=== PATIENT | female | born 1975 | race Caucasian/White ===

== ENCOUNTER 2016-11-20 08:00 | Inpatient (IN) | payer OTHER ==
[~2016-11-20] VITALS: Ht 172.7 cm; Wt 59.9 kg
[~2016-11-20 08:00] MED LIST: ONDA4TAB8 SL; PROM12.59 PO
--- OUTSIDE RECORDS SUMMARY | 2016-11-20 08:06 | XMS REPORT | Continuity of Care Document ---
Author Author [facility] Organization [facility] Address Unknown Phone Unavailable Care Team Providers Care Teacher Drama Name Role Phone NO, LOCAL PHYSICIAN PCP Unavailable Insurance Providers Payer Name Policy Number Subscriber Name Relationship Unknown Advance Directives Directive Response Recorded Date/Time Advance Directives No 11/18/16 8:55am Resuscitation Status Full Code 11/18/16 8:55am Chief Complaint and Reason for Visit Chief Complaint Abdominal/GI Problems Reason for Visit Central abdominal pain Nausea and vomiting Dehydration Hypokalemia Problems Active Problems Medical Problem Onset Date Status Central abdominal pain Unknown Acute Dehydration Unknown Acute Hypokalemia Unknown Acute Nausea and vomiting Unknown Acute Medications Current Home Medications Medication Dose Units Route Directions Days/Qty Instructions Start Date Ondansetron 4 Mg 4 Mg Sublingual Every 4HRS as needed for Nausea/Vomiting 10 11/18/16 Promethazine Hcl 12.5 Mg 12.5 Mg Oral Every 6 Hours as needed for Nausea/ Vomiting 10 11/18/16 Social History Social History Problem Response Recorded Date/Time Alcohol Use Denies Use 11/18/2016 8:55am Recreational Drug Use No 11/18/2016 8:55am Recent Foreign Travel No 11/18/2016 8:52am Recent Infectious Disease Exposure No 11/18/2016 8:52am Smoking Status Never a Smoker 11/18/2016 8:55am Recent Hopitalizations No 11/18/2016 8:55am Query Response Start Date Stop Date Smoking Status Never a Smoker Hospital Discharge Instructions No hospital discharge instructions. Plan of Care Discharge Date 11/18/16 12:50pm Disposition 01 HOME, SELF-CARE Condition at Discharge Improved Instructions/Education Provided Acute Abdomen (Belly Pain), Adult (DC) Prescriptions See Medication Section Referrals NO,LOCAL PHYSICIAN - Primary Care Physician Additional Instructions/Education Drink plenty of clear liquids. You may use Zofran dissolved under the tongue every 4 hours as needed for nausea. Add promethazine for nausea not controlled by Zofran. Turn to the emergency room if symptoms worsen. All up with your primary care provider as soon as possible. Start with a clear liquid diet and gradually advance your diet with small quantities of bland food as tolerated. All discharge instructions reviewed with patient and/or family. Voiced understanding. Functional Status No functional status results. Allergies, Adverse Reactions, Alerts No known allergies. Immunizations No immunization records. Vital Signs Acute Vital Signs Vital Response Date/Time Temperature (Fahrenheit) 97.2 degrees F (97.6 - 99.5) 11/18/2016 8:52am Temperature (Calculated Celsius) 36.53820 degrees C (36.4 - 37.5) 11/18/2016 8:52am Temperature Source Temporal 11/18/2016 8:52am Pulse Rate (adult) 102 bpm (60 - 90) 11/18/2016 8:52am Respiratory Rate 16 bpm (12 - 24) 11/18/2016 8:52am O2 Sat by Pulse Oximetry 98 % (88 - 100) 11/18/2016 8:52am Blood Pressure 107/62 mm Hg 11/18/2016 8:52am Blood Pressure Mean 77 mm Hg 11/18/2016 8:52am Pain Numeric Pain Scale 0-No Pain 11/18/2016 8:52am Height (Feet) 5 feet 11/18/2016 8:52am Height (Inches) 8 inches 11/18/2016 8:52am Height (Calculated Centimeters) 172.789648 cm 11/18/2016 8:52am Weight (Pounds) 132 pounds 11/18/2016 8:52am Weight (Calculated Kilograms) 59.822230 kilograms 11/18/2016 8:52am Capillary Refill Capillary Refill Less Than 3 Seconds 11/18/2016 8:52am Height 5 ft 8 in Weight 132 lb Body Mass Index 20.1 kg/m^2 Results Laboratory Results Test Name Result Units Flags Reference Collection Date/Time Result Date/ Time Comments White Blood Count 8.9 10^3/uL 4.3-11.0 11/18/2016 9:11/18/2016 9: 21am Red Blood Count 5.11 10^6/uL 4.35-5.85 11/18/2016 9:11/18/2016 9: 21am Hemoglobin 13.5 G/DL 11.5-16.0 11/18/2016 9:10a11/18/2016 9:21am Hematocrit 40 % 35-52 11/18/2016 9:10a11/18/2016 9:21am Mean Corpuscular Volume 78 FL L 80-99 11/18/2016 9:10a11/18/2016 9: 21am Mean Corpuscular Hemoglobin 26 PG 25-34 11/18/2016 9:10a11/18/2016 9: 21am Mean Corpuscular Hemoglobin Concent 34 G/DL 32-36 11/18/2016 9:10a 9:21am Red Cell Distribution Width 13.3 % 10.0-14.5 11/18/2016 9:10a2015 9:21am Platelet Count 330 10^3/uL 130-400 11/18/2016 9:11/18/2016 9:21am Mean Platelet Volume 11.9 FL H 7.4-10.4 11/18/2016 9:11/18/2016 9: 21am Neutrophils (%) (Auto) 81 % H 42-75 11/18/2016 9:11/18/2016 9:21am Lymphocytes (%) (Auto) 10 % L 12-44 11/18/2016 9:10a11/18/2016 9:21am Monocytes (%) (Auto) 8 % 0-12 11/18/2016 9:11/18/2016 9:21am Eosinophils (%) (Auto) 2 % 0-10 11/18/2016 9:10a11/18/2016 9:21am Basophils (%) (Auto) 0 % 0-10 11/18/2016 9:10a11/18/2016 9:21am Neutrophils # (Auto) 7.2 X 10^3 1.8-7.8 11/18/2016 9:10a11/18/2016 9: 21am Lymphocytes # (Auto) 0.9 X 10^3 L 1.0-4.0 11/18/2016 9:10am 11/18/2016 9: 21am Monocytes # (Auto) 0.7 X 10^3 0.0-1.0 11/18/2016 9:10am 11/18/2016 9: 21am Eosinophils # (Auto) 0.2 10^3/uL 0.0-0.3 11/18/2016 9:10am 11/18/2016 9 :21am Basophils # (Auto) 0.0 10^3/uL 0.0-0.1 11/18/2016 9:10am 11/18/2016 9: 21am Urine Color YELLOW 11/18/2016 11:56am 11/18/2016 12:11pm Urine Clarity CLEAR 11/18/2016 11:56am 11/18/2016 12:11pm Urine pH 6 5-9 11/18/2016 11:56am 11/18/2016 12:11pm Urine Specific [place] 1.025 * 1.016-1.022 11/18/2016 11:56am 2015 12:11pm Urine Protein 2+ * NEGATIVE 11/18/2016 11:56am 11/18/2016 12:11pm Urine Glucose (UA) NEGATIVE NEGATIVE 11/18/2016 11:56am 11/18/2016 12 :11pm Urine RBC (Auto) 1+ * NEGATIVE 11/18/2016 11:56am 11/18/2016 12:11pm Urine Ketones 4+ * NEGATIVE 11/18/2016 11:56am 11/18/2016 12:11pm Urine Nitrite NEGATIVE NEGATIVE 11/18/2016 11:56am 11/18/2016 12: 11pm Urine Bilirubin NEGATIVE NEGATIVE 11/18/2016 11:56am 11/18/2016 12: 11pm Urine Urobilinogen NORMAL MG/DL NORMAL 11/18/2016 11:56am 11/18/2016 12 :11pm Urine Leukocyte Esterase 1+ * NEGATIVE 11/18/2016 11:56am 11/18/2016 12 :11pm Urine RBC RARE /HPF 11/18/2016 11:56am 11/18/2016 12:11pm Urine WBC RARE /HPF 11/18/2016 11:56am 11/18/2016 12:11pm Urine Bacteria NEGATIVE /HPF 11/18/2016 11:56am 11/18/2016 12:11pm Urine Squamous Epithelial Cells 2-5 /HPF 11/18/2016 11:56am 2015 12:11pm Urine Crystals NONE /LPF 11/18/2016 11:56am 11/18/2016 12:11pm Urine Casts NONE /LPF 11/18/2016 11:56am 11/18/2016 12:11pm Urine Mucus NEGATIVE /LPF 11/18/2016 11:56am 11/18/2016 12:11pm Urine Culture Indicated NO 11/18/2016 11:56am 11/18/2016 12:11pm Sodium Level 140 MMOL/L 135-145 11/18/2016 9:10am 11/18/2016 9:34am Potassium Level 3.3 MMOL/L L 3.6-5.0 11/18/2016 9:10am 11/18/2016 9:34am Chloride Level 100 MMOL/L 98-107 11/18/2016 9:10am 11/18/2016 9:34am Carbon Dioxide Level 23 MMOL/L 21-32 11/18/2016 9:10am 11/18/2016 9: 48am Anion Gap 17 MMOL/L H 5-14 11/18/2016 9:10am 11/18/2016 9:48am Blood Urea Nitrogen 10 MG/DL 7-18 11/18/2016 9:10am 11/18/2016 9:48am Creatinine 1.22 MG/DL 0.60-1.30 11/18/2016 9:10am 11/18/2016 9:48am BUN/Creatinine Ratio 8 11/18/2016 9:10am 11/18/2016 9:48am Estimat Glomerular Filtration Rate 49 11/18/2016 9:10am 11/18/2016 9:48am GFR INTERPRETIVE DATA UNITS FOR ESTIMATED GFR (eGFR): mL/min/1.73 M2 REFERENCE RANGE FOR ESTIMATED GFR (eGFR) eGFR NORMAL eGFR >60 MODERATELY DECREASED eGFR 30-59 SEVERLY DECREASED eGFR 15-29 KIDNEY FAILURE <15 (OR DIALYSIS) Glucose Level 110 MG/DL H 70-105 11/18/2016 9:10am 11/18/2016 9:48am Calcium Level 10.4 MG/DL H 8.5-10.1 11/18/2016 9:10am 11/18/2016 9:34am Magnesium Level 2.1 MG/DL 1.8-2.4 11/18/2016 9:10am 11/18/2016 9:34am Total Bilirubin 0.5 MG/DL 0.1-1.0 11/18/2016 9:10am 11/18/2016 9:34am Alkaline Phosphatase 65 U/L 40-136 11/18/2016 9:10am 11/18/2016 9:48am Aspartate Amino Transf (AST/SGOT) 21 U/L 5-34 11/18/2016 9:10am 2015 9:48am Alanine Aminotransferase (ALT/SGPT) 24 U/L 0-55 11/18/2016 9:10am 11/18 9:48am Total Protein 7.2 G/DL 6.4-8.2 11/18/2016 9:10am 11/18/2016 9:48am Albumin 4.6 G/DL H 3.2-4.5 11/18/2016 9:10am 11/18/2016 9:48am Lipase 44 U/L 8-78 11/18/2016 9:10am 11/18/2016 9:48am Procedures No known history of procedures. Encounters Encounter Location Arrival/Admit Date Discharge/Depart Date Attending Provider Departed Emergency Room [facility] 11/18/16 8:38am 11/18 12:50pm EDVIN HERNADEZ MD Recent Diagnosis
[2016-11-20] MEDS ORDERED: FAMOTIDINE 20MG/2ML IV (PEPCID) IV STA (08:48)
[2016-11-20] MEDS ORDERED: NS IV 1000 ML 1,000 ML IV STA (08:48)
[2016-11-20] MEDS ORDERED: ONDANSETRON 4 MG/2 ML (SDV) Z0FRAN IVP ONE (09:00)
--- NOTE | 2016-11-20 09:10 | ED GI ---
General Chief Complaint: Abdominal/GI Problems Stated Complaint: VOMITING Nursing Triage Note: PT STATES VOMITING OFF AND ON FOR ABOUT 3 1/2 WEEKS, DAILY FOR THE LAST WEEK, WAS SEEN HERE ON FRIDAY OF THIS WEEK FOR THE SAME. RX ZOFRAN DID NOT WORK LAST NIGHT. ALSO HEADACHE. Sepsis Screen: No Definite Risk Source of Information: Patient Exam Limitations: No Limitations History of Present Illness Time Seen By Provider: 08:55 Initial Comments Here with report of vomiting over the last week. Seen a few days ago for the same and had prescriptions and fluids and was better. Last night and vomited again. She tried Zofran and was trying to get sips of fluids today but was unable to keep anything down so presented to the ER again. Mild intermittent abdominal cramping noted. No blood in her vomit or stool. Denies dysuria. Denies fever or chills but does feel weak. She did take Phenergan about 7 a.m. this morning and that is not helping. Timing/Duration: 1 Week, Intermittent Severity/Quality: Moderate, Cramping Location: Generalized Abdomen Radiation: No Radiation Activities at Onset: None Modifying Factors: Worsens With Eating, Improves With Vomiting Associated Symptoms: No Back Pain, No Chest Pain, No Fever/Chills, Fatigue Nausea/VomitingNo Shortness of Air, Weakness Allergies and Home Medications Allergies Coded Allergies: No Known Drug Allergies (Unverified , 11/18/16) Home Medications Ondansetron 4 Mg Tab.rapdis #10 4 MG SL Q4H PRN PRN NAUSEA/VOMITING Prescribed by: EDVIN RECIO on 11/18/16 1234 Promethazine HCl 12.5 Mg Tablet #10 12.5 MG PO Q6H PRN PRN NAUSEA/VOMITING Prescribed by: EDVIN RECIO on 11/18/16 1234 Review of Systems Constitutional: see HPINo chills, No fever EENTM: No Symptoms Reported Respiratory: No Symptoms Reported Cardiovascular: No Symptoms Reported Gastrointestinal: See HPI Abdominal PainDenies Diarrhea, Nausea Vomiting Genitourinary: No Symptoms Reported Musculoskeletal: no symptoms reported All Other Systems Reviewed Negative Unless Noted: Yes Past Jrlstpf-Eialed-Gnuwiu Hx Patient Social History Alcohol Use: Rarely Uses Recreational Drug Use: No Smoking Status: Never a Smoker Recent Foreign Travel: No Contact w/Someone Who Travel: No Recent Infectious Disease Expo: No Recent Hopitalizations: No Physical Abuse Screen: No Sexual Abuse: No Seasonal Allergies Seasonal Allergies: No Surgeries HX Surgeries: No Respiratory Hx Respiratory Disorders: No Cardiovascular Hx Cardiac Disorders: No Neurological Hx Neurological Disorders: No Reproductive System : No Hx Reproductive Disorders: No Genitourinary Hx Genitourinary Disorders: No Gastrointestinal Hx Gastrointestinal Disorders: No Musculoskeletal Hx Musculoskeletal Disorders: No Endocrine Hx Endocrine Disorders: No HEENT HX ENT Disorders: No Cancer Hx Cancer: No Psychosocial Hx Psychiatric Problems: No Integumentary HX Skin/Integumentary Disorder: No Blood Transfusions Hx Blood Disorders: No Reviewed Nursing Assessment Reviewed/Agree w Nursing PMH: Yes Family Medical History Significant Family History: No Pertinent Family Hx Physical Exam Vital Signs VS - Last 72 Hours, by Label 11/20/16 08:37 Temp 98.5 Pulse 99 Resp 22 B/P 107/89 Pulse Ox 99 O2 Delivery Room Air Capillary Refill : Less Than 3 Seconds General Appearance: WD/WN no apparent distress HEENT: PERRL/EOMI pharynx normal Neck: full range of motion supple Respiratory: lungs clear normal breath sounds Cardiovascular: no murmur tachycardia Peripheral Pulses: 2+ Dorsalis Pedis (R), 2+ Left Dors-Pedis (L), 2+ Radial Pulses (R), 2+ Radial Pulses (L) Gastrointestinal: non tender soft Extremities: non-tender normal inspection Back: normal inspection no CVA tenderness no vertebral tenderness Neurologic/Psychiatric: alert Skin: warm/dry pallor Progress/Results/Core Measures Results/Orders Lab Results Laboratory Tests Test 11/20/16 09:05 11/20/16 09:55 Range/Units Alanine Aminotransferase (ALT/SGPT) 20 0-55 U/L Albumin 4.7 H 3.2-4.5 G/DL Alkaline Phosphatase 69 40-136 U/L Anion Gap 17 H 5-14 MMOL/L Anisocytosis SLIGHT Aspartate Amino Transf (AST/SGOT) 20 5-34 U/L BUN/Creatinine Ratio 7 Band Neutrophils 0 % Basophils # (Auto) 0.0 0.0-0.1 10^3/uL Basophils % (Manual) 0 % Basophils (%) (Auto) 0 0-10 % Blood Urea Nitrogen 8 7-18 MG/DL C-Reactive Protein High Sensitivity 0.16 0.00-0.50 MG/DL Calcium Level 9.5 8.5-10.1 MG/DL Carbon Dioxide Level 22 21-32 MMOL/L Chloride Level 99 98-107 MMOL/L Creatinine 1.16 0.60-1.30 MG/DL Eosinophils # (Auto) 0.1 0.0-0.3 10^3/uL Eosinophils % (Manual) 1 % Eosinophils (%) (Auto) 1 0-10 % Estimat Glomerular Filtration Rate 51 Glucose Level 82 70-105 MG/DL Hematocrit 40 35-52 % Hemoglobin 13.4 11.5-16.0 G/DL Human Chorionic Gonadotropin, Quant < 5 <5 MIU/ML Lymphocytes # (Auto) 0.8 L 1.0-4.0 X 10^3 Lymphocytes % (Manual) 10 % Lymphocytes (%) (Auto) 7 L 12-44 % Magnesium Level 2.3 1.8-2.4 MG/DL Mean Corpuscular Hemoglobin 26 25-34 PG Mean Corpuscular Hemoglobin Concent 34 32-36 G/DL Mean Corpuscular Volume 78 L 80-99 FL Mean Platelet Volume 11.9 H 7.4-10.4 FL Metamyelocytes % 0 % Microcytosis SLIGHT Monocytes # (Auto) 0.8 0.0-1.0 X 10^3 Monocytes % (Manual) 3 % Monocytes (%) (Auto) 7 0-12 % Neutrophils # (Auto) 9.1 H 1.8-7.8 X 10^3 Neutrophils % (Manual) 86 % Neutrophils (%) (Auto) 84 H 42-75 % Platelet Count 306 130-400 10^3/uL Poikilocytosis SLIGHT Potassium Level 3.5 L 3.6-5.0 MMOL/L Red Blood Count 5.10 4.35-5.85 10^6/uL Red Cell Distribution Width 13.3 10.0-14.5 % Sodium Level 138 135-145 MMOL/L Total Bilirubin 0.5 0.1-1.0 MG/DL Total Protein 7.3 6.4-8.2 G/DL White Blood Count 10.8 4.3-11.0 10^3/uL Urine Bacteria FEW H /HPF Urine Bilirubin 2+ H NEGATIVE Urine Casts NONE /LPF Urine Clarity CLEAR Urine Color YELLOW Urine Crystals NONE /LPF Urine Culture Indicated NO Urine Glucose (UA) NEGATIVE NEGATIVE Urine Ketones 4+ H NEGATIVE Urine Leukocyte Esterase 1+ H NEGATIVE Urine Mucus SMALL H /LPF Urine Nitrite NEGATIVE NEGATIVE Urine Protein 1+ H NEGATIVE Urine RBC 0-2 /HPF Urine RBC (Auto) 1+ H NEGATIVE Urine Specific [place] 1.025 H 1.016-1.022 Urine Squamous Epithelial Cells >50 H /HPF Urine Urobilinogen 1 NORMAL MG/DL Urine WBC 0-2 /HPF Urine pH 5 5-9 My Orders Orders-RAJESH OLIVEIRA MD Cbc With Automated Diff (11/20/16 08:48) Comprehensive Metabolic Panel (11/20/16 08:48) Hs C Reactive Protein (11/20/16 08:48) Magnesium (11/20/16 08:48) Ua Culture If Indicated (11/20/16 08:48) Ondansetron Injection (Zofran Injectio (11/20/16 09:00) Ns Iv 1000 Ml (Sodium Chloride 0.9%) (11/20/16 08:48) Famotidine Injection (Pepcid Injection) (11/20/16 08:48) Saline Lock/Iv-Start (11/20/16 08:48) Manual Differential (11/20/16 09:05) D5 Ns 1000 Ml Iv Solution (Dextrose 5%/0 (11/20/16 09:53) Hcg,Quantitative (11/20/16 10:16) Medications Given in ED Current Medications Medications Dose Ordered Sig/Cabrera Route Start Time Stop Time Status Last Admin Dose Admin Ondansetron HCl 4 mg ONCE ONCE IVP 11/20/16 09:00 11/20/16 09:01 DC 11/20/16 09:13 4 MG Vital Signs/I&O Vital Sign - Last 12Hours 11/20/16 08:37 Temp 98.5 Pulse 99 Resp 22 B/P 107/89 Pulse Ox 99 O2 Delivery Room Air Blood Pressure Mean: 95 Progress Note : Progress Note Seen and evaluated. IV, labs and UA ordered. Normal saline 1 L bolus. Zofran 4 mg IV and Pepcid 20 mg IV ordered. Monitor patient. I did review previous visit and labs. Repeat fluids bolus with D5NS. Patient remains nauseated. Phenergan 25 mg IV. Patient is still nauseated. I did discuss the case with Dr. MEYERS at 1200. He accepts patient for admission, observation status. Patient and family agree with plan. Departure Communication Time/Spoke to Admitting Phy: 12:00 Impression Impression: Primary Impression: Intractable nausea and vomiting Qualified Code: R11.2 - Nausea with vomiting, unspecified Additional Impression: Dehydration Disposition: ADMITTED INPATIENT Condition: Stable Decision to Admit Reason: Admit from ER (General) Decision to Admit/Date: Nov 20, 2016 Time/Decision to Admit Time: 12:00 Departure-Patient Inst. Referrals: NO,LOCAL PHYSICIAN (PCP/Family) Primary Care Physician RAJESH OLIVEIRA MD Nov 20, 2016 09:10
[2016-11-20 09:17] LABS: BASOPHILS % (AUTO) 0 % (0-10); EOSINOPHILS # (AUTO) 0.1 10^3/uL (0.0-0.3); EOSINOPHILS % (AUTO) 1 % (0-10); LYMPHOCYTES # (AUTO) 0.8 X 10^3 (1.0-4.0); LYMPHOCYTES % (AUTO) 7 % (12-44); MEAN CORPUSCULAR HEMOGLOBIN 26 PG (25-34); MEAN CORPUSCULAR HGB CONC 34 G/DL (32-36); MEAN CORPUSCULAR VOLUME 78 FL (80-99); MEAN PLATELET VOLUME 11.9 FL (7.4-10.4); MONOCYTES # (AUTO) 0.8 X 10^3 (0.0-1.0); MONOCYTES % (AUTO) 7 % (0-12); NEUTROPHILS # (AUTO) 9.1 X 10^3 (1.8-7.8); NEUTROPHILS % (AUTO) 84 % (42-75); PLATELET COUNT 306 10^3/uL (130-400); RED CELL DISTRIBUTION WIDTH 13.3 % (10.0-14.5); WHITE BLOOD COUNT 10.8 10^3/uL (4.3-11.0)
[2016-11-20 09:34] LABS: ALBUMIN 4.7 G/DL (3.2-4.5); BILIRUBIN,TOTAL 0.5 MG/DL (0.1-1.0); CALCIUM 9.5 MG/DL (8.5-10.1); CREATININE SERUM 1.16 MG/DL (0.60-1.30); MAGNESIUM 2.3 MG/DL (1.8-2.4); POTASSIUM 3.5 MMOL/L (3.6-5.0); TOTAL PROTEIN 7.3 G/DL (6.4-8.2); hs C REACTIVE PROTEIN 0.16 MG/DL (0.00-0.50)
[2016-11-20 09:39] LABS: ANISOCYTOSIS SLIGHT; BAND NEUTROPHILS 0 %; BASOPHILS % (MANUAL) 0 %; EOSINOPHILS % (MANUAL) 1 %; LYMPHOCYTES % (MANUAL) 10 %; METAMYELOCYTES % 0 %; MICROCYTOSIS SLIGHT; NEUTROPHILS % (MANUAL) 86 %; POIKILOCYTOSIS SLIGHT
[2016-11-20] MEDS ORDERED: D5 NS 1000 ML IV SOLUTION 1,000 ML IV STA (09:53)
[2016-11-20 10:06] LABS: KETONES,URINE 4+ (NEGATIVE); LEUKOCYTE ESTERASE ,URINE 1+ (NEGATIVE); NITRITE,URINE NEGATIVE (NEGATIVE); PH,URINE 5 (5-9); PROTEIN,URINE 1+ (NEGATIVE); UROBILINOGEN,URINE 1 MG/DL (NORMAL)
[2016-11-20 10:23] LABS: BILIRUBIN,URINE 2+ (NEGATIVE); SQUAMOUS EPITHELIAL CELL,UR >50 /HPF; WBC,URINE 0-2 /HPF
[2016-11-20] MEDS ORDERED: PROMETHAZINE INJ 25 MG/ML (PHENERGAN) AMP IVP STA (12:06)
[2016-11-20] MEDS ORDERED: PROMETHAZINE INJ 25 MG/ML (PHENERGAN) AMP IV PRN (13:15)
[2016-11-20] MEDS ORDERED: CATHETER FLUSH 10 ML SYR IV PRN (13:15)
[2016-11-20] MEDS: NS IV 1000 ML 1,000 ML IV SCH ×3 (13:22→21:00)
[2016-11-20] MEDS ORDERED: ONDA4TAB8 PO (13:48)
[2016-11-20] MEDS ORDERED: PROM12.59 PO (13:48)
[2016-11-20 16:00] VITALS: BP 94/58
[2016-11-20] MEDS ORDERED: FLU TRIvalent (5 YOA+) 2016-17 (AFLURIA) 0.5 ML IM ONE (16:30)
[2016-11-20] MEDS: ONDANSETRON 4 MG/2 ML (SDV) Z0FRAN IV PRN (17:38)
[2016-11-20 20:00] VITALS: BP 85/51
[2016-11-21 00:15] VITALS: BP 89/54
[2016-11-21] MEDS: NS IV 1000 ML 1,000 ML IV SCH ×3 (01:38→18:33)
[2016-11-21 04:00] VITALS: BP 96/50
[2016-11-21 06:55] LABS: BASOPHILS % (AUTO) 0 % (0-10); EOSINOPHILS # (AUTO) 0.2 10^3/uL (0.0-0.3); EOSINOPHILS % (AUTO) 2 % (0-10); LYMPHOCYTES % (AUTO) 14 % (12-44); MEAN CORPUSCULAR HEMOGLOBIN 26 PG (25-34); MEAN CORPUSCULAR HGB CONC 32 G/DL (32-36); MEAN CORPUSCULAR VOLUME 81 FL (80-99); MONOCYTES # (AUTO) 0.5 X 10^3 (0.0-1.0); MONOCYTES % (AUTO) 7 % (0-12); NEUTROPHILS # (AUTO) 5.5 X 10^3 (1.8-7.8); NEUTROPHILS % (AUTO) 76 % (42-75); PLATELET COUNT 222 10^3/uL (130-400); RED BLOOD COUNT 4.12 10^6/uL (4.35-5.85); RED CELL DISTRIBUTION WIDTH 13.3 % (10.0-14.5); WHITE BLOOD COUNT 7.2 10^3/uL (4.3-11.0)
[2016-11-21 07:29] LABS: ALANINE AMINOTRANSFERASE 13 U/L (0-55); ALBUMIN 3.2 G/DL (3.2-4.5); ANION GAP 9 MMOL/L (5-14); ASPARTATE AMINO TRANSFERASE 14 U/L (5-34); BILIRUBIN,TOTAL 0.3 MG/DL (0.1-1.0); BLOOD UREA NITROGEN 8 MG/DL (7-18); BUN/CREATININE RATIO 10; CALCIUM 7.5 MG/DL (8.5-10.1); CARBON DIOXIDE 20 MMOL/L (21-32); CHLORIDE 111 MMOL/L (98-107); CREATININE SERUM 0.81 MG/DL (0.60-1.30); GFR ESTIMATED > 60; GLUCOSE 64 MG/DL (70-105); SODIUM 140 MMOL/L (135-145); TOTAL PROTEIN 5.1 G/DL (6.4-8.2)
[2016-11-21 08:00] VITALS: BP 92/51
[2016-11-21] MEDS ORDERED: MAGNESIUM 1 GM/100 ML IVPB 100 ML IV NR (09:15)
[2016-11-21] MEDS: SCOPOLAMINE 1.5 MG (TRANSDERM-SCOP) PATCH TOP SCH (10:09)
--- NOTE | 2016-11-21 10:46 | History & Physical-Hospitalist ---
HPI History of Present Illness: HPI/Chief Complaint CC: Abdominal pain with recurrent N/V with 8# wt loss in past 1 month Chart Review: Hgb: 10.8 WBC: 7.2 Dr. Marti Consult: Dr. Durbin requests that Dr. Marti assist with pt care. Dr. Marti will come on board. Patient Interview: Pt states that she woke up thirsty, and after drinking water her nausea returned. Pt denies having PCP. Pt denies having any previous operations. Pt denies having fever prior to admission. 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 Pt's in April of lung cancer. was 50yo. Pt denies smoking or drinking excessive ETOH. Pt states that she had abdominal pain in the middle of her abdomen this morning. Pain lasted a few minutes. Physical exam was stable. Pt states that she had a small BM yesterday. Pt states that she had an x-ray at [facility] in [place] two weeks ago. Pt states that she has had persistent nausea and stomach pain for the past month , and symptoms have become severe this past week. Pt has lost around 5lbs. Pt states that she has not eaten much this week. Pt had some water within the past hour. Pt denies having CT scan or ultrasound. Pt still has gallbladder. Scribed by Oliver Noguera under the direct supervision of Dr. Durbin. 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 ) Alcohol Use: Rarely Uses Recreational Drug Use: No Smoking Status: Never a Smoker Physical Abuse Screen: No Sexual Abuse: No Recent Foreign Travel: No Contact w/other who traveled: No Recent Hopitalizations: No Recent Infectious Disease Expo: No Seasonal Allergies Seasonal Allergies: No Surgeries HX Surgeries: No Respiratory Hx Respiratory Disorders: No Cardiovascular Hx Cardiovascular Disorders: No Neurological Hx Neurological Disorders: No Reproductive System : No Hx Reproductive Disorders: No Genitourinary Hx Genitourinary Disorders: No Gastrointestinal Hx Gastrointestinal Disorders: No Musculoskeletal Hx Musculoskeletal Disorders: No Endocrine Hx Endocrine Disorders: No HEENT HX ENT Disorders: No Cancer Hx Cancer: No (leep procedure 8-9yrs ago- normal) Psychosocial Hx Psychiatric Problems: No Integumentary HX Skin/Integumentary Disorder: No Blood Transfusions Hx Blood Disorders: No Reviewed Nursing Assessment Reviewed/Agree w Nursing PMH: Yes Family Medical History Significant Family History: No Pertinent Family Hx Family Hx: Anxiety disorder G8 SISTER Asthma G8 BROTHER Review of Systems Constitutional: see HPI dizziness weakness EENTM: no symptoms reported Respiratory: no symptoms reported Cardiovascular: no symptoms reported Gastrointestinal: abdominal pain (LUQ) loss of appetite nausea vomiting Genitourinary: decreased output Musculoskeletal: no symptoms reported Skin: no symptoms reported Psychiatric/Neurological: No Symptoms Reported All Other Systems Reviewed Negative Unless Noted: Yes Physical Exam Physical Exam Vital Signs Vital Sign - Last 12Hours 11/20/16 08:37 Temp 98.5 Pulse 99 Resp 22 B/P 107/89 Pulse Ox 99 O2 Delivery Room Air Capillary Refill : Less Than 3 Seconds General Appearance: No Apparent Distress WD/WN Chronically ill Thin Eyes: Bilateral Eye Normal Inspection, Bilateral Eye PERRL HEENT: PERRL/EOMI Normal ENT Inspection Pharynx Normal Neck: Full Range of Motion Normal Inspection Non Tender Supple Carotid Bruit Respiratory: Chest Non Tender Lungs Clear Normal Breath Sounds No Accessory Muscle Use No Respiratory Distress Cardiovascular: Regular Rate, Rhythm No Edema No Gallop No JVD No Murmur Normal Peripheral Pulses Gastrointestinal: Normal Bowel Sounds No Organomegaly No Pulsatile Mass Soft Tenderness (mild generalized) Back: Normal Inspection No CVA Tenderness No Vertebral Tenderness Extremity: Normal Capillary Refill Normal Inspection Normal Range of Motion Non Tender No Calf Tenderness No Pedal Edema Neurologic/Psychiatric: Alert Oriented x3 No Motor/Sensory Deficits Normal Mood/Affect Skin: Normal Color Warm/Dry Lymphatic: No Adenopathy Results Results/Procedures Lab Laboratory Tests 11/20/16 09:05 11/21/16 06:13 Assessment/Plan Admission Diagnosis Abdominal pain with recurrent N/V w/nl labs and 8# wt loss in past 1 month Assessment and Plan Plan: Nausea meds Scope patch Zofran Phenergan IVF Replace K+ and Mg+ IV Check CT and ultrasound Consult Dr. Marti Clinical Quality Measures DVT/VTE Risk/Contraindication: Risk Factor Score Per Nursin RFS Level Per Nursing on Admit: 1=Low/No VTE PPX CHANEL DURBIN DO Nov 21, 2016 10:46
[2016-11-21] MEDS: POTASSIUM CL 10MEQ/50ML IVPB 50 ML IV SCH ×4 (11:13→18:32)
--- NOTE | 2016-11-21 11:14 | Consultation ---
History of Present Illness History of Present Illness Patient Consulted On(viviana/time) 11/21/16 11:08 Date of Admission History of Present Illness This is a 41-year-old female patient who reports that she has had nausea and vomiting 1 month. Patient reports that doesn't matter what she eats, she ends up throwing up. Patient states that the last 1 week it has gotten worse. She states that she was in the emergency room twice to chair and intractable nausea and vomiting. She reports she's been trying to keep herself hydrated with no success She complains of sharp pain to her epigastric area with palpation. Patient is alert and oriented 3. No signs of distress or respiratory dysfunction is noted. Abdomen is soft to palpation. Patient complaining of pain to palpation over the epigastric area. Allergies and Home Medications Allergies Coded Allergies: No Known Drug Allergies (Unverified , 11/18/16) Home Medications Ondansetron 4 Mg Tab.rapdis 4 MG PO Q4H PRN PRN NAUSEA/VOMITING (Reported) Promethazine HCl 12.5 Mg Tablet 12.5 MG PO Q6H PRN PRN NAUSEA/VOMITING (Reported ) Past Mykkwvj-Hjnqog-Hsptra Hx Patient Social History Alcohol Use: Rarely Uses Recreational Drug Use: No Smoking Status: Never a Smoker Recent Foreign Travel: No Contact w/Someone Who Travel: No Recent Infectious Disease Expo: No Recent Hopitalizations: No Physical Abuse Screen: No Sexual Abuse: No Seasonal Allergies Seasonal Allergies: No Surgeries HX Surgeries: No Respiratory Hx Respiratory Disorders: No Cardiovascular Hx Cardiac Disorders: No Reproductive System : No Hx Reproductive Disorders: No Genitourinary Hx Genitourinary Disorders: No Gastrointestinal Hx Gastrointestinal Disorders: No Musculoskeletal Hx Musculoskeletal Disorders: No Endocrine Hx Endocrine Disorders: No HEENT HX ENT Disorders: No Cancer Hx Cancer: No (leep procedure 8-9yrs ago- normal) Psychosocial Hx Psychiatric Problems: No Integumentary HX Skin/Integumentary Disorder: No Blood Transfusions Hx Blood Disorders: No Reviewed Nursing Assessment Reviewed/Agree w Nursing PMH: Yes Family Medical History Significant Family History: No Pertinent Family Hx Family Medial History: Anxiety disorder G8 SISTER Asthma G8 BROTHER Review of Systems-General Constitutional: see HPI weight loss (5 lbs) EENTM: no symptoms reported Respiratory: no symptoms reported Cardiovascular: no symptoms reported Gastrointestinal: abdominal pain nausea vomiting Genitourinary: no symptoms reported Musculoskeletal: no symptoms reported Skin: no symptoms reported Psychiatric/Neurological: No Symptoms Reported Physical Exam-General Problems Physical Exam Vital Signs Vital Sign - Last 12Hours 11/20/16 08:37 Temp 98.5 Pulse 99 Resp 22 B/P 107/89 Pulse Ox 99 O2 Delivery Room Air Capillary Refill : Less Than 3 Seconds General Appearance: no apparent distress Neck: supple normal inspection Respiratory: normal breath sounds no respiratory distress no accessory muscle use Cardiovascular: regular rate, rhythm Gastrointestinal: normal bowel sounds soft no organomegaly tenderness ( epigastric area) Extremities: no pedal edema Neurologic/Psychiatric: alert normal mood/affect oriented x 3 Skin: normal color warm/dry Data Review Labs Laboratory Tests Test 11/20/16 09:05 11/20/16 09:55 11/21/16 06:13 Range/Units Alanine Aminotransferase (ALT/SGPT) 20 13 0-55 U/L Albumin 4.7 H 3.2 3.2-4.5 G/DL Alkaline Phosphatase 69 47 40-136 U/L Anion Gap 17 H 9 5-14 MMOL/L Anisocytosis SLIGHT Aspartate Amino Transf (AST/SGOT) 20 14 5-34 U/L BUN/Creatinine Ratio 7 10 Band Neutrophils 0 % Basophils # (Auto) 0.0 0.0 0.0-0.1 10^3/uL Basophils % (Manual) 0 % Basophils (%) (Auto) 0 0 0-10 % Blood Urea Nitrogen 8 8 7-18 MG/DL C-Reactive Protein High Sensitivity 0.16 0.00-0.50 MG/DL Calcium Level 9.5 7.5 L 8.5-10.1 MG/DL Carbon Dioxide Level 22 20 L 21-32 MMOL/L Chloride Level 99 111 H 98-107 MMOL/L Creatinine 1.16 0.81 0.60-1.30 MG/DL Eosinophils # (Auto) 0.1 0.2 0.0-0.3 10^3/uL Eosinophils % (Manual) 1 % Eosinophils (%) (Auto) 1 2 0-10 % Estimat Glomerular Filtration Rate 51 > 60 Glucose Level 82 64 L 70-105 MG/DL Hematocrit 40 33 L 35-52 % Hemoglobin 13.4 10.8 L 11.5-16.0 G/DL Human Chorionic Gonadotropin, Quant < 5 <5 MIU/ML Lymphocytes # (Auto) 0.8 L 1.0 1.0-4.0 X 10^3 Lymphocytes % (Manual) 10 % Lymphocytes (%) (Auto) 7 L 14 12-44 % Magnesium Level 2.3 1.8-2.4 MG/DL Mean Corpuscular Hemoglobin 26 26 25-34 PG Mean Corpuscular Hemoglobin Concent 34 32 32-36 G/DL Mean Corpuscular Volume 78 L 81 80-99 FL Mean Platelet Volume 11.9 H 12.0 H 7.4-10.4 FL Metamyelocytes % 0 % Microcytosis SLIGHT Monocytes # (Auto) 0.8 0.5 0.0-1.0 X 10^3 Monocytes % (Manual) 3 % Monocytes (%) (Auto) 7 7 0-12 % Neutrophils # (Auto) 9.1 H 5.5 1.8-7.8 X 10^3 Neutrophils % (Manual) 86 % Neutrophils (%) (Auto) 84 H 76 H 42-75 % Platelet Count 306 222 130-400 10^3/uL Poikilocytosis SLIGHT Potassium Level 3.5 L 3.0 L 3.6-5.0 MMOL/L Red Blood Count 5.10 4.12 L 4.35-5.85 10^6/uL Red Cell Distribution Width 13.3 13.3 10.0-14.5 % Sodium Level 138 140 135-145 MMOL/L Total Bilirubin 0.5 0.3 0.1-1.0 MG/DL Total Protein 7.3 5.1 L 6.4-8.2 G/DL White Blood Count 10.8 7.2 4.3-11.0 10^3/uL Urine Bacteria FEW H /HPF Urine Bilirubin 2+ H NEGATIVE Urine Casts NONE /LPF Urine Clarity CLEAR Urine Color YELLOW Urine Crystals NONE /LPF Urine Culture Indicated NO Urine Glucose (UA) NEGATIVE NEGATIVE Urine Ketones 4+ H NEGATIVE Urine Leukocyte Esterase 1+ H NEGATIVE Urine Mucus SMALL H /LPF Urine Nitrite NEGATIVE NEGATIVE Urine Protein 1+ H NEGATIVE Urine RBC 0-2 /HPF Urine RBC (Auto) 1+ H NEGATIVE Urine Specific [place] 1.025 H 1.016-1.022 Urine Squamous Epithelial Cells >50 H /HPF Urine Urobilinogen 1 NORMAL MG/DL Urine WBC 0-2 /HPF Urine pH 5 5-9 Laboratory Tests 11/21/16 06:13: Alanine Aminotransferase (ALT/SGPT) 13, Albumin 3.2, Alkaline Phosphatase 47, Anion Gap 9, Aspartate Amino Transf (AST/SGOT) 14, BUN/Creatinine Ratio 10, Basophils # (Auto) 0.0, Basophils (%) (Auto) 0, Blood Urea Nitrogen 8, Calcium Level 7.5L, Carbon Dioxide Level 20L, Chloride Level 111H, Creatinine 0.81, Eosinophils # (Auto) 0.2, Eosinophils (%) (Auto) 2, Estimat Glomerular Filtration Rate > 60, Glucose Level 64L, Hematocrit 33L, Hemoglobin 10.8L, Lymphocytes # (Auto) 1.0, Lymphocytes (%) (Auto) 14, Mean Corpuscular Hemoglobin 26, Mean Corpuscular Hemoglobin Concent 32, Mean Corpuscular Volume 81, Mean Platelet Volume 12.0H, Monocytes # (Auto) 0.5, Monocytes (%) (Auto) 7, Neutrophils # (Auto) 5.5, Neutrophils (%) (Auto) 76H, Platelet Count 222, Potassium Level 3.0L, Red Blood Count 4.12L, Red Cell Distribution Width 13.3, Sodium Level 140, Total Bilirubin 0.3, Total Protein 5.1L, White Blood Count 7.2 Assessment/Plan Assessment/Plan Assessment/Plan Intractable nausea and vomiting-Being addressed by hospitalist Epigastric pain CT of the abdomen and pelvis has been ordered. Patient is currently undergoing testing of the gallbladder via ultrasound. Awaiting results. We will continue to monitor patient. Kaia- Patient is a 41 year old female that has had 1 month of nausea and vomiting. She states she was initially vomiting 1-2 times per day and now more frequently. Patient has some pain in the epigastric region and sometimes in the middle of abdomen, no radiation. Nothing makes worse, nothing makes better. Pain is cramping in nature. Denies any blood in emesis. She is having some flatus and bowel movements not noticed any blood in stools. She had a ct scan which i reviewed that shows an obstruction of proximal jejunum appears to be secondary to mass. I discussed with Dr. Corado and to further evaluated we fill would benefit from ct scan with oral contrast. general no acute distress laying in bed heart regular lungs nonlabored. abdomen soft has some minimal tenderness in middle of abomen/epigastric region ext nontender normal mood affect alert and oriented. proximal jejunal small bowel obstruction nausea and vomiting electrolyte abnormalities discussed with patient ct scan findings. dr corado and I feel ct scan with oral contrast to better evaluate this area feel this is likely small bowel mass. patient will have ng tube placed to decompress and have ct scan with Gastrografin in am. I discussed possibility of needing exploratory laparotomy depending upon ct results. patient understand plan type and screen added to am labs Clinical Quality Measures DVT/VTE Risk/Contraindication: Risk Factor Score Per Nursin RFS Level Per Nursing on Admit: 1=Low/No VTE PPX DOM BEYER APRN Nov 21, 2016 11:14 KUSHAL BOWMAN DO Nov 21, 2016 15:09
[2016-11-21] MEDS ORDERED: NS 100 ML (IVPB) BAG IV ONE (11:30)
[2016-11-21] MEDS ORDERED: IOHEXOL 350 MG/ML 100 ML (OMNIPAQUE 350) VIAL IV ONE (11:30)
[2016-11-21 12:00] VITALS: BP 98/52
--- NOTE | 2016-11-21 12:41 | Diagnostic Imaging Report ---
PROCEDURE: CT abdomen and pelvis with contrast. TECHNIQUE: Multiple contiguous axial images were obtained through the abdomen and pelvis after administration of intravenous contrast. INDICATION: Abdominal pain and vomiting. 100 mL of Omnipaque 350 is administered intravenously. FINDINGS: The lung bases appear clear. The liver, the gallbladder, the spleen, the adrenals, and the pancreas appear unremarkable. The kidneys have symmetric enhancement and excretion. There is no hydronephrosis. There is moderate dilatation of the stomach and proximal small bowel. In the lower left abdomen, there is a transition point to nonobstructed small bowel loops with a hypodense lesion seen at the site of stricture measuring 2.5 x 1.1 x 1.9 cm in dimension concerning for an underlying soft tissue mass which may relate to an underlying neoplasm. There are multiple mildly enlarged mesenteric lymph nodes seen. The appendix and the TI appear unremarkable. Some distal ileal loops demonstrate nonspecific prominent mucosal enhancement and fluid distention. The uterus appears lobulated, likely secondary to a fundal fibroid, about 3.7 cm in size, and there is a right ovarian cyst measuring 3.3 cm. The abdominal aorta is normal in caliber. The there are from mildly enlarged the para-aortic and retrocaval lymph nodes up to 1.2 CM in short axis. The osseous structures appear grossly unremarkable. IMPRESSION: 1. There is a high-grade proximal partial jejunal obstruction with a focal hypodense lesion seen at the transition point concerning for an underlying mass. Underlying small bowel neoplasm is suspected, or less likely, inflammatory focal stricture such as atypical presentation of Crohn's disease. 2. Multiple mildly enlarged mesenteric and retroperitoneal lymph nodes are seen. The findings were discussed with Dr. Marti by Dr. Corado at time of dictation. Dictated by: Dictated on workstation # [id number]
--- NOTE | 2016-11-21 15:48 | Diagnostic Imaging Report ---
PROCEDURE: US abdomen complete. TECHNIQUE: Multiple real-time grayscale images were obtained over the abdomen in various projections. INDICATION: Abdominal pain. FINDINGS: The pancreas is unremarkable. The liver demonstrates no focal mass. There is hepatopetal flow in the portal vein. The CBD is 3 mm in caliber. The gallbladder is slightly contracted with no stones or wall thickening seen. No pericholecystic fluid. Sonographic Prasad's sign is reportedly negative. The visualized portions of the aorta are normal in caliber. The IVC is largely obscured by bowel gas. The spleen is 11.5 cm in length with no hydronephrosis or focal lesion. The right kidney is 10.2 and the left kidney is 10 cm. No hydronephrosis. IMPRESSION: The gallbladder is contracted with no evidence of stones or cholecystitis otherwise. Dictated by: Dictated on workstation # [id number]
[2016-11-21 16:00] VITALS: BP 90/55
[2016-11-21 20:00] VITALS: BP 86/47
[2016-11-22] VITALS (7 sets, daily range): BP systolic 90–106; BP diastolic 53–72
[2016-11-22] MEDS: NS IV 1000 ML 1,000 ML IV SCH (00:52)
[2016-11-22 05:20] LABS: BASOPHILS % (AUTO) 0 % (0-10); EOSINOPHILS # (AUTO) 0.1 10^3/uL (0.0-0.3); EOSINOPHILS % (AUTO) 2 % (0-10); LYMPHOCYTES # (AUTO) 0.9 X 10^3 (1.0-4.0); LYMPHOCYTES % (AUTO) 10 % (12-44); MEAN CORPUSCULAR HEMOGLOBIN 26 PG (25-34); MEAN CORPUSCULAR HGB CONC 32 G/DL (32-36); MEAN CORPUSCULAR VOLUME 81 FL (80-99); MEAN PLATELET VOLUME 12.4 FL (7.4-10.4); MONOCYTES # (AUTO) 0.6 X 10^3 (0.0-1.0); MONOCYTES % (AUTO) 7 % (0-12); NEUTROPHILS # (AUTO) 7.1 X 10^3 (1.8-7.8); NEUTROPHILS % (AUTO) 82 % (42-75); PLATELET COUNT 235 10^3/uL (130-400); RED BLOOD COUNT 4.12 10^6/uL (4.35-5.85); RED CELL DISTRIBUTION WIDTH 13.4 % (10.0-14.5); WHITE BLOOD COUNT 8.7 10^3/uL (4.3-11.0)
[2016-11-22 05:42] LABS: ALANINE AMINOTRANSFERASE 14 U/L (0-55); ALBUMIN 3.6 G/DL (3.2-4.5); ANION GAP 13 MMOL/L (5-14); ASPARTATE AMINO TRANSFERASE 15 U/L (5-34); BILIRUBIN,TOTAL 0.4 MG/DL (0.1-1.0); BLOOD UREA NITROGEN 4 MG/DL (7-18); BUN/CREATININE RATIO 5; CALCIUM 7.7 MG/DL (8.5-10.1); CARBON DIOXIDE 12 MMOL/L (21-32); CHLORIDE 112 MMOL/L (98-107); CREATININE SERUM 0.75 MG/DL (0.60-1.30); GFR ESTIMATED > 60; SODIUM 137 MMOL/L (135-145); TOTAL PROTEIN 5.4 G/DL (6.4-8.2)
[2016-11-22] MEDS ORDERED: DEXTROSE 50% 50 ML (IMS) SYR ONE (05:44)
[2016-11-22 05:49] LABS: GLUCOSE 42 MG/DL (70-105)
[2016-11-22] MEDS ORDERED: DEXTROSE 10% IV SOLUTION 1,000 ML IV PRN (06:15)
[2016-11-22] MEDS ORDERED: GLUCAGON EMERGENCY 1 MG/KIT IM PRN (06:15)
[2016-11-22] MEDS ORDERED: DEXTROSE 50% 50 ML (IMS) SYR IV PRN (06:15)
[2016-11-22] MEDS ORDERED: D5 NS 1000 ML IV SOLUTION 1,000 ML IV ONE (06:23)
[2016-11-22] MEDS: D5 NS 1000 ML IV SOLUTION 1,000 ML IV SCH ×4 (06:32→22:15)
--- NOTE | 2016-11-22 08:28 | Diagnostic Imaging Report ---
PROCEDURE: CT abdomen and pelvis without contrast. TECHNIQUE: Multiple contiguous axial images were obtained through the abdomen and pelvis without the use of intravenous contrast. INDICATION: Abdominal pain, nausea, and vomiting. The study is performed with oral contrast to delineate suspected lesion in the proximal small bowel. FINDINGS: There is an NG tube placed with the tip near the pyloric channel. There is moderate distention of the stomach and proximal small bowel loops with diluted oral contrast. There is a soft tissue density lesion measuring 2.8 x 2.2 x 2.4 cm in the proximal jejunum and transition point between dilated small bowel loops and distal jejunal nondilated loops. No other points of obstruction seen. The appendix is normal. There is mesenteric mild lymphadenopathy. The liver demonstrates diffuse fatty infiltration. The gallbladder appears normal with contrast from study performed one day prior to this exam seen. The spleen, the pancreas, and the adrenal glands appear unremarkable. The kidneys demonstrate no hydronephrosis. No urinary tract stones seen. Calcifications in the pelvis are favored to be related to phleboliths. The uterus and adnexa appear grossly unremarkable with dominant follicle in the right ovary suggested. The abdominal aorta is normal in caliber. Mildly prominent aortocaval lymph node is seen. The osseous structures appear grossly unremarkable. IMPRESSION: There is high-grade partial small bowel obstruction in the proximal jejunum that appears to be secondary to an underlying small bowel mass. There is mild mesenteric and retroperitoneal lymphadenopathy noted. Neoplastic etiology is suspected. An inflammatory stricture is less likely based on the focal and prominent degree of soft tissue thickening at the transition point. Dictated by: Dictated on workstation # [id number]
--- NOTE | 2016-11-22 11:14 | Progress Note ---
Subjective Subjective/Events-last exam Patient with no new complaints. She had a CT scan with oral contrast performed demonstrating proximal high-grade small bowel instructions like secondary to small bowel mass. She has an NG tube placed. She is nothing by mouth at this time. She denies any nausea vomiting fever sweats chills shortness of breath or chest pain. Objective Exam Vital Signs Date Time Temp Pulse Resp B/P Pulse Ox O2 Delivery O2 Flow Rate FiO2 11/22/16 08:00 97.7 84 19 91/56 94 Room Air 11/22/16 04:00 97.8 101 18 91/53 98 Room Air 11/22/16 00:00 98.2 104 18 90/55 97 Room Air 11/21/16 20:00 98.0 99 18 86/47 98 Room Air 11/21/16 16:00 98.1 103 18 90/55 99 Room Air 11/21/16 12:00 98.1 101 18 98/52 97 Room Air I & O 11/22/16 07:00 Intake Total 3850 ml Output Total 4700 ml Balance -850 ml Capillary Refill : Less Than 3 Seconds General Appearance: No Apparent Distress Chronically ill Thin HEENT: PERRL/EOMI Normal ENT Inspection Pharynx Normal Neck: Supple Respiratory: Chest Non Tender No Accessory Muscle Use No Respiratory Distress Cardiovascular: Regular Rate, Rhythm Peripheral Pulses: 2+ Dorsalis Pedis (R), 2+ Left Dors-Pedis (L), 2+ Radial Pulses (R), 2+ Radial Pulses (L) Gastrointestinal: soft no organomegaly tenderness (slightly in the epigastric area) Extremity: Normal Capillary Refill Normal Inspection Normal Range of Motion Non Tender No Calf Tenderness No Pedal Edema Neurologic/Psychiatric: Alert Oriented x3 No Motor/Sensory Deficits Normal Mood/Affect Skin: Normal Color Warm/Dry Lymphatic: No Adenopathy Results Lab Laboratory Tests 11/22/16 04:32: Alanine Aminotransferase (ALT/SGPT) 14, Albumin 3.6, Alkaline Phosphatase 55, Anion Gap 13, Aspartate Amino Transf (AST/SGOT) 15, BUN/Creatinine Ratio 5, Basophils # (Auto) 0.0, Basophils (%) (Auto) 0, Blood Urea Nitrogen 4L, Calcium Level 7.7L, Carbon Dioxide Level 12L, Chloride Level 112H, Creatinine 0.75, Eosinophils # (Auto) 0.1, Eosinophils (%) (Auto) 2, Estimat Glomerular Filtration Rate > 60, Glucose Level 42*L, Hematocrit 33L, Hemoglobin 10.8L, Lymphocytes # (Auto) 0.9L, Lymphocytes (%) (Auto) 10L, Mean Corpuscular Hemoglobin 26, Mean Corpuscular Hemoglobin Concent 32, Mean Corpuscular Volume 81, Mean Platelet Volume 12.4H, Monocytes # (Auto) 0.6, Monocytes (%) (Auto) 7, Neutrophils # (Auto) 7.1, Neutrophils (%) (Auto) 82H, Platelet Count 235, Potassium Level 4.0, Red Blood Count 4.12L, Red Cell Distribution Width 13.4, Sodium Level 137, Total Bilirubin 0.4, Total Protein 5.4L, White Blood Count 8.7 11/22/16 06:08: Glucometer 146H 11/22/16 10:55: Urine Test NEGATIVE Assessment/Plan Assessment/Plan Assessment/Plan proximal jejunal small bowel obstruction likely secondary to small bowel mass nausea and vomiting electrolyte abnormalities Patient was discuss risk and benefits of a exploratory laparotomy all other indicated procedures possible small bowel resection. Patient understands risk and benefits and wishes to proceed. Will plan on going to surgery today. All questions were answered. Clinical Quality Measures DVT/VTE Risk/Contraindication: Risk Factor Score Per Nursin RFS Level Per Nursing on Admit: 1=Low/No VTE PPX KUSHAL BOWMAN DO Nov 22, 2016 11:14 am
[2016-11-22] MEDS ORDERED: metroNIDAZOLE 500MG/100ML IVPB 100 ML IV NR (11:15)
[2016-11-22] MEDS ORDERED: ceFAZolin INJECTION 1,000 MG in NORMAL SALINE (BAXTER MINI) 50 ML IV NR (11:15)
[2016-11-22] MEDS ORDERED: ceFAZolin 1,000 MG (ANCEF) VIAL ONE ×2 (11:20→21:33)
[2016-11-22] MEDS ORDERED: NORMAL SALINE (BAXTER MINI) 50 ML IV ONE ×2 (11:20→21:35)
--- NOTE | 2016-11-22 11:22 | Progress Note-Hospitalist ---
Progress Note HPI/CC on Admission CC: Abdominal pain with recurrent N/V with 8# wt loss in past 1 month Chart Review: Hgb: 10.8 WBC: 7.2 Dr. Marti Consult: Dr. Camargo requests that Dr. Marti assist with pt care. Dr. Marti will come on board. Patient Interview: Pt states that she woke up thirsty, and after drinking water her nausea returned. Pt denies having PCP. Pt denies having any previous operations. Pt denies having fever prior to admission. 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 Pt's in April of lung cancer. was 50yo. Pt denies smoking or drinking excessive ETOH. Pt states that she had abdominal pain in the middle of her abdomen this morning. Pain lasted a few minutes. Physical exam was stable. Pt states that she had a small BM yesterday. Pt states that she had an x-ray at [facility] in [place] two weeks ago. Pt states that she has had persistent nausea and stomach pain for the past month , and symptoms have become severe this past week. Pt has lost around 5lbs. Pt states that she has not eaten much this week. Pt had some water within the past hour. Pt denies having CT scan or ultrasound. Pt still has gallbladder. Scribed by Oliver Noguera under the direct supervision of Dr. Camargo. Progress Notes/Assess & Plan Date Seen 11/22/16 Admission Dx/Process Abdominal pain with recurrent N/V w/nl labs and 8# wt loss in past 1 month Diagonsis/Assessment & Plan Chart Review: No fever Vitals stable WBC: 8.7 Hgb: 10.8 Glucose: 42 this morning prompting change of IVF to D5NS Patient Interview: Pt denies having regularly low blood sugar, but has not been eating well recently. Dr. Camargo discusses upcoming surgery with pt. Physical exam was stable. Pt denies vomiting due to tube. Pt lives in [facility]. Scribed by Oliver Noguera under the direct supervision of Dr. Camargo. AFVSS, Pleasant, thin, O x 3, weak slightly RRR, CTAB no rales noted NGT in place Assessment: Abdominal pain with recurrent N/V w/nl labs and 8# wt loss in past 1 month w/ hypoglycemia w/small bowel mass on CT causing SBO s/p NGT w/good results preparing for surgical resection today per Dr Marti suspicious for neuroendocrine tumor Plan: Nausea meds Scope patch Zofran Phenergan IVF NGT Replace K+ and Mg+ IV Surgery per CHANEL Davies DO Nov 22, 2016 11:22
[2016-11-22] MEDS ORDERED: LIDOCAINE PF 2% 10 ML (XYLOCAINE) AMP ONE (14:24)
[2016-11-22] MEDS ORDERED: proPOfol 200 MG/20 ML (DIPRIVAN) VIAL IV ONE (14:24)
[2016-11-22] MEDS ORDERED: LACTATED RINGERS 1,000 ML IV ONE ×2 (14:24→16:34)
[2016-11-22] MEDS ORDERED: ONDANSETRON 4 MG/2 ML (SDV) Z0FRAN ONE (14:24)
[2016-11-22] MEDS ORDERED: SEVOFLURANE (ULTANE) 15 ML INHAL SOLN ONE ×3 (14:24→16:34)
[2016-11-22] MEDS ORDERED: DEXAMETHASONE PF 10 MG/ML (DECADRON) VIAL ONE (14:24)
[2016-11-22] MEDS ORDERED: ROCURONIUM 50 MG/5 ML (ZEMURON) VIAL IV ONE (14:24)
[2016-11-22] MEDS ORDERED: fentaNYL INJECTION 250 MCG/5 ML AMP ONE (14:25)
[2016-11-22] MEDS ORDERED: MIDAZOLAM 2 MG/2 ML (VERSED) VIAL ONE (14:27)
[2016-11-22] MEDS ORDERED: ONDANSETRON 4 MG/2 ML (SDV) Z0FRAN IV PRN (17:00)
[2016-11-22] MEDS ORDERED: morphine INJ 10 MG/ML 1ML (SYR OR VIAL) IV PRN (17:00)
[2016-11-22] MEDS ORDERED: PROMETHAZINE INJ 25 MG/ML (PHENERGAN) AMP IV PRN (17:00)
--- NOTE | 2016-11-22 17:01 | Progress Note-Post Operative ---
Post-Operative Progess Note [facility] Dr. Mcdonald Pre-Operative Diagnosis small bowel obstruction Post-Operative Diagnosis small bowel mass causing bowel obstruction, Post-Op Procedure Note Date of Procedure: Nov 22, 2016 Name of Procedure: exploratory laparotomy, small bowel resection Procedure Note/Findings see note Anesthesia Type general Estimated blood loss (mL): minimal Specimen(s) collected small bowel (jejunum) KUSHAL BOWMAN DO Nov 22, 2016 5:01 pm
[2016-11-22] MEDS ORDERED: DOCU-143 PO (17:08)
[2016-11-22] MEDS ORDERED: HYDR-3812 PO (17:08)
--- NOTE | 2016-11-22 17:10 | Discharge Inst-Simple/Standard ---
Discharge Inst-Standard Discharge Medications New, Converted or Re-Newed RX: RX on Chart Patient Instructions/Follow Up Plan of Care/Instructions/FU: 12-14 days Kaia Activity as Tolerated: No Discharge Diet: Regular Diet Other Inst to Patient Follow up Appt: Make appointment for 12-14 days Instructions: No lifting greater than 10 pounds. No strenuous activity. May shower in 24 hours, no tub bath or soaking. Use incentive spirometer at home as directed. No Smoking Skin/Wound Care: May remove bandages. You need to leave the white strips over incision on they will fall off on their own. Symptoms to Report: Appetite Changes, Extremity Discoloration, Numbness/Tingling, Swelling Increased , Bleeding Excessive, Eyesight Changes, Pain Increased, Urine Color Change, Constipation(Persistent), Fever over 101 degree F, Pain/Pressure in chest, Urinating Difficulty, Cough Up/Vomit Blood, Heart Beat Irreg/Pounding, Pain/ Pressure in jaw, Vaginal Bleeding Increase, Cramps in feet or legs, Lightheadedness, Pain/Pressure in shoulder, Diarrhea(Persistent), Memory Changes Suddenly, Questions/Concerns, Weight gain consecutive days, Dizziness/ Fainting, Nausea/Vomiting, Shortness of Breath, Weight gain over 2 pounds If questions or concerns contact your physician Or seek help at emergency department. KUSHAL BOWMAN DO Nov 22, 2016 5:10 pm
[2016-11-22] MEDS ORDERED: HYDROcodone/APAP 5 MG/325 MG (LORTAB) TAB PO PRN (17:15)
[2016-11-22] MEDS: DOCUSATE SODIUM 100 MG (COLACE) CAP PO SCH (20:40)
[2016-11-22] MEDS: ceFAZolin INJECTION 1,000 MG in NORMAL SALINE (BAXTER MINI) 50 ML IV SCH (21:45)
[2016-11-22] MEDS: metroNIDAZOLE 500MG/100ML IVPB 100 ML IV SCH (22:17)
[2016-11-22] MEDS: EPIDURAL (SUFENTANIL 1 MCG/ML BUPIVACAINE 0.1%) 100 ML EP PRN (23:35)
[2016-11-23] VITALS (7 sets, daily range): BP systolic 100–112; BP diastolic 60–72
[2016-11-23] MEDS: D5 NS 1000 ML IV SOLUTION 1,000 ML IV SCH ×3 (04:13→18:25)
[2016-11-23] MEDS ORDERED: NORMAL SALINE (BAXTER MINI) 50 ML IV ONE (04:51)
[2016-11-23] MEDS ORDERED: ceFAZolin 1,000 MG (ANCEF) VIAL ONE (04:51)
[2016-11-23] MEDS: ceFAZolin INJECTION 1,000 MG in NORMAL SALINE (BAXTER MINI) 50 ML IV SCH (05:26)
[2016-11-23] MEDS: metroNIDAZOLE 500MG/100ML IVPB 100 ML IV SCH (05:59)
[2016-11-23] MEDS: EPIDURAL (SUFENTANIL 1 MCG/ML BUPIVACAINE 0.1%) 100 ML EP PRN (06:54)
[2016-11-23 07:19] LABS: MEAN PLATELET VOLUME 11.9 FL (7.4-10.4); RED BLOOD COUNT 4.08 10^6/uL (4.35-5.85); RED CELL DISTRIBUTION WIDTH 13.6 % (10.0-14.5); WHITE BLOOD COUNT 10.6 10^3/uL (4.3-11.0)
[2016-11-23 07:39] LABS: ANION GAP 9 MMOL/L (5-14); BLOOD UREA NITROGEN 2 MG/DL (7-18); BUN/CREATININE RATIO 3; CALCIUM 7.7 MG/DL (8.5-10.1); CARBON DIOXIDE 18 MMOL/L (21-32); CHLORIDE 111 MMOL/L (98-107); CREATININE SERUM 0.75 MG/DL (0.60-1.30); GFR ESTIMATED > 60; GLUCOSE 154 MG/DL (70-105); POTASSIUM 3.4 MMOL/L (3.6-5.0); SODIUM 138 MMOL/L (135-145)
[2016-11-23] MEDS: DOCUSATE SODIUM 100 MG (COLACE) CAP PO SCH ×2 (08:28→20:40)
[2016-11-23] MEDS ORDERED: diphenhydrAMINE 50 MG/ML INJ (BENADRYL) ONE (10:19)
[2016-11-23] MEDS ORDERED: diphenhydrAMINE 50 MG/ML INJ (BENADRYL) IVP ONE (10:45)
--- NOTE | 2016-11-23 11:39 | Anesthesia-General Post-Op ---
General Patient Condition Mental Status/LOC: Same as Preop Cardiovascular: Satisfactory Nausea/Vomiting: Absent Respiratory: Satisfactory Pain: Controlled Complications: Absent Post Op Complications Complications None Follow Up Care/Instructions Patient Instructions None needed. Anesthesia/Patient Condition Patient Condition Patient is doing well, no complaints, stable vital signs, no apparent adverse anesthesia problems. No complications reported per nursing. BRANDIN ADLER CRNA Nov 23, 2016 11:39
--- NOTE | 2016-11-23 11:44 | Progress Note-Standard ---
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 Epidural in place. Reports mild numbness of the lower extremities. Vital signs stable. Output from the nasogastric tube about 3 and 50 mL. Incision dry. Reasonable to remove the epidural and started Lovenox. Ambulate once epidural is removed. Final Diagnosis small bowel obstruction. TED DESAI MD Nov 23, 2016 11:44 am
[2016-11-23] MEDS ORDERED: diphenhydrAMINE 50 MG/ML INJ (BENADRYL) IVP PRN (12:15)
[2016-11-23] MEDS ORDERED: diphenhydrAMINE 2% 30 GM CR (ALLERGY CREAM) TOP PRN (12:15)
--- NOTE | 2016-11-23 12:18 | Progress Note-Hospitalist ---
Progress Note HPI/CC on Admission CC: Abdominal pain with recurrent N/V with 8# wt loss in past 1 month Chart Review: Hgb: 10.8 WBC: 7.2 Dr. Marti Consult: Dr. Camargo requests that Dr. Marti assist with pt care. Dr. Marti will come on board. Patient Interview: Pt states that she woke up thirsty, and after drinking water her nausea returned. Pt denies having PCP. Pt denies having any previous operations. Pt denies having fever prior to admission. 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 Pt's in April of lung cancer. was 50yo. Pt denies smoking or drinking excessive ETOH. Pt states that she had abdominal pain in the middle of her abdomen this morning. Pain lasted a few minutes. Physical exam was stable. Pt states that she had a small BM yesterday. Pt states that she had an x-ray at [facility] in [place] two weeks ago. Pt states that she has had persistent nausea and stomach pain for the past month , and symptoms have become severe this past week. Pt has lost around 5lbs. Pt states that she has not eaten much this week. Pt had some water within the past hour. Pt denies having CT scan or ultrasound. Pt still has gallbladder. Scribed by Oliver Noguera under the direct supervision of Dr. Camargo. Progress Notes/Assess & Plan Date Seen 11/23/16 Admission Dx/Process Abdominal pain with recurrent N/V w/nl labs and 8# wt loss in past 1 month Diagonsis/Assessment & Plan Dr. 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 Marti did see the patient and updated her on the news I spoke with her mother who had originally told the nurse that she was not to be told about the cancer diagnosis unless she was in the room but that unfortunately was not passed along the nursing staff rounds and she was told without her mother being at the bedside who immediately became very angry and requested that this whole hospital bill be paid for because this request was not honored I did speak with her mother and everything seems to be calm down from the prior issue I talked to patient in-depth about incentive spirometer and epidural will be removed she is having slight itching that I have placed on Benadryl cream and Benadryl IV as needed Complex issues and she is in the process of moving to [place] to be with her mother during this time so we'll await oncology management while we maintain NG tube and wait for ileus postop to resolve AFVSS, Pleasant, thin, O x 3, weak slightly RRR, CTAB no rales noted NGT in place Assessment: Abdominal pain with recurrent N/V w/nl labs and 8# wt loss in past 1 month w/ hypoglycemia w/small bowel mass on CT causing SBO s/p NGT w/good results preparing for surgical resection today per Dr Marti suspicious for neuroendocrine tumor but frozen section confirmed adenocarcinoma of the small bowel with nest of lymph nodes lying under the mass with another mass alongside of the main nodule Postop ileus Plan: Nausea meds Scope patch Zofran Phenergan IVF NGT Replace K+ and Mg+ IV Ambulate and use incentive spirometer CHANEL CAMARGO DO Nov 23, 2016 12:18
--- NOTE | 2016-11-23 12:24 | Progress Note-Standard ---
Standard Progress Note Progress Notes/Assess & Plan Progress/Assessment & Plan epidural dc'd per surgeon request. catheter tip intact. site dry and intact. advised on thrombolytic protocol post epidural. >2 hrs for WAYNE Rainey CRNA Nov 23, 2016 12:24
[2016-11-23] MEDS: morphine INJ 4 MG/ML 1 ML (VIAL/SYRINGE) IVP PRN ×5 (13:01→22:41)
--- NOTE | 2016-11-23 15:58 | OPERATIVE REPORT ---
PROCEDURE PHYSICIAN: KUSHAL MARTI DATE OF PROCEDURE: 11/22/2016 PREOPERATIVE DIAGNOSIS: Small bowel obstruction. POSTOPERATIVE DIAGNOSIS: Small bowel mass causing bowel obstruction. PROCEDURE: Exploratory laparotomy with small bowel resection. SURGEON: Dr. Marti. WEB DESIGNER: Dr. Mcdonald, to assist in retraction, dissection, and closure. ANESTHESIA: General. ESTIMATED BLOOD LOSS: Minimal. COMPLICATIONS: None. INDICATIONS: The patient is a 41-year-old female who presented to the hospital with intractable nausea and vomiting. The patient had been having nausea and vomiting for approximately 1 month. The patient had an approximate 6 to 8 pound weight loss. The patient had a CT scan performed showing a proximal small obstruction. It appeared that there was a small bowel mass present. The patient was explained the risk and benefits of the procedure and wished to proceed with the procedure. Consent was signed on the chart. PROCEDURE: The patient was taken to the operating suite. She was prepped and draped in sterile fashion. A surgical pause was performed. A midline incision was made and cautery was used to dissect down to the fascia, which was then opened and the abdomen was then entered. There was a large proximal dilated loop of small bowel which was dilated and a small bowel mass that was more annular causing the obstruction. There is mesentery had lymphadenopathy present with it. Just distal to the obstructing mass, there was a smaller mass on the bowel as well, just distal. There were no other masses visualized on the small bowel. The colon did not have any palpable masses and was unable to visualize any masses on the colon. The right ovary had a simple appearing cyst along with the left ovary. There did not feel to be any pelvic mass on palpation. The liver was smooth without any palpable masses as well. The stomach had no palpable masses. The peritoneum felt smooth as well. Proximal and distal to the 2 masses on the small bowel, hemostat was used to dissect around the bowel. An Endo WOLF 75 blue stable was fired across the bowel both proximally and distal. A ligature was then used to wedge out the mesentery. On palpation the mesentery down the root there was just a significant jose antonio of lymph nodes. This felt as if it was encasing the superior mesenteric artery. Therefore just distal, the wedge was taken down to the matted area to wedge out the portion for the resection of small bowel. We felt this may be a lymphoma; therefore, we sent this for frozen section. Pathology reported this as being an adenocarcinoma. The small bowel mesentery was then reinspected. This was significantly matted towards the base of the root of the mesentery and it was felt that this would not be able to be taken en block without damaging the superior mesenteric artery. Therefore we elected the safest option at this time would be to proceed with the reanastomosis and wait for final pathology. The small bowel was then brought together in a plid-dw-ssua fashion. An Endo WOLF stapler 75 was then placed in each limb of the small bowel and fired after each corner of the bowel was opened. A crotch stitch was placed with a 0 silk suture. The opening to the anastomosis was then closed with a TA 60 blue stapler and fired. The staple line was reinforced with a 3-0 silk suture. The anastomosis was widely patent. The mesenteric defect was then closed using 3-0 silk suture in a running fashion. The anastomosis is pink and patent with no ischemic changes. The abdomen was then irrigated with copious amounts of irrigation and suctioned. The fascia was then closed using 1-0 loop PDS. The wound was then irrigated and the skin was then closed with jose rafael. The patient tolerated the procedure well without any complications. She was taken to recovery room in stable condition. Before closure, NG tube was within the stomach. Job ID: [id number] Dictated Date: 11/22/2016 17:26:58 Character Actress Date: 11/23/2016 15:42:43 / dimas LOU
[2016-11-23] MEDS: ENOXAPARIN 40 MG/0.4 ML (LOVENOX) SYR SC SCH (18:25)
[2016-11-24] MEDS: morphine INJ 4 MG/ML 1 ML (VIAL/SYRINGE) IVP PRN ×3 (01:08→06:20)
[2016-11-24] MEDS: D5 NS 1000 ML IV SOLUTION 1,000 ML IV SCH ×3 (02:53→19:12)
[2016-11-24 03:27] VITALS: BP 102/57
[2016-11-24 08:00] VITALS: BP 97/58
[2016-11-24] MEDS: DOCUSATE SODIUM 100 MG (COLACE) CAP PO SCH ×2 (08:18→20:36)
[2016-11-24] MEDS: fentaNYL INJECTION 100 MCG/2 ML AMP IVP PRN ×4 (08:26→20:52)
[2016-11-24] MEDS: SCOPOLAMINE 1.5 MG (TRANSDERM-SCOP) PATCH TOP SCH (10:51)
[2016-11-24] MEDS: SCOPOLAMINE PATCH REMOVAL TP SCH (10:52)
--- NOTE | 2016-11-24 11:29 | Progress Note-Standard ---
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 Epidural in place. Reports mild numbness of the lower extremities. Vital signs stable. Output from the nasogastric tube about 3 and 50 mL. Incision dry. Reasonable to remove the epidural and started Lovenox. Ambulate once epidural is removed. 11/24/16:NG tube output clear and about 300 mL overnight. Has not passed flatus. No abdominal distention. Pain control adequate. Incision dry. In view of the gland and possibly remove this afternoon Final Diagnosis small bowel obstruction TED DESAI MD Nov 24, 2016 11:29
[2016-11-24 11:41] LABS: ANION GAP 10 MMOL/L (5-14); BLOOD UREA NITROGEN 3 MG/DL (7-18); BUN/CREATININE RATIO 5; CALCIUM 7.7 MG/DL (8.5-10.1); CARBON DIOXIDE 24 MMOL/L (21-32); CHLORIDE 108 MMOL/L (98-107); GFR ESTIMATED > 60; GLUCOSE 97 MG/DL (70-105); POTASSIUM 2.7 MMOL/L (3.6-5.0); SODIUM 142 MMOL/L (135-145)
[2016-11-24 12:00] VITALS: BP 108/58
[2016-11-24] MEDS ORDERED: POTASSIUM CL 10MEQ/50ML IVPB 50 ML IV ONE (12:45)
[2016-11-24] MEDS: POTASSIUM CL 10 MEQ/50 ML IVPB (PRE-MIX) IV SCH ×10 (12:48→23:08)
--- NOTE | 2016-11-24 13:13 | Progress Note-Hospitalist ---
Progress Note HPI/CC on Admission CC: Abdominal pain with recurrent N/V with 8# wt loss in past 1 month Chart Review: Hgb: 10.8 WBC: 7.2 Dr. Marti Consult: Dr. Durbin requests that Dr. Marti assist with pt care. Dr. Marti will come on board. Patient Interview: Pt states that she woke up thirsty, and after drinking water her nausea returned. Pt denies having PCP. Pt denies having any previous operations. Pt denies having fever prior to admission. 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 Pt's in April of lung cancer. was 50yo. Pt denies smoking or drinking excessive ETOH. Pt states that she had abdominal pain in the middle of her abdomen this morning. Pain lasted a few minutes. Physical exam was stable. Pt states that she had a small BM yesterday. Pt states that she had an x-ray at [facility] in [place] two weeks ago. Pt states that she has had persistent nausea and stomach pain for the past month , and symptoms have become severe this past week. Pt has lost around 5lbs. Pt states that she has not eaten much this week. Pt had some water within the past hour. Pt denies having CT scan or ultrasound. Pt still has gallbladder. Scribed by Oliver Noguera under the direct supervision of Dr. Durbin. Progress Notes/Assess & Plan Date Seen 11/24/16 Admission Dx/Process Abdominal pain with recurrent N/V w/nl labs and 8# wt loss in past 1 month Diagonsis/Assessment & Plan Patient doing well NG tube is clamped and hopefully will be removing per Dr. Larose today Pain controlled on fentanyl but when she moves around it goes up to a 7 on a scale 1-10 Family at the bedside with daughter Patient denies any additional issues Potassium 2.[address] Larose is ordering 10 bags of potassium 10 mEq to be infused over 10 hours AFVSS, Pleasant, thin, O x 3, improved, family at bedside RRR, CTAB no rales noted + BS NGT in place Assessment: Abdominal pain with recurrent N/V w/nl labs and 8# wt loss in past 1 month w/ hypoglycemia w/small bowel mass on CT causing SBO s/p NGT w/good results s/p Dr Marti resection revealing adenocarcinoma of the small bowel with nest of lymph nodes lying under the mass with another mass alongside of the main nodule POD # 2 Postop ileus Severe hypokalemia Plan: Nausea meds Scope patch Zofran Phenergan IVF NGT Replace K+ and Mg+ IV Ambulate and use incentive spirometer CHANEL DURBIN DO Nov 24, 2016 13:13
[2016-11-24 16:00] VITALS: BP 121/59
[2016-11-24] MEDS: ENOXAPARIN 40 MG/0.4 ML (LOVENOX) SYR SC SCH (18:15)
[2016-11-24 20:00] VITALS: BP 116/56
[2016-11-24] MEDS ORDERED: ACETAMINOPHEN 325 MG TABLET/CAPLET (TYLENOL) ONE (20:43)
[2016-11-24 23:34] VITALS: BP 112/60
[2016-11-25] MEDS: D5 NS 1000 ML IV SOLUTION 1,000 ML IV SCH ×4 (03:22→19:39)
[2016-11-25 04:00] VITALS: BP 100/56
[2016-11-25] MEDS: fentaNYL INJECTION 100 MCG/2 ML AMP IVP PRN ×3 (05:20→17:17)
--- NOTE | 2016-11-25 07:42 | Progress Note ---
Subjective Subjective/Events-last exam Pain controlled. ambulating. using incentive spirometer. denies any n/v fever sweats chills shortness of breath or chest pain. Objective Exam Vital Signs Date Time Temp Pulse Resp B/P Pulse Ox O2 Delivery O2 Flow Rate FiO2 11/25/16 04:00 97.5 97 18 100/56 97 Room Air 11/24/16 23:34 98.9 106 16 112/60 98 Room Air 11/24/16 20:54 100.9 11/24/16 20:15 96 Room Air 11/24/16 20:00 100.9 118 18 116/56 99 Room Air 11/24/16 16:00 100.2 112 16 121/59 100 Room Air 11/24/16 12:00 99.5 103 20 108/58 97 Room Air 11/24/16 08:00 98.7 94 20 97/58 99 Room Air 11/24/16 07:46 96 Room Air I & O 11/25/16 07:00 Intake Total 3500 ml Output Total 3750 ml Balance -250 ml Capillary Refill : Less Than 3 SecondsLess Than 3 Seconds General Appearance: No Apparent Distress Chronically ill Thin HEENT: PERRL/EOMI Neck: Supple Respiratory: Chest Non Tender No Accessory Muscle Use No Respiratory Distress Cardiovascular: Regular Rate, Rhythm Peripheral Pulses: 2+ Dorsalis Pedis (R), 2+ Left Dors-Pedis (L), 2+ Radial Pulses (R), 2+ Radial Pulses (L) Gastrointestinal: soft tenderness (incisional tenderness jose rafael, incision clean dry no erythema) Extremity: Normal Capillary Refill Normal Inspection Normal Range of Motion Non Tender No Calf Tenderness No Pedal Edema Neurologic/Psychiatric: Alert Oriented x3 No Motor/Sensory Deficits Normal Mood/Affect Skin: Normal Color Warm/Dry Lymphatic: No Adenopathy Results Lab Laboratory Tests 11/24/16 11:05: Anion Gap 10, BUN/Creatinine Ratio 5, Blood Urea Nitrogen 3L, Calcium Level 7.7L , Carbon Dioxide Level 24, Chloride Level 108H, Creatinine 0.60, Estimat Glomerular Filtration Rate > 60, Glucose Level 97, Potassium Level 2.7L, Sodium Level 142 Microbiology 11/22/16 MRSA Screen - Final, Complete MRSA not isolated Assessment/Plan Assessment/Plan Assessment/Plan proximal jejunal small bowel obstruction likely secondary to small bowel mass nausea and vomiting electrolyte abnormalities s/p exploratory laparotomy small bowel resection repeat labs this am ambulate await bowel function pain control lovenox scd's for dvt prophylaxis since epidural out Clinical Quality Measures DVT/VTE Risk/Contraindication: Risk Factor Score Per Nursin RFS Level Per Nursing on Admit: 1=Low/No VTE PPX KUSHAL BOWMAN DO Nov 25, 2016 07:42
[2016-11-25 08:00] VITALS: BP 116/65
[2016-11-25] MEDS: DOCUSATE SODIUM 100 MG (COLACE) CAP PO SCH ×2 (08:34→20:32)
[2016-11-25 08:40] LABS: ANION GAP 6 MMOL/L (5-14); BLOOD UREA NITROGEN 2 MG/DL (7-18); BUN/CREATININE RATIO 3; CALCIUM 8.2 MG/DL (8.5-10.1); CARBON DIOXIDE 28 MMOL/L (21-32); CHLORIDE 107 MMOL/L (98-107); GFR ESTIMATED > 60; GLUCOSE 86 MG/DL (70-105); MAGNESIUM 1.8 MG/DL (1.8-2.4); PHOSPHORUS 1.4 MG/DL (2.3-4.7); SODIUM 141 MMOL/L (135-145)
--- NOTE | 2016-11-25 10:35 | Progress Note-Hospitalist ---
Progress Note HPI/CC on Admission CC: Abdominal pain with recurrent N/V with 8# wt loss in past 1 month Chart Review: Hgb: 10.8 WBC: 7.2 Dr. Marti Consult: Dr. Durbin requests that Dr. Marti assist with pt care. Dr. Marti will come on board. Patient Interview: Pt states that she woke up thirsty, and after drinking water her nausea returned. Pt denies having PCP. Pt denies having any previous operations. Pt denies having fever prior to admission. 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 Pt's in April of lung cancer. was 50yo. Pt denies smoking or drinking excessive ETOH. Pt states that she had abdominal pain in the middle of her abdomen this morning. Pain lasted a few minutes. Physical exam was stable. Pt states that she had a small BM yesterday. Pt states that she had an x-ray at [facility] in [place] two weeks ago. Pt states that she has had persistent nausea and stomach pain for the past month , and symptoms have become severe this past week. Pt has lost around 5lbs. Pt states that she has not eaten much this week. Pt had some water within the past hour. Pt denies having CT scan or ultrasound. Pt still has gallbladder. Scribed by Oliver Noguera under the direct supervision of Dr. Durbin. Progress Notes/Assess & Plan Date Seen 11/25/16 Admission Dx/Process Abdominal pain with recurrent N/V w/nl labs and 8# wt loss in past 1 month Diagonsis/Assessment & Plan Patient doing well since NG tube DC Pain controlled on fentanyl but when she moves around it still goes up to a 7 on a scale 1-10 Patient denies any additional issues Potassium 4.0 after replaced yesterday of 100meq IV over 10 hours AFVSS, Pleasant, thin, O x 3, improved RRR, CTAB no rales noted + BS Assessment: Abdominal pain with recurrent N/V w/nl labs and 8# wt loss in past 1 month w/ hypoglycemia w/small bowel mass on CT causing SBO s/p NGT w/good results s/p Dr Marti resection revealing adenocarcinoma of the small bowel with nest of lymph nodes lying under the mass with another mass alongside of the main nodule POD # 3 Postop ileus Severe hypokalemia s/p resolution Plan: Nausea meds Scope patch Zofran Phenergan IVF Replace K+ and Mg+ IV Ambulate and use incentive spirometer Ambulate Dr Richter consultation tomorrow CHANEL DURBIN DO Nov 25, 2016 10:35
[2016-11-25 12:01] VITALS: BP 106/60
[2016-11-25 16:00] VITALS: BP 107/71
[2016-11-25] MEDS: ENOXAPARIN 40 MG/0.4 ML (LOVENOX) SYR SC SCH (18:01)
[2016-11-25] MEDS ORDERED: ACETAMINOPHEN 500 MG TAB (TYLENOL) PO PRN (18:15)
[2016-11-25 20:00] VITALS: BP 115/69
[2016-11-26] VITALS: BP 117/70
[2016-11-26] MEDS: D5 NS 1000 ML IV SOLUTION 1,000 ML IV SCH ×3 (03:35→20:12)
[2016-11-26 04:00] VITALS: BP 91/50
[2016-11-26 05:32] LABS: BASOPHILS % (AUTO) 0 % (0-10); EOSINOPHILS # (AUTO) 0.3 10^3/uL (0.0-0.3); EOSINOPHILS % (AUTO) 9 % (0-10); LYMPHOCYTES # (AUTO) 0.7 X 10^3 (1.0-4.0); LYMPHOCYTES % (AUTO) 17 % (12-44); MEAN CORPUSCULAR HEMOGLOBIN 26 PG (25-34); MEAN CORPUSCULAR HGB CONC 33 G/DL (32-36); MEAN CORPUSCULAR VOLUME 80 FL (80-99); MONOCYTES # (AUTO) 0.4 X 10^3 (0.0-1.0); MONOCYTES % (AUTO) 9 % (0-12); NEUTROPHILS # (AUTO) 2.5 X 10^3 (1.8-7.8); NEUTROPHILS % (AUTO) 65 % (42-75); PLATELET COUNT 127 10^3/uL (130-400); RED BLOOD COUNT 3.66 10^6/uL (4.35-5.85); RED CELL DISTRIBUTION WIDTH 13.8 % (10.0-14.5); WHITE BLOOD COUNT 3.9 10^3/uL (4.3-11.0)
[2016-11-26 05:56] LABS: ALANINE AMINOTRANSFERASE 34 U/L (0-55); ALBUMIN 2.7 G/DL (3.2-4.5); ANION GAP 8 MMOL/L (5-14); ASPARTATE AMINO TRANSFERASE 39 U/L (5-34); BILIRUBIN,TOTAL 0.3 MG/DL (0.1-1.0); BLOOD UREA NITROGEN 2 MG/DL (7-18); BUN/CREATININE RATIO 4; CALCIUM 7.6 MG/DL (8.5-10.1); CARBON DIOXIDE 21 MMOL/L (21-32); CHLORIDE 111 MMOL/L (98-107); CREATININE SERUM 0.57 MG/DL (0.60-1.30); GFR ESTIMATED > 60; GLUCOSE 109 MG/DL (70-105); POTASSIUM 3.4 MMOL/L (3.6-5.0); SODIUM 140 MMOL/L (135-145); TOTAL PROTEIN 4.5 G/DL (6.4-8.2)
[2016-11-26 08:00] VITALS: BP 109/61
[2016-11-26] MEDS: DOCUSATE SODIUM 100 MG (COLACE) CAP PO SCH ×2 (08:05→20:12)
--- NOTE | 2016-11-26 10:21 | Progress Note ---
Subjective Subjective/Events-last exam Pt is resting in bed. Even respirations. Patient is alert and oriented x 3. NO N /V. patient has not had a BM neither is she passing gas. Objective Exam Vital Signs Date Time Temp Pulse Resp B/P Pulse Ox O2 Delivery O2 Flow Rate FiO2 11/26/16 08:00 98.0 65 20 109/61 97 Room Air 11/26/16 04:00 97.9 95 20 91/50 96 Room Air 11/26/16 00:00 98.4 95 20 117/70 97 Room Air 11/25/16 20:35 96 Room Air 11/25/16 20:00 99.0 89 20 115/69 98 Room Air 11/25/16 18:06 100.3 11/25/16 16:00 99.6 90 20 107/71 98 Room Air 11/25/16 12:01 98.9 98 20 106/60 92 Room Air I & O 11/26/16 07:00 Intake Total 2030 ml Output Total 1800 ml Balance 230 ml Capillary Refill : Less Than 3 SecondsLess Than 3 Seconds General Appearance: No Apparent Distress Chronically ill Thin HEENT: PERRL/EOMI Neck: Normal Inspection Non Tender Supple Respiratory: Chest Non Tender Lungs Clear Normal Breath Sounds No Accessory Muscle Use No Respiratory Distress Cardiovascular: Regular Rate, Rhythm Peripheral Pulses: 2+ Dorsalis Pedis (R), 2+ Left Dors-Pedis (L), 2+ Radial Pulses (R), 2+ Radial Pulses (L) Gastrointestinal: soft tenderness (incisional tenderness jose rafael, incision clean dry no erythema) Extremity: Normal Range of Motion Non Tender No Calf Tenderness No Pedal Edema Neurologic/Psychiatric: Alert Oriented x3 No Motor/Sensory Deficits Normal Mood/Affect Skin: Normal Color Warm/Dry Lymphatic: No Adenopathy Results Lab Laboratory Tests Test 11/24/16 11:05 11/25/16 08:00 11/26/16 05:10 Range/Units Anion Gap 10 6 8 5-14 MMOL/L BUN/Creatinine Ratio 5 3 4 Blood Urea Nitrogen 3 L 2 L 2 L 7-18 MG/DL Calcium Level 7.7 L 8.2 L 7.6 L 8.5-10.1 MG/DL Carbon Dioxide Level 24 28 21 21-32 MMOL/L Chloride Level 108 H 107 111 H 98-107 MMOL/L Creatinine 0.60 0.60 0.57 L 0.60-1.30 MG/DL Estimat Glomerular Filtration Rate > 60 > 60 > 60 Glucose Level 97 86 109 H 70-105 MG/DL Potassium Level 2.7 L 4.0 3.4 L 3.6-5.0 MMOL/L Sodium Level 142 141 140 135-145 MMOL/L Magnesium Level 1.8 1.8-2.4 MG/DL Phosphorus Level 1.4 L 2.3-4.7 MG/DL Alanine Aminotransferase (ALT/SGPT) 34 0-55 U/L Albumin 2.7 L 3.2-4.5 G/DL Alkaline Phosphatase 54 40-136 U/L Aspartate Amino Transf (AST/SGOT) 39 H 5-34 U/L Basophils # (Auto) 0.0 0.0-0.1 10^3/uL Basophils (%) (Auto) 0 0-10 % Eosinophils # (Auto) 0.3 0.0-0.3 10^3/uL Eosinophils (%) (Auto) 9 0-10 % Hematocrit 29 L 35-52 % Hemoglobin 9.6 L 11.5-16.0 G/DL Lymphocytes # (Auto) 0.7 L 1.0-4.0 X 10^3 Lymphocytes (%) (Auto) 17 12-44 % Mean Corpuscular Hemoglobin 26 25-34 PG Mean Corpuscular Hemoglobin Concent 33 32-36 G/DL Mean Corpuscular Volume 80 80-99 FL Mean Platelet Volume 12.0 H 7.4-10.4 FL Monocytes # (Auto) 0.4 0.0-1.0 X 10^3 Monocytes (%) (Auto) 9 0-12 % Neutrophils # (Auto) 2.5 1.8-7.8 X 10^3 Neutrophils (%) (Auto) 65 42-75 % Platelet Count 127 L 130-400 10^3/uL Red Blood Count 3.66 L 4.35-5.85 10^6/uL Red Cell Distribution Width 13.8 10.0-14.5 % Total Bilirubin 0.3 0.1-1.0 MG/DL Total Protein 4.5 L 6.4-8.2 G/DL White Blood Count 3.9 L 4.3-11.0 10^3/uL Laboratory Tests 11/26/16 05:10: Alanine Aminotransferase (ALT/SGPT) 34, Albumin 2.7L, Alkaline Phosphatase 54, Anion Gap 8, Aspartate Amino Transf (AST/SGOT) 39H, BUN/Creatinine Ratio 4, Basophils # (Auto) 0.0, Basophils (%) (Auto) 0, Blood Urea Nitrogen 2L, Calcium Level 7.6L, Carbon Dioxide Level 21, Chloride Level 111H, Creatinine 0.57L, Eosinophils # (Auto) 0.3, Eosinophils (%) (Auto) 9, Estimat Glomerular Filtration Rate > 60, Glucose Level 109H, Hematocrit 29L, Hemoglobin 9.6L, Lymphocytes # (Auto) 0.7L, Lymphocytes (%) (Auto) 17, Mean Corpuscular Hemoglobin 26, Mean Corpuscular Hemoglobin Concent 33, Mean Corpuscular Volume 80, Mean Platelet Volume 12.0H, Monocytes # (Auto) 0.4, Monocytes (%) (Auto) 9, Neutrophils # (Auto) 2.5, Neutrophils (%) (Auto) 65, Platelet Count 127L, Potassium Level 3.4L, Red Blood Count 3.66L, Red Cell Distribution Width 13.8, Sodium Level 140, Total Bilirubin 0.3, Total Protein 4.5L, White Blood Count 3.9L Microbiology 11/22/16 MRSA Screen - Final, Complete MRSA not isolated Assessment/Plan Assessment/Plan Assessment/Plan proximal jejunal small bowel obstruction likely secondary to small bowel mass nausea and vomiting electrolyte abnormalities s/p exploratory laparotomy small bowel resection We will continue to monitor patient. repeat labs Increase ambulation. Encourage use of inspiratory spirometer await bowel function pain control lovenox scd's for dvt prophylaxis. Will discuss TPN with Dr. Kaia Marti- patient pain controlled. No nausea or emesis. No bm or flatus. Denies fever sweats chills shortness of breath or chest pain. general no acute distress heart reg lungs nonlabored abdomen soft no significant distention incision is clean dry and intact ext nontender assessment as above and ileus if no flatus tomorrow picc line and tpn awaiting bowel function dvt prophylaxis ambulate and IS Clinical Quality Measures DVT/VTE Risk/Contraindication: Risk Factor Score Per Nursin RFS Level Per Nursing on Admit: 1=Low/No VTE PPX DOM BEYER MATE FIRST Nov 26, 2016 10:21 KUSHAL MARTI DO Nov 26, 2016 16:43
[2016-11-26 12:00] VITALS: BP 118/62
--- NOTE | 2016-11-26 14:47 | Diagnostic Imaging Report ---
EXAMINATION: KUB. INDICATION: Patient not passing gas or stool after surgery. FINDINGS: There is mild gaseous distention of the colon and minimal gaseous content in the small bowel loops seen. There is suggestion of pneumoperitoneum expected after recent surgery. Skin jose rafael are seen in the midline. Surgical sutures in the left side of the abdomen noted. IMPRESSION: There is mild gaseous distention in the colon, may relate to mild ileus. Dictated by: Dictated on workstation # [id number]
[2016-11-26 15:59] VITALS: BP 107/67
[2016-11-26] MEDS: ENOXAPARIN 40 MG/0.4 ML (LOVENOX) SYR SC SCH (18:41)
[2016-11-26 20:00] VITALS: BP 117/77
[2016-11-26] MEDS: FAMOTIDINE 20MG/2ML IV (PEPCID) IVP SCH (20:12)
[2016-11-27] VITALS: BP 110/72
[2016-11-27] MEDS: ACETAMINOPHEN 325 MG TABLET/CAPLET (TYLENOL) PO PRN ×2 (00:43→20:08)
[2016-11-27] MEDS: D5 NS 1000 ML IV SOLUTION 1,000 ML IV SCH ×3 (03:59→20:09)
[2016-11-27 06:01] LABS: BASOPHILS % (AUTO) 0 % (0-10); EOSINOPHILS # (AUTO) 0.2 10^3/uL (0.0-0.3); EOSINOPHILS % (AUTO) 5 % (0-10); LYMPHOCYTES # (AUTO) 0.8 X 10^3 (1.0-4.0); LYMPHOCYTES % (AUTO) 21 % (12-44); MEAN CORPUSCULAR HEMOGLOBIN 26 PG (25-34); MEAN CORPUSCULAR HGB CONC 32 G/DL (32-36); MEAN CORPUSCULAR VOLUME 80 FL (80-99); MEAN PLATELET VOLUME 11.7 FL (7.4-10.4); MONOCYTES # (AUTO) 0.4 X 10^3 (0.0-1.0); MONOCYTES % (AUTO) 11 % (0-12); NEUTROPHILS # (AUTO) 2.2 X 10^3 (1.8-7.8); NEUTROPHILS % (AUTO) 63 % (42-75); PLATELET COUNT 212 10^3/uL (130-400); RED BLOOD COUNT 3.55 10^6/uL (4.35-5.85); WHITE BLOOD COUNT 3.5 10^3/uL (4.3-11.0)
[2016-11-27 06:18] LABS: ALANINE AMINOTRANSFERASE 37 U/L (0-55); ALBUMIN 2.7 G/DL (3.2-4.5); ANION GAP 6 MMOL/L (5-14); ASPARTATE AMINO TRANSFERASE 44 U/L (5-34); BILIRUBIN,TOTAL 0.3 MG/DL (0.1-1.0); BLOOD UREA NITROGEN 2 MG/DL (7-18); BUN/CREATININE RATIO 3; CALCIUM 7.7 MG/DL (8.5-10.1); CARBON DIOXIDE 24 MMOL/L (21-32); CHLORIDE 112 MMOL/L (98-107); CREATININE SERUM 0.59 MG/DL (0.60-1.30); GFR ESTIMATED > 60; GLUCOSE 105 MG/DL (70-105); PHOSPHORUS 2.9 MG/DL (2.3-4.7); SODIUM 142 MMOL/L (135-145); TOTAL PROTEIN 4.5 G/DL (6.4-8.2)
--- NOTE | 2016-11-27 08:22 | Progress Note ---
Subjective Subjective/Events-last exam Pt is sleeping. Easily aroused. No distress is noted. Pt c/o mild abdominal pain with palpation. Incision with jose rafael intact. Alert and oriented x 3. Objective Exam Vital Signs Date Time Temp Pulse Resp B/P Pulse Ox O2 Delivery O2 Flow Rate FiO2 11/27/16 04:30 97.9 11/27/16 00:43 100.8 11/27/16 00:00 100.8 90 20 110/72 94 Room Air 11/26/16 20:10 96 Room Air 11/26/16 20:00 99.3 83 18 117/77 97 Room Air 11/26/16 15:59 98.6 75 18 107/67 100 Room Air 11/26/16 12:00 96.6 80 18 118/62 95 Room Air I & O 11/27/16 07:00 Intake Total 2000 ml Output Total 2700 ml Balance -700 ml Capillary Refill : Less Than 3 SecondsLess Than 3 Seconds General Appearance: No Apparent Distress Chronically ill Thin HEENT: PERRL/EOMI Neck: Normal Inspection Non Tender Supple Respiratory: Chest Non Tender No Accessory Muscle Use No Respiratory Distress Cardiovascular: Regular Rate, Rhythm Peripheral Pulses: 2+ Dorsalis Pedis (R), 2+ Left Dors-Pedis (L), 2+ Radial Pulses (R), 2+ Radial Pulses (L) Gastrointestinal: soft tenderness (incisional tenderness jose rafael, incision clean dry no erythema) Extremity: Normal Range of Motion Non Tender No Calf Tenderness No Pedal Edema Neurologic/Psychiatric: Alert Oriented x3 No Motor/Sensory Deficits Normal Mood/Affect Skin: Normal Color Warm/Dry Lymphatic: No Adenopathy Results Lab Laboratory Tests Test 11/26/16 05:10 11/27/16 05:35 Range/Units Alanine Aminotransferase (ALT/SGPT) 34 37 0-55 U/L Albumin 2.7 L 2.7 L 3.2-4.5 G/DL Alkaline Phosphatase 54 67 40-136 U/L Anion Gap 8 6 5-14 MMOL/L Aspartate Amino Transf (AST/SGOT) 39 H 44 H 5-34 U/L BUN/Creatinine Ratio 4 3 Basophils # (Auto) 0.0 0.0 0.0-0.1 10^3/uL Basophils (%) (Auto) 0 0 0-10 % Blood Urea Nitrogen 2 L 2 L 7-18 MG/DL Calcium Level 7.6 L 7.7 L 8.5-10.1 MG/DL Carbon Dioxide Level 21 24 21-32 MMOL/L Chloride Level 111 H 112 H 98-107 MMOL/L Creatinine 0.57 L 0.59 L 0.60-1.30 MG/DL Eosinophils # (Auto) 0.3 0.2 0.0-0.3 10^3/uL Eosinophils (%) (Auto) 9 5 0-10 % Estimat Glomerular Filtration Rate > 60 > 60 Glucose Level 109 H 105 70-105 MG/DL Hematocrit 29 L 29 L 35-52 % Hemoglobin 9.6 L 9.2 L 11.5-16.0 G/DL Lymphocytes # (Auto) 0.7 L 0.8 L 1.0-4.0 X 10^3 Lymphocytes (%) (Auto) 17 21 12-44 % Mean Corpuscular Hemoglobin 26 26 25-34 PG Mean Corpuscular Hemoglobin Concent 33 32 32-36 G/DL Mean Corpuscular Volume 80 80 80-99 FL Mean Platelet Volume 12.0 H 11.7 H 7.4-10.4 FL Monocytes # (Auto) 0.4 0.4 0.0-1.0 X 10^3 Monocytes (%) (Auto) 9 11 0-12 % Neutrophils # (Auto) 2.5 2.2 1.8-7.8 X 10^3 Neutrophils (%) (Auto) 65 63 42-75 % Platelet Count 127 L 212 130-400 10^3/uL Potassium Level 3.4 L 3.0 L 3.6-5.0 MMOL/L Red Blood Count 3.66 L 3.55 L 4.35-5.85 10^6/uL Red Cell Distribution Width 13.8 14.0 10.0-14.5 % Sodium Level 140 142 135-145 MMOL/L Total Bilirubin 0.3 0.3 0.1-1.0 MG/DL Total Protein 4.5 L 4.5 L 6.4-8.2 G/DL White Blood Count 3.9 L 3.5 L 4.3-11.0 10^3/uL Phosphorus Level 2.9 2.3-4.7 MG/DL Laboratory Tests 11/27/16 05:35: Alanine Aminotransferase (ALT/SGPT) 37, Albumin 2.7L, Alkaline Phosphatase 67, Anion Gap 6, Aspartate Amino Transf (AST/SGOT) 44H, BUN/Creatinine Ratio 3, Basophils # (Auto) 0.0, Basophils (%) (Auto) 0, Blood Urea Nitrogen 2L, Calcium Level 7.7L, Carbon Dioxide Level 24, Chloride Level 112H, Creatinine 0.59L, Eosinophils # (Auto) 0.2, Eosinophils (%) (Auto) 5, Estimat Glomerular Filtration Rate > 60, Glucose Level 105, Hematocrit 29L, Hemoglobin 9.2L, Lymphocytes # (Auto) 0.8L, Lymphocytes (%) (Auto) 21, Mean Corpuscular Hemoglobin 26, Mean Corpuscular Hemoglobin Concent 32, Mean Corpuscular Volume 80, Mean Platelet Volume 11.7H, Monocytes # (Auto) 0.4, Monocytes (%) (Auto) 11 , Neutrophils # (Auto) 2.2, Neutrophils (%) (Auto) 63, Phosphorus Level 2.9, Platelet Count 212, Potassium Level 3.0L, Red Blood Count 3.55L, Red Cell Distribution Width 14.0, Sodium Level 142, Total Bilirubin 0.3, Total Protein 4.5L, White Blood Count 3.5L Microbiology 11/22/16 MRSA Screen - Final, Complete MRSA not isolated Radiology NAME: MIESHA POWELL [facility] REC#: [id number] PT STATUS: ADM IN : 1975 PHYSICIAN: DOM BEYER APRN ADMIT DATE: 11/21/16 Signed Date of Exam: 11/26/16 ABDOMEN/KUB 1VIEW EXAMINATION: KUB. INDICATION: Patient not passing gas or stool after surgery. FINDINGS: There is mild gaseous distention of the colon and minimal gaseous content in the small bowel loops seen. There is suggestion of pneumoperitoneum expected after recent surgery. Skin jose rafael are seen in the midline. Surgical sutures in the left side of the abdomen noted. IMPRESSION: There is mild gaseous distention in the colon, may relate to mild ileus. Dictated by: Assessment/Plan Assessment/Plan Assessment/Plan proximal jejunal small bowel obstruction likely secondary to small bowel mass nausea and vomiting- resolved Mild ileus electrolyte abnormalities s/p exploratory laparotomy small bowel resection We will continue to monitor patient. repeat labs Increase ambulation. Encouraged continued use of inspiratory spirometer await bowel function pain control lovenox scd's for dvt prophylaxis. No flatus or BM. PICC Line with TPN. Kaia- Passing flatus, Pain controlled. Denies n/v fevers sweats chills shortness of breath or chest pain. general no acute distress s1s2 lungs nonlabored abdomen soft incision c/d/i ext nontender assessment as above passing flatus start clears replace k recheck labs in am Home soon Clinical Quality Measures DVT/VTE Risk/Contraindication: Risk Factor Score Per Nursin RFS Level Per Nursing on Admit: 1=Low/No VTE PPX DOM BEYER APRN Nov 27, 2016 08:21 KUSHAL BOWMAN DO Nov 27, 2016 17:00
[2016-11-27] MEDS: SCOPOLAMINE 1.5 MG (TRANSDERM-SCOP) PATCH TOP SCH (08:25)
[2016-11-27] MEDS: DOCUSATE SODIUM 100 MG (COLACE) CAP PO SCH ×2 (08:25→20:08)
[2016-11-27] MEDS: SCOPOLAMINE PATCH REMOVAL TP SCH (08:25)
[2016-11-27 08:45] VITALS: BP 115/72
--- NOTE | 2016-11-27 10:03 | Progress Note-Hospitalist ---
Progress Note HPI/CC on Admission CC: Abdominal pain with recurrent N/V with 8# wt loss in past 1 month Chart Review: Hgb: 10.8 WBC: 7.2 Dr. Marti Consult: Dr. Durbin requests that Dr. Marti assist with pt care. Dr. Marti will come on board. Patient Interview: Pt states that she woke up thirsty, and after drinking water her nausea returned. Pt denies having PCP. Pt denies having any previous operations. Pt denies having fever prior to admission. 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 Pt's in April of lung cancer. was 50yo. Pt denies smoking or drinking excessive ETOH. Pt states that she had abdominal pain in the middle of her abdomen this morning. Pain lasted a few minutes. Physical exam was stable. Pt states that she had a small BM yesterday. Pt states that she had an x-ray at Urgent Care in [place] two weeks ago. Pt states that she has had persistent nausea and stomach pain for the past month , and symptoms have become severe this past week. Pt has lost around 5lbs. Pt states that she has not eaten much this week. Pt had some water within the past hour. Pt denies having CT scan or ultrasound. Pt still has gallbladder. Scribed by Oliver Noguera under the direct supervision of Dr. Durbin. Progress Notes/Assess & Plan Date Seen 11/27/16 Admission Dx/Process Abdominal pain with recurrent N/V w/nl labs and 8# wt loss in past 1 month Diagonsis/Assessment & Plan Chart Review: Dr. Marti updated me at 0900 and reported that pt had just passed gas so we intend to DC picc line TPN plan and start on CLD. Dr. Marti Review: Dr. Marti stats that pt has post-op ileus, and he was considering a picc and TPN. Update: picc and TPN cancelled. Dr. Richter Review: Dr. Richter states that he will see pt. Patient Interview: Dr. Durbin informs pt that she will start on CLD. Dr. Durbin informs pt that she will be in contact with Dr. Novak. Pt states that she hasn't eaten much, so a full BM is not likely. Pt denies taking pain medicine since yesterday morning. Pt states that she is able to ambulate. Pt states that she is urinating without complications. Physical exam was stable. Scribed by Oliver Noguera under the direct supervision of Dr. Durbin. AFVSS, Pleasant, thin, O x 3, improved RRR, CTAB no rales noted + BS Assessment: Abdominal pain with recurrent N/V w/nl labs and 8# wt loss in past 1 month w/ hypoglycemia w/small bowel mass on CT causing SBO s/p NGT w/good results s/p Dr Marti resection revealing adenocarcinoma of the small bowel with nest of lymph nodes lying under the mass with another mass alongside of the main nodule POD # 5 Postop ileus Severe hypokalemia s/p resolution Plan: CLD Consult CHANEL Christianson DO Nov 27, 2016 10:03 3 Postop ileus Severe hypokalemia s/p resolution Plan: Nausea meds Scope patch Zofran Phenergan IVF Replace K+ and Mg+ IV Ambulate and use incentive spirometer Ambulate Dr Richter consultation tomorrow CHANEL DURBIN DO Nov 27, 2016 10:03
[2016-11-27 12:35] VITALS: BP 108/65
[2016-11-27 16:00] VITALS: BP 114/71
[2016-11-27] MEDS: POTASSIUM CL 10MEQ/50ML IVPB 50 ML IV SCH ×3 (18:02→22:22)
[2016-11-27] MEDS: fentaNYL INJECTION 100 MCG/2 ML AMP IVP PRN (18:09)
[2016-11-27] MEDS: ENOXAPARIN 40 MG/0.4 ML (LOVENOX) SYR SC SCH (18:09)
[2016-11-27 20:00] VITALS: BP 113/73
[2016-11-27] MEDS ORDERED: POTASSIUM CL 10MEQ/50ML IVPB 50 ML IV ONE (22:01)
[2016-11-28] VITALS: BP 105/65
[2016-11-28] MEDS: D5 NS 1000 ML IV SOLUTION 1,000 ML IV SCH ×2 (03:10→06:39)
[2016-11-28 04:00] VITALS: BP 100/63
[2016-11-28 06:08] LABS: BASOPHILS % (AUTO) 0 % (0-10); EOSINOPHILS # (AUTO) 0.2 10^3/uL (0.0-0.3); EOSINOPHILS % (AUTO) 4 % (0-10); LYMPHOCYTES # (AUTO) 0.8 X 10^3 (1.0-4.0); LYMPHOCYTES % (AUTO) 20 % (12-44); MEAN CORPUSCULAR HEMOGLOBIN 26 PG (25-34); MEAN CORPUSCULAR HGB CONC 33 G/DL (32-36); MEAN CORPUSCULAR VOLUME 80 FL (80-99); MEAN PLATELET VOLUME 11.7 FL (7.4-10.4); MONOCYTES # (AUTO) 0.4 X 10^3 (0.0-1.0); MONOCYTES % (AUTO) 11 % (0-12); NEUTROPHILS # (AUTO) 2.7 X 10^3 (1.8-7.8); NEUTROPHILS % (AUTO) 65 % (42-75); PLATELET COUNT 211 10^3/uL (130-400); RED BLOOD COUNT 3.63 10^6/uL (4.35-5.85); RED CELL DISTRIBUTION WIDTH 13.9 % (10.0-14.5); WHITE BLOOD COUNT 4.2 10^3/uL (4.3-11.0)
[2016-11-28 06:55] LABS: ALANINE AMINOTRANSFERASE 48 U/L (0-55); ALBUMIN 2.8 G/DL (3.2-4.5); ANION GAP 6 MMOL/L (5-14); ASPARTATE AMINO TRANSFERASE 53 U/L (5-34); BILIRUBIN,TOTAL 0.3 MG/DL (0.1-1.0); BLOOD UREA NITROGEN 2 MG/DL (7-18); BUN/CREATININE RATIO 3; CALCIUM 7.8 MG/DL (8.5-10.1); CARBON DIOXIDE 24 MMOL/L (21-32); CHLORIDE 111 MMOL/L (98-107); CREATININE SERUM 0.58 MG/DL (0.60-1.30); GFR ESTIMATED > 60; GLUCOSE 101 MG/DL (70-105); POTASSIUM 3.1 MMOL/L (3.6-5.0); SODIUM 141 MMOL/L (135-145); TOTAL PROTEIN 4.5 G/DL (6.4-8.2)
--- NOTE | 2016-11-28 07:07 | CONSULTATION REPORT ---
DATE OF CONSULTATION: 11/27/2016 REFERRING PHYSICIAN: Ruma Camargo D.O. The patient is admitted to Room 432. IMPRESSION: 1. 41-year-old female admitted to the hospital with persistent nausea and vomiting for 2 weeks and intermittent symptoms for at least a month and noted to have small bowel obstruction. 2. Status post exploratory laparotomy and segmental resection of jejunum on 11/05/2016. 3. 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 4. Postoperative ileus, gradually improving. RECOMMENDATIONS: 1. Continue postoperative care as you are doing and when stable from a medical and surgical standpoint may discharge home. 2. I will await the final pathology report and schedule her for initial staging scans on an outpatient basis. Once the staging studies and final pathology report is available, I will see the patient on an outpatient basis and discuss about the diagnosis, prognosis and treatment recommendations. 3. I have discussed the available information and the recommendations with the patient's mother by phone and answered her questions also today. BRIEF HISTORY: Ms. Spaulding is a 41-year-old female who has had intermittent vomiting got the last one month. She came to visit her mother for [place] and was getting sicker and vomiting on a daily basis. She was evaluated at the urgent care and later on at the emergency room and found to be dehydrated. Initially she was hydrated and treated with antiemetics and discharged home. Within 24 hours, she returned again to the emergency room and at this time CT scan of the abdomen was done, which showed evidence of proximal small bowel obstruction. Because of this, she was admitted to the hospital and a surgical consultation obtained. She had an exploratory laparotomy and had a segmental resection of jejunum with end-to-end anastomosis. From the operative note, there were significantly matted nodes at the root of the mesentery which could not be resected. Initial pathology report showed this to be poorly differentiated adenocarcinoma and hence the oncology consultation. The patient had denied any significant problems prior to a month ago. No new lumps or masses. No new bony aches or pains. No headaches or visual changes. She gives a total of 6 pounds weight loss during October prior to her surgery. No diarrhea, hematochezia or melena but had a tendency for constipation. No chest pain, palpitations, orthopnea or PND. Previous history of acid peptic symptoms with her pregnancies, but no other GI symptoms. PAST MEDICAL HISTORY: Unremarkable with no medical problems previously. No previous surgeries other than extraction of wisdom tooth in the distant past. SOCIAL HISTORY: The patient is recently as her from adenocarcinoma of the lung in mid 2015. She lives near [place], [place] and has a 22-year-old son who lives in [place], [place], a 21-year-old son who lives in [place], [place] and 5-year-old daughter. She denied any tobacco, alcohol or recreational drug use. 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 FAMILY HISTORY: Significant for her paternal grandmother who was diagnosed with breast cancer and while in her 70s. Maternal grandmother had lung cancer and in her 70s. No other malignancies in the family. She has 2 brothers and 2 sisters who are fairly healthy without any major medical problems. PHYSICAL EXAMINATION: Today showed a middle-aged female, thin and weak appearing, awake, and oriented and does not appear in any acute distress. Temperature was 98.1, pulse rate of 68, respiratory rate 20, blood pressure 108/65 and oxygen saturation of 98% on room air. HEENT: Normocephalic, extraocular muscles intact. Conjunctiva is slightly pale, oral mucosa slightly dry without lesions. NECK: Supple with no JVD. No cervical, supraclavicular, or axillary lymphadenopathy palpable. CHEST: Chest was symmetrical. LUNGS: Clear to auscultation without wheezes or rales. CARDIOVASCULAR EXAM: Was regular in rate and rhythm. No murmurs or gallops heard. ABDOMEN: Soft with hypoactive bowel sounds. Healing midline incision from recent exploratory laparotomy noted. Palpation was not done. EXTREMITIES: Showed no edema or tenderness. NEUROLOGICAL EXAM: Showed no focal motor deficits. LABORATORY: CBC done earlier today showed white count of 3.5, hemoglobin 9.2, MCV 80, platelet count of 212,000 with neutrophil count of 2.2. Chemistry panel today showed potassium level of 3.0 and chloride of 112 with the rest of the electrolytes normal. BUN was 2 and creatinine 0.59 with a GFR more than 60 mL per minute. AST was minimally elevated at 44 and albumin level below normal at 2.7 with the rest of the liver function studies within normal limits. CT scan of the abdomen and pelvis done on 11/22/2016 without contrast showed a high grade partial small bowel obstruction in the proximal jejunum secondary to an underlying small bowel mass. Mild mesenteric and retroperitoneal lymphadenopathy noted. Neoplastic etiology was suspected. Soft tissue density measured 2.8 x 2.2 x 2.4 cm. There was diffuse fatty infiltration of the liver. From the operative note from 11/22/[address] Marti, showed an annular mass that was causing obstruction in the jejunum. There was another smaller mass on the bowel distal to the obstructing mass with no other masses visualized on the small bowel. The colon and did not have any palpable masses. Right ovary with a simple-appearing cyst along with the left ovary. No other pelvic masses noted on palpation. Liver was smooth without any palpable masses. There was a matted group of lymph nodes in the roof of the mesentery encasing the superior mesenteric artery. This could not be removed surgically. Thank you for allowing me to participate in this patient's care. I will follow the patient with you and make appropriate recommendations. Job ID: [id number] Dictated Date: 11/27/2016 14:58:39 Human Capital Consultant Date: 11/28/2016 06:46:21/marta LOU
--- NOTE | 2016-11-28 07:37 | Progress Note-Hospitalist ---
Progress Note HPI/CC on Admission CC: Abdominal pain with recurrent N/V with 8# wt loss in past 1 month Chart Review: Hgb: 10.8 WBC: 7.2 Dr. Marti Consult: Dr. Durbin requests that Dr. Marti assist with pt care. Dr. Marti will come on board. Patient Interview: Pt states that she woke up thirsty, and after drinking water her nausea returned. Pt denies having PCP. Pt denies having any previous operations. Pt denies having fever prior to admission. 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 Pt's in April of lung cancer. was 50yo. Pt denies smoking or drinking excessive ETOH. Pt states that she had abdominal pain in the middle of her abdomen this morning. Pain lasted a few minutes. Physical exam was stable. Pt states that she had a small BM yesterday. Pt states that she had an x-ray at Urgent Care in [place] two weeks ago. Pt states that she has had persistent nausea and stomach pain for the past month , and symptoms have become severe this past week. Pt has lost around 5lbs. Pt states that she has not eaten much this week. Pt had some water within the past hour. Pt denies having CT scan or ultrasound. Pt still has gallbladder. Scribed by Oliver Noguera under the direct supervision of Dr. Durbin. 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 Richter saw pt yesterday. Pt is now on clear diet. Pt had flatus. Pt has been encouraged to ambulate. General surgery will look at pt for approval to [place]. Patient Interview: Pt states she has flatus and had a small BM this morning. Physical exam was stable. Pt states she has been using some pain medicine. Pt states she took a pain pill yesterday morning and pain IV last night. Scribed by Harpreet Swanson under the direct supervision of Dr. Durbin. AFVSS, Pleasant, thin, O x 3, improved RRR, CTAB no rales noted + BS Assessment: Abdominal pain with recurrent N/V w/nl labs and 8# wt loss in past 1 month w/ hypoglycemia w/small bowel mass on CT causing SBO s/p NGT w/good results s/p Dr Marti resection revealing adenocarcinoma of the small bowel with nest of lymph nodes lying under the mass with another mass alongside of the main nodule POD # 6 Postop ileus Severe hypokalemia s/p resolution Plan: CLD and advance Consult Dr. Novak appreciated General surgery for DC CHANEL DURBIN DO Nov 28, 2016 07:37 CHANEL DURBIN DO Nov 28, 2016 07:37
[2016-11-28 08:00] VITALS: BP 102/64
[2016-11-28] MEDS: POTASSIUM CL 10MEQ/50ML IVPB 50 ML IV SCH ×4 (09:23→15:06)
[2016-11-28] MEDS: DOCUSATE SODIUM 100 MG (COLACE) CAP PO SCH (09:23)
[2016-11-28] MEDS: FAMOTIDINE 20MG/2ML IV (PEPCID) IVP SCH (09:23)
[2016-11-28] MEDS: ONDANSETRON 4 MG/2 ML (SDV) Z0FRAN IV PRN (11:14)
--- NOTE | 2016-11-28 11:41 | Discharge Inst-Simple/Standard ---
Discharge Inst-Standard Patient Instructions/Follow Up Plan of Care/Instructions/FU: Follow up with PCP in one week. Follow up with Dr. Marti in 2 weeks Need Lab drawn-BMP in one week Follow up with Dr. Richter in 2 weeks. Activity as Tolerated: No Discharge Diet: Liquid Diet (Liquid diet and slowly advance to soft diet in 2 - 3 days and then to solid food .) Other Inst to Patient Follow up Appt: Make appointment for 2 week. Instructions: No lifting greater than 10 pounds. No strenuous activity. May shower in 24 hours, no tub bath or soaking. Use incentive spirometer at home as directed. No Smoking Skin/Wound Care: keep clean and dry. Symptoms to Report: Appetite Changes, Extremity Discoloration, Numbness/Tingling, Swelling Increased , Bleeding Excessive, Eyesight Changes, Pain Increased, Urine Color Change, Constipation(Persistent), Fever over 101 degree F, Pain/Pressure in chest, Urinating Difficulty, Cough Up/Vomit Blood, Heart Beat Irreg/Pounding, Pain/ Pressure in jaw, Vaginal Bleeding Increase, Cramps in feet or legs, Lightheadedness, Pain/Pressure in shoulder, Diarrhea(Persistent), Memory Changes Suddenly, Questions/Concerns, Weight gain consecutive days, Dizziness/ Fainting, Nausea/Vomiting, Shortness of Breath, Weight gain over 2 pounds If questions or concerns contact your physician Or seek help at emergency department. DOM BEYER APRN Nov 28, 2016 11:41
[2016-11-28 12:16] VITALS: BP 108/66
--- NOTE | 2016-11-28 13:39 | Progress Note ---
Subjective Subjective/Events-last exam Passing flatus and had BM. Tolerating diet. Denies n/v fever sweats chills shortness of breath or chest pain. Objective Exam Vital Signs Date Time Temp Pulse Resp B/P Pulse Ox O2 Delivery O2 Flow Rate FiO2 11/28/16 12:16 98.4 80 20 108/66 98 Room Air 11/28/16 08:00 98.1 82 20 102/64 98 Room Air 11/28/16 04:00 97.8 80 20 100/63 97 Room Air 11/28/16 00:00 97.6 90 20 105/65 96 Room Air 11/27/16 20:38 98.1 11/27/16 20:08 99.8 11/27/16 20:00 99.5 79 20 113/73 96 Room Air 11/27/16 16:00 99.3 74 20 114/71 98 Room Air I & O 11/28/16 07:00 Intake Total 3675 ml Output Total 2400 ml Balance 1275 ml Capillary Refill : Less Than 3 SecondsLess Than 3 Seconds General Appearance: No Apparent Distress Chronically ill Thin HEENT: PERRL/EOMI Neck: Normal Inspection Non Tender Supple Respiratory: Chest Non Tender No Accessory Muscle Use No Respiratory Distress Cardiovascular: Regular Rate, Rhythm Peripheral Pulses: 2+ Dorsalis Pedis (R), 2+ Left Dors-Pedis (L), 2+ Radial Pulses (R), 2+ Radial Pulses (L) Gastrointestinal: soft tenderness (minimal incisional tenderness jose rafael, incision clean dry no erythema) Extremity: Normal Range of Motion Non Tender No Calf Tenderness No Pedal Edema Neurologic/Psychiatric: Alert Oriented x3 No Motor/Sensory Deficits Normal Mood/Affect Skin: Normal Color Warm/Dry Lymphatic: No Adenopathy Results Lab Laboratory Tests 11/28/16 05:52: Alanine Aminotransferase (ALT/SGPT) 48, Albumin 2.8L, Alkaline Phosphatase 78, Anion Gap 6, Aspartate Amino Transf (AST/SGOT) 53H, BUN/Creatinine Ratio 3, Basophils # (Auto) 0.0, Basophils (%) (Auto) 0, Blood Urea Nitrogen 2L, Calcium Level 7.8L, Carbon Dioxide Level 24, Chloride Level 111H, Creatinine 0.58L, Eosinophils # (Auto) 0.2, Eosinophils (%) (Auto) 4, Estimat Glomerular Filtration Rate > 60, Glucose Level 101, Hematocrit 29L, Hemoglobin 9.5L, Lymphocytes # (Auto) 0.8L, Lymphocytes (%) (Auto) 20, Mean Corpuscular Hemoglobin 26, Mean Corpuscular Hemoglobin Concent 33, Mean Corpuscular Volume 80, Mean Platelet Volume 11.7H, Monocytes # (Auto) 0.4, Monocytes (%) (Auto) 11 , Neutrophils # (Auto) 2.7, Neutrophils (%) (Auto) 65, Platelet Count 211, Potassium Level 3.1L, Red Blood Count 3.63L, Red Cell Distribution Width 13.9, Sodium Level 141, Total Bilirubin 0.3, Total Protein 4.5L, White Blood Count 4.2L Microbiology 11/22/16 MRSA Screen - Final, Complete MRSA not isolated Assessment/Plan Assessment/Plan Assessment/Plan proximal jejunal small bowel obstruction likely secondary to small bowel mass nausea and vomiting- resolved Mild ileus electrolyte abnormalities s/p exploratory laparotomy small bowel resection Replaced potassium, advanced diet. pain controlled, okay to sd home Clinical Quality Measures DVT/VTE Risk/Contraindication: Risk Factor Score Per Nursin RFS Level Per Nursing on Admit: 1=Low/No VTE PPX KUSHAL BOWMAN DO Nov 28, 2016 1:39 pm
--- NOTE | 2016-11-28 13:51 | Discharge Summary ---
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 She was seen a few days prior to the for the same thing, had prescriptions and fluids and was better. She had tried Zofran but was unable to keep anything down so presented to the ER again. Mild intermittent abdominal cramping noted. No blood in her vomit or stool. She had a ct scan which Dr. Marti reviewed. It showed an obstruction of proximal jejunum appears to be secondary to mass. He discussed with Dr. Corado and then with the patient. She had a CT scan with oral contrast performed demonstrating proximal high- grade small bowel instructions like secondary to small bowel mass. She then place an NG tube placed. Patient was discuss risk and benefits of a exploratory laparotomy all other indicated procedures possible small bowel resection. Patient verbalized understanding of risk and benefits and wishes to proceed. 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 Dr. Richter consulted for oncology. Hypokalemia after surgery. Patient was receiving at least 30 MMeq Potassium a day for the last 3 days. Patient passing flatus, and having BM. She is tolerating clear liquids at this time. Patient is alert and oriented x 3. No distress. Even respiration. Abdomen soft to palpation. [place] intact. No bleeding, drainage, warmth or redness noted to the incision. Patient will be discharged at this time. BMP in one week to reevaluate potassium. To follow up with Dr. Marti and Dr. Richter in 2 weeks. Discharge Summary Discharge Physical Examination Allergies: Coded Allergies: No Known Drug Allergies (Unverified , 11/18/16) Vitals & I&Os General Appearance: Alert, Oriented X3, Cooperative HEENT: Atraumatic Cardiovascular: Regular Rate Abdominal: Soft Extremities: No Clubbing, No Cyanosis Neuro: Normal Gait, Normal Speech Hospital Course This is a 41 year old female patient who came into the ER on Oct with Nausea and vomiting x 1 week. She was seen a few days prior to the for the same thing, had prescriptions and fluids and was better. She had tried Zofran but was unable to keep anything down so presented to the ER again. Mild intermittent abdominal cramping noted. No blood in her vomit or stool. She had a ct scan which Dr. Marti reviewed. It showed an obstruction of proximal jejunum appears to be secondary to mass. He discussed with Dr. Corado and then with the patient. She had a CT scan with oral contrast performed demonstrating proximal high- grade small bowel instructions like secondary to small bowel mass. She then place an NG tube placed. Patient was discuss risk and benefits of a exploratory laparotomy all other indicated procedures possible small bowel resection. Patient verbalized understanding of risk and benefits and wishes to proceed. 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 Dr. Richter consulted for oncology. Hypokalemia after surgery. Patient was receiving at least 30 MMeq Potassium a day for the last 3 days. Patient passing flatus, and having BM. She is tolerating clear liquids at this time. Patient is alert and oriented x 3. No distress. Even respiration. Abdomen soft to palpation. [place] intact. No bleeding, drainage, warmth or redness noted to the incision. Patient will be discharged at this time. BMP in one week to reevaluate potassium. To follow up with Dr. Marti and Dr. Richter in 2 weeks. Pending Labs Discharge Instructions to patient/family Please see electonic discharge instructions given to patient. Discharge Medications Reviewed and agree with Discharge Medication list on patient's Discharge Instruction sheet Clinical Quality Measures DVT/VTE Risk/Contraindication: Risk Factor Score Per Nursin RFS Level Per Nursing on Admit: 1=Low/No VTE PPX DOM BEYER APRN Nov 28, 2016 13:51 Lymphocytes # (Auto) 0.8, Lymphocytes (%) (Auto) 20, Mean Corpuscular Hemoglobin 26, Mean Corpuscular Hemoglobin Concent 33, Mean Corpuscular Volume 80, Mean Platelet Volume 11.7, Monocytes # (Auto) 0.4, Monocytes (%) (Auto) 11, Neutrophils # (Auto) 2.7, Neutrophils (%) (Auto) 65, Platelet Count 211, Potassium Level 3.1, Red Blood Count 3.63, Red Cell Distribution Width 13.9, Sodium Level 141, Total Bilirubin 0.3, Total Protein 4.5, White Blood Count 4.2 Discharge Instructions to patient/family Please see electonic discharge instructions given to patient. Discharge Medications Reviewed and agree with Discharge Medication list on patient's Discharge Instruction sheet Clinical Quality Measures DVT/VTE Risk/Contraindication: Risk Factor Score Per Nursin RFS Level Per Nursing on Admit: 1=Low/No VTE PPX DOM BEYER APRN Nov 28, 2016 13:51
[2016-11-28 16:45] VITALS: BP 108/66
== END 2016-11-28 17:05 | disposition home or self-care (01) | DRG 330 ==
LOC: EDUNIT# 08:00 → ER 08:01 → 4TH 12:00 → UNDOADMOB 12:00 → 4TH 13:00 → OBSVTOIN 11-21 12:21 → INTOOBSV 11-21 12:25 → OBSVTOIN 11-21 12:25 → 4TH 11-22 17:47
PROVIDERS: ADMIT Internal Medicine; ATTEND Internal Medicine
PROC: 0DBA0ZZ Excision of Jejunum, Open Approach (ICD-10-PCS; principal; 2016-11-22 15:15)
DX: C17.1 Malignant neoplasm of jejunum (principal); K56.69 Other intestinal obstruction; E86.0 Dehydration; E87.6 Hypokalemia
CPT/HCPCS: 36415; 74000; 74176; 74177; 76700; 80048; 80053; 81000; 82962; 83735; 84100; 84702; 84703; 85007; 85025; 85027; 86141; 86850; 86900; 86901; 87081; 94664; 96361; 96374; 96375; G0378

== ENCOUNTER → 2016-12-05 | Outpatient (CLI) | payer OTHER ==
[~2016-12-05] MED LIST changes: +DOCU-143 PO; +HYDR-3812 PO; +ONDA4TAB8 PO
--- OUTSIDE RECORDS SUMMARY | 2016-12-05 13:28 | XMS REPORT | Continuity of Care Document ---
Author Author [facility] Organization [facility] Address Unknown Phone Unavailable Care Team Providers Care Teaching Manager Name Role Phone NO, LOCAL PHYSICIAN PCP [...] - 99.5) 11/18/2016 8:52am Temperature (Calculated Celsius) 36.49350 degrees C (36.4 - 37.5) 11/18/2016 8:52am [...] 8 inches 11/18/2016 8:52am Height (Calculated Centimeters) 172.954453 cm 11/18/2016 8:52am Weight (Pounds) 132 pounds 11/18/2016 8:52am Weight (Calculated Kilograms) 59.485917 kilograms 11/18/2016 8:52am Capillary Refill Capillary Refill [...] 5-9 11/18/2016 11:56am 11/18/2016 12:11pm Urine Specific [place] 1.025 * 1.016-1.022 11/18/2016 11:56am 2015 12:11pm [...] Date Attending Provider Departed Emergency Room [facility] 11/18/16 8:38am 11/18 12:50pm EDVIN HERNADEZ MD Recent Diagnosis
[2016-12-05 14:12] LABS: ANION GAP 11 MMOL/L (5-14); BLOOD UREA NITROGEN 13 MG/DL (7-18); BUN/CREATININE RATIO 18; CALCIUM 9.4 MG/DL (8.5-10.1); CARBON DIOXIDE 25 MMOL/L (21-32); CHLORIDE 104 MMOL/L (98-107); CREATININE SERUM 0.73 MG/DL (0.60-1.30); GFR ESTIMATED > 60; GLUCOSE 102 MG/DL (70-105); POTASSIUM 3.9 MMOL/L (3.6-5.0); SODIUM 140 MMOL/L (135-145)
== END ==
LOC: LAB 13:25
PROVIDERS: ATTEND Nurse Practitioner
DX: E87.6 Hypokalemia (principal)
CPT/HCPCS: 36415; 80048

== ENCOUNTER → 2016-12-09 | Outpatient (CLI) | payer OTHER ==
[~2016-12-09] MED LIST changes: +0.9% SODIUM CHLORIDE PF INJ 20 ML VIAL ONE; +BARIUM SUSPENSION 2.1% (VANILLA SILQ) 450 ML PO ONE; +BUPIVACAINE 0.5% 30 ML (SENSORCAINE) VIAL ONE; +CATHETER FLUSH 10 ML SYR IV PRN; +HEParin (CENTRAL IV FLUSH) 500 UNIT/5 ML SYR ONE; +IOHEXOL 350 MG/ML 100 ML (OMNIPAQUE 350) VIAL IV ONE; +LIDOCAINE 1% INJ 20 ML (XYLOCAINE) VIAL ONE; +NS 100 ML (IVPB) BAG IV ONE
--- OUTSIDE RECORDS SUMMARY | 2016-12-09 11:47 | XMS REPORT | Continuity of Care Document ---
Author Author [facility] Organization [facility] Address Unknown Phone Unavailable Care Team Providers Care Manager Oncology Name Role Phone NO, LOCAL PHYSICIAN PCP [...] - 99.5) 11/18/2016 8:52am Temperature (Calculated Celsius) 36.93146 degrees C (36.4 - 37.5) 11/18/2016 8:52am [...] 8 inches 11/18/2016 8:52am Height (Calculated Centimeters) 172.822663 cm 11/18/2016 8:52am Weight (Pounds) 132 pounds 11/18/2016 8:52am Weight (Calculated Kilograms) 59.276712 kilograms 11/18/2016 8:52am Capillary Refill Capillary Refill [...] 5-9 11/18/2016 11:56am 11/18/2016 12:11pm Urine Specific [place] 1.025 * 1.016-1.022 11/18/2016 11:56am 2015 12:11pm [...] Date Attending Provider Departed Emergency Room [facility] 11/18/16 8:38am 11/18 12:50pm EDVIN HERNADEZ MD Recent Diagnosis
--- NOTE | 2016-12-09 15:14 | Diagnostic Imaging Report ---
PROCEDURE: CT chest, abdomen, and pelvis with contrast. TECHNIQUE: Multiple contiguous axial images were obtained through the chest, abdomen, and pelvis after the administration of intravenous contrast. INDICATION: Adenocarcinoma of the jejunum. CONTRAST: 100 mL of Omnipaque 350 is administered intravenously. FINDINGS: CT chest: The lungs demonstrate no significant consolidation or mass. The heart size is normal. The thoracic aorta is normal in caliber. No para-aortic significantly enlarged lymph node is seen. No mediastinal mass is identified. No hilar significantly enlarged lymph nodes or masses seen. No axillary lymphadenopathy is noted. The osseous structures appear grossly unremarkable. The liver demonstrates geographic hypodensities involving mostly segments VIII and V of the right hepatic lobe that become hyperdense on the delayed phase imaging suggestive of perfusional problem rather than underlying mass likely related to occlusion or spasm of the corresponding right hepatic lobe artery branches. The pancreas, the spleen, and the adrenal glands appear unremarkable. The colon demonstrates moderate amount of fecal material. There is a patent jejunojejunal anastomosis with a staple line seen. There are mesenteric lymph nodes up to 0.7 cm in short axis in the mid abdomen and up to 0.9 cm in short axis near the root of the mesentery just below the level of the third portion of the duodenum. These are probably involved lymph nodes with malignancy. There are also para-aortic and retrocaval lymph nodes seen in the retroperitoneum up to 1 cm in short axis in the aortocaval station and the retrocaval location below the level of the renal vessels. No significant free fluid or fluid collection in the abdomen or pelvis. The uterus is lobulated with underlying fibroids suggested. There is also a right ovarian simple appearing 3 cm cyst seen. The osseous structures appear grossly unremarkable. IMPRESSION: CT chest: No evidence of metastasis. CT abdomen and pelvis: 1. Interval resection of a small bowel mass with patent jejunojejunal anastomosis. 2. Persistent mildly enlarged mesenteric and retroperitoneal lymph nodes likely involved with malignancy. 3. Uterine fibroids. Simple appearing right ovarian cyst. Dictated by: Dictated on workstation # [id number]
--- NOTE | 2016-12-09 15:47 | Diagnostic Imaging Report ---
Whole body bone scan. Technique: After the intravenous administration of 26.4 mCi of Technetium 99m MDP, whole body delayed phase bone scan images were obtained with lateral views of the head and neck and the chest regions. Indication: Adenocarcinoma of the jejunum. Findings: There is normal radiotracer uptake distribution in the bone structures seen. There is asymmetric uptake in the right flank region that is probably related to slightly prominent activity in the right kidney rather than from an overlying rib activity. The corresponding CT scan demonstrates no definite right rib lesion. Expected activity in the urinary bladder seen. IMPRESSION: No scintigraphic evidence of osseous metastasis. Dictated by: Dictated on workstation # [id number]
== END ==
LOC: CARD 11:44
PROVIDERS: ATTEND Internal Medicine Hematology & Oncology
DX: C17.1 Malignant neoplasm of jejunum (principal)
CPT/HCPCS: 71260; 74177; 78306

== ENCOUNTER 2016-12-13 05:37 | Outpatient (CLI) | payer OTHER ==
[~2016-12-13] VITALS: Ht 172.7 cm; Wt 55.3 kg
[~2016-12-13 05:37] MED LIST changes: -0.9% SODIUM CHLORIDE PF INJ 20 ML VIAL ONE; -BARIUM SUSPENSION 2.1% (VANILLA SILQ) 450 ML PO ONE; -BUPIVACAINE 0.5% 30 ML (SENSORCAINE) VIAL ONE; -CATHETER FLUSH 10 ML SYR IV PRN; -HEParin (CENTRAL IV FLUSH) 500 UNIT/5 ML SYR ONE; -IOHEXOL 350 MG/ML 100 ML (OMNIPAQUE 350) VIAL IV ONE; -LIDOCAINE 1% INJ 20 ML (XYLOCAINE) VIAL ONE; -NS 100 ML (IVPB) BAG IV ONE
--- OUTSIDE RECORDS SUMMARY | 2016-12-13 05:40 | XMS REPORT | Continuity of Care Document ---
Author Author [facility] Organization [facility] Address Unknown Phone Unavailable Care Team Providers Care Printer Helper Name Role Phone NO, LOCAL PHYSICIAN PCP [...] - 99.5) 11/18/2016 8:52am Temperature (Calculated Celsius) 36.43090 degrees C (36.4 - 37.5) 11/18/2016 8:52am [...] 8 inches 11/18/2016 8:52am Height (Calculated Centimeters) 172.111082 cm 11/18/2016 8:52am Weight (Pounds) 132 pounds 11/18/2016 8:52am Weight (Calculated Kilograms) 59.036726 kilograms 11/18/2016 8:52am Capillary Refill Capillary Refill [...] 5-9 11/18/2016 11:56am 11/18/2016 12:11pm Urine Specific [place] 1.025 * 1.016-1.022 11/18/2016 11:56am 2015 12:11pm [...] Date Attending Provider Departed Emergency Room [facility] 11/18/16 8:38am 11/18 12:50pm EDVIN HERNADEZ MD Recent Diagnosis
== END 2016-12-13 11:23 ==
LOC: PREOP 05:37
PROVIDERS: ATTEND Surgery
DX: Z01.818 Encounter for other preprocedural examination (principal); C17.1 Malignant neoplasm of jejunum

== ENCOUNTER → 2016-12-17 | Outpatient (CLI) | payer SELFPAY ==
--- OUTSIDE RECORDS SUMMARY | 2016-12-17 09:12 | XMS REPORT | Continuity of Care Document ---
Author Author [facility] Organization [facility] Address Unknown Phone Unavailable Care Team Providers Care Hand Rug Braider Name Role Phone NO, LOCAL PHYSICIAN PCP Unavailable Insurance Providers Payer Name Policy Number Subscriber Name Relationship [facility] [id number] Eli Powell 18 Self / Same As Patient Advance Directives Directive Response Recorded Date/Time Advance Directives No 11/20/16 1:20pm Health Care Power of Student Specialist No 11/20/16 1:20pm Organ Donor Yes 11/20/16 1:20pm Problems Active Problems Medical Problem Onset Date Status Central abdominal pain Unknown Acute Dehydration Unknown Acute Hypokalemia Unknown Acute Intractable nausea and vomiting Unknown Acute Nausea and vomiting Unknown Acute Medications No known medications. Social History Social History Problem Response Recorded Date/Time Recent Foreign Travel SEE [place] 12/10/2016 12:55pm Recent Hopitalizations No 11/20/2016 1:31pm Hospital Discharge Instructions Current inpatient/outpatient. Discharge instructions are currently unavailable. Plan of Care Prescriptions Functional Status No functional status results. Allergies, Adverse Reactions, Alerts No known allergies. Immunizations Name Given Type FLU TRIvalent 5 years - Adult 11/20/16 Administered Vital Signs Acute Vital Signs Vital Response Date/Time Temperature (Fahrenheit) 98.4 degrees F (97.6 - 99.5) 11/28/2016 4:45pm Temperature (Calculated Celsius) 36.20206 degrees C (36.4 - 37.5) 11/28/2016 12:16pm Temperature Source Tympanic 11/28/2016 4:45pm Pulse Rate (adult) 80 bpm (60 - 90) 11/28/2016 4:45pm Respiratory Rate 20 bpm (12 - 24) 11/28/2016 4:45pm O2 Sat by Pulse Oximetry 98 % (88 - 100) 11/28/2016 4:45pm Blood Pressure 108/66 mm Hg 11/28/2016 4:45pm Blood Pressure Mean 80 mm Hg 11/28/2016 12:16pm Pain Numeric Pain Scale 0-No Pain 11/28/2016 4:45pm Height (Feet) 5 feet 12/13/2016 11:17am Height (Inches) 8.00 inches 12/13/2016 11:17am Height (Calculated Centimeters) 172.351118 cm 12/13/2016 11:17am Weight (Pounds) 122 pounds 12/13/2016 11:17am Weight (Ounces) 0.0 oz 12/13/2016 11:17am Weight (Calculated Grams) 16472.27 gm 12/13/2016 11:17am Weight (Calculated Kilograms) 55.472089 kilograms 12/13/2016 11:17am Calculated BMI 18.6 12/13/2016 11:17am Capillary Refill Capillary Refill Less Than 3 Seconds 11/27/2016 8:00am Results Laboratory Results Test Name Result Units Flags Reference Collection Date/Time Result Date/ Time Comments White Blood Count 8.9 10^3/uL 4.3-11.0 11/18/2016 9:10am 11/18/2016 9: 21am Red Blood Count 5.11 10^6/uL 4.35-5.85 11/18/2016 9:10am 11/18/2016 9: 21am Hemoglobin 13.5 G/DL 11.5-16.0 11/18/2016 9:10am 11/18/2016 9:21am Hematocrit 40 % 35-52 11/18/2016 9:10am 11/18/2016 9:21am Mean Corpuscular Volume 78 FL L 80-99 11/18/2016 9:10am 11/18/2016 9: 21am Mean Corpuscular Hemoglobin 26 PG 25-34 11/18/2016 9:10am 11/18/2016 9: 21am Mean Corpuscular Hemoglobin Concent 34 G/DL 32-36 11/18/2016 9: 9:21am Red Cell Distribution Width 13.3 % 10.0-14.5 11/18/2016 9:2015 9:21am Platelet Count 330 10^3/uL 130-400 11/18/2016 9:10a11/18/2016 9:21am Mean Platelet Volume 11.9 FL H 7.4-10.4 11/18/2016 9:10a11/18/2016 9: 21am Neutrophils (%) (Auto) 81 % H 42-75 11/18/2016 9:11/18/2016 9:21am Lymphocytes (%) (Auto) 10 % L 12-44 11/18/2016 9:11/18/2016 9:21am Monocytes (%) (Auto) 8 % 0-12 11/18/2016 9:11/18/2016 9:21am Eosinophils (%) (Auto) 2 % 0-10 11/18/2016 9:11/18/2016 9:21am Basophils (%) (Auto) 0 % 0-10 11/18/2016 9:11/18/2016 9:21am Neutrophils # (Auto) 7.2 X 10^3 1.8-7.8 11/18/2016 9:11/18/2016 9: 21am Lymphocytes # (Auto) 0.9 X 10^3 L 1.0-4.0 11/18/2016 9:10a11/18/2016 9: 21am Monocytes # (Auto) 0.7 X 10^3 0.0-1.0 11/18/2016 9:10a11/18/2016 9: 21am Eosinophils # (Auto) 0.2 10^3/uL 0.0-0.3 11/18/2016 9:10a11/18/2016 9 :21am Basophils # (Auto) 0.0 10^3/uL 0.0-0.1 11/18/2016 9:10a11/18/2016 9: 21am Urine Color YELLOW 11/18/2016 11:56am 11/18/2016 12:11pm Urine Clarity CLEAR 11/18/2016 11:56am 11/18/2016 12:11pm Urine pH 6 5-9 11/18/2016 11:56am 11/18/2016 12:11pm Urine Specific [place] 1.025 * 1.016-1.022 11/18/2016 11:56am 2015 12:11pm [...] 9:34am Chloride Level 100 MMOL/L 98-107 11/18/2016 9:10a11/18/2016 9:34am Carbon Dioxide Level 23 MMOL/L 21-32 11/18/2016 9:10a11/18/2016 9: 48am Anion Gap 17 MMOL/L H 5-14 11/18/2016 9:10a11/18/2016 9:48am Blood Urea Nitrogen 10 MG/DL 7-18 11/18/2016 9:10a11/18/2016 9:48am Creatinine 1.22 MG/DL 0.60-1.30 11/18/2016 9:10a11/18/2016 9:48am BUN/Creatinine Ratio 8 11/18/2016 9:10a11/18/2016 9:48am Estimat Glomerular Filtration Rate 49 11/18/2016 9:10a11/18/2016 9:48am GFR INTERPRETIVE DATA UNITS FOR ESTIMATED GFR (eGFR): mL/min/1.73 M2 REFERENCE RANGE FOR ESTIMATED GFR (eGFR) eGFR NORMAL eGFR >60 MODERATELY DECREASED eGFR 30-59 SEVERLY DECREASED eGFR 15-29 KIDNEY FAILURE <15 (OR DIALYSIS) Glucose Level 110 MG/DL H 70-105 11/18/2016 9:10a11/18/2016 9:48am Calcium Level 10.4 MG/DL H 8.5-10.1 11/18/2016 9:10a11/18/2016 9:34am Magnesium Level 2.1 MG/DL 1.8-2.4 11/18/2016 9:10a11/18/2016 9:34am Total Bilirubin 0.5 MG/DL 0.1-1.0 11/18/2016 9:10a11/18/2016 9:34am Alkaline Phosphatase 65 U/L 40-136 11/18/2016 9:10a11/18/2016 9:48am Aspartate Amino Transf (AST/SGOT) 21 U/L 5-34 11/18/2016 9:10a2015 9:48am Alanine Aminotransferase (ALT/SGPT) 24 U/L 0-55 11/18/2016 9:10a11/18 9:48am Total Protein 7.2 G/DL 6.4-8.2 11/18/2016 9:10a11/18/2016 9:48am Albumin 4.6 G/DL H 3.2-4.5 11/18/2016 9:10am 11/18/2016 9:48am Lipase 44 U/L 8-78 11/18/2016 9:10am 11/18/2016 9:48am Pending Laboratory Results Test Name Collection Date/Time Pending Microbiology Results Procedure Source Collection Date/Time Procedures Procedure Status Date Provider(s) EXCISION OF JEJUNUM, OPEN APPROACH Completed 11/22/16 KUSHAL BOWMAN DO Encounters Encounter Location Arrival/Admit Date Discharge/Depart Date Attending Provider Registered Recurring [facility] 12/13/16 9:02am MARINO TRAN Registered Clinic [facility] 12/13/16 5:37am KUSHAL BOWMAN DO Registered Clinic [facility] 12/09/16 11:44am MARINO TRAN Registered Clinic [facility] 12/05/16 1:25pm DOM BEYER APRN Discharged Inpatient [facility] 11/21/16 12:21pm 5:05pm JONNY MEYERS MD Departed Emergency Room [facility] 11/18/16 8:38am 11/18 12:50pm EDVIN HERNADEZ MD
--- NOTE | 2016-12-17 18:28 | Diagnostic Imaging Report ---
PET/CT. INDICATION: Small bowel carcinoma. TECHNIQUE: After intravenous administration of 14.74 mCi of F18-FDG, a series of overlapping emission and transmission PET images was obtained. In the coronal, transaxial and sagittal planes, the area imaged extended from the skull base through the upper thighs. FINDINGS: There are no previous PET/CT examinations available for comparison. The recent CT chest abdomen and pelvis exam performed on 12/09/2016 noted mildly enlarged mesenteric and retroperitoneal lymph nodes. The nodes are again identified on the CT images of this study and do not appear to have changed significantly in size. These nodes are hypermetabolic with maximum SUVs ranging from 6.0-7.9. There are also hypermetabolic nodular densities on each side of the uterus low in the pelvis. These have maximum SUVs of approximately 6.5 and these findings are suspicious for malignancy as well. The size of these nodular densities are difficult to measure accurately, but I would suspect that the nodule on the right measures approximately 2 cm while the nodule on the left is roughly 2.5 cm. These hypermetabolic nodules are in the expected location of the ovaries. However, the ovaries should not normally show such hypermetabolic activity. Consequently I am concerned that they are secondary to lymph nodes involved by neoplasm. There is no other hypermetabolic activity identified within the abdomen or pelvis. There is physiologic uptake by the kidneys, the bowel, and the bladder. In the thorax, there is a fairly intense area of increased hypermetabolic activity in the right atrium of the heart. In retrospect, on the previous exam there may have been a 1 cm area of diminished density amidst the contrast in the right atrium (image 37 or 131). The maximum SUV of this lesion is 5.4 and consequently this finding is certainly suspicious for neoplasm. There are two small areas of slightly increased hypermetabolic activity along the medial aspect of left upper lung. These have SUV values of less than 1 and consequently are likely related to malignancy. No other hypermetabolic activity is seen. IMPRESSION: 1. The periaortic and retroperitoneal lymph nodes seen on the CT abdomen/pelvis exam are hypermetabolic and should be considered to be involved by neoplasm. There are also hypermetabolic nodes on each side of the uterus in the pelvis. 2. The hypermetabolic focus in the thorax seems to be within the right atrium. This finding would be unusual for metastatic disease but that possibility should still be the primary concern. If further study is desired, then echocardiography would be recommended. 3. There is no other hypermetabolic activity to suggest the presence of neoplasm. 4. These results were discussed with Dr. Richter. Dictated by: Dictated on workstation # [id number]
== END ==
LOC: RAD 09:09
PROVIDERS: ATTEND Internal Medicine Hematology & Oncology
DX: C17.1 Malignant neoplasm of jejunum (principal); C77.2 Secondary and unspecified malignant neoplasm of intra-abdominal lymph nodes; R93.8 Abnormal findings on diagnostic imaging of other specified body structures

== ENCOUNTER 2016-12-19 09:45 | Day surgery (SDC) | payer OTHER ==
[~2016-12-19] VITALS: Ht 172.7 cm; Wt 55.3 kg
--- OUTSIDE RECORDS SUMMARY | 2016-12-19 09:48 | XMS REPORT | Continuity of Care Document ---
Author Author [facility] Organization [facility] Address Unknown Phone Unavailable Care Team Providers Care American History Professor Name Role Phone NO, LOCAL PHYSICIAN PCP Unavailable Insurance Providers Payer Name Policy Number Subscriber Name Relationship [facility] [id number] Eli Powell 18 Self / Same As Patient Advance Directives Directive Response Recorded Date/Time Advance Directives No 11/20/16 1:20pm Health Care Power of Industrial Psychologist No 11/20/16 1:20pm Organ Donor Yes 11/20/16 [...] - 99.5) 11/28/2016 4:45pm Temperature (Calculated Celsius) 36.22502 degrees C (36.4 - 37.5) 11/28/2016 12:16pm [...] 8.00 inches 12/13/2016 11:17am Height (Calculated Centimeters) 172.439460 cm 12/13/2016 11:17am Weight (Pounds) 122 pounds 12/13/2016 11:17am Weight (Ounces) 0.0 oz 12/13/2016 11:17am Weight (Calculated Grams) 77053.27 gm 12/13/2016 11:17am Weight (Calculated Kilograms) 55.962208 kilograms 12/13/2016 11:17am Calculated BMI 18.6 12/13/2016 [...] 5-9 11/18/2016 11:56am 11/18/2016 12:11pm Urine Specific [place] 1.025 * 1.016-1.022 11/18/2016 11:56am 2015 12:11pm [...] Discharge/Depart Date Attending Provider Registered Recurring [facility] 12/13/16 9:02am MARINO TRAN Registered Clinic [facility] 12/13/16 5:37am KUSHAL BOWMAN DO Registered Clinic [facility] 12/09/16 11:44am MARINO TRAN Registered Clinic [facility] 12/05/16 1:25pm DOM BEYER APRN Discharged Inpatient [facility] 11/21/16 12:21pm 5:05pm JONNY MEYERS MD Departed Emergency Room [facility] 11/18/16 8:38am 11/18 12:50pm EDVIN HERNADEZ MD
--- OUTSIDE RECORDS SUMMARY | 2016-12-19 09:50 | XMS REPORT | Continuity of Care Document ---
Author Author [facility] Organization [facility] Address Unknown Phone Unavailable Care Team Providers Care Comfort Advisor Name Role Phone NO, LOCAL PHYSICIAN PCP Unavailable Insurance Providers Payer Name Policy Number Subscriber Name Relationship [facility] [id number] Eli Powell 18 Self / Same As Patient Advance Directives Directive Response Recorded Date/Time Advance Directives No 11/20/16 1:20pm Health Care Power of Lumite Injector No 11/20/16 1:20pm Organ Donor Yes 11/20/16 [...] - 99.5) 11/28/2016 4:45pm Temperature (Calculated Celsius) 36.67166 degrees C (36.4 - 37.5) 11/28/2016 12:16pm [...] 8.00 inches 12/13/2016 11:17am Height (Calculated Centimeters) 172.038198 cm 12/13/2016 11:17am Weight (Pounds) 122 pounds 12/13/2016 11:17am Weight (Ounces) 0.0 oz 12/13/2016 11:17am Weight (Calculated Grams) 89776.27 gm 12/13/2016 11:17am Weight (Calculated Kilograms) 55.612987 kilograms 12/13/2016 11:17am Calculated BMI 18.6 12/13/2016 [...] 5-9 11/18/2016 11:56am 11/18/2016 12:11pm Urine Specific [place] 1.025 * 1.016-1.022 11/18/2016 11:56am 2015 12:11pm [...] Discharge/Depart Date Attending Provider Registered Recurring [facility] 12/13/16 9:02am MARINO TRAN Registered Clinic [facility] 12/13/16 5:37am KUSHAL BOWMAN DO Registered Clinic [facility] 12/09/16 11:44am MARINO TRAN Registered Clinic [facility] 12/05/16 1:25pm DOM BEYER APRN Discharged Inpatient [facility] 11/21/16 12:21pm 5:05pm JONNY MEYERS MD Departed Emergency Room [facility] 11/18/16 8:38am 11/18 12:50pm EDVIN HERNADEZ MD
[2016-12-19] MEDS ORDERED: ceFAZolin 1,000 MG (ANCEF) VIAL ONE (09:51)
[2016-12-19] MEDS ORDERED: NORMAL SALINE (BAXTER MINI) 50 ML IV ONE (09:51)
[2016-12-19] MEDS ORDERED: ceFAZolin 1 GM/NS 50 ML IVPB IV ONE ×2 (10:45)
--- NOTE | 2016-12-19 11:21 | Progress Note-Pre Operative ---
Pre-Operative Progress Note H&P Reviewed The H&P was reviewed, patient examined and no changes noted. Date H&P Reviewed: Dec 19, 2016 Time H&P Reviewed: 11:21 Pre-Operative Diagnosis: adenocarcinoma small bowel KUSHAL BOWMAN DO Dec 19, 2016 11:21 am
[2016-12-19] MEDS ORDERED: MIDAZOLAM 2 MG/2 ML (VERSED) VIAL ONE (11:22)
[2016-12-19] MEDS ORDERED: fentaNYL INJECTION 100 MCG/2 ML AMP ONE (11:22)
[2016-12-19 11:28] VITALS: BP 111/69
--- NOTE | 2016-12-19 12:26 | Progress Note-Post Operative ---
Post-Operative Progess Note Pre-Operative Diagnosis ADENOCARCINOMA SMALL BOWEL Post-Operative Diagnosis same Post-Op Procedure Note Date of Procedure: Dec 19, 2016 Name of Procedure: port placement using u/s guidance rij Procedure Note/Findings see note Anesthesia Type mac c local Estimated blood loss (mL): KUSHAL Gann DO Dec 19, 2016 12:26 pm
--- NOTE | 2016-12-19 12:28 | Discharge Inst-Simple/Standard ---
Discharge Inst-Standard Patient Instructions/Follow Up Plan of Care/Instructions/FU: 2 weeks Kaia Activity as Tolerated: No Discharge Diet: Regular Diet Other Inst to Patient Follow up Appt: Make appointment for 2 week. Instructions: No lifting greater than 10 pounds. No strenuous activity. May shower in 24 hours, no tub bath or soaking. Use incentive spirometer at home as directed. No Smoking Skin/Wound Care: May remove bandages in 48 hours. You need to leave the white strips over incision on they will fall off on their own. Place ice pack over incision on 15 min off 30 min to reduce swelling and discomfort. Symptoms to Report: Appetite Changes, Extremity Discoloration, Numbness/Tingling, Swelling Increased , Bleeding Excessive, Eyesight Changes, Pain Increased, Urine Color Change, Constipation(Persistent), Fever over 101 degree F, Pain/Pressure in chest, Urinating Difficulty, Cough Up/Vomit Blood, Heart Beat Irreg/Pounding, Pain/ Pressure in jaw, Vaginal Bleeding Increase, Cramps in feet or legs, Lightheadedness, Pain/Pressure in shoulder, Diarrhea(Persistent), Memory Changes Suddenly, Questions/Concerns, Weight gain consecutive days, Dizziness/ Fainting, Nausea/Vomiting, Shortness of Breath, Weight gain over 2 pounds If questions or concerns contact your physician Or seek help at emergency department. KUSHAL BOWMAN DO Dec 19, 2016 12:28 pm
[2016-12-19] MEDS ORDERED: LIDOCAINE 1% INJ 20 ML (XYLOCAINE) VIAL INJ ONE (12:45)
[2016-12-19] MEDS ORDERED: BUPIVACAINE 0.5% 30 ML (SENSORCAINE) VIAL INJ ONE (12:45)
[2016-12-19] MEDS ORDERED: CATHETER FLUSH 10 ML SYR IV PRN (12:45)
[2016-12-19] MEDS ORDERED: HEParin (CENTRAL IV FLUSH) 500 UNIT/5 ML SYR IV ONE (12:45)
--- NOTE | 2016-12-19 13:17 | Diagnostic Imaging Report ---
CLINICAL INDICATION: Postop port placement. Exam: Portable chest x-ray upright view. Comparisons: CT scan of the chest, abdomen, and pelvis dated 12/09/2016. FINDINGS: Interval placement of Gzevzb-t-Vinq overlying the right chest with tip in the cavoatrial junction region. Lungs/pleura: Lungs are clear. There is no pneumothorax. There is no pleural effusion. Mediastinum: Unremarkable. Pulmonary vasculature: Unremarkable. Heart: Unremarkable. Bones/extrathoracic soft tissue: Unremarkable. Impression: 1: Interval placement of Dwxdxz-v-Ztas overlying the right chest with tip in the cavoatrial junction. There is no evidence of pneumothorax. 2: There is no radiographic evidence of acute cardiopulmonary process. Dictated by: Dictated on workstation # [id number]
[2016-12-19 13:25] VITALS: BP 95/64
[2016-12-19] MEDS ORDERED: proPOfol 200 MG/20 ML (DIPRIVAN) VIAL IV ONE (13:33)
[2016-12-19] MEDS ORDERED: LACTATED RINGERS 1,000 ML IV ONE (13:33)
[2016-12-19 13:55] VITALS: BP 105/59
--- NOTE | 2016-12-19 13:57 | Diagnostic Imaging Report ---
Fluoroscopy. INDICATION: Xslk-o-qddrrpch placement. Fluoroscopic assistance was provided for Dr. Marti during his port placement procedure. 41 seconds of fluoroscopy time were utilized. A single spot film of the thorax was received from the OR. The film reveals that the Port-A-Cath appears to be in good position with tip overlying the distal superior vena cava. IMPRESSION: 1. Fluoroscopic assistance was provided for insertion of right-sided Port-A-Cath. A followup chest exam would be recommended for continued evaluation. Dictated by: Dictated on workstation # [id number]
[2016-12-19 14:25] VITALS: BP 104/60
[2016-12-19] MEDS ORDERED: LACTATED RINGERS 1,000 ML IV PRN (15:22)
--- NOTE | 2016-12-20 09:57 | OPERATIVE REPORT ---
PROCEDURE PHYSICIAN: KUSHAL BOWMAN DATE OF PROCEDURE: 12/19/2016 PREOPERATIVE DIAGNOSIS: Adenocarcinoma of small bowel. POSTOPERATIVE DIAGNOSIS: Adenocarcinoma of small bowel. PROCEDURE: Port placement, right internal jugular vein using ultrasound guidance. SURGEON: Kaia. ANESTHESIA: MAC with local. COMPLICATIONS: None. ESTIMATED BLOOD LOSS: Minimal. INDICATIONS: The patient is a 41-year-old female recently diagnosed with adenocarcinoma of the small bowel. She understands the risks and benefits of port placement which consent was signed on the chart. PROCEDURE: The patient was taken to the operating suite. She was prepped and draped in sterile fashion. A surgical pause was performed. Using ultrasound, the right internal jugular vein was accessed. Local anesthetic was infiltrated into the right neck and a micro- access needle was used to access the right internal jugular vein. Dark nonpulsatile blood was withdrawn. The micro-access wire was inserted. Fluoroscopy assured proper placement. The needle was removed. The micro-access dilator was then advanced over the guidewire and the wire was removed. The regular guidewire was placed. Fluoroscopy assured proper placement. This was then secured. Local anesthetic was infiltrated along the right neck towards the right chest where a pocket to be created. A 15 blade scalpel was used to make an incision and a pocket was made with cautery and blunt dissection. Over the regular guidewire, the dilator sheath was then advanced over the guidewire under visualization of fluoroscopy. The dilator and wire were removed. The Groshong catheter was inserted through the sheath and then the sheath was removed. The Groshong wire was removed and the catheter was tunneled to the pocket that was created on the right chest. Fluoroscopy was used to cut the catheter to length, which was then secured to the port in the usual fashion and placed within the pocket. The port was then accessed without difficulty and then flushed with saline and then heparin. The subcutaneous tissues were then reapproximated using 3-0 Vicryl. Skin was then closed using 4-0 Vicryl in a running subcuticular fashion. The areas were then washed and dried. Mastisol and Steri-Strips and sterile bandages placed over the port and Ramírez set was placed over the neck insertion site. The patient tolerated the procedure well without any complications. She was taken to recovery room in stable condition. Chest x-ray is pending. Job ID: [id number] Dictated Date: 12/19/2016 13:53:50 Nutrition And Dietetics Instructor Date: 12/20/2016 09:50:00 / marta
--- NOTE | 2016-12-20 10:50 | TEE REPORT ---
DATE OF PROCEDURE: 12/19/2016 REFERRING PHYSICIAN: Dr. Richter. BRIEF HISTORY: Mrs. Spaulding is a 41-year-old lady who was noted to have metastatic cancer. She underwent a PET scan, which showed a lesion on in her right atrium. She was scheduled for EDMAR evaluation. PROCEDURE NOTE: After explaining the procedure to the patient, all pros and cons were explained. All questions were answered. The patient had a port placed and she was under sedation. I was called for evaluation and I proceeded with placement of the EDMAR probe. Multiple views were acquired. Multiple images were acquired. Then the probe was removed. No complication noted. FINDINGS: 1. The left ventricle is normal in size with normal contractility. Estimated ejection fraction 60%. 2. Left atrium left atrial appendage are normal. No clot or thrombus were seen. 3. The right atrium evaluation showed and echogenic density at the intra-atrial septum protruding in the right atrium measuring 1.8 x 2.1 cm at the upper portion of the right atrium. 4. Right ventricle is normal in size. No clot or thrombus. 5. Intra-atrial septum evaluation showed some crossing of bubble through the agitated saline suggestive of bidirectional shunt. 6. Mitral valve is normal in morphology with mild mitral regurgitation noted by color Doppler flow. 7. Aortic valve is trileaflet with normal opening and closing pattern. No significant aortic stenosis or regurgitation was seen. 8. Tricuspid and pulmonic valve were normal. 9. No pericardial effusion. CONCLUSION: 1. Echogenic density was noted at the intra-atrial septum suggestive of a mass measuring 1.8 x 2.1 cm at the insertion of the superior vena cava. 2. Mild mitral and tricuspid regurgitation. 3. Normal left ventricular size and systolic function. Estimated ejection fraction 60%. Job ID: [id number] Dictated Date: 12/19/2016 15:36:15 Needle Maker Date: 12/20/2016 10:44:12/marta
== END 2016-12-19 14:40 | disposition home or self-care (01) ==
LOC: SDC 09:45
PROVIDERS: ATTEND Surgery
DX: C17.1 Malignant neoplasm of jejunum (principal); C77.8 Secondary and unspecified malignant neoplasm of lymph nodes of multiple regions; I51.9 Heart disease, unspecified
CPT/HCPCS: 36415; 71010; 84703; 87081; 93321; 93325

== ENCOUNTER → 2017-03-10 | Outpatient (RCR) | payer OTHER ==
--- OUTSIDE RECORDS SUMMARY | 2016-12-10 12:58 | XMS REPORT | Continuity of Care Document ---
Author Author [facility] Organization [facility] Address Unknown Phone Unavailable Care Team Providers Care Optical Goods Drilling Machine Operator Name Role Phone NO, LOCAL PHYSICIAN PCP [...] - 99.5) 11/18/2016 8:52am Temperature (Calculated Celsius) 36.89307 degrees C (36.4 - 37.5) 11/18/2016 8:52am [...] 8 inches 11/18/2016 8:52am Height (Calculated Centimeters) 172.337184 cm 11/18/2016 8:52am Weight (Pounds) 132 pounds 11/18/2016 8:52am Weight (Calculated Kilograms) 59.080984 kilograms 11/18/2016 8:52am Capillary Refill Capillary Refill [...] 5-9 11/18/2016 11:56am 11/18/2016 12:11pm Urine Specific [place] 1.025 * 1.016-1.022 11/18/2016 11:56am 2015 12:11pm [...] Provider Departed Emergency Room [facility] 11/18/16 8:38am 11/18 12:50pm EDVIN HERNADEZ MD Recent Diagnosis
[2016-12-23 09:34] LABS: BASOPHILS % (AUTO) 0 % (0-10); EOSINOPHILS # (AUTO) 0.2 10^3/uL (0.0-0.3); EOSINOPHILS % (AUTO) 3 % (0-10); LYMPHOCYTES # (AUTO) 1.2 X 10^3 (1.0-4.0); LYMPHOCYTES % (AUTO) 19 % (12-44); MEAN CORPUSCULAR HEMOGLOBIN 25 PG (25-34); MEAN CORPUSCULAR HGB CONC 33 G/DL (32-36); MEAN CORPUSCULAR VOLUME 77 FL (80-99); MEAN PLATELET VOLUME 11.6 FL (7.4-10.4); MONOCYTES # (AUTO) 0.6 X 10^3 (0.0-1.0); MONOCYTES % (AUTO) 10 % (0-12); NEUTROPHILS % (AUTO) 68 % (42-75); PLATELET COUNT 224 10^3/uL (130-400); RED BLOOD COUNT 4.47 10^6/uL (4.35-5.85); RED CELL DISTRIBUTION WIDTH 14.5 % (10.0-14.5); WHITE BLOOD COUNT 5.9 10^3/uL (4.3-11.0)
[2016-12-23 09:56] LABS: ALANINE AMINOTRANSFERASE 15 U/L (0-55); ALBUMIN 4.1 G/DL (3.2-4.5); ANION GAP 8 MMOL/L (5-14); ASPARTATE AMINO TRANSFERASE 13 U/L (5-34); BILIRUBIN,TOTAL 0.3 MG/DL (0.1-1.0); BLOOD UREA NITROGEN 16 MG/DL (7-18); BUN/CREATININE RATIO 23; CALCIUM 8.9 MG/DL (8.5-10.1); CARBON DIOXIDE 23 MMOL/L (21-32); CHLORIDE 107 MMOL/L (98-107); CREATININE SERUM 0.71 MG/DL (0.60-1.30); GFR ESTIMATED > 60; GLUCOSE 88 MG/DL (70-105); POTASSIUM 3.8 MMOL/L (3.6-5.0); SODIUM 138 MMOL/L (135-145); TOTAL PROTEIN 6.6 G/DL (6.4-8.2)
[2016-12-23 11:33] LABS: MAGNESIUM 1.8 MG/DL (1.8-2.4)
[2016-12-30 13:50] LABS: BASOPHILS % (AUTO) 0 % (0-10); EOSINOPHILS # (AUTO) 0.2 10^3/uL (0.0-0.3); EOSINOPHILS % (AUTO) 3 % (0-10); LYMPHOCYTES # (AUTO) 1.2 X 10^3 (1.0-4.0); LYMPHOCYTES % (AUTO) 19 % (12-44); MEAN CORPUSCULAR HEMOGLOBIN 25 PG (25-34); MEAN CORPUSCULAR HGB CONC 32 G/DL (32-36); MEAN CORPUSCULAR VOLUME 77 FL (80-99); MEAN PLATELET VOLUME 11.5 FL (7.4-10.4); MONOCYTES # (AUTO) 0.4 X 10^3 (0.0-1.0); MONOCYTES % (AUTO) 6 % (0-12); NEUTROPHILS # (AUTO) 4.8 X 10^3 (1.8-7.8); NEUTROPHILS % (AUTO) 73 % (42-75); PLATELET COUNT 256 10^3/uL (130-400); RED BLOOD COUNT 4.87 10^6/uL (4.35-5.85); RED CELL DISTRIBUTION WIDTH 14.7 % (10.0-14.5); WHITE BLOOD COUNT 6.7 10^3/uL (4.3-11.0)
[2016-12-30 14:47] LABS: ALANINE AMINOTRANSFERASE 20 U/L (0-55); ALBUMIN 4.5 G/DL (3.2-4.5); ANION GAP 8 MMOL/L (5-14); ASPARTATE AMINO TRANSFERASE 17 U/L (5-34); BILIRUBIN,TOTAL 0.3 MG/DL (0.1-1.0); BLOOD UREA NITROGEN 15 MG/DL (7-18); BUN/CREATININE RATIO 20; CALCIUM 9.1 MG/DL (8.5-10.1); CARBON DIOXIDE 27 MMOL/L (21-32); CHLORIDE 106 MMOL/L (98-107); CREATININE SERUM 0.76 MG/DL (0.60-1.30); GFR ESTIMATED > 60; GLUCOSE 87 MG/DL (70-105); MAGNESIUM 2.6 MG/DL (1.8-2.4); POTASSIUM 4.6 MMOL/L (3.6-5.0); SODIUM 141 MMOL/L (135-145); TOTAL PROTEIN 7.2 G/DL (6.4-8.2)
[2017-01-06 14:13] LABS: BASOPHILS % (AUTO) 1 % (0-10); EOSINOPHILS # (AUTO) 0.1 10^3/uL (0.0-0.3); EOSINOPHILS % (AUTO) 3 % (0-10); LYMPHOCYTES # (AUTO) 1.1 X 10^3 (1.0-4.0); LYMPHOCYTES % (AUTO) 29 % (12-44); MEAN CORPUSCULAR HEMOGLOBIN 26 PG (25-34); MEAN CORPUSCULAR HGB CONC 33 G/DL (32-36); MEAN CORPUSCULAR VOLUME 78 FL (80-99); MEAN PLATELET VOLUME 10.8 FL (7.4-10.4); MONOCYTES # (AUTO) 0.5 X 10^3 (0.0-1.0); MONOCYTES % (AUTO) 14 % (0-12); NEUTROPHILS # (AUTO) 2.1 X 10^3 (1.8-7.8); NEUTROPHILS % (AUTO) 54 % (42-75); PLATELET COUNT 224 10^3/uL (130-400); RED BLOOD COUNT 4.59 10^6/uL (4.35-5.85); RED CELL DISTRIBUTION WIDTH 15.6 % (10.0-14.5); WHITE BLOOD COUNT 3.9 10^3/uL (4.3-11.0)
[2017-01-06 14:40] LABS: ALANINE AMINOTRANSFERASE 18 U/L (0-55); ALBUMIN 4.4 G/DL (3.2-4.5); ANION GAP 9 MMOL/L (5-14); ASPARTATE AMINO TRANSFERASE 18 U/L (5-34); BILIRUBIN,TOTAL 0.3 MG/DL (0.1-1.0); BLOOD UREA NITROGEN 17 MG/DL (7-18); BUN/CREATININE RATIO 22; CALCIUM 9.1 MG/DL (8.5-10.1); CARBON DIOXIDE 25 MMOL/L (21-32); CHLORIDE 107 MMOL/L (98-107); CREATININE SERUM 0.78 MG/DL (0.60-1.30); GFR ESTIMATED > 60; GLUCOSE 97 MG/DL (70-105); MAGNESIUM 2.3 MG/DL (1.8-2.4); POTASSIUM 3.8 MMOL/L (3.6-5.0); SODIUM 141 MMOL/L (135-145); TOTAL PROTEIN 6.9 G/DL (6.4-8.2)
[2017-01-13 13:36] LABS: BASOPHILS % (AUTO) 0 % (0-10); EOSINOPHILS # (AUTO) 0.1 10^3/uL (0.0-0.3); EOSINOPHILS % (AUTO) 4 % (0-10); LYMPHOCYTES # (AUTO) 1.3 X 10^3 (1.0-4.0); LYMPHOCYTES % (AUTO) 38 % (12-44); MEAN CORPUSCULAR HEMOGLOBIN 26 PG (25-34); MEAN CORPUSCULAR HGB CONC 33 G/DL (32-36); MEAN CORPUSCULAR VOLUME 78 FL (80-99); MEAN PLATELET VOLUME 10.9 FL (7.4-10.4); MONOCYTES # (AUTO) 0.3 X 10^3 (0.0-1.0); MONOCYTES % (AUTO) 8 % (0-12); NEUTROPHILS # (AUTO) 1.7 X 10^3 (1.8-7.8); NEUTROPHILS % (AUTO) 50 % (42-75); PLATELET COUNT 188 10^3/uL (130-400); RED BLOOD COUNT 4.59 10^6/uL (4.35-5.85); RED CELL DISTRIBUTION WIDTH 15.9 % (10.0-14.5); WHITE BLOOD COUNT 3.5 10^3/uL (4.3-11.0)
[2017-01-13 14:25] LABS: ANION GAP 8 MMOL/L (5-14); BLOOD UREA NITROGEN 19 MG/DL (7-18); BUN/CREATININE RATIO 26; CALCIUM 9.1 MG/DL (8.5-10.1); CARBON DIOXIDE 27 MMOL/L (21-32); CHLORIDE 106 MMOL/L (98-107); CREATININE SERUM 0.73 MG/DL (0.60-1.30); GFR ESTIMATED > 60; GLUCOSE 87 MG/DL (70-105); POTASSIUM 4.2 MMOL/L (3.6-5.0); SODIUM 141 MMOL/L (135-145)
[2017-01-21 13:08] LABS: BASOPHILS % (AUTO) 0 % (0-10); EOSINOPHILS # (AUTO) 0.1 10^3/uL (0.0-0.3); EOSINOPHILS % (AUTO) 3 % (0-10); LYMPHOCYTES # (AUTO) 1.2 X 10^3 (1.0-4.0); LYMPHOCYTES % (AUTO) 33 % (12-44); MEAN CORPUSCULAR HEMOGLOBIN 26 PG (25-34); MEAN CORPUSCULAR HGB CONC 33 G/DL (32-36); MEAN CORPUSCULAR VOLUME 79 FL (80-99); MEAN PLATELET VOLUME 10.6 FL (7.4-10.4); MONOCYTES # (AUTO) 0.7 X 10^3 (0.0-1.0); MONOCYTES % (AUTO) 19 % (0-12); NEUTROPHILS # (AUTO) 1.6 X 10^3 (1.8-7.8); NEUTROPHILS % (AUTO) 46 % (42-75); PLATELET COUNT 149 10^3/uL (130-400); RED BLOOD COUNT 4.51 10^6/uL (4.35-5.85); RED CELL DISTRIBUTION WIDTH 18.6 % (10.0-14.5); WHITE BLOOD COUNT 3.5 10^3/uL (4.3-11.0)
[2017-01-21 13:42] LABS: ALANINE AMINOTRANSFERASE 24 U/L (0-55); ALBUMIN 4.3 G/DL (3.2-4.5); ANION GAP 8 MMOL/L (5-14); ASPARTATE AMINO TRANSFERASE 18 U/L (5-34); BILIRUBIN,TOTAL 0.5 MG/DL (0.1-1.0); BLOOD UREA NITROGEN 19 MG/DL (7-18); BUN/CREATININE RATIO 28; CALCIUM 8.6 MG/DL (8.5-10.1); CARBON DIOXIDE 22 MMOL/L (21-32); CHLORIDE 108 MMOL/L (98-107); CREATININE SERUM 0.67 MG/DL (0.60-1.30); GFR ESTIMATED > 60; GLUCOSE 95 MG/DL (70-105); MAGNESIUM 2.2 MG/DL (1.8-2.4); POTASSIUM 3.7 MMOL/L (3.6-5.0); SODIUM 138 MMOL/L (135-145); TOTAL PROTEIN 6.5 G/DL (6.4-8.2)
[2017-01-28 11:52] LABS: BASOPHILS % (AUTO) 0 % (0-10); EOSINOPHILS # (AUTO) 0.1 10^3/uL (0.0-0.3); EOSINOPHILS % (AUTO) 3 % (0-10); LYMPHOCYTES # (AUTO) 1.1 X 10^3 (1.0-4.0); LYMPHOCYTES % (AUTO) 37 % (12-44); MEAN CORPUSCULAR HEMOGLOBIN 26 PG (25-34); MEAN CORPUSCULAR HGB CONC 33 G/DL (32-36); MEAN CORPUSCULAR VOLUME 79 FL (80-99); MEAN PLATELET VOLUME 11.3 FL (7.4-10.4); MONOCYTES # (AUTO) 0.2 X 10^3 (0.0-1.0); MONOCYTES % (AUTO) 6 % (0-12); NEUTROPHILS # (AUTO) 1.7 X 10^3 (1.8-7.8); NEUTROPHILS % (AUTO) 55 % (42-75); PLATELET COUNT 147 10^3/uL (130-400); RED BLOOD COUNT 4.49 10^6/uL (4.35-5.85); RED CELL DISTRIBUTION WIDTH 18.9 % (10.0-14.5)
[2017-01-28 12:25] LABS: ANION GAP 9 MMOL/L (5-14); BLOOD UREA NITROGEN 17 MG/DL (7-18); BUN/CREATININE RATIO 23; CARBON DIOXIDE 25 MMOL/L (21-32); CHLORIDE 108 MMOL/L (98-107); CREATININE SERUM 0.74 MG/DL (0.60-1.30); GFR ESTIMATED > 60; GLUCOSE 87 MG/DL (70-105); SODIUM 142 MMOL/L (135-145)
[2017-02-03 11:52] LABS: BASOPHILS % (AUTO) 0 % (0-10); EOSINOPHILS # (AUTO) 0.1 10^3/uL (0.0-0.3); EOSINOPHILS % (AUTO) 3 % (0-10); LYMPHOCYTES # (AUTO) 1.1 X 10^3 (1.0-4.0); LYMPHOCYTES % (AUTO) 35 % (12-44); MEAN CORPUSCULAR HEMOGLOBIN 27 PG (25-34); MEAN CORPUSCULAR HGB CONC 33 G/DL (32-36); MEAN CORPUSCULAR VOLUME 81 FL (80-99); MEAN PLATELET VOLUME 10.8 FL (7.4-10.4); MONOCYTES # (AUTO) 0.4 X 10^3 (0.0-1.0); MONOCYTES % (AUTO) 13 % (0-12); NEUTROPHILS # (AUTO) 1.5 X 10^3 (1.8-7.8); NEUTROPHILS % (AUTO) 49 % (42-75); PLATELET COUNT 164 10^3/uL (130-400); RED BLOOD COUNT 4.49 10^6/uL (4.35-5.85); RED CELL DISTRIBUTION WIDTH 20.5 % (10.0-14.5); WHITE BLOOD COUNT 3.1 10^3/uL (4.3-11.0)
[2017-02-03 12:21] LABS: ALANINE AMINOTRANSFERASE 37 U/L (0-55); ALBUMIN 4.2 G/DL (3.2-4.5); ANION GAP 9 MMOL/L (5-14); ASPARTATE AMINO TRANSFERASE 25 U/L (5-34); BILIRUBIN,TOTAL 0.4 MG/DL (0.1-1.0); BLOOD UREA NITROGEN 18 MG/DL (7-18); BUN/CREATININE RATIO 23; CALCIUM 9.1 MG/DL (8.5-10.1); CARBON DIOXIDE 24 MMOL/L (21-32); CHLORIDE 109 MMOL/L (98-107); CREATININE SERUM 0.77 MG/DL (0.60-1.30); GFR ESTIMATED > 60; GLUCOSE 91 MG/DL (70-105); MAGNESIUM 2.2 MG/DL (1.8-2.4); SODIUM 142 MMOL/L (135-145); TOTAL PROTEIN 6.7 G/DL (6.4-8.2)
[2017-02-10 13:53] LABS: BASOPHILS % (AUTO) 0 % (0-10); EOSINOPHILS # (AUTO) 0.1 10^3/uL (0.0-0.3); EOSINOPHILS % (AUTO) 4 % (0-10); LYMPHOCYTES # (AUTO) 1.3 X 10^3 (1.0-4.0); LYMPHOCYTES % (AUTO) 52 % (12-44); MEAN CORPUSCULAR HEMOGLOBIN 27 PG (25-34); MEAN CORPUSCULAR HGB CONC 33 G/DL (32-36); MEAN CORPUSCULAR VOLUME 80 FL (80-99); MONOCYTES # (AUTO) 0.4 X 10^3 (0.0-1.0); MONOCYTES % (AUTO) 15 % (0-12); NEUTROPHILS # (AUTO) 0.7 X 10^3 (1.8-7.8); NEUTROPHILS % (AUTO) 28 % (42-75); PLATELET COUNT 151 10^3/uL (130-400); RED CELL DISTRIBUTION WIDTH 20.8 % (10.0-14.5); WHITE BLOOD COUNT 2.5 10^3/uL (4.3-11.0)
[2017-02-10 14:34] LABS: ANION GAP 7 MMOL/L (5-14); BLOOD UREA NITROGEN 17 MG/DL (7-18); BUN/CREATININE RATIO 23; CALCIUM 8.8 MG/DL (8.5-10.1); CARBON DIOXIDE 27 MMOL/L (21-32); CHLORIDE 105 MMOL/L (98-107); CREATININE SERUM 0.74 MG/DL (0.60-1.30); GFR ESTIMATED > 60; GLUCOSE 107 MG/DL (70-105); POTASSIUM 3.9 MMOL/L (3.6-5.0); SODIUM 139 MMOL/L (135-145)
[2017-02-17 13:28] LABS: BASOPHILS % (AUTO) 0 % (0-10); EOSINOPHILS % (AUTO) 2 % (0-10); LYMPHOCYTES % (AUTO) 38 % (12-44); MEAN CORPUSCULAR HEMOGLOBIN 28 PG (25-34); MEAN CORPUSCULAR HGB CONC 34 G/DL (32-36); MEAN CORPUSCULAR VOLUME 83 FL (80-99); MONOCYTES # (AUTO) 0.7 X 10^3 (0.0-1.0); MONOCYTES % (AUTO) 26 % (0-12); NEUTROPHILS # (AUTO) 0.9 X 10^3 (1.8-7.8); NEUTROPHILS % (AUTO) 34 % (42-75); PLATELET COUNT 193 10^3/uL (130-400); RED BLOOD COUNT 4.28 10^6/uL (4.35-5.85); RED CELL DISTRIBUTION WIDTH 23.4 % (10.0-14.5); WHITE BLOOD COUNT 2.6 10^3/uL (4.3-11.0)
[2017-02-17 14:17] LABS: ALANINE AMINOTRANSFERASE 34 U/L (0-55); ALBUMIN 4.2 G/DL (3.2-4.5); ANION GAP 7 MMOL/L (5-14); ASPARTATE AMINO TRANSFERASE 27 U/L (5-34); BILIRUBIN,TOTAL 0.5 MG/DL (0.1-1.0); BLOOD UREA NITROGEN 16 MG/DL (7-18); BUN/CREATININE RATIO 20; CALCIUM 9.2 MG/DL (8.5-10.1); CARBON DIOXIDE 27 MMOL/L (21-32); CHLORIDE 107 MMOL/L (98-107); CREATININE SERUM 0.79 MG/DL (0.60-1.30); GFR ESTIMATED > 60; GLUCOSE 87 MG/DL (70-105); MAGNESIUM 2.3 MG/DL (1.8-2.4); SODIUM 141 MMOL/L (135-145); TOTAL PROTEIN 6.7 G/DL (6.4-8.2)
[2017-02-24 13:22] LABS: BASOPHILS % (AUTO) 0 % (0-10); EOSINOPHILS # (AUTO) 0.1 10^3/uL (0.0-0.3); EOSINOPHILS % (AUTO) 2 % (0-10); LYMPHOCYTES % (AUTO) 29 % (12-44); MEAN CORPUSCULAR HEMOGLOBIN 28 PG (25-34); MEAN CORPUSCULAR HGB CONC 33 G/DL (32-36); MEAN CORPUSCULAR VOLUME 85 FL (80-99); MONOCYTES # (AUTO) 0.8 X 10^3 (0.0-1.0); MONOCYTES % (AUTO) 23 % (0-12); NEUTROPHILS # (AUTO) 1.5 X 10^3 (1.8-7.8); NEUTROPHILS % (AUTO) 45 % (42-75); PLATELET COUNT 187 10^3/uL (130-400); RED BLOOD COUNT 4.43 10^6/uL (4.35-5.85); RED CELL DISTRIBUTION WIDTH 24.8 % (10.0-14.5); WHITE BLOOD COUNT 3.3 10^3/uL (4.3-11.0)
[2017-02-24 13:48] LABS: ANION GAP 7 MMOL/L (5-14); BLOOD UREA NITROGEN 12 MG/DL (7-18); BUN/CREATININE RATIO 14; CARBON DIOXIDE 25 MMOL/L (21-32); CHLORIDE 108 MMOL/L (98-107); CREATININE SERUM 0.84 MG/DL (0.60-1.30); GFR ESTIMATED > 60; GLUCOSE 106 MG/DL (70-105); POTASSIUM 4.1 MMOL/L (3.6-5.0); SODIUM 140 MMOL/L (135-145)
[2017-03-03 14:45] LABS: BASOPHILS % (AUTO) 0 % (0-10); EOSINOPHILS # (AUTO) 0.1 10^3/uL (0.0-0.3); EOSINOPHILS % (AUTO) 1 % (0-10); LYMPHOCYTES # (AUTO) 1.5 X 10^3 (1.0-4.0); LYMPHOCYTES % (AUTO) 21 % (12-44); MEAN CORPUSCULAR HEMOGLOBIN 28 PG (25-34); MEAN CORPUSCULAR HGB CONC 33 G/DL (32-36); MEAN CORPUSCULAR VOLUME 86 FL (80-99); MEAN PLATELET VOLUME 10.8 FL (7.4-10.4); MONOCYTES # (AUTO) 0.5 X 10^3 (0.0-1.0); MONOCYTES % (AUTO) 7 % (0-12); NEUTROPHILS % (AUTO) 71 % (42-75); PLATELET COUNT 153 10^3/uL (130-400); RED BLOOD COUNT 4.45 10^6/uL (4.35-5.85); RED CELL DISTRIBUTION WIDTH 23.6 % (10.0-14.5)
[2017-03-03 15:59] LABS: ANION GAP 9 MMOL/L (5-14); BLOOD UREA NITROGEN 15 MG/DL (7-18); BUN/CREATININE RATIO 18; CALCIUM 9.2 MG/DL (8.5-10.1); CARBON DIOXIDE 29 MMOL/L (21-32); CHLORIDE 105 MMOL/L (98-107); CREATININE SERUM 0.82 MG/DL (0.60-1.30); GFR ESTIMATED > 60; GLUCOSE 82 MG/DL (70-105); POTASSIUM 4.2 MMOL/L (3.6-5.0); SODIUM 143 MMOL/L (135-145)
[~2017-03-10] VITALS: Ht 172.7 cm; Wt 52.6 kg
[~2017-03-10] MED LIST changes: +BEVACIZUMAB IV SCH; +D5W 500 ML IV (CANCER CTR) 500 ML IV SCH; +FLUOROURACIL 600 MG in SYRINGE-IVPB 1 SYRINGE IV SCH; +FOSAPREPITANT 150 MG/NS 150 MG IVPB (CANCER CTR) IV PRN; +LEUCOVORIN CALCIUM 350 MG, LEUCOVORIN CALCIUM 50 MG in D5W 250 ML IVPB (CANCER CTR) 250 ML IV SCH; +LEUCOVORIN CALCIUM 600 MG in D5W 250 ML IVPB (CANCER CTR) 250 ML IV SCH; +NS IV SCH; +OXALIPLATIN 100 MG, OXALIPLATIN (GENERIC) 30 MG in D5W 250 ML IVPB (CANCER CTR) 250 ML IV SCH; +PALONOSETRON 0.25 MG, DEXAMETHASONE 10 MG/NS 50 ML IVPB IV PRN
[2017-03-10 11:11] LABS: BASOPHILS % (AUTO) 0 % (0-10); EOSINOPHILS # (AUTO) 0.1 10^3/uL (0.0-0.3); EOSINOPHILS % (AUTO) 3 % (0-10); LYMPHOCYTES % (AUTO) 24 % (12-44); MEAN CORPUSCULAR HEMOGLOBIN 29 PG (25-34); MEAN CORPUSCULAR HGB CONC 33 G/DL (32-36); MEAN CORPUSCULAR VOLUME 88 FL (80-99); MEAN PLATELET VOLUME 11.5 FL (7.4-10.4); MONOCYTES # (AUTO) 0.5 X 10^3 (0.0-1.0); MONOCYTES % (AUTO) 12 % (0-12); NEUTROPHILS # (AUTO) 2.5 X 10^3 (1.8-7.8); NEUTROPHILS % (AUTO) 61 % (42-75); PLATELET COUNT 158 10^3/uL (130-400); RED BLOOD COUNT 4.13 10^6/uL (4.35-5.85); RED CELL DISTRIBUTION WIDTH 22.8 % (10.0-14.5); WHITE BLOOD COUNT 4.1 10^3/uL (4.3-11.0)
[2017-03-10 11:26] LABS: BILIRUBIN,URINE NEGATIVE (NEGATIVE); KETONES,URINE NEGATIVE (NEGATIVE); LEUKOCYTE ESTERASE ,URINE 1+ (NEGATIVE); NITRITE,URINE NEGATIVE (NEGATIVE); PH,URINE 5 (5-9); PROTEIN,URINE NEGATIVE (NEGATIVE); UROBILINOGEN,URINE NORMAL (NORMAL)
[2017-03-10 11:44] LABS: ANION GAP 5 MMOL/L (5-14); BLOOD UREA NITROGEN 11 MG/DL (7-18); BUN/CREATININE RATIO 14; CARBON DIOXIDE 26 MMOL/L (21-32); CHLORIDE 108 MMOL/L (98-107); CREATININE SERUM 0.78 MG/DL (0.60-1.30); POTASSIUM 4.1 MMOL/L (3.6-5.0); SODIUM 139 MMOL/L (135-145)
[2017-03-10 11:45] LABS: ALANINE AMINOTRANSFERASE 42 U/L (0-55); ALBUMIN 4.2 G/DL (3.2-4.5); ASPARTATE AMINO TRANSFERASE 27 U/L (5-34); BILIRUBIN,TOTAL 0.4 MG/DL (0.1-1.0); GFR ESTIMATED > 60; GLUCOSE 126 MG/DL (70-105); LACTATE DEHYDROGENASE 217 U/L (125-220); MAGNESIUM 2.2 MG/DL (1.8-2.4); TOTAL PROTEIN 6.7 G/DL (6.4-8.2)
== END | disposition home or self-care (01) ==
LOC: ONC 12-10 12:55
PROVIDERS: ATTEND Internal Medicine Hematology & Oncology
DX: Z51.11 Encounter for antineoplastic chemotherapy (principal); C17.1 Malignant neoplasm of jejunum
CPT/HCPCS: 36415; 36591; 80048; 80053; 81002; 82378; 83615; 83735; 85025; 96367; 96368; 96375; 96411; 96413; 96415; 96416; 96521; 99213; 99214

== ENCOUNTER → 2017-03-21 | Outpatient (CLI) | payer SELFPAY ==
[~2017-03-21] MED LIST changes: +BARIUM SUSPENSION 2.1% (VANILLA SILQ) 450 ML PO ONE; -BEVACIZUMAB IV SCH; +CATHETER FLUSH 10 ML SYR IV PRN; -D5W 500 ML IV (CANCER CTR) 500 ML IV SCH; -FLUOROURACIL 600 MG in SYRINGE-IVPB 1 SYRINGE IV SCH; -FOSAPREPITANT 150 MG/NS 150 MG IVPB (CANCER CTR) IV PRN; +IOHEXOL 350 MG/ML 100 ML (OMNIPAQUE 350) VIAL IV ONE; -LEUCOVORIN CALCIUM 350 MG, LEUCOVORIN CALCIUM 50 MG in D5W 250 ML IVPB (CANCER CTR) 250 ML IV SCH; -LEUCOVORIN CALCIUM 600 MG in D5W 250 ML IVPB (CANCER CTR) 250 ML IV SCH; +NS 100 ML (IVPB) BAG IV ONE; -NS IV SCH; -OXALIPLATIN 100 MG, OXALIPLATIN (GENERIC) 30 MG in D5W 250 ML IVPB (CANCER CTR) 250 ML IV SCH; -PALONOSETRON 0.25 MG, DEXAMETHASONE 10 MG/NS 50 ML IVPB IV PRN
[2017-03-21] MEDS: CATHETER FLUSH 10 ML SYR IV PRN ×2 (12:44→13:11)
--- NOTE | 2017-03-21 14:27 | Diagnostic Imaging Report ---
PROCEDURE: CT chest, abdomen, and pelvis with contrast. TECHNIQUE: Multiple contiguous axial images were obtained through the chest, abdomen, and pelvis after the administration of intravenous contrast. INDICATION: Previous small bowel tumor resection. COMPARISON: 12/09/2016. CT CHEST: The lungs are well aerated and clear. No infiltrates or masses have occurred. Good opacification of the aorta and pulmonary arteries which appear normal. No mediastinal or hilar adenopathy of pathologic size. Port-A-Cath is present on the right in good position. No bony abnormality is demonstrated. IMPRESSION: Normal CT chest with contrast. CT ABDOMEN AND PELVIS: The geographic perfusion defects noted in the right lobe of the liver, predominantly in segments VIII and V have decreased considerably in size as well as showing improved perfusion. Delayed images essentially appear normal following IV contrast now within the liver. No liver masses have developed. The gallbladder is contracted. The bile ducts are not dilated. Pancreas and spleen appear normal. The adrenal glands are normal. The kidneys appear normal. Delayed images show normal opacification of the renal collecting systems and ureters. The bladder appears normal. The stomach has oral contrast present. Small bowel also shows contrast present. Anastomotic suture ring in the left mid abdomen is patent with no evidence of obstruction. There is normal stool and gas pattern throughout the colon. There is a mass in the myometrium of the uterus on the left measuring 3.5 cm consistent with fibroid. There is a cyst in the right ovary measuring approximately 3 cm. There is noted a menstrual cup within the vagina. Bone windows show no blastic or lytic lesions. The previously reported hypermetabolic lymph nodes in the periaortic region and mesenteric root have nearly resolved. The lymph node measuring 9 mm in width between the aorta and vena cava at the level of the renal vein now measures 5 mm. The lymph node posterior to the vena cava on the right previously measuring 12 mm now measures 5 mm. The lymph node along the inferior lesser curvature of the stomach and adjacent to the previous anastomotic region now measures 5 mm decreasing from 9 mm. IMPRESSION: 1. There has been significant improvement in perfusion of the right lobe of the liver which is near-normal now. 2. Small bowel anastomosis appears widely patent with no evidence of obstruction. 3. There has been significant decrease in the size of the hypermetabolic lymph nodes previously reported along the retroperitoneum and mesenteric root as described above. Dictated by: Dictated on workstation # [id number]
--- NOTE | 2017-03-21 16:15 | Diagnostic Imaging Report ---
INDICATION: Small bowel neoplasm. COMPARISON: Comparison with 12/09/2016. TECHNIQUE: 25 mCi technetium 99m MDP was given. Delayed images of the whole body were obtained. There is uniform uptake throughout the skeletal system. No focal areas of abnormal uptake are demonstrated that would indicate bony osteoblastic metastasis. Mild uptake noted in the medial aspect of the right knee consistent with degenerative change. IMPRESSION: No changes have occurred that would indicate metastatic osteoblastic lesions. Dictated by: Dictated on workstation # [id number]
== END ==
LOC: CARD 11:53
PROVIDERS: ATTEND Nurse Practitioner Adult Health
DX: C17.1 Malignant neoplasm of jejunum (principal); C77.2 Secondary and unspecified malignant neoplasm of intra-abdominal lymph nodes; C79.89 Secondary malignant neoplasm of other specified sites
CPT/HCPCS: 71260; 74177; 78306

== ENCOUNTER 2017-06-04 13:26 | Outpatient (RCR) | payer OTHER ==
[2017-03-17 14:39] LABS: BASOPHILS % (AUTO) 0 % (0-10); EOSINOPHILS # (AUTO) 0.1 10^3/uL (0.0-0.3); EOSINOPHILS % (AUTO) 2 % (0-10); LYMPHOCYTES # (AUTO) 1.4 X 10^3 (1.0-4.0); LYMPHOCYTES % (AUTO) 31 % (12-44); MEAN CORPUSCULAR HEMOGLOBIN 30 PG (25-34); MEAN CORPUSCULAR HGB CONC 34 G/DL (32-36); MEAN CORPUSCULAR VOLUME 88 FL (80-99); MEAN PLATELET VOLUME 10.7 FL (7.4-10.4); MONOCYTES # (AUTO) 0.7 X 10^3 (0.0-1.0); MONOCYTES % (AUTO) 15 % (0-12); NEUTROPHILS # (AUTO) 2.4 X 10^3 (1.8-7.8); NEUTROPHILS % (AUTO) 52 % (42-75); PLATELET COUNT 234 10^3/uL (130-400); RED BLOOD COUNT 4.36 10^6/uL (4.35-5.85); RED CELL DISTRIBUTION WIDTH 21.3 % (10.0-14.5); WHITE BLOOD COUNT 4.5 10^3/uL (4.3-11.0)
[2017-03-17 15:21] LABS: ANION GAP 10 MMOL/L (5-14); BLOOD UREA NITROGEN 12 MG/DL (7-18); BUN/CREATININE RATIO 15; CALCIUM 9.7 MG/DL (8.5-10.1); CARBON DIOXIDE 26 MMOL/L (21-32); CHLORIDE 106 MMOL/L (98-107); CREATININE SERUM 0.79 MG/DL (0.60-1.30); GFR ESTIMATED > 60; GLUCOSE 101 MG/DL (70-105); POTASSIUM 4.7 MMOL/L (3.6-5.0); SODIUM 142 MMOL/L (135-145)
[2017-03-24 13:41] LABS: BASOPHILS % (AUTO) 0 % (0-10); EOSINOPHILS # (AUTO) 0.1 10^3/uL (0.0-0.3); EOSINOPHILS % (AUTO) 1 % (0-10); LYMPHOCYTES # (AUTO) 1.1 X 10^3 (1.0-4.0); LYMPHOCYTES % (AUTO) 21 % (12-44); MEAN CORPUSCULAR HEMOGLOBIN 31 PG (25-34); MEAN CORPUSCULAR HGB CONC 34 G/DL (32-36); MEAN CORPUSCULAR VOLUME 91 FL (80-99); MEAN PLATELET VOLUME 11.9 FL (7.4-10.4); MONOCYTES # (AUTO) 0.9 X 10^3 (0.0-1.0); MONOCYTES % (AUTO) 17 % (0-12); NEUTROPHILS # (AUTO) 3.1 X 10^3 (1.8-7.8); NEUTROPHILS % (AUTO) 61 % (42-75); PLATELET COUNT 153 10^3/uL (130-400); RED BLOOD COUNT 4.11 10^6/uL (4.35-5.85); RED CELL DISTRIBUTION WIDTH 21.1 % (10.0-14.5); WHITE BLOOD COUNT 5.1 10^3/uL (4.3-11.0)
[2017-03-24 14:02] LABS: ALANINE AMINOTRANSFERASE 31 U/L (0-55); ALBUMIN 4.1 G/DL (3.2-4.5); ANION GAP 8 MMOL/L (5-14); ASPARTATE AMINO TRANSFERASE 25 U/L (5-34); BILIRUBIN,TOTAL 0.4 MG/DL (0.1-1.0); BLOOD UREA NITROGEN 12 MG/DL (7-18); BUN/CREATININE RATIO 16; CALCIUM 9.2 MG/DL (8.5-10.1); CARBON DIOXIDE 26 MMOL/L (21-32); CHLORIDE 108 MMOL/L (98-107); CREATININE SERUM 0.73 MG/DL (0.60-1.30); GFR ESTIMATED > 60; GLUCOSE 86 MG/DL (70-105); MAGNESIUM 2.1 MG/DL (1.8-2.4); POTASSIUM 4.2 MMOL/L (3.6-5.0); SODIUM 142 MMOL/L (135-145); TOTAL PROTEIN 6.4 G/DL (6.4-8.2)
[2017-04-01 13:35] LABS: BASOPHILS % (AUTO) 0 % (0-10); EOSINOPHILS # (AUTO) 0.1 10^3/uL (0.0-0.3); EOSINOPHILS % (AUTO) 2 % (0-10); LYMPHOCYTES # (AUTO) 1.4 X 10^3 (1.0-4.0); LYMPHOCYTES % (AUTO) 22 % (12-44); MEAN CORPUSCULAR HEMOGLOBIN 32 PG (25-34); MEAN CORPUSCULAR HGB CONC 34 G/DL (32-36); MEAN CORPUSCULAR VOLUME 92 FL (80-99); MEAN PLATELET VOLUME 11.3 FL (7.4-10.4); MONOCYTES # (AUTO) 0.7 X 10^3 (0.0-1.0); MONOCYTES % (AUTO) 11 % (0-12); NEUTROPHILS # (AUTO) 4.2 X 10^3 (1.8-7.8); NEUTROPHILS % (AUTO) 66 % (42-75); PLATELET COUNT 151 10^3/uL (130-400); RED BLOOD COUNT 4.08 10^6/uL (4.35-5.85); WHITE BLOOD COUNT 6.4 10^3/uL (4.3-11.0)
[2017-04-01 13:54] LABS: ALANINE AMINOTRANSFERASE 66 U/L (0-55); ANION GAP 7 MMOL/L (5-14); ASPARTATE AMINO TRANSFERASE 45 U/L (5-34); BILIRUBIN,TOTAL 0.4 MG/DL (0.1-1.0); BLOOD UREA NITROGEN 10 MG/DL (7-18); BUN/CREATININE RATIO 13; CALCIUM 9.1 MG/DL (8.5-10.1); CARBON DIOXIDE 28 MMOL/L (21-32); CHLORIDE 106 MMOL/L (98-107); CREATININE SERUM 0.78 MG/DL (0.60-1.30); GFR ESTIMATED > 60; GLUCOSE 95 MG/DL (70-105); SODIUM 141 MMOL/L (135-145); TOTAL PROTEIN 6.5 G/DL (6.4-8.2)
[2017-04-07 13:06] LABS: BASOPHILS % (AUTO) 0 % (0-10); EOSINOPHILS # (AUTO) 0.1 10^3/uL (0.0-0.3); EOSINOPHILS % (AUTO) 1 % (0-10); LYMPHOCYTES # (AUTO) 1.2 X 10^3 (1.0-4.0); LYMPHOCYTES % (AUTO) 20 % (12-44); MEAN CORPUSCULAR HEMOGLOBIN 32 PG (25-34); MEAN CORPUSCULAR HGB CONC 34 G/DL (32-36); MEAN CORPUSCULAR VOLUME 95 FL (80-99); MEAN PLATELET VOLUME 11.4 FL (7.4-10.4); MONOCYTES # (AUTO) 0.6 X 10^3 (0.0-1.0); MONOCYTES % (AUTO) 11 % (0-12); NEUTROPHILS # (AUTO) 3.9 X 10^3 (1.8-7.8); NEUTROPHILS % (AUTO) 68 % (42-75); PLATELET COUNT 145 10^3/uL (130-400); RED BLOOD COUNT 3.86 10^6/uL (4.35-5.85); RED CELL DISTRIBUTION WIDTH 18.7 % (10.0-14.5); WHITE BLOOD COUNT 5.7 10^3/uL (4.3-11.0)
[2017-04-07 13:34] LABS: ALANINE AMINOTRANSFERASE 34 U/L (0-55); ANION GAP 6 MMOL/L (5-14); ASPARTATE AMINO TRANSFERASE 27 U/L (5-34); BILIRUBIN,TOTAL 0.3 MG/DL (0.1-1.0); BLOOD UREA NITROGEN 13 MG/DL (7-18); BUN/CREATININE RATIO 17; CALCIUM 8.8 MG/DL (8.5-10.1); CARBON DIOXIDE 26 MMOL/L (21-32); CHLORIDE 108 MMOL/L (98-107); CREATININE SERUM 0.78 MG/DL (0.60-1.30); GFR ESTIMATED > 60; GLUCOSE 99 MG/DL (70-105); MAGNESIUM 2.2 MG/DL (1.8-2.4); POTASSIUM 4.3 MMOL/L (3.6-5.0); SODIUM 140 MMOL/L (135-145); TOTAL PROTEIN 6.3 G/DL (6.4-8.2)
[2017-04-22 13:39] LABS: BASOPHILS % (AUTO) 0 % (0-10); EOSINOPHILS # (AUTO) 0.1 10^3/uL (0.0-0.3); EOSINOPHILS % (AUTO) 2 % (0-10); LYMPHOCYTES # (AUTO) 1.1 X 10^3 (1.0-4.0); LYMPHOCYTES % (AUTO) 24 % (12-44); MEAN CORPUSCULAR HEMOGLOBIN 32 PG (25-34); MEAN CORPUSCULAR HGB CONC 34 G/DL (32-36); MEAN CORPUSCULAR VOLUME 97 FL (80-99); MEAN PLATELET VOLUME 11.1 FL (7.4-10.4); MONOCYTES # (AUTO) 0.5 X 10^3 (0.0-1.0); MONOCYTES % (AUTO) 10 % (0-12); NEUTROPHILS # (AUTO) 2.8 X 10^3 (1.8-7.8); NEUTROPHILS % (AUTO) 63 % (42-75); PLATELET COUNT 153 10^3/uL (130-400); RED BLOOD COUNT 3.96 10^6/uL (4.35-5.85); RED CELL DISTRIBUTION WIDTH 15.1 % (10.0-14.5); WHITE BLOOD COUNT 4.4 10^3/uL (4.3-11.0)
[2017-04-22 14:03] LABS: BILIRUBIN,URINE NEGATIVE (NEGATIVE); KETONES,URINE NEGATIVE (NEGATIVE); LEUKOCYTE ESTERASE ,URINE 1+ (NEGATIVE); NITRITE,URINE NEGATIVE (NEGATIVE); PH,URINE 5 (5-9); PROTEIN,URINE NEGATIVE (NEGATIVE); UROBILINOGEN,URINE NORMAL (NORMAL)
[2017-04-22 14:17] LABS: ALANINE AMINOTRANSFERASE 23 U/L (0-55); ANION GAP 8 MMOL/L (5-14); ASPARTATE AMINO TRANSFERASE 24 U/L (5-34); BILIRUBIN,TOTAL 0.4 MG/DL (0.1-1.0); BLOOD UREA NITROGEN 11 MG/DL (7-18); BUN/CREATININE RATIO 15; CALCIUM 9.3 MG/DL (8.5-10.1); CARBON DIOXIDE 25 MMOL/L (21-32); CHLORIDE 108 MMOL/L (98-107); CREATININE SERUM 0.75 MG/DL (0.60-1.30); GFR ESTIMATED > 60; GLUCOSE 80 MG/DL (70-105); MAGNESIUM 2.2 MG/DL (1.8-2.4); POTASSIUM 4.2 MMOL/L (3.6-5.0); SODIUM 141 MMOL/L (135-145); TOTAL PROTEIN 6.7 G/DL (6.4-8.2)
[2017-05-06 14:06] LABS: BASOPHILS % (AUTO) 0 % (0-10); EOSINOPHILS # (AUTO) 0.1 10^3/uL (0.0-0.3); EOSINOPHILS % (AUTO) 2 % (0-10); LYMPHOCYTES # (AUTO) 1.3 X 10^3 (1.0-4.0); LYMPHOCYTES % (AUTO) 25 % (12-44); MEAN CORPUSCULAR HEMOGLOBIN 33 PG (25-34); MEAN CORPUSCULAR HGB CONC 34 G/DL (32-36); MEAN CORPUSCULAR VOLUME 98 FL (80-99); MEAN PLATELET VOLUME 11.3 FL (7.4-10.4); MONOCYTES # (AUTO) 0.5 X 10^3 (0.0-1.0); MONOCYTES % (AUTO) 10 % (0-12); NEUTROPHILS # (AUTO) 3.2 X 10^3 (1.8-7.8); NEUTROPHILS % (AUTO) 63 % (42-75); PLATELET COUNT 159 10^3/uL (130-400); RED BLOOD COUNT 3.99 10^6/uL (4.35-5.85); RED CELL DISTRIBUTION WIDTH 13.8 % (10.0-14.5)
[2017-05-06 14:25] LABS: ALANINE AMINOTRANSFERASE 25 U/L (0-55); ALBUMIN 4.2 GM/DL (3.2-4.5); ANION GAP 5 MMOL/L (5-14); ASPARTATE AMINO TRANSFERASE 23 U/L (5-34); BILIRUBIN,TOTAL 0.5 MG/DL (0.1-1.0); BLOOD UREA NITROGEN 14 MG/DL (7-18); BUN/CREATININE RATIO 18 (0-20); CARBON DIOXIDE 29 MMOL/L (21-32); CHLORIDE 106 MMOL/L (98-107); CREATININE SERUM 0.76 MG/DL (0.60-1.30); GFR ESTIMATED > 60; GLUCOSE 98 MG/DL (70-105); MAGNESIUM 2.3 MG/DL (1.8-2.4); POTASSIUM 3.9 MMOL/L (3.6-5.0); SODIUM 140 MMOL/L (135-145); TOTAL PROTEIN 6.5 GM/DL (6.4-8.2)
[2017-05-20 13:58] LABS: BASOPHILS % (AUTO) 0 % (0-10); EOSINOPHILS # (AUTO) 0.2 10^3/uL (0.0-0.3); EOSINOPHILS % (AUTO) 2 % (0-10); LYMPHOCYTES # (AUTO) 1.2 X 10^3 (1.0-4.0); LYMPHOCYTES % (AUTO) 19 % (12-44); MEAN CORPUSCULAR HEMOGLOBIN 33 PG (25-34); MEAN CORPUSCULAR HGB CONC 34 G/DL (32-36); MEAN CORPUSCULAR VOLUME 98 FL (80-99); MEAN PLATELET VOLUME 10.7 FL (7.4-10.4); MONOCYTES # (AUTO) 0.6 X 10^3 (0.0-1.0); MONOCYTES % (AUTO) 10 % (0-12); NEUTROPHILS # (AUTO) 4.2 X 10^3 (1.8-7.8); NEUTROPHILS % (AUTO) 69 % (42-75); PLATELET COUNT 170 10^3/uL (130-400); RED BLOOD COUNT 4.02 10^6/uL (4.35-5.85); RED CELL DISTRIBUTION WIDTH 13.8 % (10.0-14.5); WHITE BLOOD COUNT 6.2 10^3/uL (4.3-11.0)
[2017-05-20 14:10] LABS: BILIRUBIN,URINE NEGATIVE (NEGATIVE); KETONES,URINE NEGATIVE (NEGATIVE); LEUKOCYTE ESTERASE ,URINE NEGATIVE (NEGATIVE); NITRITE,URINE NEGATIVE (NEGATIVE); PH,URINE 8 (5-9); PROTEIN,URINE NEGATIVE (NEGATIVE); UROBILINOGEN,URINE NORMAL (NORMAL)
[2017-05-20 14:26] LABS: ALANINE AMINOTRANSFERASE 29 U/L (0-55); ALBUMIN 4.3 GM/DL (3.2-4.5); ANION GAP 7 MMOL/L (5-14); ASPARTATE AMINO TRANSFERASE 23 U/L (5-34); BILIRUBIN,TOTAL 0.4 MG/DL (0.1-1.0); BLOOD UREA NITROGEN 15 MG/DL (7-18); BUN/CREATININE RATIO 21; CALCIUM 9.1 MG/DL (8.5-10.1); CARBON DIOXIDE 27 MMOL/L (21-32); CHLORIDE 108 MMOL/L (98-107); CREATININE SERUM 0.71 MG/DL (0.60-1.30); GFR ESTIMATED > 60; GLUCOSE 84 MG/DL (70-105); HEMOLYSIS 10 (-100-29); ICTERUS 1.1 (-100-1.9); LIPEMIA 1 (-100-49); MAGNESIUM 2.5 MG/DL (1.8-2.4); POTASSIUM 3.9 MMOL/L (3.6-5.0); SODIUM 142 MMOL/L (135-145); TOTAL PROTEIN 6.9 GM/DL (6.4-8.2)
[~2017-06-04] VITALS: Ht 172.7 cm; Wt 53.1 kg
[~2017-06-04 13:26] MED LIST changes: -BARIUM SUSPENSION 2.1% (VANILLA SILQ) 450 ML PO ONE; +BEVACIZUMAB IV SCH; -CATHETER FLUSH 10 ML SYR IV PRN; +D5W 500 ML IV (CANCER CTR) 500 ML IV SCH; +FOSAPREPITANT 150 MG/NS 150 MG IVPB (CANCER CTR) IV PRN; -IOHEXOL 350 MG/ML 100 ML (OMNIPAQUE 350) VIAL IV ONE; +LEUCOVORIN CALCIUM 350 MG, LEUCOVORIN CALCIUM 50 MG in D5W 250 ML IVPB (CANCER CTR) 250 ML IV SCH; -NS 100 ML (IVPB) BAG IV ONE; +NS IV 1000 ML (CANCER CTR) IV SCH; +NS IV 500 ML (CANCER CENTER) 500 ML ONE; +NS IV SCH; +ONDANSETRON 16 MG, DEXAMETHASONE 10 MG/NS 50 ML IVPB IV SCH; +ONDANSETRON MDV (CANCER CENTER 8 MG, DEXAMETHASONE PF INJ (CANCER C 10 MG in NS (IVPB) ... IV SCH; +OXALIPLATIN 100 MG, OXALIPLATIN (GENERIC) 30 MG in D5W 250 ML IVPB (CANCER CTR) 250 ML IV SCH; +PALONOSETRON 0.25 MG, DEXAMETHASONE 10 MG/NS 50 ML IVPB IV PRN
[2017-06-04 13:52] LABS: BASOPHILS % (AUTO) 0 % (0-10); EOSINOPHILS # (AUTO) 0.1 10^3/uL (0.0-0.3); EOSINOPHILS % (AUTO) 2 % (0-10); LYMPHOCYTES % (AUTO) 14 % (12-44); MEAN CORPUSCULAR HEMOGLOBIN 33 PG (25-34); MEAN CORPUSCULAR HGB CONC 34 G/DL (32-36); MEAN CORPUSCULAR VOLUME 97 FL (80-99); MEAN PLATELET VOLUME 11.1 FL (7.4-10.4); MONOCYTES # (AUTO) 0.7 X 10^3 (0.0-1.0); MONOCYTES % (AUTO) 11 % (0-12); NEUTROPHILS # (AUTO) 5.1 X 10^3 (1.8-7.8); NEUTROPHILS % (AUTO) 74 % (42-75); PLATELET COUNT 168 10^3/uL (130-400); RED BLOOD COUNT 4.11 10^6/uL (4.35-5.85); RED CELL DISTRIBUTION WIDTH 13.6 % (10.0-14.5)
[2017-06-04 14:22] LABS: ALANINE AMINOTRANSFERASE 31 U/L (0-55); ALBUMIN 3.9 GM/DL (3.2-4.5); ANION GAP 7 MMOL/L (5-14); ASPARTATE AMINO TRANSFERASE 23 U/L (5-34); BILIRUBIN,TOTAL 0.4 MG/DL (0.1-1.0); BLOOD UREA NITROGEN 12 MG/DL (7-18); BUN/CREATININE RATIO 17; CALCIUM 8.7 MG/DL (8.5-10.1); CARBON DIOXIDE 27 MMOL/L (21-32); CHLORIDE 108 MMOL/L (98-107); CREATININE SERUM 0.69 MG/DL (0.60-1.30); GFR ESTIMATED > 60; GLUCOSE 86 MG/DL (70-105); POTASSIUM 3.8 MMOL/L (3.6-5.0); SODIUM 142 MMOL/L (135-145); TOTAL PROTEIN 6.6 GM/DL (6.4-8.2)
[2017-06-06] MEDS ORDERED: FLUOROURACIL IV SCH (09:45)
[2017-06-06] MEDS ORDERED: NS IV SCH (09:45)
[2017-06-12] MEDS ORDERED: MAGN400T39 PO (09:05)
[2017-06-12] MEDS ORDERED: MULT-116 PO (09:05)
[2017-06-12] MEDS ORDERED: L.AC1CAP6 PO (09:05)
== END 2017-06-15 | disposition home or self-care (01) ==
LOC: ONC 13:26
PROVIDERS: ATTEND Internal Medicine Hematology & Oncology
DX: C17.1 Malignant neoplasm of jejunum (principal); C79.89 Secondary malignant neoplasm of other specified sites; C77.2 Secondary and unspecified malignant neoplasm of intra-abdominal lymph nodes; D70.1 Agranulocytosis secondary to cancer chemotherapy; T45.1X5A Adverse effect of antineoplastic and immunosuppressive drugs, initial encounter; Z79.899 Other long term (current) drug therapy
CPT/HCPCS: 36415; 36591; 80048; 80053; 81002; 82378; 83735; 85025; 96367; 96368; 96375; 96409; 96521; 99213

== ENCOUNTER → 2017-06-12 | Day surgery (SDC) | payer OTHER ==
[~2017-06-12] VITALS: Ht 172.7 cm; Wt 53.5 kg
[2017-06-12] VITALS (9 sets, daily range): BP systolic 100–116; BP diastolic 60–87
[~2017-06-12] MED LIST changes: -BEVACIZUMAB IV SCH; -D5W 500 ML IV (CANCER CTR) 500 ML IV SCH; -FOSAPREPITANT 150 MG/NS 150 MG IVPB (CANCER CTR) IV PRN; +L.AC1CAP6 PO; -LEUCOVORIN CALCIUM 350 MG, LEUCOVORIN CALCIUM 50 MG in D5W 250 ML IVPB (CANCER CTR) 250 ML IV SCH; +LIDOCAINE 2% VISCOUS 15 ML UDC ONE; +LIDOCAINE 2% VISCOUS 15 ML UDC PO ONE; +MAGN400T39 PO; +MIDAZOLAM 5 MG/5 ML (VERSED) VIAL IV PRN; +MIDAZOLAM 5 MG/5 ML (VERSED) VIAL ONE; +MULT-116 PO; -NS IV 1000 ML (CANCER CTR) IV SCH; +NS IV 1000 ML 1,000 ML IV SCH; +NS IV 1000 ML 1,000 ML ONE; -NS IV 500 ML (CANCER CENTER) 500 ML ONE; -NS IV SCH; -ONDANSETRON 16 MG, DEXAMETHASONE 10 MG/NS 50 ML IVPB IV SCH; -ONDANSETRON MDV (CANCER CENTER 8 MG, DEXAMETHASONE PF INJ (CANCER C 10 MG in NS (IVPB) ... IV SCH; -OXALIPLATIN 100 MG, OXALIPLATIN (GENERIC) 30 MG in D5W 250 ML IVPB (CANCER CTR) 250 ML IV SCH; -PALONOSETRON 0.25 MG, DEXAMETHASONE 10 MG/NS 50 ML IVPB IV PRN; +fentaNYL INJECTION 100 MCG/2 ML AMP INJ PRN; +fentaNYL INJECTION 100 MCG/2 ML AMP ONE
--- NOTE | 2017-06-12 12:36 | Cardiac Procedure Note-CS/ASA ---
Pre-Procedure Note Pre-Op Procedure Note H&P Reviewed The H&P was reviewed, patient examined and no changes noted. Date H&P Reviewed: Jun 12, 2017 Time H&P Reviewed: 09:00 Conscious Sedation Pre-Proced Time Reviewed: 09:00 ASA Class: 2 Airway Mallampati Classification: ([place] appropriate class) I. II. III, IV Lungs Heart ASA score ASA 1: a normal healthy patient ASA 2: a patient with a mild systemic disease (mid diabetes, controlled hypertension, obesity ASA 3: a patient with a severe systemic disease that limits activity (angina , COPD, prior Myocardial infarction) ASA 4: a patient with an incapacitating disease that is a constant threat to life (CHF, renal failure) ASA 5: a moribund patient not expected to survive 24 hrs. (ruptured aneurysm) ASA 6: a declared brain patient whose organs are being harvested. For emergent operations, add the letter E after the classification Grade 1 Sedation Plan: Analgesia, Amnesia, Plan communicated to team members, Discussed options with patient/fam, Discussed risks with patient/fam Note The patient is an appropriate candidate to undergo the planned procedure, sedation, and anesthesia. The patient immediately re-assessed prior to indication. Chad GERARDO MD Jun 12, 2017 12:36 pm
--- NOTE | 2017-06-12 12:41 | Cardiology Post Procedure Note ---
Post-Procedure Note Physician (s)/Throat Cutter (s) Physician Chad GERARDO MD Pre-Procedure Diagnosis Pre-Procedure Diagnosis: Right atrial mass Post-Procedure Note Procedure Start Date: Jun 12, 2017 Procedure Start Time: 10:00 Name of Procedure: EDMAR Findings/Procedure Note Right atrial mass noted (slightly larger then when compared to the EDMAR done in Nov 2016). The mass is fixed sessile (not pedunculated) - attached to the free wall of the right atrium. No other abnormality noted. Anesthesia Type: Conscious Sedation Estimated blood loss (mL): none Contrast Amount: none Post-Procedure Diagnosis Post-operative diagnosis: Right atrial mass Chad GERARDO MD Jun 12, 2017 12:41 pm
== END ==
LOC: CATH 08:17
PROVIDERS: ATTEND Internal Medicine Interventional Cardiology
DX: D49.89 Neoplasm of unspecified behavior of other specified sites (principal); R94.39 Abnormal result of other cardiovascular function study; C17.1 Malignant neoplasm of jejunum; C77.2 Secondary and unspecified malignant neoplasm of intra-abdominal lymph nodes; C79.89 Secondary malignant neoplasm of other specified sites; Z79.899 Other long term (current) drug therapy; Z92.21 Personal history of antineoplastic chemotherapy
CPT/HCPCS: 93312; 93320; 93325

== ENCOUNTER → 2017-06-13 | Outpatient (CLI) | payer OTHER ==
[~2017-06-13] MED LIST changes: +BARIUM SUSPENSION 2.1% (VANILLA SILQ) 450 ML PO ONE; +CATHETER FLUSH 10 ML SYR IV PRN; +IOHEXOL 350 MG/ML 100 ML (OMNIPAQUE 350) VIAL IV ONE; -LIDOCAINE 2% VISCOUS 15 ML UDC ONE; -LIDOCAINE 2% VISCOUS 15 ML UDC PO ONE; -MIDAZOLAM 5 MG/5 ML (VERSED) VIAL IV PRN; -MIDAZOLAM 5 MG/5 ML (VERSED) VIAL ONE; +NS 100 ML (IVPB) BAG IV ONE; -NS IV 1000 ML 1,000 ML IV SCH; -NS IV 1000 ML 1,000 ML ONE; -fentaNYL INJECTION 100 MCG/2 ML AMP INJ PRN; -fentaNYL INJECTION 100 MCG/2 ML AMP ONE
--- NOTE | 2017-06-13 13:21 | Diagnostic Imaging Report ---
PROCEDURE: CT chest with contrast, CT abdomen and pelvis with and without contrast. TECHNIQUE: Pre and post intravenous contrast axial imaging of the abdomen and pelvis and post contrast axial imaging of the chest were performed. INDICATION: Malignant neoplasm of the jejunum. Comparison with 03/21/2017. FINDINGS: CT CHEST: The lungs are well-aerated. No infiltrates or masses are present. There is good opacification aorta and pulmonary arteries. No mediastinal or hilar adenopathy of pathologic size. Port-A-Cath is present on the right with catheter in good position. No pleural effusion or pericardial effusion. No bony lesions demonstrated. IMPRESSION: Stable CT scan of the chest without evidence for metastatic disease. CT ABDOMEN AND PELVIS: Liver appears normal. No lesions are present. There is uniform enhancement on delayed images following IV contrast. Gallbladder and bile ducts are normal. The pancreas and spleen are normal. The adrenal glands appear normal. Kidneys show symmetrical enhancement following IV contrast. No renal calculi or masses are present. Delayed images shows normal-appearing renal collecting system. The previously reported retroperitoneal lymph nodes along the upper aortic region posterior to the vena cava have not changed in appearance. No new lesions have developed. Oral contrast is present the stomach and small bowel. The anastomosis is widely patent. There is no distended bowel loops. The colon shows normal stool and gas pattern. The myometrial mass on the left within the uterus is again demonstrated and has increased very slightly in size now measuring 3.8 x 3 cm. Right ovarian cyst is unchanged measuring approximately 2.8 cm. Bladder appears normal. No pelvic masses have developed. There is a small lytic lesion in the right iliac wing adjacent to the anterior aspect of the SI joint which is unchanged measuring less than 1 cm. IMPRESSION: 1. Small bowel anastomosis appears normal and unchanged. 2. No lymphadenopathy has developed since previous exam. No hepatic lesions have developed. 3. The myometrial mass left side of the pelvis again noted perhaps slightly larger than on the previous study. Right adnexal cyst is unchanged. Dictated by: Dictated on workstation # [id number]
--- NOTE | 2017-06-13 15:46 | Diagnostic Imaging Report ---
INDICATION: Malignant neoplasm of the jejunum. COMPARISON: Bone scan of 03/21/2017. TECHNIQUE: Anterior and posterior scintigraphic images of the whole body were obtained after the intravenous injection of 25.6 mCi of Tc-99m MDP. FINDINGS: There is normal distribution of tracer throughout the skeleton. No abnormal focal area of increased or decreased tracer accumulation is identified. Normal activity within the kidneys and urinary bladder is identified. IMPRESSION: No evidence of osseous metastatic disease. Dictated by: Dictated on workstation # [id number]
== END ==
LOC: CARD 11:18
PROVIDERS: ATTEND Internal Medicine Hematology & Oncology
DX: Z01.89 Encounter for other specified special examinations (principal); C17.1 Malignant neoplasm of jejunum; C77.2 Secondary and unspecified malignant neoplasm of intra-abdominal lymph nodes; C79.89 Secondary malignant neoplasm of other specified sites
CPT/HCPCS: 71260; 74178; 78306

== ENCOUNTER 2017-08-18 15:19 | Outpatient (RCR) | payer OTHER ==
[2017-06-17 13:22] LABS: BASOPHILS % (AUTO) 0 % (0-10); EOSINOPHILS # (AUTO) 0.2 10^3/uL (0.0-0.3); EOSINOPHILS % (AUTO) 3 % (0-10); LYMPHOCYTES # (AUTO) 1.1 X 10^3 (1.0-4.0); LYMPHOCYTES % (AUTO) 18 % (12-44); MEAN CORPUSCULAR HEMOGLOBIN 33 PG (25-34); MEAN CORPUSCULAR HGB CONC 34 G/DL (32-36); MEAN CORPUSCULAR VOLUME 96 FL (80-99); MEAN PLATELET VOLUME 10.8 FL (7.4-10.4); MONOCYTES # (AUTO) 0.6 X 10^3 (0.0-1.0); MONOCYTES % (AUTO) 10 % (0-12); NEUTROPHILS # (AUTO) 4.1 X 10^3 (1.8-7.8); NEUTROPHILS % (AUTO) 69 % (42-75); PLATELET COUNT 147 10^3/uL (130-400); RED BLOOD COUNT 4.16 10^6/uL (4.35-5.85); RED CELL DISTRIBUTION WIDTH 13.6 % (10.0-14.5)
[2017-06-17 13:32] LABS: BILIRUBIN,URINE NEGATIVE (NEGATIVE); KETONES,URINE NEGATIVE (NEGATIVE); LEUKOCYTE ESTERASE ,URINE 1+ (NEGATIVE); NITRITE,URINE NEGATIVE (NEGATIVE); PH,URINE 7 (5-9); PROTEIN,URINE NEGATIVE (NEGATIVE); UROBILINOGEN,URINE NORMAL (NORMAL)
[2017-06-17 13:53] LABS: ALANINE AMINOTRANSFERASE 37 U/L (0-55); ALBUMIN 4.3 GM/DL (3.2-4.5); ANION GAP 11 MMOL/L (5-14); ASPARTATE AMINO TRANSFERASE 24 U/L (5-34); BILIRUBIN,TOTAL 0.5 MG/DL (0.1-1.0); BLOOD UREA NITROGEN 15 MG/DL (7-18); BUN/CREATININE RATIO 19; CALCIUM 9.5 MG/DL (8.5-10.1); CARBON DIOXIDE 25 MMOL/L (21-32); CHLORIDE 104 MMOL/L (98-107); CREATININE SERUM 0.81 MG/DL (0.60-1.30); GFR ESTIMATED > 60; GLUCOSE 97 MG/DL (70-105); MAGNESIUM 2.3 MG/DL (1.8-2.4); SODIUM 140 MMOL/L (135-145); TOTAL PROTEIN 7.2 GM/DL (6.4-8.2)
[2017-06-30 13:20] LABS: BASOPHILS % (AUTO) 0 % (0-10); EOSINOPHILS # (AUTO) 0.2 10^3/uL (0.0-0.3); EOSINOPHILS % (AUTO) 4 % (0-10); LYMPHOCYTES # (AUTO) 0.8 X 10^3 (1.0-4.0); LYMPHOCYTES % (AUTO) 16 % (12-44); MEAN CORPUSCULAR HGB CONC 34 G/DL (32-36); MEAN CORPUSCULAR VOLUME 96 FL (80-99); MEAN PLATELET VOLUME 10.9 FL (7.4-10.4); MONOCYTES # (AUTO) 0.6 X 10^3 (0.0-1.0); MONOCYTES % (AUTO) 11 % (0-12); NEUTROPHILS # (AUTO) 3.5 X 10^3 (1.8-7.8); NEUTROPHILS % (AUTO) 69 % (42-75); PLATELET COUNT 139 10^3/uL (130-400); RED BLOOD COUNT 3.94 10^6/uL (4.35-5.85); RED CELL DISTRIBUTION WIDTH 13.6 % (10.0-14.5); WHITE BLOOD COUNT 5.1 10^3/uL (4.3-11.0)
[2017-06-30 13:23] LABS: MEAN CORPUSCULAR HEMOGLOBIN 32 PG (25-34)
[2017-06-30 13:46] LABS: ALANINE AMINOTRANSFERASE 35 U/L (0-55); ANION GAP 7 MMOL/L (5-14); ASPARTATE AMINO TRANSFERASE 28 U/L (5-34); BILIRUBIN,TOTAL 0.6 MG/DL (0.1-1.0); BLOOD UREA NITROGEN 12 MG/DL (7-18); BUN/CREATININE RATIO 16; CALCIUM 8.8 MG/DL (8.5-10.1); CARBON DIOXIDE 26 MMOL/L (21-32); CHLORIDE 107 MMOL/L (98-107); CREATININE SERUM 0.77 MG/DL (0.60-1.30); GFR ESTIMATED > 60; GLUCOSE 91 MG/DL (70-105); MAGNESIUM 2.3 MG/DL (1.8-2.4); POTASSIUM 4.1 MMOL/L (3.6-5.0); SODIUM 140 MMOL/L (135-145); TOTAL PROTEIN 6.5 GM/DL (6.4-8.2)
[2017-07-07 13:57] LABS: BASOPHILS % (AUTO) 0 % (0-10); EOSINOPHILS # (AUTO) 0.3 10^3/uL (0.0-0.3); EOSINOPHILS % (AUTO) 6 % (0-10); LYMPHOCYTES # (AUTO) 1.3 X 10^3 (1.0-4.0); LYMPHOCYTES % (AUTO) 27 % (12-44); MEAN CORPUSCULAR HGB CONC 35 G/DL (32-36); MEAN CORPUSCULAR VOLUME 95 FL (80-99); MEAN PLATELET VOLUME 10.7 FL (7.4-10.4); MONOCYTES # (AUTO) 0.3 X 10^3 (0.0-1.0); MONOCYTES % (AUTO) 7 % (0-12); NEUTROPHILS # (AUTO) 2.9 X 10^3 (1.8-7.8); NEUTROPHILS % (AUTO) 60 % (42-75); PLATELET COUNT 164 10^3/uL (130-400); RED BLOOD COUNT 4.15 10^6/uL (4.35-5.85); RED CELL DISTRIBUTION WIDTH 13.2 % (10.0-14.5); WHITE BLOOD COUNT 4.8 10^3/uL (4.3-11.0)
[2017-07-07 13:58] LABS: MEAN CORPUSCULAR HEMOGLOBIN 33 PG (25-34)
[2017-07-07 14:44] LABS: ANION GAP 7 MMOL/L (5-14); BLOOD UREA NITROGEN 19 MG/DL (7-18); BUN/CREATININE RATIO 25; CALCIUM 9.3 MG/DL (8.5-10.1); CARBON DIOXIDE 29 MMOL/L (21-32); CHLORIDE 105 MMOL/L (98-107); CREATININE SERUM 0.75 MG/DL (0.60-1.30); GFR ESTIMATED > 60; GLUCOSE 85 MG/DL (70-105); POTASSIUM 4.2 MMOL/L (3.6-5.0); SODIUM 141 MMOL/L (135-145)
[2017-07-14 11:03] LABS: BASOPHILS % (AUTO) 0 % (0-10); EOSINOPHILS # (AUTO) 0.1 10^3/uL (0.0-0.3); EOSINOPHILS % (AUTO) 2 % (0-10); LYMPHOCYTES % (AUTO) 20 % (12-44); MEAN CORPUSCULAR HEMOGLOBIN 32 PG (25-34); MEAN CORPUSCULAR HGB CONC 34 G/DL (32-36); MEAN CORPUSCULAR VOLUME 96 FL (80-99); MONOCYTES # (AUTO) 0.6 X 10^3 (0.0-1.0); MONOCYTES % (AUTO) 14 % (0-12); NEUTROPHILS % (AUTO) 64 % (42-75); PLATELET COUNT 133 10^3/uL (130-400); RED BLOOD COUNT 3.96 10^6/uL (4.35-5.85); RED CELL DISTRIBUTION WIDTH 13.9 % (10.0-14.5); WHITE BLOOD COUNT 4.8 10^3/uL (4.3-11.0)
[2017-07-14 11:07] LABS: BILIRUBIN,URINE NEGATIVE (NEGATIVE); KETONES,URINE NEGATIVE (NEGATIVE); LEUKOCYTE ESTERASE ,URINE NEGATIVE (NEGATIVE); NITRITE,URINE NEGATIVE (NEGATIVE); PH,URINE 6 (5-9); PROTEIN,URINE NEGATIVE (NEGATIVE); UROBILINOGEN,URINE NORMAL (NORMAL)
[2017-07-14 11:46] LABS: ALANINE AMINOTRANSFERASE 51 U/L (0-55); ANION GAP 7 MMOL/L (5-14); ASPARTATE AMINO TRANSFERASE 44 U/L (5-34); BILIRUBIN,TOTAL 0.4 MG/DL (0.1-1.0); BLOOD UREA NITROGEN 17 MG/DL (7-18); BUN/CREATININE RATIO 23; CALCIUM 8.9 MG/DL (8.5-10.1); CARBON DIOXIDE 26 MMOL/L (21-32); CHLORIDE 106 MMOL/L (98-107); CREATININE SERUM 0.73 MG/DL (0.60-1.30); GFR ESTIMATED > 60; GLUCOSE 81 MG/DL (70-105); MAGNESIUM 2.1 MG/DL (1.8-2.4); POTASSIUM 4.1 MMOL/L (3.6-5.0); SODIUM 139 MMOL/L (135-145); TOTAL PROTEIN 6.3 GM/DL (6.4-8.2)
[2017-07-30 10:36] LABS: BASOPHILS % (AUTO) 1 % (0-10); EOSINOPHILS # (AUTO) 0.1 10^3/uL (0.0-0.3); EOSINOPHILS % (AUTO) 2 % (0-10); LYMPHOCYTES # (AUTO) 1.2 X 10^3 (1.0-4.0); LYMPHOCYTES % (AUTO) 45 % (12-44); MEAN CORPUSCULAR HEMOGLOBIN 33 PG (25-34); MEAN CORPUSCULAR HGB CONC 35 G/DL (32-36); MEAN CORPUSCULAR VOLUME 95 FL (80-99); MEAN PLATELET VOLUME 10.8 FL (7.4-10.4); MONOCYTES # (AUTO) 0.6 X 10^3 (0.0-1.0); MONOCYTES % (AUTO) 23 % (0-12); NEUTROPHILS # (AUTO) 0.8 X 10^3 (1.8-7.8); NEUTROPHILS % (AUTO) 28 % (42-75); PLATELET COUNT 129 10^3/uL (130-400); RED BLOOD COUNT 4.04 10^6/uL (4.35-5.85); RED CELL DISTRIBUTION WIDTH 14.3 % (10.0-14.5); WHITE BLOOD COUNT 2.7 10^3/uL (4.3-11.0)
[2017-07-30 10:43] LABS: BILIRUBIN,URINE NEGATIVE (NEGATIVE); KETONES,URINE NEGATIVE (NEGATIVE); LEUKOCYTE ESTERASE ,URINE 1+ (NEGATIVE); NITRITE,URINE NEGATIVE (NEGATIVE); PH,URINE 5 (5-9); PROTEIN,URINE 2+ (NEGATIVE); UROBILINOGEN,URINE NORMAL (NORMAL)
[2017-07-30 10:51] LABS: ALANINE AMINOTRANSFERASE 64 U/L (0-55); ANION GAP 10 MMOL/L (5-14); ASPARTATE AMINO TRANSFERASE 63 U/L (5-34); BILIRUBIN,TOTAL 0.4 MG/DL (0.1-1.0); BLOOD UREA NITROGEN 15 MG/DL (7-18); BUN/CREATININE RATIO 19; CALCIUM 8.9 MG/DL (8.5-10.1); CARBON DIOXIDE 24 MMOL/L (21-32); CHLORIDE 106 MMOL/L (98-107); CREATININE SERUM 0.77 MG/DL (0.60-1.30); GFR ESTIMATED > 60; GLUCOSE 92 MG/DL (70-105); MAGNESIUM 2.3 MG/DL (1.8-2.4); SODIUM 140 MMOL/L (135-145); TOTAL PROTEIN 6.7 GM/DL (6.4-8.2)
[2017-08-04 13:35] LABS: BASOPHILS % (AUTO) 0 % (0-10); EOSINOPHILS # (AUTO) 0.1 10^3/uL (0.0-0.3); EOSINOPHILS % (AUTO) 2 % (0-10); LYMPHOCYTES # (AUTO) 1.6 X 10^3 (1.0-4.0); LYMPHOCYTES % (AUTO) 33 % (12-44); MEAN CORPUSCULAR HEMOGLOBIN 33 PG (25-34); MEAN CORPUSCULAR HGB CONC 34 G/DL (32-36); MEAN CORPUSCULAR VOLUME 96 FL (80-99); MEAN PLATELET VOLUME 10.5 FL (7.4-10.4); MONOCYTES # (AUTO) 0.5 X 10^3 (0.0-1.0); MONOCYTES % (AUTO) 11 % (0-12); NEUTROPHILS # (AUTO) 2.5 X 10^3 (1.8-7.8); NEUTROPHILS % (AUTO) 53 % (42-75); PLATELET COUNT 224 10^3/uL (130-400); RED BLOOD COUNT 4.48 10^6/uL (4.35-5.85); RED CELL DISTRIBUTION WIDTH 14.3 % (10.0-14.5); WHITE BLOOD COUNT 4.8 10^3/uL (4.3-11.0)
[2017-08-04 13:51] LABS: ANION GAP 7 MMOL/L (5-14); BLOOD UREA NITROGEN 20 MG/DL (7-18); BUN/CREATININE RATIO 26; CALCIUM 9.2 MG/DL (8.5-10.1); CARBON DIOXIDE 29 MMOL/L (21-32); CHLORIDE 106 MMOL/L (98-107); CREATININE SERUM 0.78 MG/DL (0.60-1.30); GFR ESTIMATED > 60; GLUCOSE 83 MG/DL (70-105); POTASSIUM 4.2 MMOL/L (3.6-5.0); SODIUM 142 MMOL/L (135-145)
[2017-08-11 09:29] LABS: BASOPHILS % (AUTO) 0 % (0-10); EOSINOPHILS # (AUTO) 0.1 10^3/uL (0.0-0.3); EOSINOPHILS % (AUTO) 2 % (0-10); LYMPHOCYTES # (AUTO) 1.4 X 10^3 (1.0-4.0); LYMPHOCYTES % (AUTO) 24 % (12-44); MEAN CORPUSCULAR HEMOGLOBIN 32 PG (25-34); MEAN CORPUSCULAR HGB CONC 34 G/DL (32-36); MEAN CORPUSCULAR VOLUME 95 FL (80-99); MEAN PLATELET VOLUME 10.6 FL (7.4-10.4); MONOCYTES # (AUTO) 0.5 X 10^3 (0.0-1.0); MONOCYTES % (AUTO) 9 % (0-12); NEUTROPHILS # (AUTO) 3.7 X 10^3 (1.8-7.8); NEUTROPHILS % (AUTO) 65 % (42-75); PLATELET COUNT 173 10^3/uL (130-400); RED BLOOD COUNT 4.24 10^6/uL (4.35-5.85); RED CELL DISTRIBUTION WIDTH 13.6 % (10.0-14.5); WHITE BLOOD COUNT 5.7 10^3/uL (4.3-11.0)
[2017-08-11 09:49] LABS: PROTEIN/CREATININE RATIO 0.06
[2017-08-11 09:51] LABS: ALANINE AMINOTRANSFERASE 66 U/L (0-55); ALBUMIN 4.1 GM/DL (3.2-4.5); ANION GAP 8 MMOL/L (5-14); ASPARTATE AMINO TRANSFERASE 50 U/L (5-34); BILIRUBIN,TOTAL 0.4 MG/DL (0.1-1.0); BLOOD UREA NITROGEN 12 MG/DL (7-18); BUN/CREATININE RATIO 15; CALCIUM 9.4 MG/DL (8.5-10.1); CARBON DIOXIDE 26 MMOL/L (21-32); CHLORIDE 106 MMOL/L (98-107); CREATININE SERUM 0.79 MG/DL (0.60-1.30); GFR ESTIMATED > 60; GLUCOSE 103 MG/DL (70-105); MAGNESIUM 2.4 MG/DL (1.8-2.4); POTASSIUM 4.2 MMOL/L (3.6-5.0); SODIUM 140 MMOL/L (135-145); TOTAL PROTEIN 6.9 GM/DL (6.4-8.2)
[~2017-08-18] VITALS: Ht 172.7 cm; Wt 52.2 kg
[~2017-08-18 15:19] MED LIST changes: -BARIUM SUSPENSION 2.1% (VANILLA SILQ) 450 ML PO ONE; +BEVACIZUMAB IV SCH; -CATHETER FLUSH 10 ML SYR IV PRN; +D5W 500 ML IV (CANCER CTR) 500 ML IV ONE; +D5W 500 ML IV (CANCER CTR) 500 ML IV SCH; +FLUOROURACIL IV SCH; +FOSAPREPITANT DIMEGLUMINE 150 MG in NS (IVPB) CANCER CENTER ONLY 150 ML IV PRN; +FOSAPREPITANT DIMEGLUMINE 150 MG in NS (IVPB) CANCER CENTER ONLY 150 ML IV SCH; -IOHEXOL 350 MG/ML 100 ML (OMNIPAQUE 350) VIAL IV ONE; +LEUCOVORIN CALCIUM 350 MG, LEUCOVORIN CALCIUM 50 MG in D5W 250 ML IVPB (CANCER CTR) 250 ML IV SCH; -MULT-116 PO; +MULT-324 PO; -NS 100 ML (IVPB) BAG IV ONE; +NS IV 1000 ML (CANCER CTR) IV SCH; +NS IV 500 ML (CANCER CENTER) 500 ML IV SCH; +NS IV SCH; +ONDANSETRON MDV (CANCER CENTER 8 MG, DEXAMETHASONE PF INJ (CANCER C 10 MG in NS (IVPB) ... IV SCH; +OXALIPLATIN 100 MG, OXALIPLATIN (GENERIC) 20 MG in D5W 250 ML IVPB (CANCER CTR) 250 ML IV SCH; +PALONOSETRON 0.25 MG, DEXAMETHASONE 10 MG/NS 50 ML IVPB IV PRN; +PALONOSETRON HCL 0.25 MG, DEXAMETHASONE PF INJ (CANCER C 10 MG in NS (IVPB) CANCER CENT... IV PRN
[2017-08-18 15:33] LABS: BASOPHILS % (AUTO) 0 % (0-10); EOSINOPHILS # (AUTO) 0.2 10^3/uL (0.0-0.3); EOSINOPHILS % (AUTO) 3 % (0-10); LYMPHOCYTES # (AUTO) 1.5 X 10^3 (1.0-4.0); LYMPHOCYTES % (AUTO) 24 % (12-44); MEAN CORPUSCULAR HEMOGLOBIN 32 PG (25-34); MEAN CORPUSCULAR HGB CONC 34 G/DL (32-36); MEAN CORPUSCULAR VOLUME 93 FL (80-99); MEAN PLATELET VOLUME 10.5 FL (7.4-10.4); MONOCYTES # (AUTO) 0.4 X 10^3 (0.0-1.0); MONOCYTES % (AUTO) 6 % (0-12); NEUTROPHILS # (AUTO) 4.1 X 10^3 (1.8-7.8); NEUTROPHILS % (AUTO) 66 % (42-75); PLATELET COUNT 126 10^3/uL (130-400); RED BLOOD COUNT 4.28 10^6/uL (4.35-5.85); RED CELL DISTRIBUTION WIDTH 12.6 % (10.0-14.5); WHITE BLOOD COUNT 6.1 10^3/uL (4.3-11.0)
[2017-08-18 15:54] LABS: ANION GAP 9 MMOL/L (5-14); BLOOD UREA NITROGEN 17 MG/DL (7-18); BUN/CREATININE RATIO 23; CALCIUM 8.8 MG/DL (8.5-10.1); CARBON DIOXIDE 24 MMOL/L (21-32); CHLORIDE 107 MMOL/L (98-107); CREATININE SERUM 0.73 MG/DL (0.60-1.30); GFR ESTIMATED > 60; GLUCOSE 91 MG/DL (70-105); POTASSIUM 4.1 MMOL/L (3.6-5.0); SODIUM 140 MMOL/L (135-145)
== END 2017-08-21 12:10 | disposition home or self-care (01) ==
LOC: ONC 15:19
PROVIDERS: ATTEND Internal Medicine Hematology & Oncology
DX: Z51.11 Encounter for antineoplastic chemotherapy (principal); C17.1 Malignant neoplasm of jejunum; C77.2 Secondary and unspecified malignant neoplasm of intra-abdominal lymph nodes; C79.89 Secondary malignant neoplasm of other specified sites; Z79.899 Other long term (current) drug therapy
CPT/HCPCS: 36415; 36591; 80048; 80053; 81002; 82378; 82570; 83735; 84156; 85025; 96367; 96368; 96375; 96409; 96411; 96413; 96521

== ENCOUNTER → 2017-09-05 | Outpatient (CLI) | payer OTHER ==
[~2017-09-05] MED LIST changes: +BARIUM SUSPENSION 2.1% (VANILLA SILQ) 450 ML PO ONE; -BEVACIZUMAB IV SCH; -D5W 500 ML IV (CANCER CTR) 500 ML IV ONE; -D5W 500 ML IV (CANCER CTR) 500 ML IV SCH; -FLUOROURACIL IV SCH; -FOSAPREPITANT DIMEGLUMINE 150 MG in NS (IVPB) CANCER CENTER ONLY 150 ML IV PRN; -FOSAPREPITANT DIMEGLUMINE 150 MG in NS (IVPB) CANCER CENTER ONLY 150 ML IV SCH; +IOHEXOL 350 MG/ML 100 ML (OMNIPAQUE 350) VIAL IV ONE; -LEUCOVORIN CALCIUM 350 MG, LEUCOVORIN CALCIUM 50 MG in D5W 250 ML IVPB (CANCER CTR) 250 ML IV SCH; +NS 100 ML (IVPB) BAG IV ONE; -NS IV 1000 ML (CANCER CTR) IV SCH; -NS IV 500 ML (CANCER CENTER) 500 ML IV SCH; -NS IV SCH; -ONDANSETRON MDV (CANCER CENTER 8 MG, DEXAMETHASONE PF INJ (CANCER C 10 MG in NS (IVPB) ... IV SCH; -OXALIPLATIN 100 MG, OXALIPLATIN (GENERIC) 20 MG in D5W 250 ML IVPB (CANCER CTR) 250 ML IV SCH; -PALONOSETRON 0.25 MG, DEXAMETHASONE 10 MG/NS 50 ML IVPB IV PRN; -PALONOSETRON HCL 0.25 MG, DEXAMETHASONE PF INJ (CANCER C 10 MG in NS (IVPB) CANCER CENT... IV PRN
--- NOTE | 2017-09-05 13:03 | Diagnostic Imaging Report ---
PROCEDURE: CT chest with contrast, CT abdomen and pelvis with and without contrast. TECHNIQUE: Pre and post intravenous contrast axial imaging of the abdomen and pelvis and post contrast axial imaging of the chest were performed. INDICATION: History of small bowel malignancy. COMPARISON: Study compared 06/13/2017. CHEST: There is no axillary, hilar or mediastinal lymphadenopathy. The lungs are clear. There is no effusion or pneumothorax. The osseous structures are nonacute. ABDOMEN AND PELVIS: Liver, spleen, adrenals and pancreas negative. Left abdominal small bowel anastomosis showed no change with no adjacent fluid collection, evidence for leak or obstruction. No identifiable small or large bowel wall mass. No mesenteric or retroperitoneal lymphadenopathy. There is no ascites, abscess, hematoma or other fluid collection. Heterogeneous retroverted uterus presumed fibroid unchanged. Simple appearing right ovarian cyst decreased in size. No acute or suspicious osseous pathology. IMPRESSION: CHEST: Stable negative chest. ABDOMEN AND PELVIS: Stable postoperative change without findings of residual or recurrent malignancy. Heterogeneous retroverted fibroid uterus unchanged. Right adnexal cyst decreased, no adverse development. Dictated on workstation # [id number]
== END ==
LOC: RAD 09:39
PROVIDERS: ATTEND Internal Medicine Hematology & Oncology
DX: C17.1 Malignant neoplasm of jejunum (principal); C77.2 Secondary and unspecified malignant neoplasm of intra-abdominal lymph nodes; C79.89 Secondary malignant neoplasm of other specified sites
CPT/HCPCS: 71260; 74178

== ENCOUNTER → 2017-09-08 | Day surgery (SDC) | payer OTHER ==
[2017-09-08] VITALS (12 sets, daily range): BP systolic 101–136; BP diastolic 57–85
[~2017-09-08] VITALS: Ht 172.7 cm; Wt 52.2 kg
[~2017-09-08] MED LIST changes: -BARIUM SUSPENSION 2.1% (VANILLA SILQ) 450 ML PO ONE; +INFLUENZA TRIvalent 2017-2018 0.5 ML/45 MCG SYR IM ONE; -IOHEXOL 350 MG/ML 100 ML (OMNIPAQUE 350) VIAL IV ONE; +LIDOCAINE 2% VISCOUS 15 ML UDC ONE; +LIDOCAINE 2% VISCOUS 15 ML UDC PO ONE; +MIDAZOLAM 5 MG/5 ML (VERSED) VIAL IV PRN; +MIDAZOLAM 5 MG/5 ML (VERSED) VIAL ONE; -NS 100 ML (IVPB) BAG IV ONE; +NS IV 1000 ML 1,000 ML IV SCH; +NS IV 1000 ML 1,000 ML ONE; +fentaNYL INJECTION 100 MCG/2 ML AMP INJ PRN; +fentaNYL INJECTION 100 MCG/2 ML AMP ONE
[2017-09-08 08:55] LABS: MEAN PLATELET VOLUME 10.8 FL (7.4-10.4); RED BLOOD COUNT 4.38 10^6/uL (4.35-5.85); RED CELL DISTRIBUTION WIDTH 13.9 % (10.0-14.5); WHITE BLOOD COUNT 3.6 10^3/uL (4.3-11.0)
[2017-09-08 09:04] LABS: INR 0.9 (0.8-1.4); PROTHROMBIN TIME PATIENT 12.4 SEC (12.2-14.7)
--- NOTE | 2017-09-08 09:11 | Diagnostic Imaging Report ---
Portable upright radiograph of the chest. INDICATION: Metastatic adenocarcinoma of the jejunum. FINDINGS: The lungs are clear. Heart size is normal. There is no effusion or pneumothorax. The mediastinum and alexander appear unremarkable. There is a right IJ tunneled infusion port with the tip at the SVC level. IMPRESSION: Clear hyperinflated lungs. Dictated by: Dictated on workstation # [id number]
[2017-09-08 09:14] LABS: ALANINE AMINOTRANSFERASE 39 U/L (0-55); ALBUMIN 4.3 GM/DL (3.2-4.5); ANION GAP 9 MMOL/L (5-14); ASPARTATE AMINO TRANSFERASE 25 U/L (5-34); BILIRUBIN,TOTAL 0.5 MG/DL (0.1-1.0); BLOOD UREA NITROGEN 9 MG/DL (7-18); BUN/CREATININE RATIO 12; CALCIUM 9.5 MG/DL (8.5-10.1); CARBON DIOXIDE 27 MMOL/L (21-32); CHLORIDE 104 MMOL/L (98-107); CREATININE SERUM 0.74 MG/DL (0.60-1.30); GFR ESTIMATED > 60; GLUCOSE 91 MG/DL (70-105); POTASSIUM 3.5 MMOL/L (3.6-5.0); SODIUM 140 MMOL/L (135-145); TOTAL PROTEIN 7.3 GM/DL (6.4-8.2)
--- NOTE | 2017-09-08 15:42 | Cardiac Procedure Note-CS/ASA ---
Pre-Procedure Note Pre-Op Procedure Note H&P Reviewed The H&P was reviewed, patient examined and no changes noted. Date H&P Reviewed: Sep 08, 2017 Time H&P Reviewed: 08:00 Conscious Sedation Pre-Proced Time Reviewed: 08:00 ASA Class: 3 Airway Mallampati Classification: ([place] appropriate class) I. II. III, IV Lungs Heart ASA score ASA 1: a normal healthy patient ASA 2: a patient with a mild systemic disease (mid diabetes, controlled hypertension, obesity x ASA 3: a patient with a severe systemic disease that limits activity (angina , COPD, prior Myocardial infarction) ASA 4: a patient with an incapacitating disease that is a constant threat to life (CHF, renal failure) ASA 5: a moribund patient not expected to survive 24 hrs. (ruptured aneurysm) ASA 6: a declared brain patient whose organs are being harvested. For emergent operations, add the letter E after the classification Grade 3 Sedation Plan: Analgesia, Amnesia, Plan communicated to team members, Discussed options with patient/fam, Discussed risks with patient/fam Note The patient is an appropriate candidate to undergo the planned procedure, sedation, and anesthesia. The patient immediately re-assessed prior to indication. KIA PRITCHETT MD Sep 08, 2017 15:42
--- NOTE | 2017-09-08 15:43 | Clinic Account Progress/Dx ---
Clinic Account Progress/Dx DIAGNOSIS: Date Seen by Provider: Sep 08, 2017 Time Seen by Provider: 15:42 Metastatic cancer Cardiac mass KIA PRITCHETT MD Sep 08, 2017 15:43
== END ==
LOC: CATH 08:15
PROVIDERS: ATTEND Internal Medicine Cardiovascular Disease
DX: D49.89 Neoplasm of unspecified behavior of other specified sites (principal); R94.39 Abnormal result of other cardiovascular function study; C17.1 Malignant neoplasm of jejunum; C77.2 Secondary and unspecified malignant neoplasm of intra-abdominal lymph nodes; Z79.899 Other long term (current) drug therapy; Z92.21 Personal history of antineoplastic chemotherapy
CPT/HCPCS: 36415; 71010; 80053; 85610; 85730; 87081; 93312; 93320; 93325

== ENCOUNTER 2017-09-15 13:11 | Outpatient (RCR) | payer OTHER ==
[2017-08-26 08:43] LABS: BASOPHILS % (AUTO) 0 % (0-10); EOSINOPHILS # (AUTO) 0.1 10^3/uL (0.0-0.3); EOSINOPHILS % (AUTO) 3 % (0-10); LYMPHOCYTES % (AUTO) 32 % (12-44); MEAN CORPUSCULAR HEMOGLOBIN 32 PG (25-34); MEAN CORPUSCULAR HGB CONC 35 G/DL (32-36); MEAN CORPUSCULAR VOLUME 94 FL (80-99); MEAN PLATELET VOLUME 10.1 FL (7.4-10.4); MONOCYTES # (AUTO) 0.4 X 10^3 (0.0-1.0); MONOCYTES % (AUTO) 14 % (0-12); NEUTROPHILS # (AUTO) 1.6 X 10^3 (1.8-7.8); NEUTROPHILS % (AUTO) 51 % (42-75); PLATELET COUNT 175 10^3/uL (130-400); RED BLOOD COUNT 4.09 10^6/uL (4.35-5.85); RED CELL DISTRIBUTION WIDTH 13.4 % (10.0-14.5); WHITE BLOOD COUNT 3.1 10^3/uL (4.3-11.0)
[2017-08-26 09:06] LABS: ALANINE AMINOTRANSFERASE 59 U/L (0-55); ANION GAP 8 MMOL/L (5-14); ASPARTATE AMINO TRANSFERASE 41 U/L (5-34); BILIRUBIN,TOTAL 0.4 MG/DL (0.1-1.0); BLOOD UREA NITROGEN 11 MG/DL (7-18); BUN/CREATININE RATIO 16; CARBON DIOXIDE 27 MMOL/L (21-32); CHLORIDE 106 MMOL/L (98-107); CREATININE SERUM 0.69 MG/DL (0.60-1.30); GFR ESTIMATED > 60; GLUCOSE 89 MG/DL (70-105); MAGNESIUM 2.1 MG/DL (1.8-2.4); POTASSIUM 3.9 MMOL/L (3.6-5.0); SODIUM 141 MMOL/L (135-145); TOTAL PROTEIN 6.8 GM/DL (6.4-8.2)
[2017-09-08 12:58] LABS: BASOPHILS % (AUTO) 0 % (0-10); EOSINOPHILS # (AUTO) 0.1 10^3/uL (0.0-0.3); EOSINOPHILS % (AUTO) 1 % (0-10); LYMPHOCYTES # (AUTO) 1.1 X 10^3 (1.0-4.0); LYMPHOCYTES % (AUTO) 31 % (12-44); MEAN CORPUSCULAR HEMOGLOBIN 32 PG (25-34); MEAN CORPUSCULAR HGB CONC 34 G/DL (32-36); MEAN CORPUSCULAR VOLUME 94 FL (80-99); MEAN PLATELET VOLUME 10.8 FL (7.4-10.4); MONOCYTES # (AUTO) 0.6 X 10^3 (0.0-1.0); MONOCYTES % (AUTO) 17 % (0-12); NEUTROPHILS # (AUTO) 1.8 X 10^3 (1.8-7.8); NEUTROPHILS % (AUTO) 50 % (42-75); PLATELET COUNT 151 10^3/uL (130-400); RED BLOOD COUNT 4.38 10^6/uL (4.35-5.85); RED CELL DISTRIBUTION WIDTH 13.9 % (10.0-14.5); WHITE BLOOD COUNT 3.6 10^3/uL (4.3-11.0)
[2017-09-08 13:13] LABS: ALANINE AMINOTRANSFERASE 39 U/L (0-55); ALBUMIN 4.4 GM/DL (3.2-4.5); ANION GAP 11 MMOL/L (5-14); ASPARTATE AMINO TRANSFERASE 27 U/L (5-34); BILIRUBIN,TOTAL 0.6 MG/DL (0.1-1.0); BLOOD UREA NITROGEN 9 MG/DL (7-18); BUN/CREATININE RATIO 12; CALCIUM 9.5 MG/DL (8.5-10.1); CARBON DIOXIDE 25 MMOL/L (21-32); CHLORIDE 104 MMOL/L (98-107); CREATININE SERUM 0.73 MG/DL (0.60-1.30); GFR ESTIMATED > 60; GLUCOSE 91 MG/DL (70-105); MAGNESIUM 2.2 MG/DL (1.8-2.4); POTASSIUM 3.5 MMOL/L (3.6-5.0); SODIUM 140 MMOL/L (135-145); TOTAL PROTEIN 7.4 GM/DL (6.4-8.2)
[~2017-09-15] VITALS: Ht 172.7 cm; Wt 52.2 kg
[~2017-09-15 13:11] MED LIST changes: +BEVACIZUMAB IV SCH; +D5W 500 ML IV (CANCER CTR) 500 ML IV SCH; +FLUOROURACIL IV SCH; +FOSAPREPITANT DIMEGLUMINE 150 MG in NS (IVPB) CANCER CENTER ONLY 150 ML IV PRN; +FOSAPREPITANT DIMEGLUMINE 150 MG in NS (IVPB) CANCER CENTER ONLY 150 ML IV SCH; -INFLUENZA TRIvalent 2017-2018 0.5 ML/45 MCG SYR IM ONE; +LEUCOVORIN CALCIUM 350 MG, LEUCOVORIN CALCIUM 50 MG in D5W 250 ML IVPB (CANCER CTR) 250 ML IV SCH; -LIDOCAINE 2% VISCOUS 15 ML UDC ONE; -LIDOCAINE 2% VISCOUS 15 ML UDC PO ONE; -MIDAZOLAM 5 MG/5 ML (VERSED) VIAL IV PRN; -MIDAZOLAM 5 MG/5 ML (VERSED) VIAL ONE; -NS IV 1000 ML 1,000 ML IV SCH; -NS IV 1000 ML 1,000 ML ONE; +NS IV SCH; +OXALIPLATIN 100 MG in D5W 250 ML IVPB (CANCER CTR) 250 ML IV SCH; +OXALIPLATIN 100 MG, OXALIPLATIN (GENERIC) 10 MG in D5W 250 ML IVPB (CANCER CTR) 250 ML IV SCH; +OXALIPLATIN 100 MG, OXALIPLATIN (GENERIC) 20 MG in D5W 250 ML IVPB (CANCER CTR) 250 ML IV SCH; +PALONOSETRON 0.25 MG, DEXAMETHASONE 10 MG/NS 50 ML IVPB IV PRN; +PALONOSETRON HCL 0.25 MG, DEXAMETHASONE PF INJ (CANCER C 10 MG in NS (IVPB) CANCER CENT... IV PRN; -fentaNYL INJECTION 100 MCG/2 ML AMP INJ PRN; -fentaNYL INJECTION 100 MCG/2 ML AMP ONE
[2017-09-15 13:44] LABS: BASOPHILS % (AUTO) 0 % (0-10); EOSINOPHILS # (AUTO) 0.1 10^3/uL (0.0-0.3); EOSINOPHILS % (AUTO) 2 % (0-10); LYMPHOCYTES # (AUTO) 1.2 X 10^3 (1.0-4.0); LYMPHOCYTES % (AUTO) 31 % (12-44); MEAN CORPUSCULAR HEMOGLOBIN 32 PG (25-34); MEAN CORPUSCULAR HGB CONC 35 G/DL (32-36); MEAN CORPUSCULAR VOLUME 92 FL (80-99); MEAN PLATELET VOLUME 11.1 FL (7.4-10.4); MONOCYTES # (AUTO) 0.4 X 10^3 (0.0-1.0); MONOCYTES % (AUTO) 10 % (0-12); NEUTROPHILS # (AUTO) 2.2 X 10^3 (1.8-7.8); NEUTROPHILS % (AUTO) 57 % (42-75); PLATELET COUNT 178 10^3/uL (130-400); RED BLOOD COUNT 4.29 10^6/uL (4.35-5.85); RED CELL DISTRIBUTION WIDTH 13.1 % (10.0-14.5); WHITE BLOOD COUNT 3.8 10^3/uL (4.3-11.0)
[2017-09-15 14:02] LABS: ANION GAP 6 MMOL/L (5-14); BLOOD UREA NITROGEN 17 MG/DL (7-18); BUN/CREATININE RATIO 23; CARBON DIOXIDE 28 MMOL/L (21-32); CHLORIDE 104 MMOL/L (98-107); CREATININE SERUM 0.74 MG/DL (0.60-1.30); GFR ESTIMATED > 60; GLUCOSE 103 MG/DL (70-105); POTASSIUM 3.8 MMOL/L (3.6-5.0); SODIUM 138 MMOL/L (135-145)
== END 2017-09-23 12:28 | disposition home or self-care (01) ==
LOC: ONC 13:11
PROVIDERS: ATTEND Internal Medicine Hematology & Oncology
DX: Z51.11 Encounter for antineoplastic chemotherapy (principal); C17.1 Malignant neoplasm of jejunum; C77.2 Secondary and unspecified malignant neoplasm of intra-abdominal lymph nodes; C79.89 Secondary malignant neoplasm of other specified sites; G62.0 Drug-induced polyneuropathy; D70.1 Agranulocytosis secondary to cancer chemotherapy; T45.1X5A Adverse effect of antineoplastic and immunosuppressive drugs, initial encounter; Z79.899 Other long term (current) drug therapy
CPT/HCPCS: 36415; 36591; 80048; 80053; 83735; 85025; 96367; 96368; 96375; 96411; 96413; 96415

== ENCOUNTER 2017-09-24 13:24 | Outpatient (RCR) | payer OTHER ==
[~2017-09-24 13:24] MED LIST changes: -OXALIPLATIN 100 MG, OXALIPLATIN (GENERIC) 10 MG in D5W 250 ML IVPB (CANCER CTR) 250 ML IV SCH; -OXALIPLATIN 100 MG, OXALIPLATIN (GENERIC) 20 MG in D5W 250 ML IVPB (CANCER CTR) 250 ML IV SCH
[2017-09-24 13:44] LABS: BASOPHILS % (AUTO) 0 % (0-10); EOSINOPHILS # (AUTO) 0.1 10^3/uL (0.0-0.3); EOSINOPHILS % (AUTO) 2 % (0-10); LYMPHOCYTES # (AUTO) 1.2 X 10^3 (1.0-4.0); LYMPHOCYTES % (AUTO) 31 % (12-44); MEAN CORPUSCULAR HEMOGLOBIN 33 PG (25-34); MEAN CORPUSCULAR HGB CONC 35 G/DL (32-36); MEAN CORPUSCULAR VOLUME 94 FL (80-99); MONOCYTES # (AUTO) 0.6 X 10^3 (0.0-1.0); MONOCYTES % (AUTO) 17 % (0-12); NEUTROPHILS # (AUTO) 1.9 X 10^3 (1.8-7.8); NEUTROPHILS % (AUTO) 50 % (42-75); PLATELET COUNT 152 10^3/uL (130-400); RED BLOOD COUNT 4.07 10^6/uL (4.35-5.85); RED CELL DISTRIBUTION WIDTH 14.4 % (10.0-14.5); WHITE BLOOD COUNT 3.8 10^3/uL (4.3-11.0)
[2017-09-24 13:45] LABS: BILIRUBIN,URINE NEGATIVE (NEGATIVE); KETONES,URINE 1+ (NEGATIVE); LEUKOCYTE ESTERASE ,URINE 1+ (NEGATIVE); NITRITE,URINE NEGATIVE (NEGATIVE); PH,URINE 6.5 (5-9); PROTEIN,URINE 2+ (NEGATIVE); UROBILINOGEN,URINE 1 MG/DL (NORMAL)
[2017-09-24 14:02] LABS: ALANINE AMINOTRANSFERASE 34 U/L (0-55); ALBUMIN 4.1 GM/DL (3.2-4.5); ANION GAP 9 MMOL/L (5-14); ASPARTATE AMINO TRANSFERASE 26 U/L (5-34); BILIRUBIN,TOTAL 0.4 MG/DL (0.1-1.0); BLOOD UREA NITROGEN 13 MG/DL (7-18); BUN/CREATININE RATIO 19; CALCIUM 9.1 MG/DL (8.5-10.1); CARBON DIOXIDE 24 MMOL/L (21-32); CHLORIDE 105 MMOL/L (98-107); CREATININE SERUM 0.69 MG/DL (0.60-1.30); GFR ESTIMATED > 60; GLUCOSE 90 MG/DL (70-105); POTASSIUM 3.7 MMOL/L (3.6-5.0); SODIUM 138 MMOL/L (135-145); TOTAL PROTEIN 6.6 GM/DL (6.4-8.2)
[2017-09-24] MEDS ORDERED: NS IV 500 ML (CANCER CENTER) 500 ML IV SCH (14:30)
[2017-09-24] MEDS ORDERED: ONDANSETRON 16 MG, DEXAMETHASONE 10 MG/NS 50 ML IVPB IV SCH ×3 (14:30)
[2017-10-06 13:23] LABS: BASOPHILS % (AUTO) 0 % (0-10); EOSINOPHILS # (AUTO) 0.1 10^3/uL (0.0-0.3); EOSINOPHILS % (AUTO) 1 % (0-10); LYMPHOCYTES # (AUTO) 1.1 X 10^3 (1.0-4.0); LYMPHOCYTES % (AUTO) 18 % (12-44); MEAN CORPUSCULAR HEMOGLOBIN 33 PG (25-34); MEAN CORPUSCULAR HGB CONC 35 G/DL (32-36); MEAN CORPUSCULAR VOLUME 94 FL (80-99); MEAN PLATELET VOLUME 10.8 FL (7.4-10.4); MONOCYTES # (AUTO) 0.6 X 10^3 (0.0-1.0); MONOCYTES % (AUTO) 9 % (0-12); NEUTROPHILS # (AUTO) 4.5 X 10^3 (1.8-7.8); NEUTROPHILS % (AUTO) 72 % (42-75); PLATELET COUNT 135 10^3/uL (130-400); RED BLOOD COUNT 4.05 10^6/uL (4.35-5.85); RED CELL DISTRIBUTION WIDTH 14.6 % (10.0-14.5); WHITE BLOOD COUNT 6.3 10^3/uL (4.3-11.0)
[2017-10-06 13:25] LABS: BILIRUBIN,URINE NEGATIVE (NEGATIVE); KETONES,URINE NEGATIVE (NEGATIVE); LEUKOCYTE ESTERASE ,URINE 1+ (NEGATIVE); NITRITE,URINE NEGATIVE (NEGATIVE); PH,URINE 5 (5-9); PROTEIN,URINE 2+ (NEGATIVE); UROBILINOGEN,URINE NORMAL (NORMAL)
[2017-10-06 13:42] LABS: ALANINE AMINOTRANSFERASE 38 U/L (0-55); ANION GAP 8 MMOL/L (5-14); ASPARTATE AMINO TRANSFERASE 26 U/L (5-34); BILIRUBIN,TOTAL 0.4 MG/DL (0.1-1.0); BLOOD UREA NITROGEN 9 MG/DL (7-18); BUN/CREATININE RATIO 12; CALCIUM 8.6 MG/DL (8.5-10.1); CARBON DIOXIDE 23 MMOL/L (21-32); CHLORIDE 108 MMOL/L (98-107); CREATININE SERUM 0.74 MG/DL (0.60-1.30); GFR ESTIMATED > 60; GLUCOSE 102 MG/DL (70-105); POTASSIUM 3.7 MMOL/L (3.6-5.0); SODIUM 139 MMOL/L (135-145); TOTAL PROTEIN 6.6 GM/DL (6.4-8.2)
== END 2017-10-06 16:00 | disposition home or self-care (01) ==
LOC: ONC 13:24
PROVIDERS: ATTEND Internal Medicine Hematology & Oncology
DX: C17.1 Malignant neoplasm of jejunum (principal); C77.2 Secondary and unspecified malignant neoplasm of intra-abdominal lymph nodes; C79.89 Secondary malignant neoplasm of other specified sites; G62.0 Drug-induced polyneuropathy; D70.1 Agranulocytosis secondary to cancer chemotherapy; T45.1X5A Adverse effect of antineoplastic and immunosuppressive drugs, initial encounter; Z79.899 Other long term (current) drug therapy
CPT/HCPCS: 36591; 80053; 81002; 83735; 85025; 96367; 96375; 96409

== ENCOUNTER → 2017-11-25 | Outpatient (CLI) | payer SELFPAY ==
[~2017-11-25] MED LIST changes: +ACHD5005 PO; +BARIUM SUSPENSION 2.1% (VANILLA SILQ) 450 ML PO ONE; -BEVACIZUMAB IV SCH; -D5W 500 ML IV (CANCER CTR) 500 ML IV SCH; -FLUOROURACIL IV SCH; -FOSAPREPITANT DIMEGLUMINE 150 MG in NS (IVPB) CANCER CENTER ONLY 150 ML IV PRN; -FOSAPREPITANT DIMEGLUMINE 150 MG in NS (IVPB) CANCER CENTER ONLY 150 ML IV SCH; -HYDR-3812 PO; +IOHEXOL 350 MG/ML 100 ML (OMNIPAQUE 350) VIAL IV ONE; -LEUCOVORIN CALCIUM 350 MG, LEUCOVORIN CALCIUM 50 MG in D5W 250 ML IVPB (CANCER CTR) 250 ML IV SCH; +NS 100 ML (IVPB) BAG IV ONE; -NS IV SCH; -OXALIPLATIN 100 MG in D5W 250 ML IVPB (CANCER CTR) 250 ML IV SCH; -PALONOSETRON 0.25 MG, DEXAMETHASONE 10 MG/NS 50 ML IVPB IV PRN; -PALONOSETRON HCL 0.25 MG, DEXAMETHASONE PF INJ (CANCER C 10 MG in NS (IVPB) CANCER CENT... IV PRN
--- NOTE | 2017-11-25 09:38 | Diagnostic Imaging Report ---
PROCEDURE: CT chest with contrast, CT abdomen and pelvis with and without contrast. TECHNIQUE: Pre and post intravenous contrast axial imaging of the abdomen and pelvis and post contrast axial imaging of the chest were performed. INDICATION: History of malignancy COMPARISON: 09/05/2017 FINDINGS: Chest CT: The tip of the lung apices are excluded from the exam. Within these limitations, the lungs are clear. There is no new adenopathy. There is no pleural effusion or pneumothorax. Right Port-A-Cath is unchanged. No osseous abnormality is seen. IMPRESSION: No acute abnormalities seen in the chest. No interval change from the prior study. Slightly limited exam as the tip of the lung apices are excluded from the images. Abdomen/pelvis CT: The liver, gallbladder, pancreas, spleen, and adrenal glands appear unremarkable. There is no biliary dilatation. The kidneys appear unremarkable. Postoperative changes in the small bowel and left upper quadrant appear similar to the prior study. There is no evidence of bowel obstruction or focal inflammatory process. No new soft tissue mass is seen. No new adenopathy is seen. Retroverted uterus with fibroid change and a small right ovarian cyst are similar to the prior study. There is no free fluid, free air or adenopathy demonstrated. The appendix appears absent. The abdominal aorta appears normal in caliber. No acute osseous abnormality is seen. IMPRESSION: No evidence of residual recurrent neoplasm in the abdomen and pelvis. There are stable postoperative changes in the left upper abdomen and small bowel. Fibroid uterus and right small adnexal cysts appear similar to the prior exam. No significant new abnormalities are demonstrated. Dictated by: Dictated on workstation # [id number]
== END ==
LOC: RAD 08:20
PROVIDERS: ATTEND Nurse Practitioner Adult Health
DX: C17.1 Malignant neoplasm of jejunum (principal); C79.89 Secondary malignant neoplasm of other specified sites; C77.2 Secondary and unspecified malignant neoplasm of intra-abdominal lymph nodes; D25.9 Leiomyoma of uterus, unspecified; N83.8 Other noninflammatory disorders of ovary, fallopian tube and broad ligament; Z85.9 Personal history of malignant neoplasm, unspecified; Z98.890 Other specified postprocedural states
CPT/HCPCS: 71260; 74178

== ENCOUNTER 2017-12-01 09:14 | Day surgery (SDC) | payer SELFPAY ==
[~2017-12-01] VITALS: Ht 172.7 cm; Wt 52.2 kg
[2017-12-01] VITALS (10 sets, daily range): BP systolic 105–119; BP diastolic 62–92
[~2017-12-01 09:14] MED LIST changes: -BARIUM SUSPENSION 2.1% (VANILLA SILQ) 450 ML PO ONE; -IOHEXOL 350 MG/ML 100 ML (OMNIPAQUE 350) VIAL IV ONE; -NS 100 ML (IVPB) BAG IV ONE
[2017-12-01] MEDS ORDERED: LIDOCAINE 2% VISCOUS 15 ML UDC ONE (09:23)
[2017-12-01] MEDS ORDERED: NS IV 1000 ML 1,000 ML ONE (09:24)
[2017-12-01] MEDS ORDERED: NS IV 1000 ML 1,000 ML IV SCH (09:27)
--- NOTE | 2017-12-01 09:52 | Diagnostic Imaging Report ---
INDICATION: Atrial mass. FINDINGS: The heart size and its configuration are unremarkable. There is no failure, effusion, or pneumothorax. The central line projects in good position. No osseous abnormality. IMPRESSION: Unremarkable frontal chest x-ray. Dictated by: Dictated on workstation # [id number]
[2017-12-01 09:57] LABS: HEMOGLOBIN 13.4 G/DL (11.5-16.0); RED BLOOD COUNT 4.13 10^6/uL (4.35-5.85); WHITE BLOOD COUNT 4.3 10^3/uL (4.3-11.0)
[2017-12-01 09:58] LABS: MEAN PLATELET VOLUME 10.6 FL (7.4-10.4); RED CELL DISTRIBUTION WIDTH 14.3 % (10.0-14.5)
[2017-12-01] MEDS ORDERED: fentaNYL INJECTION 100 MCG/2 ML AMP ONE (10:08)
[2017-12-01] MEDS ORDERED: MIDAZOLAM 5 MG/5 ML (VERSED) VIAL ONE (10:08)
[2017-12-01 10:09] LABS: PROTHROMBIN TIME PATIENT 13.3 SEC (12.2-14.7)
[2017-12-01 10:11] LABS: ALANINE AMINOTRANSFERASE 32 U/L (0-55); ALKALINE PHOSPHATASE 53 U/L (40-136); BILIRUBIN,TOTAL 0.6 MG/DL (0.1-1.0); BUN/CREATININE RATIO 24; CARBON DIOXIDE 25 MMOL/L (21-32); CHLORIDE 106 MMOL/L (98-107); CREATININE SERUM 0.71 MG/DL (0.60-1.30); GFR ESTIMATED > 60; GLUCOSE 90 MG/DL (70-105); POTASSIUM 3.9 MMOL/L (3.6-5.0); SODIUM 139 MMOL/L (135-145); TOTAL PROTEIN 6.8 GM/DL (6.4-8.2)
[2017-12-01] MEDS ORDERED: OMEP20CA12 PO (10:12)
[2017-12-01] MEDS ORDERED: INFLUENZA TRIvalent 2017-2018 0.5 ML/45 MCG SYR IM ONE (10:15)
[2017-12-01 10:22] LABS: BILIRUBIN,URINE NEGATIVE (NEGATIVE); CLARITY,URINE VERY CLOUDY; COLOR,URINE YELLOW; GLUCOSE, URINE (UA) NEGATIVE (NEGATIVE); KETONES,URINE NEGATIVE (NEGATIVE); LEUKOCYTE ESTERASE ,URINE 2+ (NEGATIVE); NITRITE,URINE NEGATIVE (NEGATIVE); PH,URINE 5 (5-9); PROTEIN,URINE 1+ (NEGATIVE); UROBILINOGEN,URINE NORMAL (NORMAL)
[2017-12-01 10:32] LABS: BACTERIA,URINE MODERATE /HPF; SQUAMOUS EPITHELIAL CELL,UR 25-50 /HPF
--- NOTE | 2017-12-01 11:14 | Cardiac Procedure Note-CS/ASA ---
Pre-Procedure Note Pre-Op Procedure Note H&P Reviewed The H&P was reviewed, patient examined and no changes noted. Date H&P Reviewed: Dec 01, 2017 Time H&P Reviewed: 10:30 Conscious Sedation Pre-Proced Time Reviewed: 10:30 ASA Class: 3 Airway Mallampati Classification: ([place] appropriate class) I. II. III, IV Lungs Heart ASA score ASA 1: a normal healthy patient ASA 2: a patient with a mild systemic disease (mid diabetes, controlled hypertension, obesity x ASA 3: a patient with a severe systemic disease that limits activity (angina , COPD, prior Myocardial infarction) ASA 4: a patient with an incapacitating disease that is a constant threat to life (CHF, renal failure) ASA 5: a moribund patient not expected to survive 24 hrs. (ruptured aneurysm) ASA 6: a declared brain patient whose organs are being harvested. For emergent operations, add the letter E after the classification Grade 3 Sedation Plan: Analgesia, Amnesia, Plan communicated to team members, Discussed options with patient/fam, Discussed risks with patient/fam Note The patient is an appropriate candidate to undergo the planned procedure, sedation, and anesthesia. The patient immediately re-assessed prior to indication. KIA PRITCHETT MD Dec 01, 2017 11:14 am
--- NOTE | 2017-12-01 11:15 | Clinic Account Progress/Dx ---
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
== END 2017-12-01 12:32 | disposition home or self-care (01) ==
LOC: CATH 09:14
PROVIDERS: ATTEND Internal Medicine Cardiovascular Disease
DX: C79.89 Secondary malignant neoplasm of other specified sites (principal)
CPT/HCPCS: 36415; 71045; 80053; 81000; 85027; 85610; 85730; 87081; 87088; 93005; 93312; 93321; 93325

== ENCOUNTER 2017-12-25 12:07 | Emergency (ER) | payer SELFPAY ==
[~2017-12-25] VITALS: Ht 172.7 cm; Wt 52.2 kg
[~2017-12-25 12:07] MED LIST changes: +OMEP20CA12 PO
[2017-12-25] MEDS ORDERED: PROMETHAZINE INJ 25 MG/ML (PHENERGAN) AMP IVP ONE (12:30)
[2017-12-25] MEDS ORDERED: NS IV 1000 ML 1,000 ML IV SCH (12:30)
--- NOTE | 2017-12-25 12:35 | ED Back Pain ---
General Chief Complaint: Back Problems Stated Complaint: BACK PAIN,ABD PAIN Nursing Triage Note: ARRIVED VIA AMB TO ROOM 08. COMPLAINS OF BILAT BACK AND LOWER ABD PAIN FOR OVER A WEEK. SEEN DR TRAN ON FRIDAY AND WAS PRESCRIBED A ABX FOR UTI. Nursing Sepsis Screen: No Definite Risk Source of Information: Patient Exam Limitations: No Limitations History of Present Illness Date Seen by Provider: Dec 25, 2017 Time Seen by Provider: 12:32 Initial Comments To ER with reports of back pain and abdominal pain. Been going on for about a week that became much worse last night around 2 AM. She had to take 2 Unisom to sleep. She denies dysuria or bowel changes. She has not had a menstrual cycle in several months and thought this may have been the onset of menstrual cycle. She denies fevers. She reports nausea. Pain is mostly lower abdomen initially but now the whole abdomen hurts. 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 Timing/Duration: 1-2 Days Severity: Moderate Allergies and Home Medications Allergies Coded Allergies: No Known Drug Allergies (Unverified , 11/18/16) Home Medications L.acidoph & Paracasei,B.lactis 1 Each Capsule, 1 CAP PO HS, (Reported) Magnesium Oxide 400 Mg Tablet, 800 MG PO BID PRN for CRAMPS, (Reported) Multivitamin 1 Each Tablet, 1 TAB PO HS, (Reported) Omeprazole 20 Mg Capsule.dr, 20 MG PO DAILY PRN for HEARTBURN, (Reported) Constitutional: see HPI EENTM: see HPI Respiratory: no symptoms reported Cardiovascular: no symptoms reported Genitourinary: no symptoms reported Musculoskeletal: no symptoms reported Skin: no symptoms reported Psychiatric/Neurological: No Symptoms Reported Past Obodprj-Uboauq-Ohqtfb Hx Patient Social History Alcohol Use: Denies Use Alcohol Beverage of Choice: Wine Recreational Drug Use: No Smoking Status: Never a Smoker Recent Foreign Travel: No Contact w/Someone Who Travel: No Recent Infectious Disease Expo: No Recent Hopitalizations: No (SEVERAL ER VISITS OCT 2016) Immunizations Up To Date Tetanus Booster (TDap): Unknown Seasonal Allergies Seasonal Allergies: No Surgeries History of Surgeries: Yes (BOWEL RESECTION, PORT) Respiratory History of Respiratory Disorde: No Cardiovascular History of Cardiac Disorders: No Neurological History of Neurological Disord: No Reproductive System Hx Reproductive Disorders: No Gastrointestinal History of Gastrointestinal Di: Yes (BOWEL RESECTION) Musculoskeletal History of Musculoskeletal Dis: No Endocrine History of Endocrine Disorders: No HEENT Loss of Vision: Denies Hearing Impairment: Denies Cancer History of Cancer: Yes (LEEP PROCEDURE 8-9 YRS AGO - NORMAL) Cancer: Small Bowel Psychosocial History of Psychiatric Problem: No Integumentary History of Skin or Integumenta: No Blood Transfusions History of Blood Disorders: No Family Medical History Significant Family History: No Pertinent Family Hx Family Medial History: Anxiety disorder G8 SISTER Asthma G8 BROTHER Physical Exam Vital Signs Vital Sign - Last 12Hours 12/25/17 12:14 Temp 98.2 Pulse 71 Resp 18 B/P (MAP) 139/86 (103) Pulse Ox 97 Capillary Refill : Less Than 3 Seconds General Appearance: No Apparent Distress, WD/WN HEENT: PERRL/EOMI, TMs Normal Neck: Full Range of Motion, Normal Inspection Cardiovascular: Regular Rate, Rhythm, Normal Peripheral Pulses Respiratory: No Accessory Muscle Use, No Respiratory Distress Gastrointestinal: Normal Bowel Sounds, Soft, Tenderness Extremity: Normal Capillary Refill, Normal Inspection Neurologic/Psychiatric: Alert, Oriented x3, No Motor/Sensory Deficits Skin: Normal Color, Warm/Dry Progress/Results/Core Measures Results/Orders Lab Results Laboratory Tests Test 12/25/17 12:42 Range/Units White Blood Count 7.4 4.3-11.0 10^3/uL Red Blood Count 4.36 4.35-5.85 10^6/uL Hemoglobin 14.2 11.5-16.0 G/DL Hematocrit 41 35-52 % Mean Corpuscular Volume 93 80-99 FL Mean Corpuscular Hemoglobin 33 25-34 PG Mean Corpuscular Hemoglobin Concent 35 32-36 G/DL Red Cell Distribution Width 12.5 10.0-14.5 % Platelet Count 184 130-400 10^3/uL Mean Platelet Volume 10.8 H 7.4-10.4 FL Neutrophils (%) (Auto) 79 H 42-75 % Lymphocytes (%) (Auto) 12 12-44 % Monocytes (%) (Auto) 8 0-12 % Eosinophils (%) (Auto) 1 0-10 % Basophils (%) (Auto) 0 0-10 % Neutrophils # (Auto) 5.8 1.8-7.8 X 10^3 Lymphocytes # (Auto) 0.9 L 1.0-4.0 X 10^3 Monocytes # (Auto) 0.6 0.0-1.0 X 10^3 Eosinophils # (Auto) 0.1 0.0-0.3 10^3/uL Basophils # (Auto) 0.0 0.0-0.1 10^3/uL Urine Color YELLOW Urine Clarity CLEAR Urine pH 5 5-9 Urine Specific [place] 1.025 H 1.016-1.022 Urine Protein 1+ H NEGATIVE Urine Glucose (UA) NEGATIVE NEGATIVE Urine Ketones NEGATIVE NEGATIVE Urine Nitrite NEGATIVE NEGATIVE Urine Bilirubin NEGATIVE NEGATIVE Urine Urobilinogen NORMAL NORMAL MG/DL Urine Leukocyte Esterase 1+ H NEGATIVE Urine RBC (Auto) 3+ H NEGATIVE Urine RBC 25-50 H /HPF Urine WBC 0-2 /HPF Urine Squamous Epithelial Cells 5-10 /HPF Urine Crystals NONE /LPF Urine Bacteria FEW H /HPF Urine Casts NONE /LPF Urine Mucus MODERATE H /LPF Urine Culture Indicated YES Sodium Level 140 135-145 MMOL/L Potassium Level 3.7 3.6-5.0 MMOL/L Chloride Level 105 98-107 MMOL/L Carbon Dioxide Level 24 21-32 MMOL/L Anion Gap 11 5-14 MMOL/L Blood Urea Nitrogen 21 H 7-18 MG/DL Creatinine 0.74 0.60-1.30 MG/DL Estimat Glomerular Filtration Rate > 60 BUN/Creatinine Ratio 28 Glucose Level 95 70-105 MG/DL Calcium Level 9.5 8.5-10.1 MG/DL Total Bilirubin 0.4 0.1-1.0 MG/DL Aspartate Amino Transf (AST/SGOT) 18 5-34 U/L Alanine Aminotransferase (ALT/SGPT) 18 0-55 U/L Alkaline Phosphatase 49 40-136 U/L Total Protein 7.1 6.4-8.2 GM/DL Albumin 4.1 3.2-4.5 GM/DL Lipase 44 8-78 U/L My Orders Orders - LAISHA METCALF APRN Cbc With Automated Diff (12/25/17 12:24) Comprehensive Metabolic Panel (12/25/17 12:24) Ua Culture If Indicated (12/25/17 12:24) Saline Lock/Iv-Start (12/25/17 12:24) Lipase (12/25/17 12:24) Ns Iv 1000 Ml (Sodium Chloride 0.9%) (12/25/17 12:30) Promethazine Injection (Phenergan Injec (12/25/17 12:30) Urine Bedside (12/25/17 12:30) Ct Abdomen/Pelvis W (12/25/17 12:50) Iohexol Injection (Omnipaque 350 Mg/Ml 1 (12/25/17 13:00) Ns (Ivpb) (Sodium Chloride 0.9% Ivpb Bag (12/25/17 13:00) Pharmacy Communication (Pharmacy Communi (12/25/17 12:54) Urine Culture (12/25/17 12:42) Ketorolac Injection (Toradol Injection) (12/25/17 13:45) Ondansetron Oral Dissolve Tab (Zofran (12/25/17 14:00) Fentanyl Injection (Sublimaze Injection (12/25/17 15:00) Fentanyl Injection (Sublimaze Injection (12/25/17 14:48) Us Pelvic (Non Ob)78142 (12/25/17 14:03) Medications Given in ED Current Medications Medications Dose Ordered Sig/Cabrera Route Start Time Stop Time Status Last Admin Dose Admin Fentanyl Citrate 50 mcg ONCE ONCE IVP 12/25/17 15:00 12/25/17 15:01 DC 12/25/17 14:51 50 MCG Iohexol 100 ml ONCE ONCE IV 12/25/17 13:00 12/25/17 13:01 DC 12/25/17 13:17 100 ML Ketorolac Tromethamine 30 mg ONCE ONCE IVP 12/25/17 13:45 12/25/17 13:46 DC 12/25/17 13:55 30 MG Promethazine HCl 12.5 mg ONCE ONCE IVP 12/25/17 12:30 12/25/17 12:32 DC 12/25/17 12:55 12.5 MG Vital Signs/I&O Vital Sign - Last 12Hours 12/25/17 12:14 Temp 98.2 Pulse 71 Resp 18 B/P (MAP) 139/86 (103) Pulse Ox 97 Blood Pressure Mean: 103 Departure Communication (Admissions) Progress Notes 1412-I'm not finding any particular cause of the patient's pain. I did discuss the case with Dr. Novak. Hematuria is a bit concerning for kidney stone but this was a CT scan done with contrast, her pain is not unilateral or colicky in nature, there is no evidence of hydroureter on CT. Dr. Tran suspects progressive disease. Patient wanted a break from chemotherapy and she's not had any treatment in 1-2 months. He will see her within the next week and will likely restart chemotherapy. 1535- pain is improved at this point Impression Impression: Primary Impression: abdominal pain Additional Impression: Hematuria Disposition: HOME, SELF-CARE Condition: Stable Departure-Patient Inst. Decision time for Depature: 14:13 Referrals: NO,LOCAL PHYSICIAN (PCP/Family) Primary Care Physician Patient Instructions: Acute Abdomen (Belly Pain) Add. Discharge Instructions: 1. Return to ER for any worsening pain, fevers, uncontrollable vomiting 2. Follow-up Dr. Novak as scheduled this week. All discharge instructions reviewed with patient and/or family. Voiced understanding. Scripts Oxycodone HCl/Acetaminophen (Percocet 5-325 mg Tablet) 1 Each Tablet 1 EACH PO Q4H, #20 TAB Prov: LAISHA METCALF APRN 12/25/17 Copy Copies To 1: MARINO TRAN PETER J APRN Dec 25, 2017 12:35
[2017-12-25 12:53] LABS: BASOPHILS % (AUTO) 0 % (0-10); EOSINOPHILS # (AUTO) 0.1 10^3/uL (0.0-0.3); EOSINOPHILS % (AUTO) 1 % (0-10); HEMATOCRIT 41 % (35-52); HEMOGLOBIN 14.2 G/DL (11.5-16.0); LYMPHOCYTES # (AUTO) 0.9 X 10^3 (1.0-4.0); LYMPHOCYTES % (AUTO) 12 % (12-44); MEAN CORPUSCULAR HEMOGLOBIN 33 PG (25-34); MEAN CORPUSCULAR HGB CONC 35 G/DL (32-36); MEAN CORPUSCULAR VOLUME 93 FL (80-99); MEAN PLATELET VOLUME 10.8 FL (7.4-10.4); MONOCYTES # (AUTO) 0.6 X 10^3 (0.0-1.0); MONOCYTES % (AUTO) 8 % (0-12); NEUTROPHILS # (AUTO) 5.8 X 10^3 (1.8-7.8); NEUTROPHILS % (AUTO) 79 % (42-75); PLATELET COUNT 184 10^3/uL (130-400); RED BLOOD COUNT 4.36 10^6/uL (4.35-5.85); RED CELL DISTRIBUTION WIDTH 12.5 % (10.0-14.5); WHITE BLOOD COUNT 7.4 10^3/uL (4.3-11.0)
[2017-12-25 12:55] LABS: BILIRUBIN,URINE NEGATIVE (NEGATIVE); CLARITY,URINE CLEAR; COLOR,URINE YELLOW; GLUCOSE, URINE (UA) NEGATIVE (NEGATIVE); KETONES,URINE NEGATIVE (NEGATIVE); LEUKOCYTE ESTERASE ,URINE 1+ (NEGATIVE); NITRITE,URINE NEGATIVE (NEGATIVE); PH,URINE 5 (5-9); PROTEIN,URINE 1+ (NEGATIVE); UROBILINOGEN,URINE NORMAL (NORMAL)
[2017-12-25] MEDS ORDERED: NS 100 ML (IVPB) BAG IV ONE (13:00)
[2017-12-25] MEDS ORDERED: IOHEXOL 350 MG/ML 100 ML (OMNIPAQUE 350) VIAL IV ONE (13:00)
[2017-12-25 13:05] LABS: RBC,URINE 25-50 /HPF; WBC,URINE 0-2 /HPF
[2017-12-25 13:06] LABS: BACTERIA,URINE FEW /HPF
[2017-12-25 13:15] LABS: ALANINE AMINOTRANSFERASE 18 U/L (0-55); ALBUMIN 4.1 GM/DL (3.2-4.5); ALKALINE PHOSPHATASE 49 U/L (40-136); BILIRUBIN,TOTAL 0.4 MG/DL (0.1-1.0); BUN/CREATININE RATIO 28; CALCIUM 9.5 MG/DL (8.5-10.1); CARBON DIOXIDE 24 MMOL/L (21-32); CHLORIDE 105 MMOL/L (98-107); CREATININE SERUM 0.74 MG/DL (0.60-1.30); GFR ESTIMATED > 60; GLUCOSE 95 MG/DL (70-105); LIPASE 44 U/L (8-78); POTASSIUM 3.7 MMOL/L (3.6-5.0); SODIUM 140 MMOL/L (135-145); TOTAL PROTEIN 7.1 GM/DL (6.4-8.2)
[2017-12-25] MEDS ORDERED: KETOROLAC 30 MG/ML VIAL IVP ONE (13:45)
--- NOTE | 2017-12-25 13:47 | Diagnostic Imaging Report ---
INDICATION: History of small bowel carcinoma with partial resection. Patient now complains of low back pain and pelvic pain. Axial imaging through the abdomen and pelvis was performed after the administration of intravenous contrast. Correlation is made with prior CT from 11/25/2017. The lung bases are clear. There is some residual heterogeneous appearance to the right lobe of the liver anteriorly, similar to prior CT's dating back to 2017. No new liver mass is identified. The gallbladder is unremarkable. The pancreas and spleen are unremarkable. No adrenal mass is detected. Kidneys are unremarkable. Aorta is non-aneurysmal. Lymph nodes in the central retroperitoneum left para-aortic region appear similar to prior exam. Bowel loops do not appear to be appreciably dilated. There is an anastomosis in the left abdomen. There is some hazy density in the left abdomen just below the level of the pancreatic body, image 33 measuring approximately 2 cm, indeterminate. Mesenteric lymphadenopathy cannot be entirely excluded. There is no ascites. No free air is identified. Imaging through the pelvis does show multiple cystic masses in the adnexa bilaterally, likely ovarian. Largest single cyst on the right is 2.5 cm in size. The uterus is stable. No inguinal lymphadenopathy is seen. The left iliac node is present measuring 8 mm compared with 4 mm. IMPRESSION: There is some hazy increased density to the mesentery in the left mid abdomen, described above. Possibility of mesenteric lymphadenopathy cannot be entirely excluded. There also appear to be some prominent left periaortic nodes however these appear fairly stable when compared with prior CT. A left iliac node is measuring slightly larger when compared with prior exam. Bilateral adnexal masses suggestive of ovarian cysts are also seen. Continued followup is recommended. Dictated by: Dictated on workstation # [id number]
[2017-12-25] MEDS ORDERED: ONDANSETRON 4 MG (ZOFRAN) ORAL DISSOLVE TAB PO ONE (14:00)
[2017-12-25] MEDS ORDERED: fentaNYL INJECTION 100 MCG/2 ML AMP ONE (14:48)
[2017-12-25] MEDS ORDERED: fentaNYL INJECTION 100 MCG/2 ML AMP IVP ONE (15:00)
[2017-12-25] MEDS ORDERED: OXYC-197 PO (15:36)
--- NOTE | 2017-12-25 15:37 | Diagnostic Imaging Report ---
INDICATION: Adnexal cyst noted on CT of the same day. FINDINGS: The uterus measures 9.0 x 5.7 x 5.2 cm. The endometrium is thickened measuring up to 21 mm. No uterine mass is identified. The right ovary measures 3.8 x 3.1 x 3.3 cm and the left ovary measures 4.4 x 4.0 x 2.7 cm. The right ovary does contain a 2.7 cm simple cyst. No significant cyst on the left is seen. There is blood flow to both ovaries. There is trace free fluid present. IMPRESSION: 1. Abnormal endometrial thickening of 21 mm. 2. A 2.7 cm simple right ovarian cyst. Dictated by: Dictated on workstation # [id number]
[2017-12-25 15:48] VITALS: BP 111/73
== END 2017-12-25 15:42 | disposition home or self-care (01) ==
LOC: EDUNIT# 12:07 → ER 12:08
DX: R10.30 Lower abdominal pain, unspecified (principal); R31.9 Hematuria, unspecified; Z90.49 Acquired absence of other specified parts of digestive tract
CPT/HCPCS: 36415; 74177; 76856; 80053; 81000; 83690; 84703; 85025; 87088; 96361; 96374; 96375; 99282

== ENCOUNTER 2017-12-31 10:55 | Outpatient (RCR) | payer OTHER ==
[2017-10-20 09:43] LABS: BASOPHILS % (AUTO) 0 % (0-10); EOSINOPHILS # (AUTO) 0.1 10^3/uL (0.0-0.3); EOSINOPHILS % (AUTO) 3 % (0-10); HEMATOCRIT 41 % (35-52); LYMPHOCYTES # (AUTO) 1.2 X 10^3 (1.0-4.0); LYMPHOCYTES % (AUTO) 25 % (12-44); MEAN CORPUSCULAR HEMOGLOBIN 32 PG (25-34); MEAN CORPUSCULAR HGB CONC 34 G/DL (32-36); MEAN CORPUSCULAR VOLUME 95 FL (80-99); MEAN PLATELET VOLUME 10.7 FL (7.4-10.4); MONOCYTES # (AUTO) 0.4 X 10^3 (0.0-1.0); MONOCYTES % (AUTO) 9 % (0-12); NEUTROPHILS # (AUTO) 2.9 X 10^3 (1.8-7.8); NEUTROPHILS % (AUTO) 63 % (42-75); PLATELET COUNT 178 10^3/uL (130-400); RED BLOOD COUNT 4.33 10^6/uL (4.35-5.85); RED CELL DISTRIBUTION WIDTH 14.9 % (10.0-14.5); WHITE BLOOD COUNT 4.6 10^3/uL (4.3-11.0)
[2017-10-20 10:02] LABS: ALANINE AMINOTRANSFERASE 45 U/L (0-55); ALBUMIN 4.2 GM/DL (3.2-4.5); ALKALINE PHOSPHATASE 74 U/L (40-136); BILIRUBIN,TOTAL 0.5 MG/DL (0.1-1.0); BUN/CREATININE RATIO 28; CALCIUM 9.3 MG/DL (8.5-10.1); CARBON DIOXIDE 27 MMOL/L (21-32); CHLORIDE 107 MMOL/L (98-107); CREATININE SERUM 0.69 MG/DL (0.60-1.30); GFR ESTIMATED > 60; GLUCOSE 91 MG/DL (70-105); MAGNESIUM 2.2 MG/DL (1.8-2.4); POTASSIUM 4.1 MMOL/L (3.6-5.0); SODIUM 142 MMOL/L (135-145); TOTAL PROTEIN 7.5 GM/DL (6.4-8.2)
[2017-11-04 14:57] LABS: BASOPHILS % (AUTO) 0 % (0-10); EOSINOPHILS # (AUTO) 0.1 10^3/uL (0.0-0.3); EOSINOPHILS % (AUTO) 1 % (0-10); HEMATOCRIT 41 % (35-52); HEMOGLOBIN 14.3 G/DL (11.5-16.0); LYMPHOCYTES # (AUTO) 1.2 X 10^3 (1.0-4.0); LYMPHOCYTES % (AUTO) 21 % (12-44); MEAN CORPUSCULAR HEMOGLOBIN 33 PG (25-34); MEAN CORPUSCULAR HGB CONC 35 G/DL (32-36); MEAN CORPUSCULAR VOLUME 94 FL (80-99); MEAN PLATELET VOLUME 11.2 FL (7.4-10.4); MONOCYTES # (AUTO) 0.5 X 10^3 (0.0-1.0); MONOCYTES % (AUTO) 8 % (0-12); NEUTROPHILS % (AUTO) 70 % (42-75); PLATELET COUNT 169 10^3/uL (130-400); RED BLOOD COUNT 4.39 10^6/uL (4.35-5.85); RED CELL DISTRIBUTION WIDTH 14.3 % (10.0-14.5); WHITE BLOOD COUNT 5.7 10^3/uL (4.3-11.0)
[2017-11-04 15:18] LABS: ALANINE AMINOTRANSFERASE 28 U/L (0-55); ALBUMIN 4.3 GM/DL (3.2-4.5); ALKALINE PHOSPHATASE 69 U/L (40-136); BILIRUBIN,TOTAL 0.5 MG/DL (0.1-1.0); BUN/CREATININE RATIO 28; CALCIUM 9.2 MG/DL (8.5-10.1); CARBON DIOXIDE 26 MMOL/L (21-32); CHLORIDE 103 MMOL/L (98-107); CREATININE SERUM 0.76 MG/DL (0.60-1.30); GFR ESTIMATED > 60; GLUCOSE 95 MG/DL (70-105); MAGNESIUM 2.3 MG/DL (1.8-2.4); POTASSIUM 3.9 MMOL/L (3.6-5.0); SODIUM 138 MMOL/L (135-145); TOTAL PROTEIN 7.2 GM/DL (6.4-8.2)
[2017-11-19 11:54] LABS: BASOPHILS % (AUTO) 0 % (0-10); EOSINOPHILS # (AUTO) 0.1 10^3/uL (0.0-0.3); EOSINOPHILS % (AUTO) 2 % (0-10); HEMATOCRIT 39 % (35-52); HEMOGLOBIN 13.2 G/DL (11.5-16.0); LYMPHOCYTES % (AUTO) 23 % (12-44); MEAN CORPUSCULAR HEMOGLOBIN 33 PG (25-34); MEAN CORPUSCULAR HGB CONC 34 G/DL (32-36); MEAN CORPUSCULAR VOLUME 96 FL (80-99); MEAN PLATELET VOLUME 10.6 FL (7.4-10.4); MONOCYTES # (AUTO) 0.4 X 10^3 (0.0-1.0); MONOCYTES % (AUTO) 9 % (0-12); NEUTROPHILS # (AUTO) 2.9 X 10^3 (1.8-7.8); NEUTROPHILS % (AUTO) 66 % (42-75); PLATELET COUNT 150 10^3/uL (130-400); RED BLOOD COUNT 4.03 10^6/uL (4.35-5.85); RED CELL DISTRIBUTION WIDTH 14.4 % (10.0-14.5); WHITE BLOOD COUNT 4.4 10^3/uL (4.3-11.0)
[2017-11-19 12:19] LABS: ALANINE AMINOTRANSFERASE 34 U/L (0-55); ALBUMIN 3.9 GM/DL (3.2-4.5); ALKALINE PHOSPHATASE 51 U/L (40-136); BILIRUBIN,TOTAL 0.4 MG/DL (0.1-1.0); BUN/CREATININE RATIO 14; CALCIUM 8.7 MG/DL (8.5-10.1); CARBON DIOXIDE 24 MMOL/L (21-32); CHLORIDE 107 MMOL/L (98-107); GFR ESTIMATED > 60; GLUCOSE 84 MG/DL (70-105); POTASSIUM 4.1 MMOL/L (3.6-5.0); SODIUM 139 MMOL/L (135-145); TOTAL PROTEIN 6.7 GM/DL (6.4-8.2)
[2017-12-03 11:02] LABS: BASOPHILS % (AUTO) 0 % (0-10); EOSINOPHILS # (AUTO) 0.1 10^3/uL (0.0-0.3); EOSINOPHILS % (AUTO) 2 % (0-10); HEMATOCRIT 40 % (35-52); LYMPHOCYTES # (AUTO) 1.1 X 10^3 (1.0-4.0); LYMPHOCYTES % (AUTO) 24 % (12-44); MEAN CORPUSCULAR HEMOGLOBIN 33 PG (25-34); MEAN CORPUSCULAR HGB CONC 35 G/DL (32-36); MEAN CORPUSCULAR VOLUME 94 FL (80-99); MEAN PLATELET VOLUME 10.8 FL (7.4-10.4); MONOCYTES # (AUTO) 0.5 X 10^3 (0.0-1.0); MONOCYTES % (AUTO) 10 % (0-12); NEUTROPHILS % (AUTO) 65 % (42-75); PLATELET COUNT 159 10^3/uL (130-400); RED BLOOD COUNT 4.23 10^6/uL (4.35-5.85); RED CELL DISTRIBUTION WIDTH 14.1 % (10.0-14.5); WHITE BLOOD COUNT 4.7 10^3/uL (4.3-11.0)
[2017-12-03 11:25] LABS: ALANINE AMINOTRANSFERASE 26 U/L (0-55); ALBUMIN 4.1 GM/DL (3.2-4.5); ALKALINE PHOSPHATASE 53 U/L (40-136); BILIRUBIN,TOTAL 0.4 MG/DL (0.1-1.0); BUN/CREATININE RATIO 22; CALCIUM 9.3 MG/DL (8.5-10.1); CARBON DIOXIDE 25 MMOL/L (21-32); CHLORIDE 105 MMOL/L (98-107); CREATININE SERUM 0.72 MG/DL (0.60-1.30); GFR ESTIMATED > 60; GLUCOSE 90 MG/DL (70-105); SODIUM 141 MMOL/L (135-145)
[2017-12-17 11:39] LABS: BILIRUBIN,URINE NEGATIVE (NEGATIVE); CLARITY,URINE CLEAR; COLOR,URINE YELLOW; GLUCOSE, URINE (UA) NEGATIVE (NEGATIVE); KETONES,URINE NEGATIVE (NEGATIVE); LEUKOCYTE ESTERASE ,URINE 1+ (NEGATIVE); NITRITE,URINE NEGATIVE (NEGATIVE); PH,URINE 6 (5-9); PROTEIN,URINE 1+ (NEGATIVE); UROBILINOGEN,URINE NORMAL (NORMAL)
[2017-12-17 11:52] LABS: WBC,URINE RARE /HPF
[2017-12-17 11:53] LABS: BACTERIA,URINE FEW /HPF; SQUAMOUS EPITHELIAL CELL,UR 25-50 /HPF
[2017-12-22 11:45] LABS: BILIRUBIN,URINE NEGATIVE (NEGATIVE); CLARITY,URINE SLIGHTLY CLOUDY; COLOR,URINE YELLOW; GLUCOSE, URINE (UA) NEGATIVE (NEGATIVE); KETONES,URINE 1+ (NEGATIVE); LEUKOCYTE ESTERASE ,URINE 1+ (NEGATIVE); NITRITE,URINE NEGATIVE (NEGATIVE); PH,URINE 6 (5-9); PROTEIN,URINE 1+ (NEGATIVE); UROBILINOGEN,URINE NORMAL (NORMAL)
[2017-12-22 11:57] LABS: BACTERIA,URINE FEW /HPF; RBC,URINE >100 /HPF; WBC,URINE 0-2 /HPF
[~2017-12-31] VITALS: Ht 172.7 cm; Wt 51.7 kg
[~2017-12-31 10:55] MED LIST changes: +BEVACIZUMAB IV SCH; +FLUOROURACIL IV SCH; +LEUCOVORIN CALCIUM 350 MG, LEUCOVORIN CALCIUM 50 MG in D5W 250 ML IVPB (CANCER CTR) 250 ML IV SCH; +NS IV 500 ML (CANCER CENTER) 500 ML IV SCH; +NS IV SCH; +ONDANSETRON 16 MG, DEXAMETHASONE 10 MG/NS 50 ML IVPB IV SCH; +ONDANSETRON MDV (CANCER CENTER 16 MG, DEXAMETHASONE PF INJ (CANCER C 10 MG in D5W 50 ML... IV SCH; +ONDANSETRON MDV (CANCER CENTER 8 MG, DEXAMETHASONE INJ (CANCER CTR) 4 MG in NS (IVPB) C... IV ONE; +OXYC-197 PO
[2017-12-31 11:49] LABS: BASOPHILS % (AUTO) 0 % (0-10); EOSINOPHILS # (AUTO) 0.1 10^3/uL (0.0-0.3); EOSINOPHILS % (AUTO) 2 % (0-10); HEMATOCRIT 41 % (35-52); HEMOGLOBIN 14.6 G/DL (11.5-16.0); LYMPHOCYTES # (AUTO) 1.1 X 10^3 (1.0-4.0); LYMPHOCYTES % (AUTO) 21 % (12-44); MEAN CORPUSCULAR HEMOGLOBIN 32 PG (25-34); MEAN CORPUSCULAR HGB CONC 35 G/DL (32-36); MEAN CORPUSCULAR VOLUME 92 FL (80-99); MEAN PLATELET VOLUME 10.5 FL (7.4-10.4); MONOCYTES # (AUTO) 0.4 X 10^3 (0.0-1.0); MONOCYTES % (AUTO) 8 % (0-12); NEUTROPHILS # (AUTO) 3.6 X 10^3 (1.8-7.8); NEUTROPHILS % (AUTO) 69 % (42-75); PLATELET COUNT 210 10^3/uL (130-400); RED CELL DISTRIBUTION WIDTH 12.4 % (10.0-14.5); WHITE BLOOD COUNT 5.3 10^3/uL (4.3-11.0)
[2017-12-31 12:12] LABS: ALANINE AMINOTRANSFERASE 23 U/L (0-55); ALBUMIN 4.3 GM/DL (3.2-4.5); ALKALINE PHOSPHATASE 50 U/L (40-136); BILIRUBIN,TOTAL 0.5 MG/DL (0.1-1.0); BUN/CREATININE RATIO 34; CARBON DIOXIDE 23 MMOL/L (21-32); CHLORIDE 104 MMOL/L (98-107); GFR ESTIMATED > 60; GLUCOSE 107 MG/DL (70-105); POTASSIUM 3.6 MMOL/L (3.6-5.0); SODIUM 140 MMOL/L (135-145); TOTAL PROTEIN 7.6 GM/DL (6.4-8.2)
== END 2018-01-04 | disposition home or self-care (01) ==
LOC: ONC 10:55
PROVIDERS: ATTEND Internal Medicine Hematology & Oncology
DX: C17.1 Malignant neoplasm of jejunum (principal); C77.2 Secondary and unspecified malignant neoplasm of intra-abdominal lymph nodes; C79.89 Secondary malignant neoplasm of other specified sites; D70.9 Neutropenia, unspecified; N39.0 Urinary tract infection, site not specified; Z79.899 Other long term (current) drug therapy
CPT/HCPCS: 36591; 80053; 81000; 83735; 85025; 87088; 96367; 96368; 96374; 96375; 96409

== ENCOUNTER → 2018-01-06 | Outpatient (CLI) | payer SELFPAY ==
[~2018-01-06] MED LIST changes: -BEVACIZUMAB IV SCH; -FLUOROURACIL IV SCH; -LEUCOVORIN CALCIUM 350 MG, LEUCOVORIN CALCIUM 50 MG in D5W 250 ML IVPB (CANCER CTR) 250 ML IV SCH; -NS IV 500 ML (CANCER CENTER) 500 ML IV SCH; -NS IV SCH; -ONDANSETRON 16 MG, DEXAMETHASONE 10 MG/NS 50 ML IVPB IV SCH; -ONDANSETRON MDV (CANCER CENTER 16 MG, DEXAMETHASONE PF INJ (CANCER C 10 MG in D5W 50 ML... IV SCH; -ONDANSETRON MDV (CANCER CENTER 8 MG, DEXAMETHASONE INJ (CANCER CTR) 4 MG in NS (IVPB) C... IV ONE
--- NOTE | 2018-01-06 13:39 | Diagnostic Imaging Report ---
Indication: Malignant neoplasm of the jejunum. The patient is status post therapy and the study is performed for restaging. Patient was administered 12.8 mCi of F-18 FDG intravenously and a right antecubital location. PET imaging was performed from the vertex through the pelvis. Noncontrast CT acquisition was also performed for anatomic correlation and attenuation correction. Correlation is made with prior PET/CT from 12/17/2016. There is symmetric uptake of activity throughout the brain. No abnormal hypermetabolic focus within the soft tissues of the neck are identified. There is a tiny mildly hypermetabolic lymph node in the superior mediastinum just to the left of the esophagus, posterior to the left common carotid artery. SUV max value approaches 3. The [place] are unremarkable. Pulmonary parenchyma is unremarkable. Imaging through the abdomen does show a new focus of hypermetabolism involving the right adrenal gland with SUV max approximately 7.7. There continues to be abnormal hypermetabolism within central retroperitoneal and mesenteric lymph nodes, which appears increased when compared with prior exam. Nodes are in the range of 5-7 SUV max. There is physiologic activity within both kidneys as well as the liver and spleen. There is a small hypermetabolic lymph node adjacent to the left common iliac artery, similar to prior exam. A left obturator node is hypermetabolic, not present on prior exam with SUV max of 6.3. There is hyper metabolism involving bilateral ovaries which appear to be enlarged. A recent ultrasound was unremarkable and the findings may be physiologic. No other abnormal uptake is detected. IMPRESSION: 1. New focus of hypermetabolism in the right adrenal gland, suggestive of metastatic lesion. There is some worsening central retroperitoneal and mesenteric hypermetabolism when compared with one year earlier. There is a new left obturator lymph node hypermetabolism as well. Small hypermetabolic node in the superior mediastinum is stable. No other significant abnormality is detected. Dictated by: Dictated on workstation # [id number]
== END ==
LOC: RAD 08:11
PROVIDERS: ATTEND Internal Medicine Hematology & Oncology
DX: C17.1 Malignant neoplasm of jejunum (principal); C77.2 Secondary and unspecified malignant neoplasm of intra-abdominal lymph nodes; C79.89 Secondary malignant neoplasm of other specified sites

== ENCOUNTER 2018-01-17 12:02 | Emergency (ER) | payer OTHER ==
[~2018-01-17] VITALS: Ht 172.7 cm; Wt 49.4 kg
[2018-01-17] MEDS ORDERED: LACTATED RINGERS 1,000 ML IV ONE (12:14)
[2018-01-17] MEDS ORDERED: CEFEPIME INJECTION 2,000 MG in NS (IVPB) 50 ML IV ONE (12:15)
[2018-01-17] MEDS ORDERED: PROMETHAZINE INJ 25 MG/ML (PHENERGAN) AMP IVP ONE (12:15)
--- NOTE | 2018-01-17 12:23 | ED General ---
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 She says she gets dizzy like she could follow her but she has not fallen, passed out or hit her head. She is not having any painful urination, cough, fevers, chills, rash, discharge, belly pain, chest pain. She is followed by Dr. Reddy. She recently restarted chemotherapy after taking a break. She has lost a significant amount of weight in the last year. She denies chest pain or shortness of breath at this time. She is not having any swelling, redness or pain in her legs. Allergies and Home Medications Allergies Coded Allergies: No Known Drug Allergies (Unverified , 11/18/16) Home Medications L.acidoph & Paracasei,B.lactis 1 Each Capsule, 1 CAP PO HS, (Reported) Magnesium Oxide 400 Mg Tablet, 800 MG PO BID PRN for CRAMPS, (Reported) Multivitamin 1 Each Tablet, 1 TAB PO HS, (Reported) Omeprazole 20 Mg Capsule.dr, 20 MG PO DAILY PRN for HEARTBURN, (Reported) Oxycodone HCl/Acetaminophen 1 Each Tablet, 1 EACH PO Q4H Prescribed by: LAISHA METCALF on 12/25/17 0097 Constitutional: No chills, No diaphoresis, dizziness, No fever, malaise, weakness EENTM: No ear discharge, No hearing loss Respiratory: No cough, No short of breath Cardiovascular: No chest pain, No palpitations Gastrointestinal: No abdominal pain, No constipation, No diarrhea, nausea, vomiting (nonbloody) Genitourinary: No discharge, No dysuria : No Musculoskeletal: No back pain, No joint pain Skin: No pruritus, No rash Psychiatric/Neurological: Denies Headache, Denies Numbness, Denies Paresthesia Past Gldfift-Ckabgq-Tesmbi Hx Patient Social History Alcohol Use: Occasionally Uses Alcohol Beverage of Choice: Wine Smoking Status: Never a Smoker Recent Foreign Travel: No Contact w/Someone Who Travel: No Recent Hopitalizations: No (SEVERAL ER VISITS OCT 2016) Immunizations Up To Date Tetanus Booster (TDap): Unknown Seasonal Allergies Seasonal Allergies: No Surgeries History of Surgeries: Yes (BOWEL RESECTION, PORT) Respiratory History of Respiratory Disorde: No Cardiovascular History of Cardiac Disorders: No Neurological History of Neurological Disord: No Reproductive System Hx Reproductive Disorders: No Gastrointestinal History of Gastrointestinal Di: Yes (BOWEL RESECTION) Musculoskeletal History of Musculoskeletal Dis: No Endocrine History of Endocrine Disorders: No HEENT Loss of Vision: Denies Hearing Impairment: Denies Cancer History of Cancer: Yes (LEEP PROCEDURE 8-9 YRS AGO - NORMAL) Cancer: Small Bowel Psychosocial History of Psychiatric Problem: No Integumentary History of Skin or Integumenta: No Blood Transfusions History of Blood Disorders: No Family Medical History Significant Family History: No Pertinent Family Hx Family Medial History: Anxiety disorder G8 SISTER Asthma G8 BROTHER Physical Exam-Suspected Sepsis Physical Exam Vital Signs Vital Signs - First Documented 01/17/18 12:05 Temp 97.6 Pulse 137 Resp 18 B/P (MAP) 125/89 (101) Pulse Ox 97 Capillary Refill : General Appearance: No Apparent Distress, WD/WN Eyes: Bilateral Eye Normal Inspection, Bilateral Eye PERRL, Bilateral Eye EOMI HEENT: PERRL/EOMI, TMs Normal, Normal ENT Inspection, Pharynx Normal Neck: Full Range of Motion, Normal Inspection, Non Tender, Supple Respiratory: Chest Non Tender, Lungs Clear, Normal Breath Sounds, No Accessory Muscle Use, No Respiratory Distress Cardiovascular: Regular Rate, Rhythm, No Edema, No Murmur, Normal Peripheral Pulses Gastrointestinal: Normal Bowel Sounds, No Organomegaly, Soft, Tenderness ( superpubic region is moderately tender to palpation) Extremity: Normal Capillary Refill, Normal Inspection, Non Tender, No Calf Tenderness, No Pedal Edema, Other (no swelling, erythema or not a tenderness in the calves. Negative for Homans sign.) Neurologic/Psychiatric: Alert, Oriented x3, No Motor/Sensory Deficits, Normal Mood/Affect Skin: normal color, warm/dry Lymphatic: No Adenopathy Focused Exam Evaluation Lactate Level Laboratory Tests 01/17/18 12:32: Lactic Acid Level 0.86 Lactic Acid Level Laboratory Tests Test 01/17/18 12:32 Lactic Acid Level 0.86 MMOL/L (0.50-2.00) Progress/Results/Core Measures Suspected Sepsis SIRS Temperature: Pulse: Respiratory Rate: Laboratory Tests 01/17/18 12:32: White Blood Count 3.4L Blood Pressure / Mean: Laboratory Tests 01/17/18 12:32: Lactic Acid Level 0.86 Laboratory Tests 01/17/18 12:32: Creatinine 0.65, INR Comment 1.0, Platelet Count 179, Total Bilirubin 0.8 Results/Orders Lab Results Laboratory Tests Test 01/17/18 12:32 01/17/18 12:41 Range/Units White Blood Count 3.4 L 4.3-11.0 10^3/uL Red Blood Count 4.52 4.35-5.85 10^6/uL Hemoglobin 14.3 11.5-16.0 G/DL Hematocrit 40 35-52 % Mean Corpuscular Volume 89 80-99 FL Mean Corpuscular Hemoglobin 32 25-34 PG Mean Corpuscular Hemoglobin Concent 36 32-36 G/DL Red Cell Distribution Width 11.9 10.0-14.5 % Platelet Count 179 130-400 10^3/uL Mean Platelet Volume 10.7 H 7.4-10.4 FL Neutrophils (%) (Auto) 75 42-75 % Lymphocytes (%) (Auto) 19 12-44 % Monocytes (%) (Auto) 4 0-12 % Eosinophils (%) (Auto) 2 0-10 % Basophils (%) (Auto) 0 0-10 % Neutrophils # (Auto) 2.6 1.8-7.8 X 10^3 Lymphocytes # (Auto) 0.7 L 1.0-4.0 X 10^3 Monocytes # (Auto) 0.1 0.0-1.0 X 10^3 Eosinophils # (Auto) 0.1 0.0-0.3 10^3/uL Basophils # (Auto) 0.0 0.0-0.1 10^3/uL Erythrocyte Sedimentation Rate 15 0-20 MM/HR Prothrombin Time 13.6 12.2-14.7 SEC INR Comment 1.0 0.8-1.4 Activated Partial Thromboplast Time 28 24-35 SEC Sodium Level 136 135-145 MMOL/L Potassium Level 3.7 3.6-5.0 MMOL/L Chloride Level 99 98-107 MMOL/L Carbon Dioxide Level 21 21-32 MMOL/L Anion Gap 16 H 5-14 MMOL/L Blood Urea Nitrogen 12 7-18 MG/DL Creatinine 0.65 0.60-1.30 MG/DL Estimat Glomerular Filtration Rate > 60 BUN/Creatinine Ratio 18 Glucose Level 91 70-105 MG/DL Lactic Acid Level 0.86 0.50-2.00 MMOL/L Calcium Level 9.2 8.5-10.1 MG/DL Total Bilirubin 0.8 0.1-1.0 MG/DL Aspartate Amino Transf (AST/SGOT) 16 5-34 U/L Alanine Aminotransferase (ALT/SGPT) 21 0-55 U/L Alkaline Phosphatase 46 40-136 U/L C-Reactive Protein High Sensitivity 0.47 0.00-0.50 MG/DL Total Protein 7.1 6.4-8.2 GM/DL Albumin 4.1 3.2-4.5 GM/DL Urine Color YELLOW Urine Clarity SLIGHTLY CLOUDY Urine pH 6 5-9 Urine Specific [place] 1.020 1.016-1.022 Urine Protein NEGATIVE NEGATIVE Urine Glucose (UA) NEGATIVE NEGATIVE Urine Ketones 4+ H NEGATIVE Urine Nitrite NEGATIVE NEGATIVE Urine Bilirubin NEGATIVE NEGATIVE Urine Urobilinogen NORMAL NORMAL MG/DL Urine Leukocyte Esterase NEGATIVE NEGATIVE Urine RBC (Auto) NEGATIVE NEGATIVE Urine RBC NONE /HPF Urine WBC NONE /HPF Urine Squamous Epithelial Cells 2-5 /HPF Urine Crystals NONE /LPF Urine Bacteria TRACE /HPF Urine Casts NONE /LPF Urine Mucus SMALL H /LPF Urine Culture Indicated YES My Orders Orders - BEULAH MULLEN Cbc With Automated Diff (01/17/18 12:14) Comprehensive Metabolic Panel (01/17/18 12:14) Lactic Acid Analyzer (01/17/18 12:14) Blood Culture (01/17/18 12:14) Sputum Culture (01/17/18 12:14) Ua Culture If Indicated (01/17/18 12:14) Protime With Inr (01/17/18 12:14) Partial Thromboplastin Time (01/17/18 12:14) Chest 1 View, Ap/Pa Only (01/17/18 12:14) O2 (01/17/18 12:14) Saline Lock/Iv-Start (01/17/18 12:14) Saline Lock/Iv-Start (01/17/18 12:14) Cefepime Injection (Maxipime Injection) (01/17/18 12:15) Vital Signs Adult Sepsis Patie Q1H (01/17/18 12:14) Remove Rings In Anticipation O (01/17/18 12:14) Lactated Ringers (Lr 1000 Ml Iv Solution (01/17/18 12:14) Hs C Reactive Protein (01/17/18 12:14) Erythrocyte Sedimentation Rate (01/17/18 12:14) Promethazine Injection (Phenergan Injec (01/17/18 12:15) Fentanyl Injection (Sublimaze Injection (01/17/18 12:45) Fentanyl Injection (Sublimaze Injection (01/17/18 12:31) Urine Culture (01/17/18 12:41) Ct Abdomen/Pelvis W (01/17/18 13:15) Iohexol Injection (Omnipaque 350 Mg/Ml 1 (01/17/18 13:30) Ns (Ivpb) (Sodium Chloride 0.9% Ivpb Bag (01/17/18 13:30) Ns Iv 500 Ml (Sodium Chloride 0.9%) (01/17/18 13:19) Fentanyl Injection (Sublimaze Injection (01/17/18 13:45) Medications Given in ED Current Medications Medications Dose Ordered Sig/Cabrera Route Start Time Stop Time Status Last Admin Dose Admin Cefepime HCl 2000 mg/Sodium Chloride 50 ml @ 100 mls/hr ONCE ONCE IV 01/17/18 12:15 01/17/18 12:44 DC 01/17/18 13:11 100 MLS/HR Fentanyl Citrate 50 mcg ONCE ONCE IVP 01/17/18 12:45 01/17/18 12:46 DC 01/17/18 12:35 50 MCG Fentanyl Citrate 100 mcg ONCE ONCE IVP 01/17/18 13:45 01/17/18 13:46 DC 01/17/18 13:51 100 MCG Iohexol 100 ml ONCE ONCE IV 01/17/18 13:30 01/17/18 13:36 DC 01/17/18 13:28 100 ML Lactated Ringer's 1,000 ml @ 0 mls/hr Q0M ONCE IV 01/17/18 12:14 01/17/18 12:19 DC 01/17/18 12:35 1,000 MLS/HR Promethazine HCl 25 mg ONCE ONCE IVP 01/17/18 12:15 01/17/18 12:19 DC 01/17/18 12:35 25 MG Sodium Chloride 100 ml ONCE ONCE IV 01/17/18 13:30 01/17/18 13:36 DC 01/17/18 13:28 100 ML Sodium Chloride 500 ml @ 0 mls/hr Q0M ONCE IV 01/17/18 13:19 01/17/18 13:20 DC 01/17/18 13:51 500 MLS/HR Vital Signs/I&O Vital Sign - Last 12Hours 01/17/18 12:05 Temp 97.6 Pulse 137 Resp 18 B/P (MAP) 125/89 (101) Pulse Ox 97 Capillary Refill : Progress Note #1: Time: 12:27 Progress Note Patient recently underwent chemotherapy in a couple days later has uncontrolled nausea vomiting. She says she's not had problems nausea with his chemotherapy regimen so she did not have any nausea medicine at home to use. Sound that she' s gotten dehydrated sort going to give her some Phenergan which she says works better than Zofran. A little pain medicine and a sepsis workup is or tachycardia. If the urinalysis is not obviously infection we might consider doing a CT scan for her abdominal pain suprapubic region. After we get some fluids, nausea medicine and pain medicine and her she's feeling better and wants to go home and the lab work is unrevealing then we may support that. Progress Note #2: Time: 13:15 Progress Note Labs are revealing of dehydration but not necessarily inflammation or infection. Absolute neutrophil count is 2550/dL. Because of her suprapubic pain that has improved with fentanyl but not gone we have elected to do a CT scan with contrast to make sure there is not anything related to that superpubic pain. The urinalysis shows ketones but not evidence of infection. We'll going to let her have another 500 cc of fluids to help rehydrate her which would bring her up to over 30 cc/kg. Progress Note #3: Time: 14:24 Progress Note Discussed the findings with the patient and her mother and the patient would like to try and go home some Phenergan tablets. We'll send some Phenergan suppositories as well. She has pain medicine available. She will return to care if she is unable to control her symptoms or starts feeling worse or new symptoms otherwise she will follow up Friday morning with cancer center by phone. Diagnostic Imaging Diagonstic Imaging: CT (with contrast) Plain Films/CT/US/NM/MRI: abdomen, pelvis Reviewed: Reviewed by Me Consults Consults : Consulting Physician: DEBBIE WAGNER MD Consults Notes She supports the patient going home with appropriate nausea and pain medicines and following up the Cancer [facility]tr[facility] by phone Friday. Departure Impression Impression: Primary Impression: Dehydration Additional Impressions: Chemotherapy induced nausea and vomiting Intestinal cancer Disposition: HOME, SELF-CARE Condition: Improved Departure-Patient Inst. Decision time for Depature: 14:24 Referrals: NO,LOCAL PHYSICIAN (PCP/Family) Primary Care Physician Patient Instructions: Nausea and Vomiting With Cancer Treatment Add. Discharge Instructions: Get some rest and encourage fluids especially half strength sports drink like Powerade or Gatorade. Use the Phenergan 1 tablet every 6 hours as needed. If it' s not controlling her nausea or you're not able to tolerate it you may also try the suppository form rectally every 6 hours. If you cannot keep up with your fluids are due to nausea and controlling started experience new or worrisome symptoms such as fever, chest pain etc. then you should return to the ER. Otherwise plan on following up with the Cancer [facility]tr[facility] Friday morning by phone. Scripts Promethazine HCl (Promethazine Tablet) 25 Mg Tablet 25 MG PO Q6H Y for NAUSEA/VOMITING, #30 TAB 0 Refills Prov: BEULAH MULLEN 01/17/18 Promethazine HCl (Phenergan) 25 Mg Supp.rect 25 MG RC Q6H Y for NAUSEA/VOMITING-1ST LINE, #20 SUPP.RECT 0 Refills Prov: BEULAH MULLEN 01/17/18 Copy Copies To 1: MARINO TRAN TITUS J Jan 17, 2018 12:23
[2018-01-17] MEDS ORDERED: fentaNYL INJECTION 100 MCG/2 ML AMP ONE (12:31)
[2018-01-17] MEDS ORDERED: fentaNYL INJECTION 100 MCG/2 ML AMP IVP ONE ×2 (12:45→13:45)
[2018-01-17 12:48] LABS: BASOPHILS % (AUTO) 0 % (0-10); EOSINOPHILS # (AUTO) 0.1 10^3/uL (0.0-0.3); EOSINOPHILS % (AUTO) 2 % (0-10); HEMATOCRIT 40 % (35-52); HEMOGLOBIN 14.3 G/DL (11.5-16.0); LYMPHOCYTES # (AUTO) 0.7 X 10^3 (1.0-4.0); LYMPHOCYTES % (AUTO) 19 % (12-44); MEAN CORPUSCULAR HEMOGLOBIN 32 PG (25-34); MEAN CORPUSCULAR HGB CONC 36 G/DL (32-36); MEAN CORPUSCULAR VOLUME 89 FL (80-99); MEAN PLATELET VOLUME 10.7 FL (7.4-10.4); MONOCYTES # (AUTO) 0.1 X 10^3 (0.0-1.0); MONOCYTES % (AUTO) 4 % (0-12); NEUTROPHILS # (AUTO) 2.6 X 10^3 (1.8-7.8); NEUTROPHILS % (AUTO) 75 % (42-75); PLATELET COUNT 179 10^3/uL (130-400); RED BLOOD COUNT 4.52 10^6/uL (4.35-5.85); RED CELL DISTRIBUTION WIDTH 11.9 % (10.0-14.5); WHITE BLOOD COUNT 3.4 10^3/uL (4.3-11.0)
[2018-01-17 12:49] LABS: BILIRUBIN,URINE NEGATIVE (NEGATIVE); CLARITY,URINE SLIGHTLY CLOUDY; COLOR,URINE YELLOW; GLUCOSE, URINE (UA) NEGATIVE (NEGATIVE); KETONES,URINE 4+ (NEGATIVE); LEUKOCYTE ESTERASE ,URINE NEGATIVE (NEGATIVE); NITRITE,URINE NEGATIVE (NEGATIVE); PH,URINE 6 (5-9); PROTEIN,URINE NEGATIVE (NEGATIVE); UROBILINOGEN,URINE NORMAL (NORMAL)
[2018-01-17 12:53] LABS: PROTHROMBIN TIME PATIENT 13.6 SEC (12.2-14.7)
[2018-01-17 12:58] LABS: BACTERIA,URINE TRACE /HPF
[2018-01-17 13:04] LABS: ALANINE AMINOTRANSFERASE 21 U/L (0-55); ALBUMIN 4.1 GM/DL (3.2-4.5); ALKALINE PHOSPHATASE 46 U/L (40-136); BILIRUBIN,TOTAL 0.8 MG/DL (0.1-1.0); BUN/CREATININE RATIO 18; CALCIUM 9.2 MG/DL (8.5-10.1); CARBON DIOXIDE 21 MMOL/L (21-32); CHLORIDE 99 MMOL/L (98-107); CREATININE SERUM 0.65 MG/DL (0.60-1.30); GFR ESTIMATED > 60; GLUCOSE 91 MG/DL (70-105); POTASSIUM 3.7 MMOL/L (3.6-5.0); SODIUM 136 MMOL/L (135-145); TOTAL PROTEIN 7.1 GM/DL (6.4-8.2)
[2018-01-17 13:19] LABS: ERYTHROCYTE SEDIMENTATION RATE 15 MM/HR (0-20)
[2018-01-17] MEDS ORDERED: NS IV 500 ML 500 ML IV ONE (13:19)
[2018-01-17] MEDS ORDERED: IOHEXOL 350 MG/ML 100 ML (OMNIPAQUE 350) VIAL IV ONE (13:30)
[2018-01-17] MEDS ORDERED: NS 100 ML (IVPB) BAG IV ONE (13:30)
--- NOTE | 2018-01-17 13:32 | Diagnostic Imaging Report ---
INDICATION: Abdominal pain, nausea, weakness. TECHNIQUE: Frontal view of the chest. COMPARISON: 12/01/2017 FINDINGS: Lung volumes are large. No focal consolidation seen. There is no pleural effusion or pneumothorax. The cardiomediastinal silhouette is normal in size and contour. The right-sided Port-A-Cath is in stable position with the tip overlying the low SVC. No acute osseous abnormality is seen. IMPRESSION: Large lung volumes with no acute pulmonary abnormality seen. Dictated by: Dictated on workstation # [id number]
--- NOTE | 2018-01-17 14:25 | Diagnostic Imaging Report ---
PROCEDURE: CT abdomen and pelvis with contrast. TECHNIQUE: Multiple contiguous axial images were obtained through the abdomen and pelvis after administration of intravenous contrast. INDICATION: Abdominal pain, dehydration The previous CT abdomen/pelvis exam of 12/25/2017 noted hazy increased density to the mesentery of the left midabdomen and raise the question of mesenteric adenopathy. That finding is again evident on this and does not seem to have changed significantly. There is some fluid in the small bowel but there is no sign of a bowel obstruction. There is no mass or abscess identified either. The sizable bilateral adnexal cysts seen on the prior study are again evident and not significantly changed. However in the interval since the prior exam a small to moderate amount of free fluid has developed. This finding is nonspecific but may be related to the recent rupture of a cyst or to a mild inflammatory/infectious process. The appendix was not well visualized but there are no indirect signs of acute appendicitis. The uterus and urinary bladder are grossly unremarkable. The liver, spleen, pancreas, adrenals, gallbladder, kidneys, aorta and inferior vena cava appear stable compared to the prior exam. The stomach is partially filled with fluid and consequently difficult to assess. The bone windows show no sign of a fracture or destructive lesion. The lung bases are clear. IMPRESSION: 1. In the interval since the prior study a small to moderate amount of free fluid has developed in the pelvis. This is nonspecific in appearance. The bilateral adnexal cysts seen previously do not appear to have changed significantly. If further study is desired, then ultrasound would be recommended. 2. The abnormal density near the pancreatic body seen on the previous study is again evident and unchanged as well. 3. There is some fluid in small bowel but there is no evidence for a bowel obstruction. These results were discussed with Dr. Adan Harrell. Dictated by: Dictated on workstation # [id number]
[2018-01-17] MEDS ORDERED: PROM25TA14 PO (14:27)
[2018-01-17] MEDS ORDERED: PROM25SU43 RC (14:27)
[2018-01-17 14:30] VITALS: BP 122/82
[2018-01-18] MEDS ORDERED: OXYC-529 PO (12:42)
[2018-01-18] MEDS ORDERED: MORP30TA60 PO (12:42)
[2018-01-18] MEDS ORDERED: PROM25TA14 PO (12:42)
== END 2018-01-17 14:37 | disposition home or self-care (01) ==
LOC: EDUNIT# 12:02 → ER 12:04
DX: E86.0 Dehydration (principal); R11.2 Nausea with vomiting, unspecified; C17.9 Malignant neoplasm of small intestine, unspecified; Z98.890 Other specified postprocedural states; Z90.49 Acquired absence of other specified parts of digestive tract; T45.1X5A Adverse effect of antineoplastic and immunosuppressive drugs, initial encounter
CPT/HCPCS: 36415; 71045; 74177; 80053; 81000; 83605; 85025; 85610; 85652; 85730; 86141; 87040; 87088; 93041; 96361; 96374; 96375; 96376

== ENCOUNTER 2018-01-17 19:39 | Inpatient (IN) | payer OTHER ==
[~2018-01-17] VITALS: Ht 172.7 cm; Wt 50.1 kg
[~2018-01-17 19:39] MED LIST changes: +PROM25SU43 RC; +PROM25TA14 PO
[2018-01-17] MEDS ORDERED: NS IV 1000 ML 1,000 ML IV ONE (19:51)
[2018-01-17] MEDS ORDERED: ONDANSETRON 4 MG/2 ML (SDV) Z0FRAN IVP ONE (20:00)
[2018-01-17] MEDS ORDERED: KETOROLAC 30 MG/ML VIAL IVP ONE (20:00)
[2018-01-17] MEDS ORDERED: PROMETHAZINE INJ 25 MG/ML (PHENERGAN) AMP ONE (20:05)
[2018-01-17 20:15] LABS: BUN/CREATININE RATIO 14; CALCIUM 9.4 MG/DL (8.5-10.1); CARBON DIOXIDE 23 MMOL/L (21-32); CHLORIDE 104 MMOL/L (98-107); CREATININE SERUM 0.63 MG/DL (0.60-1.30); GFR ESTIMATED > 60; GLUCOSE 93 MG/DL (70-105); LIPASE 21 U/L (8-78); MAGNESIUM 1.9 MG/DL (1.8-2.4); POTASSIUM 3.6 MMOL/L (3.6-5.0); SODIUM 140 MMOL/L (135-145)
[2018-01-17] MEDS ORDERED: PROMETHAZINE INJ 25 MG/ML (PHENERGAN) AMP IVP ONE (20:15)
--- NOTE | 2018-01-17 20:40 | ED General ---
General Chief Complaint: General Problems/Pain Stated Complaint: WEAKNESS Nursing Triage Note: PT TO ED 7 PER EMS, SECOND VISIT TO THIS FACILITY TODAY. PT C/O WEAKNESS, N/V. PT REPORTS SHE WAS OFFERED ADMIT EARLIER TODAY BUT DECLINED AT THAT TIME. Nursing Sepsis Screen: No Definite Risk Source of Information: Patient, Old Records Exam Limitations: No Limitations History of Present Illness Date Seen by Provider: Jan 17, 2018 Time Seen by Provider: 19:37 Initial Comments This 42-year-old woman with history of bowel cancer and metastatic lesions presents to the emergency room with extreme weakness, nausea and chronic pain related to her cancer. Symptoms have become severe since having chemotherapy on Friday. This was the first round of chemotherapy since recurrence of cancer was identified. She was seen in this ER by Dr. Harrell earlier today and offered admission but preferred to return home and stay with her daughter. Symptoms have continued to worsen since now requesting admission. She is tachycardic and afebrile. Thorough workup performed on her prior visit revealed no sources of infection. Reviewed Dr. Harrell's notes for more details. Patient arrives via EMS. Dr. Novak is her oncologist. Allergies and Home Medications Allergies Coded Allergies: ondansetron (Verified Adverse Reaction, Unknown, NAUSEA, 01/17/18) Causes paradoxical vomiting Home Medications L.acidoph & Paracasei,B.lactis 1 Each Capsule, 1 CAP PO HS, (Reported) Magnesium Oxide 400 Mg Tablet, 800 MG PO BID PRN for CRAMPS, (Reported) Multivitamin 1 Each Tablet, 1 TAB PO HS, (Reported) Omeprazole 20 Mg Capsule.dr, 20 MG PO DAILY PRN for HEARTBURN, (Reported) Oxycodone HCl/Acetaminophen 1 Each Tablet, 1 EACH PO Q4H Prescribed by: LAISHA METCALF on 12/25/17 1536 Promethazine HCl 25 Mg Supp.rect, 25 MG RC Q6H PRN for NAUSEA/VOMITING-1ST LINE Prescribed by: BEULAH HARRELL on 01/17/18 1427 Promethazine HCl 25 Mg Tablet, 25 MG PO Q6H PRN for NAUSEA/VOMITING Prescribed by: BEULAH HARRELL on 01/17/18 1427 Constitutional: see HPI, weakness EENTM: no symptoms reported Respiratory: no symptoms reported Cardiovascular: see HPI Gastrointestinal: no symptoms reported Genitourinary: no symptoms reported Musculoskeletal: see HPI Skin: no symptoms reported Psychiatric/Neurological: No Symptoms Reported Hematologic/Lymphatic: No Symptoms Reported Past Jwrvbgn-Ymsijx-Rbkxvs Hx Patient Social History Alcohol Use: Denies Use Number of Drinks Today: Alcohol Beverage of Choice: Wine Recreational Drug Use: No Smoking Status: Unknown if Ever Smoked Recent Foreign Travel: No Contact w/Someone Who Travel: No Recent Infectious Disease Expo: No Recent Hopitalizations: No (SEVERAL ER VISITS OCT 2016) Physical Abuse: No Sexual Abuse: No Mistreated: No Fear: No Immunizations Up To Date Tetanus Booster (TDap): Unknown Seasonal Allergies Seasonal Allergies: No Surgeries History of Surgeries: Yes (BOWEL RESECTION, PORT) Respiratory History of Respiratory Disorde: No Cardiovascular History of Cardiac Disorders: No Neurological History of Neurological Disord: No Reproductive System Hx Reproductive Disorders: No Gastrointestinal History of Gastrointestinal Di: Yes (BOWEL RESECTION) Musculoskeletal History of Musculoskeletal Dis: No Endocrine History of Endocrine Disorders: No HEENT Loss of Vision: Denies Hearing Impairment: Denies Cancer History of Cancer: Yes (LEEP PROCEDURE 8-9 YRS AGO - NORMAL, metastatic small bowel cancer) Cancer: Small Bowel Psychosocial History of Psychiatric Problem: No Suicide Risk Score: 0 Integumentary History of Skin or Integumenta: No Blood Transfusions History of Blood Disorders: No Family Medical History Significant Family History: No Pertinent Family Hx Family Medial History: Anxiety disorder G8 SISTER Asthma G8 BROTHER Physical Exam Vital Signs Vital Signs - First Documented 01/17/18 19:40 Temp 97.1 Pulse 126 Resp 18 B/P (MAP) 131/95 (107) Pulse Ox 95 O2 Delivery Room Air Capillary Refill : Less Than 3 Seconds General Appearance: No Apparent Distress, WD/WN, Thin, Other (very weak) HEENT: PERRL/EOMI, Normal ENT Inspection, Other (oropharynx dry) Neck: Normal Inspection Respiratory: Lungs Clear, Normal Breath Sounds, No Accessory Muscle Use, No Respiratory Distress Cardiovascular: No Edema, No Murmur, Tachycardia (regular) Gastrointestinal: Normal Bowel Sounds, Non Tender, Soft Extremity: Normal Inspection, No Pedal Edema Neurologic/Psychiatric: Alert, Oriented x3, Normal Mood/Affect, sneller hand II-XII Norm as Tested, Motor Weakness (generalized) Skin: Normal Color, Warm/Dry Progress/Results/Core Measures Suspected Sepsis Recent Fever Within 48 Hours: No Infection Criteria Present: None New/Unexplained Altered Menta: No Sepsis Screen: No Definite Risk Sepsis Diagnosis: SIRS Temperature:97.1 Pulse: 126 Respiratory Rate: 18 Blood Pressure 131 /95 Mean: 107 Laboratory Tests 01/17/18 19:50: Creatinine 0.63 Results/Orders Lab Results Laboratory Tests Test 01/17/18 19:50 Range/Units Sodium Level 140 135-145 MMOL/L Potassium Level 3.6 3.6-5.0 MMOL/L Chloride Level 104 98-107 MMOL/L Carbon Dioxide Level 23 21-32 MMOL/L Anion Gap 13 5-14 MMOL/L Blood Urea Nitrogen 9 7-18 MG/DL Creatinine 0.63 0.60-1.30 MG/DL Estimat Glomerular Filtration Rate > 60 BUN/Creatinine Ratio 14 Glucose Level 93 70-105 MG/DL Calcium Level 9.4 8.5-10.1 MG/DL Magnesium Level 1.9 1.8-2.4 MG/DL Lipase 21 8-78 U/L My Orders Orders - EDVIN HERNADEZ MD Basic Metabolic Panel (01/17/18 19:51) Saline Lock/Iv-Start (01/17/18 19:51) Ns Iv 1000 Ml (Sodium Chloride 0.9%) (01/17/18 19:51) Ondansetron Injection (Zofran Injectio (01/17/18 20:00) Ketorolac Injection (Toradol Injection) (01/17/18 20:00) Lipase (01/17/18 19:53) Magnesium (01/17/18 19:53) Promethazine Injection (Phenergan Injec (01/17/18 20:15) Promethazine Injection (Phenergan Injec (01/17/18 20:05) Medications Given in ED Current Medications Medications Dose Ordered Sig/Cabrera Route Start Time Stop Time Status Last Admin Dose Admin Ketorolac Tromethamine 15 mg ONCE ONCE IVP 01/17/18 20:00 01/17/18 20:01 DC 01/17/18 20:04 15 MG Promethazine HCl 25 mg ONCE ONCE IVP 01/17/18 20:15 01/17/18 20:16 DC 01/17/18 20:13 25 MG Sodium Chloride 1,000 ml @ 0 mls/hr Q0M ONCE IV 01/17/18 19:51 01/17/18 19:54 DC 01/17/18 20:04 1,000 MLS/HR Vital Signs/I&O Vital Sign - Last 12Hours 01/17/18 01/17/18 01/17/18 01/17/18 19:40 21:52 22:00 22:05 Temp 97.1 98.4 Pulse 126 105 92 Resp 18 16 18 B/P (MAP) 131/95 (107) 130/88 (107) 109/62 (78) Pulse Ox 95 96 97 98 O2 Delivery Room Air Room Air 01/17/18 01/17/18 01/18/18 01/18/18 23:08 23:36 01:00 01:00 Temp 99.3 99.5 Pulse 91 90 97 90 Resp 18 16 B/P (MAP) 98/52 (67) 108/55 (72) Pulse Ox 98 95 O2 Delivery Room Air 01/18/18 03:00 Temp 98.7 Pulse 93 Resp 16 B/P (MAP) 111/55 (73) Pulse Ox 97 O2 Delivery Room Air Capillary Refill : Less Than 3 Seconds Blood Pressure Mean: 107 Progress Note : Progress Note Chemistry was repeated. A liter of IV fluids was administered. Pain improved with Toradol. Phenergan was given for nausea. Departure Communication (Admissions) Time/Spoke to Admitting Phy: 20:[address] Gifford Time/Spoke to Consulting Phy: 20:40 Communication/Consulting Dr. Bush Impression Impression: Primary Impression: Generalized weakness Additional Impressions: Nausea and vomiting Qualified Codes: R11.2 - Nausea with vomiting, unspecified Hypovolemia Small bowel cancer Disposition: ADMITTED INPATIENT Condition: Improved Admissions Decision to Admit Reason: Admit from ER (General) Decision to Admit/Date: Jan 18, 2018 Time/Decision to Admit Time: 19:40 Departure-Patient Inst. Referrals: NO,LOCAL PHYSICIAN (PCP/Family) Primary Care Physician EDVIN HERNADEZ MD Jan 17, 2018 20:39
[2018-01-17 22:00] VITALS: BP 109/62
[2018-01-17] MEDS: D5 1/2 NS W/KCL 20 MEQ/L 1,000 ML IV SCH (22:36)
[2018-01-17] MEDS: FAMOTIDINE 20MG/2ML IV (PEPCID) IVP SCH (22:40)
[2018-01-17 23:08] VITALS: BP 98/52
[2018-01-18] VITALS (7 sets, daily range): BP systolic 106–123; BP diastolic 55–68
[2018-01-18] MEDS: fentaNYL INJECTION 100 MCG/2 ML AMP IV PRN ×4 (04:18→22:13)
[2018-01-18] MEDS: PROMETHAZINE INJ 25 MG/ML (PHENERGAN) AMP IV PRN ×3 (04:18→22:13)
[2018-01-18] MEDS: D5 1/2 NS W/KCL 20 MEQ/L 1,000 ML IV SCH ×3 (05:17→18:07)
[2018-01-18 05:24] LABS: BASOPHILS % (AUTO) 0 % (0-10); EOSINOPHILS # (AUTO) 0.1 10^3/uL (0.0-0.3); EOSINOPHILS % (AUTO) 2 % (0-10); HEMATOCRIT 32 % (35-52); HEMOGLOBIN 11.3 G/DL (11.5-16.0); LYMPHOCYTES # (AUTO) 0.8 X 10^3 (1.0-4.0); LYMPHOCYTES % (AUTO) 30 % (12-44); MEAN CORPUSCULAR HEMOGLOBIN 31 PG (25-34); MEAN CORPUSCULAR HGB CONC 35 G/DL (32-36); MEAN CORPUSCULAR VOLUME 89 FL (80-99); MEAN PLATELET VOLUME 10.2 FL (7.4-10.4); MONOCYTES # (AUTO) 0.2 X 10^3 (0.0-1.0); MONOCYTES % (AUTO) 7 % (0-12); NEUTROPHILS # (AUTO) 1.5 X 10^3 (1.8-7.8); NEUTROPHILS % (AUTO) 61 % (42-75); PLATELET COUNT 142 10^3/uL (130-400); RED BLOOD COUNT 3.61 10^6/uL (4.35-5.85); RED CELL DISTRIBUTION WIDTH 11.7 % (10.0-14.5); WHITE BLOOD COUNT 2.5 10^3/uL (4.3-11.0)
[2018-01-18 05:46] LABS: ALANINE AMINOTRANSFERASE 14 U/L (0-55); ALBUMIN 3.3 GM/DL (3.2-4.5); ALKALINE PHOSPHATASE 35 U/L (40-136); BILIRUBIN,TOTAL 0.4 MG/DL (0.1-1.0); BUN/CREATININE RATIO 10; CARBON DIOXIDE 22 MMOL/L (21-32); CHLORIDE 109 MMOL/L (98-107); CREATININE SERUM 0.59 MG/DL (0.60-1.30); GFR ESTIMATED > 60; GLUCOSE 129 MG/DL (70-105); POTASSIUM 3.6 MMOL/L (3.6-5.0); SODIUM 139 MMOL/L (135-145); TOTAL PROTEIN 5.4 GM/DL (6.4-8.2)
[2018-01-18] MEDS ORDERED: INFLUENZA TRIvalent 2017-2018 0.5 ML/45 MCG SYR IM ONE (07:30)
--- NOTE | 2018-01-18 09:11 | History & Physical-Hospitalist ---
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 She has chemo on 01/12 and since then has been very nauseated and unable to eat. She has not vomited or have any diarrhea. She continued to worsen throughout the weak and went to the ER yesterday for evaluation. She was found to be dehydration with intractable nausea and offered admission but declined. She went home and continued to worsen and returned to the ER. She was found to be very tachycardiac and weak but electrolytes were stable. Decision was made to admit for intractable nausea and dehydration. This morning she reports still not feeling well and having persistent nausea. Exam Limitations: no limitations Date Seen 01/18/18 Time Seen by Provider: 09:15 Attending Physician Asher Gifford MD PCP No,Local Physician Referring Physician Date of Admission Jan 17, 2018 at 20:34 Home Medications & Allergies Home Medications Reviewed patient Home Medication Reconciliation Form Allergies Allergies Coded Allergies ondansetron (Verified Adverse Reaction, Unknown, NAUSEA, 01/17/18) Causes paradoxical vomiting Past Ixeyyqh-Bsvviy-Pnttfg Hx Patient Social History Alcohol Use: Denies Use Number of Drinks Today: Recreational Drug Use: No Smoking Status: Never a Smoker Physical Abuse Screen: No Sexual Abuse: No Recent Foreign Travel: No Contact w/other who traveled: No Recent Hopitalizations: No Recent Infectious Disease Expo: No Immunizations Up To Date Tetanus Booster (TDap): Unknown Pediatric: No Seasonal Allergies Seasonal Allergies: No Surgeries Yes (port placement) Abdominal (small bowel resection) Respiratory No Cardiovascular Yes (right atrial mass) Neurological No Reproductive System Hx Reproductive Disorders: No Genitourinary No Gastrointestinal Yes Obstructive Bowel Musculoskeletal No Endocrine History of Endocrine Disorders: No HEENT History of HEENT Disorders: No Loss of Vision: Denies Hearing Impairment: Denies Cancer Yes Small Bowel Did You Recieve Any Treatments: Yes Type of Treatment: Chemotherapy, Surgical Intervention Psychosocial History of Psychiatric Problem: No Integumentary History of Skin or Integumenta: No Blood Transfusions History of Blood Disorders: No Adverse Reaction to a Blood Tr: No Family Medical History Significant Family History: No Pertinent Family Hx Family Hx: Anxiety disorder G8 SISTER Asthma G8 BROTHER Review of Systems Constitutional: No chills, No fever, weakness EENTM: No blurred vision, No double vision, No nose congestion, No throat pain Respiratory: No cough, No dyspnea on exertion, No short of breath Cardiovascular: No chest pain, No edema, No palpitations Gastrointestinal: abdominal pain, No diarrhea, loss of appetite, nausea, No vomiting Genitourinary: No dysuria, No frequency Musculoskeletal: No joint pain, No muscle pain Skin: No lesions, No rash Psychiatric/Neurological: Denies Headache, Denies Numbness, Denies Tingling Physical Exam Physical Exam Vital Signs Vital Signs - First Documented 01/17/18 19:40 Temp 97.1 Pulse 126 Resp 18 B/P (MAP) 131/95 (107) Pulse Ox 95 O2 Delivery Room Air Capillary Refill : Less Than 3 Seconds General Appearance: Cachetic, Mild Distress Respiratory: Lungs Clear, No Accessory Muscle Use, No Respiratory Distress Cardiovascular: Regular Rate, Rhythm, No Murmur Gastrointestinal: Normal Bowel Sounds, Soft, Tenderness (mild-diffuse) Neurologic/Psychiatric: Alert, Oriented x3 Results Results/Procedures Lab Laboratory Tests 01/17/18 19:50 01/18/18 05:10 Radiology Date of Exam:01/17/18 CT ABDOMEN/PELVIS W PROCEDURE: CT abdomen and pelvis with contrast. TECHNIQUE: Multiple contiguous axial images were obtained through the abdomen and pelvis after administration of intravenous contrast. INDICATION: Abdominal pain, dehydration The previous CT abdomen/pelvis exam of 12/25/2017 noted hazy increased density to the mesentery of the left midabdomen and raise the question of mesenteric adenopathy. That finding is again evident on this and does not seem to have changed significantly. There is some fluid in the small bowel but there is no sign of a bowel obstruction. There is no mass or abscess identified either. The sizable bilateral adnexal cysts seen on the prior study are again evident and not significantly changed. However in the interval since the prior exam a small to moderate amount of free fluid has developed. This finding is nonspecific but may be related to the recent rupture of a cyst or to a mild inflammatory/infectious process. The appendix was not well visualized but there are no indirect signs of acute appendicitis. The uterus and urinary bladder are grossly unremarkable. The liver, spleen, pancreas, adrenals, gallbladder, kidneys, aorta and inferior vena cava appear stable compared to the prior exam. The stomach is partially filled with fluid and consequently difficult to assess. The bone windows show no sign of a fracture or destructive lesion. The lung bases are clear. IMPRESSION: 1. In the interval since the prior study a small to moderate amount of free fluid has developed in the pelvis. This is nonspecific in appearance. The bilateral adnexal cysts seen previously do not appear to have changed significantly. If further study is desired, then ultrasound would be recommended. 2. The abnormal density near the pancreatic body seen on the previous study is again evident and unchanged as well. 3. There is some fluid in small bowel but there is no evidence for a bowel obstruction. Assessment/Plan Admission Diagnosis Intractable nausea and dehydration Admission Status: Observation Diagnosis/Problems Diagnosis/Problems (1) Intractable nausea and vomiting Status: Acute Assessment & Plan: Likely secondary to chemo Allergy to Zofran Continue on Phenergan Will add reglan as well Qualifiers: Qualified Codes: R11.2 - Nausea with vomiting, unspecified (2) Dehydration Status: Acute Assessment & Plan: Continue IVF Monitor I/Os (3) Small bowel cancer Status: Acute Assessment & Plan: last chemo on 01/12 Oncology consulted, appreciate recs (4) Cardiac mass Assessment & Plan: Noted on EDMAR from 11/2017 ?Mets (5) Generalized weakness Status: Acute Assessment & Plan: Will start PT/OT tomorrow if improved (6) Leukopenia Assessment & Plan: Likely due to chemo ANC 1500 Trend (7) Prophylactic measure Assessment & Plan: D5 1/2 NS +20KCL at 150ml/hr Lovenox CLD Clinical Quality Measures DVT/VTE Risk/Contraindication: Risk Factor Score Per Nursin RFS Level Per Nursing on Admit: 4+=Very High ASHER GIFFORD MD Jan 18, 2018 09:11
[2018-01-18] MEDS: FAMOTIDINE 20MG/2ML IV (PEPCID) IVP SCH ×2 (10:07→20:10)
[2018-01-18] MEDS: ENOXAPARIN 40 MG/0.4 ML (LOVENOX) SYR SC SCH (10:07)
[2018-01-18] MEDS: METOCLOPRAMIDE INJ 10 MG/2 ML (REGLAN) IVP PRN ×2 (10:19→15:24)
--- NOTE | 2018-01-18 11:54 | Oncology Consultation ---
Visit Information Visit Information Date of Admission Jan 17, 2018 at 20:34 Attending Physician Ivania Gifford MD Admitting Physician No,Local Physician Chief Complaint Weakness, nausea after chemo treatment. Small bowel adenocarcinoma Admitted for intractable nausea and dehydration Interval History Ms. 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 Her disease was worsening with nausea abdominal pain lately. Dr Richter treated her with 5-FU and Avastin, last dose given . She felt more nausea and weakness since the treatment and presented to ER yesterday. CT showed small amount of fluid level in the small bowel but no obstruction. She was given IVF and anti-emetics and went home, then returned in the evening with the same complaints. She was admitted for dehydration and intractable nausea. She is more comfortable this morning and had some good sleep this morning. No Fever. I consulted the patient on: 01/18/18 11:54 Time Seen by Provider: 11:30 Constitutional: weakness Respiratory: no symptoms reported Cardiovascular: no symptoms reported Gastrointestinal: abdominal pain, nausea Skin: no symptoms reported Health Status Allergies Coded Allergies: ondansetron (Verified Adverse Reaction, Unknown, NAUSEA, 01/17/18) Causes paradoxical vomiting Home Medications L.acidoph & Paracasei,B.lactis (Probiotic) 1 Each Capsule, 1 CAP PO HS, ( Reported) Magnesium Oxide (Magnesium) 400 Mg Tablet, 800 MG PO BID PRN for CRAMPS, ( Reported) Multivitamin (One Daily) 1 Each Tablet, 1 TAB PO HS, (Reported) Omeprazole (Omeprazole) 20 Mg Capsule.dr, 20 MG PO DAILY PRN for HEARTBURN, ( Reported) Oxycodone HCl/Acetaminophen (Percocet 5-325 mg Tablet) 1 Each Tablet, 1 EACH PO Q4H, #20 Prescribed by: LAISHA METCALF on 12/25/17 1536 Promethazine HCl (Phenergan) 25 Mg Supp.rect, 25 MG RC Q6H PRN for NAUSEA/ VOMITING-1ST LINE, #20 Ref 0 Prescribed by: BEULAH MULLEN on 01/17/18 1427 Promethazine HCl (Promethazine Tablet) 25 Mg Tablet, 25 MG PO Q6H PRN for NAUSEA /VOMITING, #30 Ref 0 Prescribed by: BEULAH MULLEN on 01/17/18 1427 CXI-Rrrxjw-Bkqyeg Hx Patient Social History Alcohol Use: Denies Use Recreational Drug Use: No Smoking Status: Never a Smoker Recent Foreign Travel: No Contact w/other who traveled: No Recent Infectious Disease Expo: No Recent Hopitalizations: No Physical Abuse Screen: No Sexual Abuse: No Immunizations Up To Date Tetanus Booster (TDap): Unknown Family Medical History Significant Family History: No Pertinent Family Hx Family History: Anxiety disorder G8 SISTER Asthma G8 BROTHER Physical Exam Vital Signs Vital Signs - First Documented 01/17/18 19:40 Temp 97.1 Pulse 126 Resp 18 B/P (MAP) 131/95 (107) Pulse Ox 95 O2 Delivery Room Air Capillary Refill : Less Than 3 Seconds General Appearance: No Apparent Distress, Thin HEENT: PERRL/EOMI Neck: Non Tender, Supple Respiratory: No Accessory Muscle Use, No Respiratory Distress Cardiovascular: Regular Rate, Rhythm Gastrointestinal: Soft, Tenderness Extremity: Non Tender, No Calf Tenderness, No Pedal Edema Data Review Labs Laboratory Tests 01/17/18 19:50 01/18/18 05:10 Laboratory Tests 01/17/18 19:50: 01/18/18 05:10: White Blood Count 2.5L, Red Blood Count 3.61L, Hemoglobin 11.3#L, Hematocrit 32L , Neutrophils # (Auto) 1.5L, Lymphocytes # (Auto) 0.8L, Chloride Level 109H, Blood Urea Nitrogen 6L, Creatinine 0.59L, Glucose Level 129H, Calcium Level 8.0L , Alkaline Phosphatase 35L, Total Protein 5.4L Impression & Plan Impression & Plan IMP: 1. Adenocarcinoma of the small bowel, mets to retroperitoneal lymph nodes ( matted), adrenal and left atrium on 5-FU and Avastin treatment (01/12/18). She had good response to FOLFOX treatment in the past. 2. Intractable nausea. 3. Dehydration 4. Leukopenia from chemo REC: 1. Agree your current IVF and anti-emetics. She is more comfortable today 2. Continue supportive care until she is able to handle the some PO intake 3. Pain control with IV morphine 4. Anticipate 2-3 days of in-pt stay. 5. DR Richter will be back tomorrow Diagnosis Admission Status: DEBBIE Osorio MD Jan 18, 2018 11:54
[2018-01-18] MEDS: KETOROLAC 15 MG/ML VIAL IVP PRN (12:17)
[2018-01-18] MEDS ORDERED: PROM25TA14 PO (12:42)
[2018-01-18] MEDS ORDERED: OXYC-529 PO (12:42)
[2018-01-18] MEDS ORDERED: MORP30TA60 PO (12:42)
[2018-01-18] MEDS ORDERED: MAGNESIUM OXIDE (MAG-OX)400 MG TAB PO PRN (15:15)
[2018-01-19 00:57] VITALS: BP 112/60
[2018-01-19] MEDS: D5 1/2 NS W/KCL 20 MEQ/L 1,000 ML IV SCH ×4 (01:06→21:01)
[2018-01-19 04:33] VITALS: BP 105/58
[2018-01-19 06:15] LABS: BASOPHILS % (AUTO) 0 % (0-10); EOSINOPHILS # (AUTO) 0.1 10^3/uL (0.0-0.3); EOSINOPHILS % (AUTO) 4 % (0-10); HEMATOCRIT 31 % (35-52); HEMOGLOBIN 11.1 G/DL (11.5-16.0); LYMPHOCYTES # (AUTO) 1.1 X 10^3 (1.0-4.0); LYMPHOCYTES % (AUTO) 38 % (12-44); MEAN CORPUSCULAR HEMOGLOBIN 32 PG (25-34); MEAN CORPUSCULAR HGB CONC 36 G/DL (32-36); MEAN CORPUSCULAR VOLUME 90 FL (80-99); MEAN PLATELET VOLUME 10.3 FL (7.4-10.4); MONOCYTES # (AUTO) 0.3 X 10^3 (0.0-1.0); MONOCYTES % (AUTO) 9 % (0-12); NEUTROPHILS # (AUTO) 1.4 X 10^3 (1.8-7.8); NEUTROPHILS % (AUTO) 50 % (42-75); PLATELET COUNT 136 10^3/uL (130-400); RED BLOOD COUNT 3.48 10^6/uL (4.35-5.85); RED CELL DISTRIBUTION WIDTH 11.6 % (10.0-14.5); WHITE BLOOD COUNT 2.9 10^3/uL (4.3-11.0)
[2018-01-19 06:27] LABS: BUN/CREATININE RATIO 4; CALCIUM 8.1 MG/DL (8.5-10.1); CARBON DIOXIDE 23 MMOL/L (21-32); CHLORIDE 110 MMOL/L (98-107); CREATININE SERUM 0.56 MG/DL (0.60-1.30); GFR ESTIMATED > 60; GLUCOSE 107 MG/DL (70-105); POTASSIUM 3.4 MMOL/L (3.6-5.0); SODIUM 141 MMOL/L (135-145)
--- NOTE | 2018-01-19 07:19 | Progress Note-Hospitalist ---
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 She has chemo on 01/12 and since then has been very nauseated and unable to eat. She has not vomited or have any diarrhea. She continued to worsen throughout the weak and went to the ER yesterday for evaluation. She was found to be dehydration with intractable nausea and offered admission but declined. She went home and continued to worsen and returned to the ER. She was found to be very tachycardiac and weak but electrolytes were stable. Decision was made to admit for intractable nausea and dehydration. This morning she reports still not feeling well and having persistent nausea. Subjective/Events-last exam Pt report feeling slightly better but still very nauseated and unable to eat much. Would like to try eating later today though if feeling better. Objective Exam Vital Signs Vital Signs Date Time Temp Pulse Resp B/P (MAP) Pulse Ox O2 Delivery O2 Flow Rate FiO2 01/17/18 19:40 97.1 126 18 131/95 (107) 95 Room Air Capillary Refill : Less Than 3 Seconds General Appearance: No Apparent Distress, Cachetic Respiratory: Lungs Clear, No Respiratory Distress Cardiovascular: Regular Rate, Rhythm, No Murmur Neurologic/Psychiatric: Alert, Oriented x3 Results/Procedures Lab Laboratory Tests 01/19/18 06:00 Assessment/Plan Assessment and Plan Assess & Plan/Chief Complaint Intractable nausea and vomiting Diagnosis/Problems Diagnosis/Problems (1) Intractable nausea and vomiting Status: Acute Assessment & Plan: Likely secondary to chemo Allergy to Zofran Continue on Phenergan and reglan Qualifiers: Qualified Codes: R11.2 - Nausea with vomiting, unspecified (2) Dehydration Status: Acute Assessment & Plan: Continue IVF Monitor I/Os ADAT today (3) Small bowel cancer Status: Acute Assessment & Plan: last chemo on 01/12 Oncology consulted, appreciate recs retroperitoneal lymph node and adrenal mets (4) Cardiac mass Assessment & Plan: Noted on EDMAR from 11/2017 ?Mets (5) Generalized weakness Status: Acute Assessment & Plan: PT/OT ordered (6) Leukopenia Assessment & Plan: Likely due to chemo ANC 1400, afebrile Trend (7) Prophylactic measure Assessment & Plan: D5 1/2 NS +20KCL at 150ml/hr Lovenox CLD- ADAT as patient wishes ASHER MARTINEZ MD Jan 19, 2018 7:19 am
[2018-01-19] MEDS: POTASSIUM CL 10MEQ/50ML IVPB 50 ML IV SCH ×2 (07:44→08:45)
[2018-01-19] MEDS: ENOXAPARIN 40 MG/0.4 ML (LOVENOX) SYR SC SCH (07:44)
[2018-01-19] MEDS: METOCLOPRAMIDE INJ 10 MG/2 ML (REGLAN) IVP PRN ×2 (07:47→19:57)
[2018-01-19] MEDS: FAMOTIDINE 20MG/2ML IV (PEPCID) IVP SCH ×2 (07:53→20:57)
[2018-01-19 08:00] VITALS: BP 118/59
[2018-01-19] MEDS: KETOROLAC 15 MG/ML VIAL IVP PRN (08:46)
--- NOTE | 2018-01-19 09:45 | Physical Therapy Evaluation ---
PT Evaluation-General Medical Diagnosis Admission Date Jan 19, 2018 at 09:01 Medical Diagnosis: weakness/dehydration Onset Date: Jan 19, 2018 Therapy Diagnosis Therapy Diagnosis: generalized weakness/debility Height/Weight Height (Feet): 5 Height (Inches): 8.00 Weight (Pounds): 110 Weight (Ounces): 6.0 Precautions Precautions/Isolations: Chemo Precautions Weight Bear Status Right Lower Extremity: Right Weight Bearing/Tolerated Left Lower Extremity: Left Weight Bearing/Tolerated Referral Physician: Balta Reason for Referral: Evaluation/Treatment Medical History Additional Medical History metastatic bowel cancer Current History ED x 2 visits with refusal to admit on visit 1; weakness from chemo Reviewed History: Yes Social History Home: Apartment Prior/Core [facility] Prior Level of Function Functional [place] Measure 0=Not Assessed/NA 4=Minimal Assistance 1=Total Assistance 5=Supervision or Setup 2=Maximal Assistance 6=Modified [place] 3=Moderate Assistance 7=Complete [place] Bed Mobility: 7 Transfers (B,C,W/C) (FIM): 7 Gait: 7 PT Evaluation-Current Subjective Patient agrees to PT. Patient c/o abdominal and back pain. Pain Numeric Pain Scale: 6 Location: Lower Location Body Site: Abdomen Pain Description: Ache, Pressure Objective Patient Orientation: Normal For Age Attachments: IV ROM/Strength ROM Lower Extremities bilateral LE WNL Strength Lower Extremities 4/5 grossly bilaterally Integumentary/Posture Integumentary refer to nursing notes Bowel Incontinence: No Bladder Incontinence: No Posture WNL Neuromuscular (Tone, Coordination, Reflexes) grossly intact Sensory Vision: Functional Hearing: Functional Sensation Right Lower Extremit: Intact Sensation Left Lower Extremity: Intact Transfers Functional [place] Measure 0=Not Assessed/NA 4=Minimal Assistance 1=Total Assistance 5=Supervision or Setup 2=Maximal Assistance 6=Modified [place] 3=Moderate Assistance 7=Complete [place] Transfers (B, C, W/C) (FIM): 7 Scootin Supine to/from Sit: 7 Sit to/from Stand: 7 Gait Mode of Locomotion: Walk Anticipated Mode of Locomotion: Walk Gait (FIM): 7 Distance (FIM): 3=150 ft Distance: 400' Gait Level of Assist: 7 Gait Assistive Device: None Comments/Gait Description safe and functional Balance Sitting Static: Normal Sitting Dynamic: Normal Standing Static: Normal Standing Dynamic: Normal Treatment Review bilateral LE exercises for patient to perform independently PRN Assessment/Needs 42 y.o. female, is currently at independent PLOF with all gross motor skills. Patient educated on ambulating PRN in hallway and to perform bilateral LE exercises to increase strength independently. Patient voices understanding. No skilled PT indicated at this time. Rehab Potential: Guarded PT Plan Treatment/Plan Treatment Plan: Discontinue PT, goals met Treatment Plan: Other Treatment Duration: Jan 19, 2018 Frequency: 1 time per week Estimated Hrs Per Day: .25 hour per day Patient and/or Family Agrees t: Yes Safety Risks/Education Patient Education: Issued Written HEP Time/GCodes Time In: 830 Time Out: 843 Total Billed Treatment Time: 13 Total Billed Treatment 1 visit EVLowC 13 min G Codes Necessary: No OLGA LAI PT Jan 19, 2018 09:45
[2018-01-19] MEDS: fentaNYL INJECTION 100 MCG/2 ML AMP IV PRN ×2 (09:54→19:56)
[2018-01-19 12:00] VITALS: BP 115/57
[2018-01-19 16:26] VITALS: BP 115/70
--- NOTE | 2018-01-19 16:42 | Progress Note-Standard ---
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 She was on palliative chemotherapy with FOLFOX + Avastin regimen but developed allergic reaction to Oxaliplatin. She was on maintainence treatment with 5FU + Avastin regimen with good control of disease. She took a break from chemo during the holidays but started having abdominal symptoms soon thereafter. Restarted chemotherapy with 5FU + Avastin regimen last week. Admitted with nausea and dehydration with abdominal pain. Feels better with IV fluids. Starting to eat small amounts and tolerating well. Had a bowel movement yesterday. CT abdomen and pelvis showing small amount of ascitis developing. Advance diet as the Ileus is improving. Increase activity as tolerated. Home when stable. Overall prognosis poor from metastatic cancer standpoint. Will follow with you. MARINO TRAN Jan 19, 2018 16:42
[2018-01-19 20:38] VITALS: BP 122/75
[2018-01-20 00:13] VITALS: BP 110/57
[2018-01-20] MEDS: D5 1/2 NS W/KCL 20 MEQ/L 1,000 ML IV SCH ×4 (03:31→23:14)
[2018-01-20 03:42] VITALS: BP 102/57
[2018-01-20 08:00] VITALS: BP 103/55
[2018-01-20] MEDS: ENOXAPARIN 40 MG/0.4 ML (LOVENOX) SYR SC SCH (09:00)
[2018-01-20] MEDS: FAMOTIDINE 20MG/2ML IV (PEPCID) IVP SCH ×2 (09:00→20:14)
[2018-01-20] MEDS: fentaNYL INJECTION 100 MCG/2 ML AMP IV PRN ×3 (09:19→16:34)
--- NOTE | 2018-01-20 11:22 | Occupational Therapy Eval ---
OT Evaluation-General/PLF Medical Diagnosis Admission Date Jan 19, 2018 at 09:01 Medical Diagnosis: weakness/dehydration Onset Date: Jan 19, 2018 Therapy Diagnosis Therapy Diagnosis: Weakness, Decreased ADL skills Height/Weight Height (Feet): 5 Height (Inches): 8.00 Weight (Pounds): 110 Weight (Ounces): 6.0 Precautions Precautions/Isolations: Chemo Precautions Safety Interventions: None Weight Bear Status Weight Bearing Restriction: Weight Bearing/Tolerated Referral Physician: Balta Referral Reason: Activity Tolerance, Self Care, Evaluation/Treatment, Strengthening/ROM Medical History Additional Medical History Bowel CA with mets, small bowel resection, right atrial mass Current History Pt. finished chemo but has had significant nausea. Reviewed History: Yes Social History Home: Apartment Current Living Status: Children Entry Into Home: Elevator Pt. states that she lives on the 4th floor of the [facility] hotel, but that she has an elevator. Otherwise, she only has 2 steps to use. ADL-Prior Level of Function ADL PLOF Comments Pt. states that previous to this hospitalization, she was independent with daily tasks. 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 Pt. drives but states that her truck is broke down right now. DME/Equipment: Shower Drive Self: Yes OT Current Status Subjective Pt. states that her nausea has subsided. No other pain reported. Appearance Pt. in bed. Eating breakfast. States that she is feeling much better. Mental Status/Objective Patient Orientation: Person, Place, Time, Situation Attachments: IV Current Upper Extremity ROM WFL OT asks pt. if she would like a theraband for use in her room. Pt. states that she does not feel that she will need it. States, "I would like to concentrate on my walking right now." ADL-Treatment Functional [place] Measure 0=Not Assessed/NA 4=Minimal Assistance 1=Total Assistance 5=Supervision or Setup 2=Maximal Assistance 6=Modified [place] 3=Moderate Assistance 7=Complete IndependenceIRFPAI Quality Coding Scale 6 Independent with activity with or without an assistive device 5 Patient requires set up or clean up by helper. Patient completes activity by themselves 4 Supervision or touching assist (CGA). Douglass provide cues , steadying assist 3 The helper provides less than half the effort to complete the activity 2 The helper provides more than half the effort to complete the activity 1 Dependent. The helper does all the effort to complete an activity 7 Patient refused to complete or attempt activity 9 The patient did not perform the activity before the current illness or injury 88 Not attempted due to Medical conditions or safety concerns Eating (FIM): 7 Grooming (FIM): 6 (per pt.) Bathing (FIM): 6 (per pt. Pt. states that she took a shower last night and had no difficulty.) Upper Body Dressing (FIM): 7 Lower Body Dressing (FIM): 7 (per pt.) Toileting (FIM): 6 (per pt. Pt. states that she has had no difficulty toileting herself, and was able to cleanse self after her first BM.) Transfers (B, C, W/C) (FIM): 6 Toilet/Commode Transfer (FIM): 6 Other Treatments Pt. states that she has been ambulating in room on her own. States that she is doing well. No difficulty reported with bathing or dressing. No OT needs at this time. Pt. declines theraband and strengthening program at this time. However, pt. is educated that if she needs anything else, or if anything arises , OT would be happy to come back. Education OT Patient Education: Purpose of tx/functional activities, Rehab process Teaching Recipient: Patient Teaching Methods: Discussion Response to Teaching: Verbalize Understanding OT Short Term Goals Short Term Goals 1=Demonstrate adherence to instructed precautions during ADL tasks. 2=Patient will verbalize/demonstrate understanding of assistive devices/ modifications for ADL. 3=Patient will improve strength/tolerance for activity to enable patient to perform ADL's. OT Medical Office Scheduler Goals Mcc Goals Time Frame: Jan 20, 2018 Additional Goals: 2-Verbalize Understanding 1=Demonstrate adherence to instructed precautions during ADL tasks. 2=Patient will verbalize/demonstrate understanding of assistive devices/ modifications for ADL. 3=Patient will improve strength/tolerance for activity to enable patient to perform ADL's. Pt. and OT have discussion regarding pt's needs and abilities at this time. No OT is warranted at this time. Pt. is educated to let nursing know to re- consult OT if she should have some issues. OT Education/Plan Problem List/Assessment Assessment: No Skilled OT Needs ID'd Discharge Recommendations Plan/Recommendations: Discontinue OT Therapy D/C Recommendations: Home w/ Family Support Treatment Plan/Plan of Care Treatment,Training & Education: Yes Treatment Duration: Jan 20, 2018 Frequency: 1 time per week Estimated Hrs Per Day: .25 hour per day Agreement: Yes Rehab Potential: Good Time/GCodes Start Time: 09:45 Stop Time: 09:55 Total Time Billed (hr/min): 10 Billed Treatment Time 1, EVL x 10minutes Selfcur-CI Selfgoal-CI SelfDC-CI BHAVNA GARCIA OT Jan 20, 2018 11:21
[2018-01-20 12:00] VITALS: BP 121/61
--- NOTE | 2018-01-20 15:35 | Progress Note-Hospitalist ---
Standard Progress Note Progress Notes/Assess & Plan Date Seen 01/20/18 Time Seen by Provider: 15:30 Diagnosis Intractable nausea and dehydration Assess & Plan/Chief Complaint The patient is a 42-year-old white female who has a history of a poorly differentiated adenocarcinoma the small intestine. She had been on chemotherapy and apparently done relatively well. Because of good performance she had requested a rest from chemotherapy. She states that within the week after missing her first treatment she began having discomfort. She had further workup including a PET scan and it was determined that she had tumor activity again. She took chemotherapy on 01/12 and has done poorly since then. She had a rather serious nausea and was unable to eat is taking fluids poorly. She had a trip to the emergency room but declined admission. She continued to worsen and on 01/17 she return to the emergency room and was admitted. She was noted to be tachycardic and relatively hypotensive. She continues to feel somewhat nauseated and with no real appetite. She states her last bowel movement was prior to Friday. Physical exam: We had a slender white female who was pleasant. Lungs were clear to auscultation. CV was regular without murmur. Abdomen was generally and modestly tender. Bowel sounds were hypoactive. No masses were palpated. Impression: Adenocarcinoma of the small intestine. 2.post-chemotherapy intractable nausea and subsequent dehydration. Plan: Continue IV fluids and monitor output Labs Laboratory Tests 01/19/18 06:00 JONNY MEYERS MD Jan 20, 2018 15:35
[2018-01-20] MEDS: KETOROLAC 15 MG/ML VIAL IVP PRN (15:50)
[2018-01-20 16:00] VITALS: BP 135/66
[2018-01-20] MEDS: METOCLOPRAMIDE INJ 10 MG/2 ML (REGLAN) IVP PRN (16:38)
[2018-01-20] MEDS ORDERED: morphine ER 30 MG (MS CONTIN) TAB PO SCH (17:00)
[2018-01-20] MEDS ORDERED: OXYCODONE HCL PO PRN (17:00)
[2018-01-20] MEDS: morphine ER 30 MG (MS CONTIN) TAB PO SCH (21:48)
[2018-01-20 23:32] VITALS: BP 102/55
[2018-01-21] MEDS: D5 1/2 NS W/KCL 20 MEQ/L 1,000 ML IV SCH ×2 (05:26→12:22)
[2018-01-21 08:09] VITALS: BP 97/51
[2018-01-21] MEDS: ENOXAPARIN 40 MG/0.4 ML (LOVENOX) SYR SC SCH ×2 (08:51→08:54)
[2018-01-21] MEDS: FAMOTIDINE 20MG/2ML IV (PEPCID) IVP SCH (08:51)
[2018-01-21] MEDS: morphine ER 30 MG (MS CONTIN) TAB PO SCH (10:50)
--- NOTE | 2018-01-21 11:39 | Discharge Summary-Hospitalist ---
Diagnosis/Chief Complaint Date of Admission Jan 19, 2018 at 09:01 Date of Discharge Admission Diagnosis Intractable nausea and dehydration Discharge Diagnosis (1) Intractable nausea and vomiting Status: Acute Assessment & Plan: Likely secondary to chemo Allergy to Zofran Continue on Phenergan and reglan (2) Dehydration Status: Acute Assessment & Plan: Continue IVF Monitor I/Os ADAT today (3) Small bowel cancer Status: Acute Assessment & Plan: last chemo on 01/12 Oncology consulted, appreciate recs retroperitoneal lymph node and adrenal mets (4) Cardiac mass Assessment & Plan: Noted on EDMAR from 11/2017 ?Mets (5) Generalized weakness Status: Acute Assessment & Plan: PT/OT ordered (6) Leukopenia Assessment & Plan: Likely due to chemo ANC 1400, afebrile Trend (7) Prophylactic measure Assessment & Plan: D5 1/2 NS +20KCL at 150ml/hr Lovenox CLD- ADAT as patient wishes Discharge Summary Discharge Physical Examination Allergies: Coded Allergies: ondansetron (Verified Adverse Reaction, Unknown, NAUSEA, 01/17/18) Causes paradoxical vomiting Vitals & I&Os Vital Signs Date Time Temp Pulse Resp B/P (MAP) Pulse Ox O2 Delivery O2 Flow Rate FiO2 01/21/18 11:55 98.4 95 20 113/58 (76) Room Air 01/21/18 08:09 98 Hospital Course Notes from 01/21/18 bushler: Pt has not eaten yet and is still nauseous Pt Interview: Pt confirms having been treated by me before, about a year ago. Pt states her daughter is about 7 now. Pt was eating prior to interview Pt denies BMs yet, but states she had not eaten much before Physical exam stable. Lung sound perfect. Pt confirms a small amount of pain Pt states she just sees Dr. Richter and no other specialties; she saw him two days ago and will see him again Friday Fluids discussed and will DC since pt is eating Pt encouraged to ambulate Possible DC today discussed Pt confirms having Phenergan tablets at home No fever, vital signs stable, pleasant, improved, sitting in chair Regular rate and rhythm, clear to auscultation bilaterally No edema Plan: DC fluids, continue to improve diet Ambulate Possible DC today after lunch Scribed by Fernanda Sparks under direct supervision of Dr. Ruma Camargo. Discussion & Recommendations Discharge Planning: <30 minutes discharge planning Discharge Home Medications: Active Scripts Active Reported Promethazine Tablet (Promethazine HCl) 25 Mg Tablet 25 Mg PO Q6H PRN Oxycodone HCl 5 Mg Tablet 5-10 Mg PO Q4H PRN Ms Contin (Morphine Sulfate) 30 Mg Tablet.er 30 Mg PO Q12H Omeprazole 20 Mg Capsule.dr 20 Mg PO DAILY PRN Magnesium (Magnesium Oxide) 400 Mg Tablet 800 Mg PO BID PRN Probiotic (L.acidoph & Paracasei,B.lactis) 1 Each Capsule 1 Cap PO HS One Daily (Multivitamin) 1 Each Tablet 1 Tab PO HS Instructions to patient/family Please see electronic discharge instructions given to patient. Clinical Quality Measures DVT/VTE Risk/Contraindication: Risk Factor Score Per Nursin RFS Level Per Nursing on Admit: 4+=Very High Problem Qualifiers (1) Intractable nausea and vomiting: Vomiting type: unspecified Qualified Codes: R11.2 - Nausea with vomiting, unspecified RUMA CAMARGO DO Jan 21, 2018 11:39
[2018-01-21 11:55] VITALS: BP 113/58
[2018-01-21] MEDS ORDERED: FAMOTIDINE 20 MG (PEPCID) TABLET PO SCH (21:00)
== END 2018-01-21 14:50 | disposition home or self-care (01) | DRG 641 ==
LOC: EDUNIT# 19:39 → ER 19:40 → UNDOADMOB 20:34 → 4TH 20:34 → INTOOBSV 01-19 09:01 → OBSVTOIN 01-19 09:01
PROVIDERS: ADMIT Family Medicine; ATTEND Family Medicine
DX: E86.0 Dehydration (principal); R11.2 Nausea with vomiting, unspecified; C17.1 Malignant neoplasm of jejunum; C77.2 Secondary and unspecified malignant neoplasm of intra-abdominal lymph nodes; C79.89 Secondary malignant neoplasm of other specified sites; C79.71 Secondary malignant neoplasm of right adrenal gland; G89.3 Neoplasm related pain (acute) (chronic); D72.819 Decreased white blood cell count, unspecified; T45.1X5A Adverse effect of antineoplastic and immunosuppressive drugs, initial encounter
CPT/HCPCS: 36415; 80048; 80053; 83690; 83735; 85025; G0378

== ENCOUNTER 2018-01-23 10:26 | Emergency (ER) | payer OTHER ==
[~2018-01-23] VITALS: Ht 172.7 cm; Wt 49.9 kg
[~2018-01-23 10:26] MED LIST changes: +MORP30TA60 PO; +OXYC-529 PO
[2018-01-23] MEDS ORDERED: FAMOTIDINE 20MG/2ML IV (PEPCID) IV STA (11:21)
[2018-01-23] MEDS ORDERED: PROMETHAZINE INJ 25 MG/ML (PHENERGAN) AMP IVP STA (11:21)
[2018-01-23] MEDS ORDERED: NS IV 1000 ML 1,000 ML IV SCH ×2 (11:21→13:02)
[2018-01-23 11:31] LABS: BASOPHILS % (AUTO) 0 % (0-10); EOSINOPHILS # (AUTO) 0.1 10^3/uL (0.0-0.3); EOSINOPHILS % (AUTO) 1 % (0-10); HEMATOCRIT 38 % (35-52); HEMOGLOBIN 13.3 G/DL (11.5-16.0); LYMPHOCYTES # (AUTO) 0.4 X 10^3 (1.0-4.0); LYMPHOCYTES % (AUTO) 12 % (12-44); MEAN CORPUSCULAR HEMOGLOBIN 32 PG (25-34); MEAN CORPUSCULAR HGB CONC 35 G/DL (32-36); MEAN CORPUSCULAR VOLUME 90 FL (80-99); MEAN PLATELET VOLUME 10.5 FL (7.4-10.4); MONOCYTES # (AUTO) 0.4 X 10^3 (0.0-1.0); MONOCYTES % (AUTO) 10 % (0-12); NEUTROPHILS # (AUTO) 2.7 X 10^3 (1.8-7.8); NEUTROPHILS % (AUTO) 76 % (42-75); PLATELET COUNT 159 10^3/uL (130-400); RED BLOOD COUNT 4.19 10^6/uL (4.35-5.85); RED CELL DISTRIBUTION WIDTH 12.5 % (10.0-14.5); WHITE BLOOD COUNT 3.5 10^3/uL (4.3-11.0)
--- NOTE | 2018-01-23 11:53 | ED GI ---
General Chief Complaint: General Problems/Pain Stated Complaint: NAUSEA/VOMITING WEAKNESS Nursing Triage Note: ARRIVED VIA WC TO ROOM 06. COMLPAINS OF GENERALIZED WEAKNESS N/V. WAS JUST DISCHARGED FROM THE HOSPITAL ON [facility] FOR SAME THING AND WAS SEEN AT THE CAN[facility]ER CENTER YESTERDAY AND GIVEN FLUIDS AND MEDICATION. STATES ZOFRAN MAKES HER SICK AND PO PHENERGAN NOT HELPING. Sepsis Screen: No Definite Risk Source of Information: Patient, Family Exam Limitations: No Limitations History of Present Illness Date Seen by Provider: Jan 23, 2018 Time Seen by Provider: 11:53 Allergies and Home Medications Allergies Coded Allergies: ondansetron (Verified Adverse Reaction, Unknown, NAUSEA, 01/17/18) Causes paradoxical vomiting Home Medications L.acidoph & Paracasei,B.lactis 1 Each Capsule, 1 CAP PO HS, (Reported) Magnesium Oxide 400 Mg Tablet, 800 MG PO BID PRN for CRAMPS, (Reported) Methylprednisolone 4 Mg Tablet, 4 MG PO QID PRN for NAUSEA/VOMITING-1ST LINE Prescribed by: MAGUI ALANIZ on 01/23/18 1633 Metoclopramide HCl 5 Mg Tablet, 5 MG PO QID Prescribed by: MAGUI ALANIZ on 01/23/18 1633 Morphine Sulfate 30 Mg Tablet.er, 30 MG PO Q12H, (Reported) Multivitamin 1 Each Tablet, 1 TAB PO HS, (Reported) Omeprazole 20 Mg Capsule.dr, 20 MG PO DAILY PRN for HEARTBURN, (Reported) Oxycodone HCl 5 Mg Tablet, 5-10 MG PO Q4H PRN for PAIN-SEVERE TO BREAKTHROUGH, ( Reported) Promethazine HCl 25 Mg Tablet, 25 MG PO Q6H PRN for NAUSEA/VOMITING, (Reported) Past Fhqnple-Zdynjr-Hwbbtz Hx Patient Social History Recent Foreign Travel: No Contact w/Someone Who Travel: No Recent Infectious Disease Expo: No Recent Hopitalizations: No Immunizations Up To Date Tetanus Booster (TDap): Unknown PED Vaccines UTD: No Seasonal Allergies Seasonal Allergies: No Surgeries History of Surgeries: Yes (port placement) Surgeries: Abdominal Respiratory History of Respiratory Disorde: No Cardiovascular History of Cardiac Disorders: Yes (right atrial mass) Neurological History of Neurological Disord: No Reproductive System Hx Reproductive Disorders: No Genitourinary History of Genitourinary Disor: No Gastrointestinal History of Gastrointestinal Di: Yes Gastrointestinal Disorders: Obstructive Bowel Musculoskeletal History of Musculoskeletal Dis: No Endocrine History of Endocrine Disorders: No HEENT History of HEENT Disorders: No Loss of Vision: Denies Hearing Impairment: Denies Cancer History of Cancer: Yes Cancer: Small Bowel Did You Recieve Any Treatments: Yes Type of Tx Receive: Chemotherapy, Surgical Intervention Psychosocial History of Psychiatric Problem: No Integumentary History of Skin or Integumenta: No Blood Transfusions History of Blood Disorders: No Adverse Reaction to a Blood Tr: No Family Medical History Significant Family History: No Pertinent Family Hx Family Medial History: Anxiety disorder G8 SISTER Asthma G8 BROTHER Physical Exam Vital Signs VS - Last 72 Hours, by Label 01/23/18 01/23/18 10:33 17:20 Temp 98.0 Pulse 111 78 Resp 18 18 B/P (MAP) 118/81 (93) 121/73 Pulse Ox 98 98 Capillary Refill : Less Than 3 Seconds Progress/Results/Core Measures Results/Orders Lab Results Laboratory Tests Test 01/23/18 10:55 01/23/18 12:03 Range/Units White Blood Count 3.5 L 4.3-11.0 10^3/uL Red Blood Count 4.19 L 4.35-5.85 10^6/uL Hemoglobin 13.3 11.5-16.0 G/DL Hematocrit 38 35-52 % Mean Corpuscular Volume 90 80-99 FL Mean Corpuscular Hemoglobin 32 25-34 PG Mean Corpuscular Hemoglobin Concent 35 32-36 G/DL Red Cell Distribution Width 12.5 10.0-14.5 % Platelet Count 159 130-400 10^3/uL Mean Platelet Volume 10.5 H 7.4-10.4 FL Neutrophils (%) (Auto) 76 H 42-75 % Lymphocytes (%) (Auto) 12 12-44 % Monocytes (%) (Auto) 10 0-12 % Eosinophils (%) (Auto) 1 0-10 % Basophils (%) (Auto) 0 0-10 % Neutrophils # (Auto) 2.7 1.8-7.8 X 10^3 Lymphocytes # (Auto) 0.4 L 1.0-4.0 X 10^3 Monocytes # (Auto) 0.4 0.0-1.0 X 10^3 Eosinophils # (Auto) 0.1 0.0-0.3 10^3/uL Basophils # (Auto) 0.0 0.0-0.1 10^3/uL Sodium Level 138 135-145 MMOL/L Potassium Level 3.7 3.6-5.0 MMOL/L Chloride Level 102 98-107 MMOL/L Carbon Dioxide Level 24 21-32 MMOL/L Anion Gap 12 5-14 MMOL/L Blood Urea Nitrogen 5 L 7-18 MG/DL Creatinine 0.64 0.60-1.30 MG/DL Estimat Glomerular Filtration Rate > 60 BUN/Creatinine Ratio 8 Glucose Level 117 H 70-105 MG/DL Calcium Level 9.1 8.5-10.1 MG/DL Total Bilirubin 0.6 0.1-1.0 MG/DL Aspartate Amino Transf (AST/SGOT) 23 5-34 U/L Alanine Aminotransferase (ALT/SGPT) 22 0-55 U/L Alkaline Phosphatase 45 40-136 U/L Total Protein 6.6 6.4-8.2 GM/DL Albumin 4.0 3.2-4.5 GM/DL Lipase 18 8-78 U/L Urine Color YELLOW Urine Clarity CLEAR Urine pH 8 5-9 Urine Specific [place] 1.010 L 1.016-1.022 Urine Protein NEGATIVE NEGATIVE Urine Glucose (UA) NEGATIVE NEGATIVE Urine Ketones NEGATIVE NEGATIVE Urine Nitrite NEGATIVE NEGATIVE Urine Bilirubin NEGATIVE NEGATIVE Urine Urobilinogen NORMAL NORMAL MG/DL Urine Leukocyte Esterase NEGATIVE NEGATIVE Urine RBC (Auto) NEGATIVE NEGATIVE Urine RBC NONE /HPF Urine WBC NONE /HPF Urine Squamous Epithelial Cells 0-2 /HPF Urine Crystals NONE /LPF Urine Bacteria NEGATIVE /HPF Urine Casts NONE /LPF Urine Mucus NEGATIVE /LPF Urine Culture Indicated NO My Orders Orders - MAGUI ALANIZ Cbc With Automated Diff (01/23/18 11:21) Comprehensive Metabolic Panel (01/23/18 11:21) Lipase (01/23/18 11:21) Ua Culture If Indicated (01/23/18 11:21) Saline Lock/Iv-Start (01/23/18 11:21) Ns Iv 1000 Ml (Sodium Chloride 0.9%) (01/23/18 11:21) Promethazine Injection (Phenergan Injec (01/23/18 11:21) Famotidine Injection (Pepcid Injection) (01/23/18 11:21) Ns Iv 1000 Ml (Sodium Chloride 0.9%) (01/23/18 13:02) Scopolamine Patch (Transderm-Scop Patch) (01/23/18 13:15) Metoclopramide Injection (Reglan Injecti (01/23/18 13:15) Dexamethasone Pf Injection (Decadron Pf (01/23/18 16:18) Methylnaltrexone Injection (Relistor Inj (01/23/18 16:30) Medications Given in ED Vital Signs/I&O Vital Sign - Last 12Hours 01/23/18 01/23/18 10:33 17:20 Temp 98.0 Pulse 111 78 Resp 18 18 B/P (MAP) 118/81 (93) 121/73 Pulse Ox 98 98 Blood Pressure Mean: 93 Departure Impression Impression: Primary Impression: Nausea and vomiting Additional Impressions: Metastatic adenocarcinoma to small intestine Infestation by bed bug Disposition: HOME, SELF-CARE Condition: Improved Departure-Patient Inst. Decision time for Depature: 16:38 Referrals: MARINO TRAN,LOCAL PHYSICIAN (PCP) Primary Care Physician Patient Instructions: Nausea and Vomiting With Cancer Treatment, Nausea and Vomiting, Adult (DC) Add. Discharge Instructions: All discharge instructions reviewed with patient and/or family. Voiced understanding. Medications as instructed. Continue usual home medications. Eat several small meals throughout the day. Follow-up on Friday with the cancer Center as previously scheduled. Discuss a dietary consult with Dr. Tran. Add the protein powder to your meals as needed. Consider hiring an lithographic plate maker for the bedbug infestation. Wash all bedding in hot water. Return to the emergency department for worsened symptoms, fever, decreased urination, or any other concerns. Scripts Methylprednisolone (Methylprednisolone) 4 Mg Tablet 4 MG PO QID Y for NAUSEA/VOMITING-1ST LINE, #30 TAB 0 Refills Prov: MAGUI ALANIZ 01/23/18 Metoclopramide HCl (Metoclopramide HCl) 5 Mg Tablet 5 MG PO QID, #30 TAB 0 Refills Prov: MAGUI ALANIZ 01/23/18 MAGUI ALANIZ Jan 23, 2018 11:53
[2018-01-23 11:57] LABS: ALANINE AMINOTRANSFERASE 22 U/L (0-55); ALKALINE PHOSPHATASE 45 U/L (40-136); BILIRUBIN,TOTAL 0.6 MG/DL (0.1-1.0); BUN/CREATININE RATIO 8; CALCIUM 9.1 MG/DL (8.5-10.1); CARBON DIOXIDE 24 MMOL/L (21-32); CHLORIDE 102 MMOL/L (98-107); CREATININE SERUM 0.64 MG/DL (0.60-1.30); GFR ESTIMATED > 60; GLUCOSE 117 MG/DL (70-105); LIPASE 18 U/L (8-78); POTASSIUM 3.7 MMOL/L (3.6-5.0); SODIUM 138 MMOL/L (135-145); TOTAL PROTEIN 6.6 GM/DL (6.4-8.2)
[2018-01-23 12:23] LABS: BILIRUBIN,URINE NEGATIVE (NEGATIVE); CLARITY,URINE CLEAR; COLOR,URINE YELLOW; GLUCOSE, URINE (UA) NEGATIVE (NEGATIVE); KETONES,URINE NEGATIVE (NEGATIVE); LEUKOCYTE ESTERASE ,URINE NEGATIVE (NEGATIVE); NITRITE,URINE NEGATIVE (NEGATIVE); PH,URINE 8 (5-9); PROTEIN,URINE NEGATIVE (NEGATIVE); UROBILINOGEN,URINE NORMAL (NORMAL)
[2018-01-23 12:32] LABS: BACTERIA,URINE NEGATIVE /HPF; SQUAMOUS EPITHELIAL CELL,UR 0-2 /HPF
[2018-01-23] MEDS ORDERED: METOCLOPRAMIDE INJ 10 MG/2 ML (REGLAN) IVP ONE (13:15)
[2018-01-23] MEDS ORDERED: SCOPOLAMINE 1.5 MG (TRANSDERM-SCOP) PATCH TD ONE (13:15)
[2018-01-23] MEDS ORDERED: DEXAMETHASONE PF 10 MG/ML (DECADRON) VIAL IV STA (16:18)
[2018-01-23] MEDS ORDERED: METHYLNALTREXONE 12 MG/0.6 ML (RELISTOR) VIAL SQ ONE (16:30)
[2018-01-23] MEDS ORDERED: METH4TAB11 PO (16:33)
[2018-01-23] MEDS ORDERED: METO5TAB2 PO (16:33)
[2018-01-23 17:20] VITALS: BP 121/73
== END 2018-01-23 17:20 | disposition home or self-care (01) ==
LOC: EDUNIT# 10:26 → ER 10:28
DX: R11.2 Nausea with vomiting, unspecified (principal); C17.9 Malignant neoplasm of small intestine, unspecified; C79.9 Secondary malignant neoplasm of unspecified site; B88.8 Other specified infestations; Z88.8 Allergy status to other drugs, medicaments and biological substances
CPT/HCPCS: 36415; 80053; 81000; 83690; 85025; 96361; 96372; 96374; 96375

== ENCOUNTER 2018-01-24 20:52 | Emergency (ER) | payer OTHER ==
[~2018-01-24] VITALS: Ht 172.7 cm; Wt 50.1 kg
[~2018-01-24 20:52] MED LIST changes: +METH4TAB11 PO; +METO5TAB2 PO
[2018-01-24] MEDS ORDERED: NS IV 1000 ML 1,000 ML IV STA (23:53)
[2018-01-24] MEDS ORDERED: PROMETHAZINE INJ 25 MG/ML (PHENERGAN) AMP IVP STA (23:53)
[2018-01-25] MEDS ORDERED: diphenhydrAMINE 50 MG/ML INJ (BENADRYL) IV ONE
--- NOTE | 2018-01-25 00:14 | ED GI ---
General Chief Complaint: Abdominal/GI Problems Stated Complaint: NAUSEA Nursing Triage Note: PERSISTENT NAUSEA AFTER CHEMO 01/19/18 Sepsis Screen: No Definite Risk Source of Information: Patient Exam Limitations: No Limitations History of Present Illness Date Seen by Provider: Jan 24, 2018 Time Seen by Provider: 23:37 Initial Comments Here with report of persistent nausea. Had chemotherapy a week ago and has had some problems with nausea and vomiting since. Had her home medicines tonight and that did not help. Denies fever or chills. States that she is drinking okay and denies problems with diarrhea or dysuria. States pain is adequately controlled with her current pain medicine regimen. Timing/Duration: 12-24 Hours, Changing Over Time Severity/Quality: Moderate, Other (nausea) Location: Generalized Abdomen Radiation: No Radiation Activities at Onset: None Modifying Factors: Worsens With Eating Associated Symptoms: No Back Pain, No Chest Pain, No Fever/Chills, Fatigue, Nausea/Vomiting, No Shortness of Air, Weakness Allergies and Home Medications Allergies Coded Allergies: ondansetron (Verified Adverse Reaction, Unknown, NAUSEA, 01/17/18) Causes paradoxical vomiting Home Medications Rakeshacidlopez & ParacaseHerber lilactis 1 Each Capsule, 1 CAP PO HS, (Reported) Magnesium Oxide 400 Mg Tablet, 800 MG PO BID PRN for CRAMPS, (Reported) Methylprednisolone 4 Mg Tablet, 4 MG PO QID PRN for NAUSEA/VOMITING-1ST LINE Prescribed by: MAGUI ALANIZ on 01/23/18 1633 Metoclopramide HCl 5 Mg Tablet, 5 MG PO QID Prescribed by: MAGUI ALANIZ on 01/23/18 1633 Morphine Sulfate 30 Mg Tablet.er, 30 MG PO Q12H, (Reported) Multivitamin 1 Each Tablet, 1 TAB PO HS, (Reported) Omeprazole 20 Mg Capsule.dr, 20 MG PO DAILY PRN for HEARTBURN, (Reported) Oxycodone HCl 5 Mg Tablet, 5-10 MG PO Q4H PRN for PAIN-SEVERE TO BREAKTHROUGH, ( Reported) Promethazine HCl 25 Mg Tablet, 25 MG PO Q6H PRN for NAUSEA/VOMITING, (Reported) Patient Home Medication List Home Medication List Reviewed: Yes Review of Systems Constitutional: see HPI, No chills, No fever EENTM: No Symptoms Reported Respiratory: No Symptoms Reported Cardiovascular: No Symptoms Reported, Denies Chest Pain, Lightheadedness Gastrointestinal: See HPI, Denies Abdominal Pain, Denies Diarrhea, Nausea, Denies Vomiting Genitourinary: No Symptoms Reported Musculoskeletal: no symptoms reported Skin: no symptoms reported All Other Systems Reviewed Negative Unless Noted: Yes Past Wbrisqx-Bgzkjm-Aleobw Hx Patient Social History Alcohol Use: Denies Use Number of Drinks Today: Alcohol Beverage of Choice: Wine Recreational Drug Use: No Smoking Status: Never a Smoker 2nd Hand Smoke Exposure: No Recent Foreign Travel: No Contact w/Someone Who Travel: No Recent Infectious Disease Expo: No Recent Hopitalizations: No Immunizations Up To Date Tetanus Booster (TDap): Unknown PED Vaccines UTD: No Seasonal Allergies Seasonal Allergies: No Surgeries History of Surgeries: Yes (port placement, COLON RESECTION) Surgeries: Abdominal Respiratory History of Respiratory Disorde: No Cardiovascular History of Cardiac Disorders: Yes (right atrial mass) Neurological History of Neurological Disord: No Reproductive System : No Hx Reproductive Disorders: No Genitourinary History of Genitourinary Disor: No Gastrointestinal History of Gastrointestinal Di: Yes Gastrointestinal Disorders: Obstructive Bowel Musculoskeletal History of Musculoskeletal Dis: No Endocrine History of Endocrine Disorders: No HEENT History of HEENT Disorders: No Loss of Vision: Denies Hearing Impairment: Denies Cancer History of Cancer: Yes Cancer: Small Bowel Did You Recieve Any Treatments: Yes Type of Tx Receive: Chemotherapy, Surgical Intervention Psychosocial History of Psychiatric Problem: No Integumentary History of Skin or Integumenta: No Blood Transfusions History of Blood Disorders: No Adverse Reaction to a Blood Tr: No Reviewed Nursing Assessment Reviewed/Agree w Nursing PMH: Yes Family Medical History Significant Family History: No Pertinent Family Hx Family Medial History: Anxiety disorder G8 SISTER Asthma G8 BROTHER Physical Exam Vital Signs VS - Last 72 Hours, by Label 01/24/18 22:55 Temp 97.7 Pulse 98 Resp 18 B/P (MAP) 14/75 (55) Pulse Ox 93 O2 Delivery Room Air Capillary Refill : Less Than 3 Seconds General Appearance: WD/WN, no apparent distress HEENT: PERRL/EOMI, pharynx normal Neck: full range of motion, supple Respiratory: lungs clear, normal breath sounds Cardiovascular: regular rate, rhythm, no murmur Peripheral Pulses: 2+ Dorsalis Pedis (R), 2+ Left Dors-Pedis (L), 2+ Radial Pulses (R), 2+ Radial Pulses (L) Gastrointestinal: non tender, soft Extremities: non-tender, normal inspection Back: normal inspection, no CVA tenderness, no vertebral tenderness Neurologic/Psychiatric: alert, oriented x 3 Skin: normal color, warm/dry Progress/Results/Core Measures Results/Orders Lab Results Laboratory Tests Test 01/25/18 00:05 Range/Units White Blood Count 11.2 H 4.3-11.0 10^3/uL Red Blood Count 4.22 L 4.35-5.85 10^6/uL Hemoglobin 13.3 11.5-16.0 G/DL Hematocrit 38 35-52 % Mean Corpuscular Volume 89 80-99 FL Mean Corpuscular Hemoglobin 32 25-34 PG Mean Corpuscular Hemoglobin Concent 36 32-36 G/DL Red Cell Distribution Width 12.8 10.0-14.5 % Platelet Count 201 130-400 10^3/uL Mean Platelet Volume 10.1 7.4-10.4 FL Neutrophils (%) (Auto) 91 H 42-75 % Lymphocytes (%) (Auto) 5 L 12-44 % Monocytes (%) (Auto) 4 0-12 % Eosinophils (%) (Auto) 0 0-10 % Basophils (%) (Auto) 0 0-10 % Neutrophils # (Auto) 10.2 H 1.8-7.8 X 10^3 Lymphocytes # (Auto) 0.5 L 1.0-4.0 X 10^3 Monocytes # (Auto) 0.5 0.0-1.0 X 10^3 Eosinophils # (Auto) 0.0 0.0-0.3 10^3/uL Basophils # (Auto) 0.0 0.0-0.1 10^3/uL Neutrophils % (Manual) 90 % Lymphocytes % (Manual) 4 % Monocytes % (Manual) 6 % Eosinophils % (Manual) 0 % Basophils % (Manual) 0 % Band Neutrophils 0 % Elliptocytes SLIGHT Sodium Level 137 135-145 MMOL/L Potassium Level 3.9 3.6-5.0 MMOL/L Chloride Level 101 98-107 MMOL/L Carbon Dioxide Level 22 21-32 MMOL/L Anion Gap 14 5-14 MMOL/L Blood Urea Nitrogen 12 7-18 MG/DL Creatinine 0.69 0.60-1.30 MG/DL Estimat Glomerular Filtration Rate > 60 BUN/Creatinine Ratio 17 Glucose Level 142 H 70-105 MG/DL Calcium Level 9.9 8.5-10.1 MG/DL Total Bilirubin 0.7 0.1-1.0 MG/DL Aspartate Amino Transf (AST/SGOT) 19 5-34 U/L Alanine Aminotransferase (ALT/SGPT) 21 0-55 U/L Alkaline Phosphatase 50 40-136 U/L Total Protein 7.3 6.4-8.2 GM/DL Albumin 4.3 3.2-4.5 GM/DL My Orders Orders - RAJESH OLIVEIRA MD Cbc With Automated Diff (01/24/18 23:53) Comprehensive Metabolic Panel (01/24/18 23:53) Promethazine Injection (Phenergan Injec (01/24/18 23:53) Ns Iv 1000 Ml (Sodium Chloride 0.9%) (01/24/18 23:53) Saline Lock/Iv-Start (01/24/18 23:53) Diphenhydramine Injection (Benadryl Inje (01/25/18 00:00) Manual Differential (01/25/18 00:05) Medications Given in ED Current Medications Medications Dose Ordered Sig/Cabrera Route Start Time Stop Time Status Last Admin Dose Admin Diphenhydramine HCl 25 mg ONCE ONCE IV 01/25/18 00:00 01/25/18 00:01 DC 01/25/18 00:11 25 MG Vital Signs/I&O Vital Sign - Last 12Hours 01/24/18 22:55 Temp 97.7 Pulse 98 Resp 18 B/P (MAP) 14/75 (55) Pulse Ox 93 O2 Delivery Room Air Blood Pressure Mean: 55 Progress Note : Progress Note Seen and evaluated. IV, labs, normal saline 1 L bolus, Phenergan 12.5 mg IV and Benadryl 25 mg IV. Monitor patient. 0141: Improved overall. White count is a little elevated but patient is on steroids now. No fever. Discharged home with return precautions. Patient verbalize understanding instructions and agreement with plan. Departure Impression Impression: Primary Impression: Nausea and vomiting Qualified Codes: R11.2 - Nausea with vomiting, unspecified Disposition: 01 HOME, SELF-CARE Condition: Stable Departure-Patient Inst. Decision time for Depature: 01:46 Referrals: NO,LOCAL PHYSICIAN (PCP/Family) Primary Care Physician Patient Instructions: Nausea and Vomiting With Cancer Treatment Add. Discharge Instructions: All discharge instructions reviewed with patient and/or family. Voiced understanding. Continue home medications as directed. Follow-up with Dr. Novak on Friday for recheck and further evaluation and to discuss further therapy related to your nausea and vomiting. He may also discussed with him about the concerns we have with respect to hearing things which may be related to medications. Return for worse pain, fever, vomiting, weakness, breathing problems or other concerns as needed. Copy Copies To 1: MARINO TRAN TIMOTHY D MD Jan 25, 2018 00:14
[2018-01-25 00:19] LABS: BASOPHILS % (AUTO) 0 % (0-10); EOSINOPHILS % (AUTO) 0 % (0-10); HEMATOCRIT 38 % (35-52); HEMOGLOBIN 13.3 G/DL (11.5-16.0); LYMPHOCYTES # (AUTO) 0.5 X 10^3 (1.0-4.0); LYMPHOCYTES % (AUTO) 5 % (12-44); MEAN CORPUSCULAR HEMOGLOBIN 32 PG (25-34); MEAN CORPUSCULAR HGB CONC 36 G/DL (32-36); MEAN CORPUSCULAR VOLUME 89 FL (80-99); MEAN PLATELET VOLUME 10.1 FL (7.4-10.4); MONOCYTES # (AUTO) 0.5 X 10^3 (0.0-1.0); MONOCYTES % (AUTO) 4 % (0-12); NEUTROPHILS # (AUTO) 10.2 X 10^3 (1.8-7.8); NEUTROPHILS % (AUTO) 91 % (42-75); PLATELET COUNT 201 10^3/uL (130-400); RED BLOOD COUNT 4.22 10^6/uL (4.35-5.85); RED CELL DISTRIBUTION WIDTH 12.8 % (10.0-14.5); WHITE BLOOD COUNT 11.2 10^3/uL (4.3-11.0)
[2018-01-25 00:32] LABS: BAND NEUTROPHILS 0 %; BASOPHILS % (MANUAL) 0 %; EOSINOPHILS % (MANUAL) 0 %; LYMPHOCYTES % (MANUAL) 4 %; MONOCYTES % (MANUAL) 6 %; NEUTROPHILS % (MANUAL) 90 %
[2018-01-25 00:33] LABS: ELLIPT/OVALOCYTES SLIGHT
[2018-01-25 00:38] LABS: ALANINE AMINOTRANSFERASE 21 U/L (0-55); ALBUMIN 4.3 GM/DL (3.2-4.5); ALKALINE PHOSPHATASE 50 U/L (40-136); BILIRUBIN,TOTAL 0.7 MG/DL (0.1-1.0); BUN/CREATININE RATIO 17; CALCIUM 9.9 MG/DL (8.5-10.1); CARBON DIOXIDE 22 MMOL/L (21-32); CHLORIDE 101 MMOL/L (98-107); CREATININE SERUM 0.69 MG/DL (0.60-1.30); GFR ESTIMATED > 60; GLUCOSE 142 MG/DL (70-105); POTASSIUM 3.9 MMOL/L (3.6-5.0); SODIUM 137 MMOL/L (135-145); TOTAL PROTEIN 7.3 GM/DL (6.4-8.2)
[2018-01-25 01:54] VITALS: BP 124/82
== END 2018-01-25 01:50 | disposition home or self-care (01) ==
LOC: EDUNIT# 20:52 → ER 20:53
DX: R11.2 Nausea with vomiting, unspecified (principal); T45.1X5A Adverse effect of antineoplastic and immunosuppressive drugs, initial encounter; C17.9 Malignant neoplasm of small intestine, unspecified; K56.699 Other intestinal obstruction unspecified as to partial versus complete obstruction; Z88.8 Allergy status to other drugs, medicaments and biological substances; Z90.49 Acquired absence of other specified parts of digestive tract
CPT/HCPCS: 36415; 80053; 85007; 85027

== ENCOUNTER → 2018-01-27 | Outpatient (CLI) | payer OTHER ==
[~2018-01-27] MED LIST changes: +DIATRIZOATE MEGLUM/SODIUM 37% 120 ML (GASTROGRAFIN) PO ONE
--- NOTE | 2018-01-27 13:35 | Diagnostic Imaging Report ---
INDICATION: Nausea and vomiting. TECHNIQUE: The patient ingested barium and serial radiographs of the abdomen were obtained. FINDINGS: The preliminary radiograph is unremarkable apart from mild gaseous distention of the descending colon. The small bowel is nondilated. The post ingestion film demonstrates contrast throughout the stomach which is normal in configuration. There is prompt emptying into the small bowel. The small bowel transit time appears normal. There is no evidence of small bowel obstruction. No small bowel distention is seen. The mucosal fold pattern is unremarkable. IMPRESSION: Unremarkable small bowel study. Dictated by: Dictated on workstation # [id number]
== END ==
LOC: RAD 08:14
PROVIDERS: ATTEND Internal Medicine Hematology & Oncology
DX: R11.2 Nausea with vomiting, unspecified (principal)
CPT/HCPCS: 74250

== ENCOUNTER 2018-02-16 13:13 | Outpatient (RCR) | payer OTHER ==
[2018-01-26 13:22] LABS: BASOPHILS % (AUTO) 0 % (0-10); EOSINOPHILS % (AUTO) 0 % (0-10); HEMATOCRIT 38 % (35-52); HEMOGLOBIN 13.6 G/DL (11.5-16.0); LYMPHOCYTES # (AUTO) 0.4 X 10^3 (1.0-4.0); LYMPHOCYTES % (AUTO) 6 % (12-44); MEAN CORPUSCULAR HEMOGLOBIN 32 PG (25-34); MEAN CORPUSCULAR HGB CONC 36 G/DL (32-36); MEAN CORPUSCULAR VOLUME 88 FL (80-99); MEAN PLATELET VOLUME 10.5 FL (7.4-10.4); MONOCYTES # (AUTO) 0.5 X 10^3 (0.0-1.0); MONOCYTES % (AUTO) 7 % (0-12); NEUTROPHILS # (AUTO) 6.6 X 10^3 (1.8-7.8); NEUTROPHILS % (AUTO) 87 % (42-75); PLATELET COUNT 219 10^3/uL (130-400); RED BLOOD COUNT 4.31 10^6/uL (4.35-5.85); WHITE BLOOD COUNT 7.5 10^3/uL (4.3-11.0)
[2018-01-26 13:43] LABS: ALANINE AMINOTRANSFERASE 19 U/L (0-55); ALBUMIN 4.4 GM/DL (3.2-4.5); ALKALINE PHOSPHATASE 45 U/L (40-136); BILIRUBIN,TOTAL 0.8 MG/DL (0.1-1.0); BUN/CREATININE RATIO 23; CALCIUM 9.4 MG/DL (8.5-10.1); CARBON DIOXIDE 25 MMOL/L (21-32); CHLORIDE 100 MMOL/L (98-107); CREATININE SERUM 0.75 MG/DL (0.60-1.30); GFR ESTIMATED > 60; GLUCOSE 151 MG/DL (70-105); MAGNESIUM 2.1 MG/DL (1.8-2.4); POTASSIUM 3.5 MMOL/L (3.6-5.0); SODIUM 134 MMOL/L (135-145); TOTAL PROTEIN 7.1 GM/DL (6.4-8.2)
[2018-02-09 12:12] LABS: BASOPHILS % (AUTO) 0 % (0-10); EOSINOPHILS # (AUTO) 0.1 10^3/uL (0.0-0.3); EOSINOPHILS % (AUTO) 2 % (0-10); HEMATOCRIT 42 % (35-52); HEMOGLOBIN 15.4 G/DL (11.5-16.0); LYMPHOCYTES # (AUTO) 0.9 X 10^3 (1.0-4.0); LYMPHOCYTES % (AUTO) 17 % (12-44); MEAN CORPUSCULAR HEMOGLOBIN 31 PG (25-34); MEAN CORPUSCULAR HGB CONC 37 G/DL (32-36); MEAN CORPUSCULAR VOLUME 85 FL (80-99); MONOCYTES # (AUTO) 0.3 X 10^3 (0.0-1.0); MONOCYTES % (AUTO) 5 % (0-12); NEUTROPHILS # (AUTO) 3.9 X 10^3 (1.8-7.8); NEUTROPHILS % (AUTO) 76 % (42-75); PLATELET COUNT 164 10^3/uL (130-400); RED BLOOD COUNT 4.96 10^6/uL (4.35-5.85); RED CELL DISTRIBUTION WIDTH 13.6 % (10.0-14.5); WHITE BLOOD COUNT 5.1 10^3/uL (4.3-11.0)
[2018-02-09 12:33] LABS: BUN/CREATININE RATIO 24; CALCIUM 9.3 MG/DL (8.5-10.1); CARBON DIOXIDE 26 MMOL/L (21-32); CHLORIDE 98 MMOL/L (98-107); CREATININE SERUM 0.74 MG/DL (0.60-1.30); GFR ESTIMATED > 60; GLUCOSE 129 MG/DL (70-105); MAGNESIUM 2.1 MG/DL (1.8-2.4); POTASSIUM 3.8 MMOL/L (3.6-5.0); SODIUM 132 MMOL/L (135-145)
[~2018-02-16] VITALS: Ht 172.7 cm; Wt 47.2 kg
[~2018-02-16 13:13] MED LIST changes: +ATROPINE INJ 0.4 MG/ML SDV (CANCER CENTER) INJ SCH; +ATROPINE INJ 0.4 MG/ML SDV (CANCER CENTER) ONE; +BEVACIZUMAB IV SCH; -DIATRIZOATE MEGLUM/SODIUM 37% 120 ML (GASTROGRAFIN) PO ONE; +FLUOROURACIL 2.5 GM, FLUOROURACIL 0.7 GM in NS (IVPB) CANCER CENTER 83.2 ML IV SCH; +FLUOROURACIL 400 MG in SYRINGE-IVPB 1 SYRINGE IV SCH; +FLUOROURACIL IV SCH; +FOSAPREPITANT DIMEGLUMINE 150 MG in NS (IVPB) CANCER CENTER ONLY 150 ML IV PRN; +FOSAPREPITANT DIMEGLUMINE 150 MG in NS (IVPB) CANCER CENTER ONLY 150 ML IV SCH; +IRINOTECAN HCL 200 MG, IRINOTECAN HCL 50 MG in D5W 250 ML IVPB (CANCER CTR) 250 ML IV SCH; +LEUCOVORIN CALCIUM 350 MG, LEUCOVORIN CALCIUM 50 MG in D5W 250 ML IVPB (CANCER CTR) 250 ML IV SCH; +LEUCOVORIN CALCIUM 400 MG in D5W 250 ML IVPB (CANCER CTR) 250 ML IV SCH; +METOCLOPRAMIDE 10 MG/2 ML IV ONE; +NS IV 1000 ML (CANCER CTR) 1,000 ML ONE; +NS IV 500 ML (CANCER CENTER) 500 ML IV SCH; +NS IV SCH; +ONDANSETRON MDV (CANCER CENTER 16 MG, DEXAMETHASONE PF INJ (CANCER C 10 MG in D5W 50 ML... IV SCH; +PALONOSETRON 0.25 MG, DEXAMETHASONE 10 MG/NS 50 ML IVPB IV PRN; +PALONOSETRON HCL 0.25 MG, DEXAMETHASONE PF INJ (CANCER C 10 MG in NS (IVPB) CANCER CENT... IV PRN; +morphine INJ 10 MG/ML 1ML (CANCER CENTER) IV ONE
[2018-02-16 13:24] LABS: BASOPHILS % (AUTO) 0 % (0-10); EOSINOPHILS # (AUTO) 0.1 10^3/uL (0.0-0.3); EOSINOPHILS % (AUTO) 2 % (0-10); HEMATOCRIT 38 % (35-52); HEMOGLOBIN 13.5 G/DL (11.5-16.0); LYMPHOCYTES # (AUTO) 0.9 X 10^3 (1.0-4.0); LYMPHOCYTES % (AUTO) 18 % (12-44); MEAN CORPUSCULAR HEMOGLOBIN 31 PG (25-34); MEAN CORPUSCULAR HGB CONC 35 G/DL (32-36); MEAN CORPUSCULAR VOLUME 89 FL (80-99); MEAN PLATELET VOLUME 9.5 FL (7.4-10.4); MONOCYTES # (AUTO) 0.5 X 10^3 (0.0-1.0); MONOCYTES % (AUTO) 11 % (0-12); NEUTROPHILS # (AUTO) 3.1 X 10^3 (1.8-7.8); NEUTROPHILS % (AUTO) 68 % (42-75); PLATELET COUNT 228 10^3/uL (130-400); RED BLOOD COUNT 4.31 10^6/uL (4.35-5.85); RED CELL DISTRIBUTION WIDTH 14.2 % (10.0-14.5); WHITE BLOOD COUNT 4.6 10^3/uL (4.3-11.0)
[2018-02-16 13:47] LABS: ALANINE AMINOTRANSFERASE 32 U/L (0-55); ALBUMIN 3.8 GM/DL (3.2-4.5); ALKALINE PHOSPHATASE 69 U/L (40-136); BILIRUBIN,TOTAL 0.7 MG/DL (0.1-1.0); BUN/CREATININE RATIO 12; CALCIUM 9.4 MG/DL (8.5-10.1); CARBON DIOXIDE 31 MMOL/L (21-32); CHLORIDE 98 MMOL/L (98-107); CREATININE SERUM 0.69 MG/DL (0.60-1.30); GFR ESTIMATED > 60; GLUCOSE 100 MG/DL (70-105); MAGNESIUM 2.3 MG/DL (1.8-2.4); SODIUM 136 MMOL/L (135-145); TOTAL PROTEIN 6.5 GM/DL (6.4-8.2)
[2018-02-19] MEDS ORDERED: MORP-33 PO (12:23)
[2018-02-19] MEDS ORDERED: MORP60TA52 PO (12:23)
[2018-02-19] MEDS ORDERED: MORP15TA PO (12:23)
[2018-03-02 10:46] LABS: BASOPHILS % (AUTO) 0 % (0-10); EOSINOPHILS # (AUTO) 0.1 10^3/uL (0.0-0.3); EOSINOPHILS % (AUTO) 2 % (0-10); HEMATOCRIT 38 % (35-52); HEMOGLOBIN 13.2 G/DL (11.5-16.0); LYMPHOCYTES # (AUTO) 1.4 X 10^3 (1.0-4.0); LYMPHOCYTES % (AUTO) 45 % (12-44); MEAN CORPUSCULAR HEMOGLOBIN 32 PG (25-34); MEAN CORPUSCULAR HGB CONC 35 G/DL (32-36); MEAN CORPUSCULAR VOLUME 90 FL (80-99); MEAN PLATELET VOLUME 10.1 FL (7.4-10.4); MONOCYTES # (AUTO) 0.4 X 10^3 (0.0-1.0); MONOCYTES % (AUTO) 12 % (0-12); NEUTROPHILS # (AUTO) 1.3 X 10^3 (1.8-7.8); NEUTROPHILS % (AUTO) 42 % (42-75); PLATELET COUNT 191 10^3/uL (130-400); RED BLOOD COUNT 4.19 10^6/uL (4.35-5.85); RED CELL DISTRIBUTION WIDTH 15.3 % (10.0-14.5)
[2018-03-02 10:49] LABS: CLARITY,URINE VERY CLOUDY; COLOR,URINE YELLOW; GLUCOSE, URINE (UA) NEGATIVE (NEGATIVE); KETONES,URINE 1+ (NEGATIVE); LEUKOCYTE ESTERASE ,URINE 3+ (NEGATIVE); NITRITE,URINE NEGATIVE (NEGATIVE); PH,URINE 6.5 (5-9); PROTEIN,URINE 2+ (NEGATIVE); UROBILINOGEN,URINE 1 MG/DL (NORMAL)
[2018-03-02 10:59] LABS: BILIRUBIN,URINE 1+ (NEGATIVE)
[2018-03-02 11:06] LABS: ALANINE AMINOTRANSFERASE 76 U/L (0-55); ALKALINE PHOSPHATASE 62 U/L (40-136); BILIRUBIN,TOTAL 0.4 MG/DL (0.1-1.0); BUN/CREATININE RATIO 12; CALCIUM 9.4 MG/DL (8.5-10.1); CARBON DIOXIDE 27 MMOL/L (21-32); CHLORIDE 101 MMOL/L (98-107); CREATININE SERUM 0.73 MG/DL (0.60-1.30); GFR ESTIMATED > 60; GLUCOSE 109 MG/DL (70-105); MAGNESIUM 2.3 MG/DL (1.8-2.4); POTASSIUM 3.4 MMOL/L (3.6-5.0); SODIUM 138 MMOL/L (135-145); TOTAL PROTEIN 6.4 GM/DL (6.4-8.2)
== END 2018-03-02 10:31 | disposition home or self-care (01) ==
LOC: ONC 13:13
PROVIDERS: ATTEND Internal Medicine Hematology & Oncology
DX: Z51.11 Encounter for antineoplastic chemotherapy (principal); C17.1 Malignant neoplasm of jejunum; C77.2 Secondary and unspecified malignant neoplasm of intra-abdominal lymph nodes; C79.89 Secondary malignant neoplasm of other specified sites; D25.9 Leiomyoma of uterus, unspecified; N83.8 Other noninflammatory disorders of ovary, fallopian tube and broad ligament; Z79.899 Other long term (current) drug therapy
CPT/HCPCS: 36591; 80048; 80053; 81002; 82378; 83735; 85025; 96360; 96361; 96367; 96368; 96375; 96409; 96411; 96413; 99213

== ENCOUNTER 2018-02-18 17:48 | Observation (INO) | payer OTHER ==
[~2018-02-18] VITALS: Ht 175.3 cm; Wt 46.4 kg
[~2018-02-18 17:48] MED LIST changes: -ATROPINE INJ 0.4 MG/ML SDV (CANCER CENTER) INJ SCH; -ATROPINE INJ 0.4 MG/ML SDV (CANCER CENTER) ONE; -BEVACIZUMAB IV SCH; -FLUOROURACIL 2.5 GM, FLUOROURACIL 0.7 GM in NS (IVPB) CANCER CENTER 83.2 ML IV SCH; -FLUOROURACIL 400 MG in SYRINGE-IVPB 1 SYRINGE IV SCH; -FLUOROURACIL IV SCH; -FOSAPREPITANT DIMEGLUMINE 150 MG in NS (IVPB) CANCER CENTER ONLY 150 ML IV PRN; -FOSAPREPITANT DIMEGLUMINE 150 MG in NS (IVPB) CANCER CENTER ONLY 150 ML IV SCH; -IRINOTECAN HCL 200 MG, IRINOTECAN HCL 50 MG in D5W 250 ML IVPB (CANCER CTR) 250 ML IV SCH; -LEUCOVORIN CALCIUM 350 MG, LEUCOVORIN CALCIUM 50 MG in D5W 250 ML IVPB (CANCER CTR) 250 ML IV SCH; -LEUCOVORIN CALCIUM 400 MG in D5W 250 ML IVPB (CANCER CTR) 250 ML IV SCH; -METOCLOPRAMIDE 10 MG/2 ML IV ONE; -NS IV 1000 ML (CANCER CTR) 1,000 ML ONE; -NS IV 500 ML (CANCER CENTER) 500 ML IV SCH; -NS IV SCH; -ONDANSETRON MDV (CANCER CENTER 16 MG, DEXAMETHASONE PF INJ (CANCER C 10 MG in D5W 50 ML... IV SCH; -PALONOSETRON 0.25 MG, DEXAMETHASONE 10 MG/NS 50 ML IVPB IV PRN; -PALONOSETRON HCL 0.25 MG, DEXAMETHASONE PF INJ (CANCER C 10 MG in NS (IVPB) CANCER CENT... IV PRN; -morphine INJ 10 MG/ML 1ML (CANCER CENTER) IV ONE
[2018-02-18] MEDS ORDERED: NITROGLYCERIN 0.4 MG SL TABS BTL 25'S SL PRN (18:15)
[2018-02-18] MEDS ORDERED: ASPIRIN 81 MG CHEW (CHILDREN'S ASA) PO ONE (18:15)
--- NOTE | 2018-02-18 18:22 | ED Chest Pain ---
General Chief Complaint: Chest Pain Stated Complaint: CHEST PAIN Source: patient, family Exam Limitations: no limitations History of Present Illness Date Seen by Provider: Feb 18, 2018 Time Seen by Provider: 18:00 Initial Comments Patient presents to the ER by private conveyance with a chief complaint is having some chest pain had a brief episode this morning did not bother her but then it came back about half hour prior to arrival and has persisted in the center of her chest. It does not radiate she has not any sweats nausea cough shortness of breath hemoptysis, fever, chills, history of trauma. She does not smoke cigarettes have high blood pressure, hypothyroidism, history of coronary artery disease or primary family history of coronary artery disease. 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 Because of this her oncologist Dr. Reddy has requested that if she has chest pain that she be evaluated in the ER immediately. Patient denies any swelling in her legs or difficulty breathing on exertion. She is still currently on chemotherapy. Allergies and Home Medications Allergies Coded Allergies: ondansetron (Verified Adverse Reaction, Unknown, NAUSEA, 01/17/18) Causes paradoxical vomiting Home Medications Rakeshacidoph & Paracasei,B.lactis 1 Each Capsule, 1 CAP PO HS, (Reported) Magnesium Oxide 400 Mg Tablet, 800 MG PO BID PRN for CRAMPS, (Reported) Methylprednisolone 4 Mg Tablet, 4 MG PO QID PRN for NAUSEA/VOMITING-1ST LINE Prescribed by: MAGUI ALANIZ on 01/23/18 1633 Metoclopramide HCl 5 Mg Tablet, 5 MG PO QID Prescribed by: MAGUI ALANIZ on 01/23/18 1633 Morphine Sulfate 30 Mg Tablet.er, 30 MG PO Q12H, (Reported) Multivitamin 1 Each Tablet, 1 TAB PO HS, (Reported) Omeprazole 20 Mg Capsule.dr, 20 MG PO DAILY PRN for HEARTBURN, (Reported) Oxycodone HCl 5 Mg Tablet, 5-10 MG PO Q4H PRN for PAIN-SEVERE TO BREAKTHROUGH, ( Reported) Promethazine HCl 25 Mg Tablet, 25 MG PO Q6H PRN for NAUSEA/VOMITING, (Reported) Patient Home Medication List Home Medication List Reviewed: Yes Review of Systems Constitutional: No chills, No diaphoresis EENTM: No Blurred Vision, No Double Vision Respiratory: Denies Cough, Denies Shortness of Air Cardiovascular: See HPI, Chest Pain, Denies Edema, Denies Irregular Heart Rate , Denies Lightheadedness, Denies Palpitations, Denies Syncope Gastrointestinal: Denies Constipated, Denies Diarrhea, Denies Nausea, Denies Vomiting Genitourinary: Denies Drainage, Denies Frequency Musculoskeletal: No back pain, No joint pain Skin: No pruritus, No rash Psychiatric/Neurological: Denies Headache, Denies Numbness Past Hyontsf-Ybifst-Kqjnqw Hx Patient Social History Alcohol Use: Rarely Uses Alcohol Beverage of Choice: Wine Recreational Drug Use: No Smoking Status: Never a Smoker 2nd Hand Smoke Exposure: No Recent Foreign Travel: No Contact w/Someone Who Travel: No Recent Hopitalizations: No Immunizations Up To Date Tetanus Booster (TDap): Unknown PED Vaccines UTD: No Seasonal Allergies Seasonal Allergies: No Surgeries History of Surgeries: Yes (port placement, COLON RESECTION) Surgeries: Abdominal Respiratory History of Respiratory Disorde: No Cardiovascular History of Cardiac Disorders: Yes (right atrial mass) Neurological History of Neurological Disord: No Reproductive System Hx Reproductive Disorders: No Genitourinary History of Genitourinary Disor: No Gastrointestinal History of Gastrointestinal Di: Yes Gastrointestinal Disorders: Obstructive Bowel Musculoskeletal History of Musculoskeletal Dis: No Endocrine History of Endocrine Disorders: No HEENT History of HEENT Disorders: No Loss of Vision: Denies Hearing Impairment: Denies Cancer History of Cancer: Yes Cancer: Small Bowel Did You Recieve Any Treatments: Yes Type of Tx Receive: Chemotherapy, Surgical Intervention Psychosocial History of Psychiatric Problem: No Integumentary History of Skin or Integumenta: No Blood Transfusions History of Blood Disorders: No Adverse Reaction to a Blood Tr: No Family Medical History Significant Family History: No Pertinent Family Hx Family Medial History: Anxiety disorder G8 SISTER Asthma G8 BROTHER Physical Exam Vital Signs Vital Signs - First Documented Capillary Refill : General Appearance: No Apparent Distress, WD/WN HEENT: PERRL/EOMI, Normal ENT Inspection, Pharynx Normal Neck: Full Range of Motion, Normal Inspection, Non Tender, Supple Respiratory: Chest Non Tender, Lungs Clear, Normal Breath Sounds, No Accessory Muscle Use, No Respiratory Distress Cardiovascular: Regular Rate, Rhythm, No Edema, No Murmur, Normal Peripheral Pulses, Other (heart tones are not muffled and she is not tachycardic) Gastrointestinal: Normal Bowel Sounds, Non Tender, Soft Neurologic/Psychiatric: Alert, Oriented x3 Skin: Normal Color, Warm/Dry Progress/Results/Core Measures Results/Orders Lab Results Laboratory Tests Test 02/18/18 19:08 Range/Units White Blood Count 5.2 4.3-11.0 10^3/uL Red Blood Count 4.24 L 4.35-5.85 10^6/uL Hemoglobin 13.2 11.5-16.0 G/DL Hematocrit 38 35-52 % Mean Corpuscular Volume 90 80-99 FL Mean Corpuscular Hemoglobin 31 25-34 PG Mean Corpuscular Hemoglobin Concent 35 32-36 G/DL Red Cell Distribution Width 14.2 10.0-14.5 % Platelet Count 206 130-400 10^3/uL Mean Platelet Volume 10.0 7.4-10.4 FL Neutrophils (%) (Auto) 84 H 42-75 % Lymphocytes (%) (Auto) 11 L 12-44 % Monocytes (%) (Auto) 5 0-12 % Eosinophils (%) (Auto) 0 0-10 % Basophils (%) (Auto) 0 0-10 % Neutrophils # (Auto) 4.3 1.8-7.8 X 10^3 Lymphocytes # (Auto) 0.5 L 1.0-4.0 X 10^3 Monocytes # (Auto) 0.3 0.0-1.0 X 10^3 Eosinophils # (Auto) 0.0 0.0-0.3 10^3/uL Basophils # (Auto) 0.0 0.0-0.1 10^3/uL Prothrombin Time 13.5 12.2-14.7 SEC INR Comment 1.0 0.8-1.4 Activated Partial Thromboplast Time 23 L 24-35 SEC Sodium Level 136 135-145 MMOL/L Potassium Level 4.0 3.6-5.0 MMOL/L Chloride Level 100 98-107 MMOL/L Carbon Dioxide Level 27 21-32 MMOL/L Anion Gap 9 5-14 MMOL/L Blood Urea Nitrogen 15 7-18 MG/DL Creatinine 0.64 0.60-1.30 MG/DL Estimat Glomerular Filtration Rate > 60 BUN/Creatinine Ratio 23 Glucose Level 105 70-105 MG/DL Calcium Level 9.2 8.5-10.1 MG/DL Magnesium Level 2.3 1.8-2.4 MG/DL Total Bilirubin 0.5 0.1-1.0 MG/DL Aspartate Amino Transf (AST/SGOT) 50 H 5-34 U/L Alanine Aminotransferase (ALT/SGPT) 77 H 0-55 U/L Alkaline Phosphatase 71 40-136 U/L Myoglobin 17.6 10.0-92.0 NG/ML Troponin I < 0.30 <0.30 NG/ML B-Type Natriuretic Peptide 82.9 <100.0 PG/ML Total Protein 6.8 6.4-8.2 GM/DL Albumin 4.0 3.2-4.5 GM/DL My Orders Orders - BEULAH MULLEN Cbc With Automated Diff (02/18/18 18:14) Magnesium (02/18/18 18:14) Cardiac Profile 1 (02/18/18 18:14) Comprehensive Metabolic Panel (02/18/18 18:14) Myoglobin Serum (02/18/18 18:14) Protime With Inr (02/18/18 18:14) Partial Thromboplastin Time (02/18/18 18:14) O2 (02/18/18 18:14) Monitor-Rhythm Ecg Trace Only (02/18/18 18:14) Aspirin Chewable Tablet (Baby Aspirin Ch (02/18/18 18:15) Nitroglycerin 0.4 Mg Btl 25's (Nitrostat (02/18/18 18:15) Saline Lock/Iv-Start (02/18/18 18:14) BNP (02/18/18 18:14) Chest Pa/Lat (2 View) (02/18/18 18:14) Medications Given in ED Current Medications Medications Dose Ordered Sig/Cabrera Route Start Time Stop Time Status Last Admin Dose Admin Aspirin 324 mg ONCE ONCE PO 02/18/18 18:15 02/18/18 18:17 DC 02/18/18 18:51 324 MG Vital Signs/I&O Vital Sign - Last 12Hours 02/18/18 02/18/18 02/18/18 02/18/18 18:16 18:16 18:20 21:26 Temp 98.4 Pulse 67 67 Resp 14 14 B/P (MAP) 108/77 (87) 118/77 Pulse Ox 98 98 100 O2 Delivery Room Air Room Air Room Air Room Air Progress Note #1: Time: 18:20 Progress Note For her modest pain will start chewing up 324 mg of aspirin and offer her some nitroglycerin see if this makes any change in her symptoms might indicate a coronary origin for pain. Transesophageal Echocardiogram from November [address] Martin: Left ventricle wall thickness is normal with a systolic function normal and ejection fraction of 55-65% Atrial septum with a patent foramen ovale Intra-atrial septum showed thickness up to 1.2 cm at the area where the mass was present previously the mass has not seen on this study and does not appear to be present. Progress Note #2: Time: 21:04 Progress Note The patient did not receive the nitroglycerin secondary to her low end of normal blood pressure however the aspirin and some time waiting now her pain is mostly in her back, described as mild but in the same place. She is having no shortness of breath and does not have any reproducible pain when pressing on her back or chest cavity. ECG Initial ECG Impression Date: Feb 18, 2018 Initial ECG Impression Time: 17:54 Initial ECG Rate: 68 Initial ECG Rhythm: Normal Sinus Initial ECG Intervals: Normal Initial ECG Impression: Normal Initial ECG Comparisson: Unchanged Comment No ST segment elevation or depression Diagnostic Imaging Diagonstic Imaging: Xray (2v) Plain Films/CT/US/NM/MRI: chest Comments VIA [facility]. [place], [place] NAME: MIESHA POWELL [facility] REC#: [id number] PT STATUS: REG ER : 1975 PHYSICIAN: BEULAH MULLEN MD ADMIT DATE: 02/18/18/ER Draft Date of Exam:02/18/18 CHEST PA/LAT (2 VIEW) INDICATION: Chest pain. COMPARISON: 01/17/2018. FINDINGS: Right IJ catheter stable. The lungs are hyperexpanded but clear. No focal infiltrate, effusion, or pneumothorax. The nipple shadows are visualized bilaterally incidentally. Hilar and mediastinal contours unremarkable. No acute finding. IMPRESSION: Stable chest. Dictated on workstation # [id number] Dict: 02/18/18 1853 Trans: 02/18/18 1857 [id number] Interpreted by: ZACHARY MUSA Electronically signed by: Reviewed: Reviewed by Me Consults Consults #1: Consulting Physician: SUDHA GUERRA [facility] Consults Notes He is not familiar with her case and given her history he would prefer to have her observed overnight and seen by Dr. Martin in the morning. He like her placed under medical observation on the floor be okay on telemetry.. Consults #2: Consulting Physician: MARINO TRAN Consults Notes Discussed the case with him and he agrees with the observation and if they have any specific questions for him or need him he be willing to consult. He would like the patient to be admitted to the medicine team for consult with Dr. Martin in the morning. Recommends some antacids in addition to the proton pump inhibitor she is Femi on. Departure Communication (Admissions) Time/Spoke to Admitting Phy: 21:[address] Camargo, internal medicine will see the patient morning would like to have nausea medicines, fluids, pain medicines. Time/Spoke to Consulting Phy: 21:01 Communication/Consulting Dr. Guerra see consult note. Call Dr. Martin in the morning. Impression Impression: Primary Impression: Chest pain Qualified Codes: R07.89 - Other chest pain Additional Impressions: Cardiac mass History of cancer of small intestine Disposition: ADMITTED INPATIENT Condition: Stable Admissions Decision to Admit Reason: Admit from ER (General) Decision to Admit/Date: Feb 18, 2018 Time/Decision to Admit Time: 21:18 Departure-Patient Inst. Referrals: NO,LOCAL PHYSICIAN (PCP/Family) Primary Care Physician Copy Copies To 1: KIA MARTIN MD, TITUS J Feb 18, 2018 18:22
--- NOTE | 2018-02-18 18:57 | Diagnostic Imaging Report ---
INDICATION: Chest pain. COMPARISON: 01/17/2018. FINDINGS: Right IJ catheter stable. The lungs are hyperexpanded but clear. No focal infiltrate, effusion, or pneumothorax. The nipple shadows are visualized bilaterally incidentally. Hilar and mediastinal contours unremarkable. No acute finding. IMPRESSION: Stable chest. Dictated by: Dictated on workstation # [id number]
[2018-02-18 19:12] LABS: BASOPHILS % (AUTO) 0 % (0-10); EOSINOPHILS % (AUTO) 0 % (0-10); HEMATOCRIT 38 % (35-52); HEMOGLOBIN 13.2 G/DL (11.5-16.0); LYMPHOCYTES # (AUTO) 0.5 X 10^3 (1.0-4.0); LYMPHOCYTES % (AUTO) 11 % (12-44); MEAN CORPUSCULAR HEMOGLOBIN 31 PG (25-34); MEAN CORPUSCULAR HGB CONC 35 G/DL (32-36); MEAN CORPUSCULAR VOLUME 90 FL (80-99); MONOCYTES # (AUTO) 0.3 X 10^3 (0.0-1.0); MONOCYTES % (AUTO) 5 % (0-12); NEUTROPHILS # (AUTO) 4.3 X 10^3 (1.8-7.8); NEUTROPHILS % (AUTO) 84 % (42-75); PLATELET COUNT 206 10^3/uL (130-400); RED BLOOD COUNT 4.24 10^6/uL (4.35-5.85); RED CELL DISTRIBUTION WIDTH 14.2 % (10.0-14.5); WHITE BLOOD COUNT 5.2 10^3/uL (4.3-11.0)
[2018-02-18 19:25] LABS: PROTHROMBIN TIME PATIENT 13.5 SEC (12.2-14.7)
[2018-02-18 19:34] LABS: ALANINE AMINOTRANSFERASE 77 U/L (0-55); ALKALINE PHOSPHATASE 71 U/L (40-136); BILIRUBIN,TOTAL 0.5 MG/DL (0.1-1.0); BUN/CREATININE RATIO 23; CALCIUM 9.2 MG/DL (8.5-10.1); CARBON DIOXIDE 27 MMOL/L (21-32); CHLORIDE 100 MMOL/L (98-107); CREATININE SERUM 0.64 MG/DL (0.60-1.30); GFR ESTIMATED > 60; GLUCOSE 105 MG/DL (70-105); MAGNESIUM 2.3 MG/DL (1.8-2.4); SODIUM 136 MMOL/L (135-145); TOTAL PROTEIN 6.8 GM/DL (6.4-8.2)
[2018-02-18 19:41] LABS: MYOGLOBIN SERUM 17.6 NG/ML (10.0-92.0)
[2018-02-18 22:15] VITALS: BP 114/68
[2018-02-18 22:30] VITALS: BP 104/67
[2018-02-18] MEDS ORDERED: 1/2 NS W/KCL 20 MEQ/L 1,000 ML IV ONE (22:34)
[2018-02-18 22:45] VITALS: BP 107/66
[2018-02-18 23:00] VITALS: BP 103/69
[2018-02-18] MEDS: 1/2 NS W/KCL 20 MEQ/L 1,000 ML IV SCH (23:00)
[2018-02-18 23:18] VITALS: BP 118/72
[2018-02-18 23:48] VITALS: BP 96/64
[2018-02-18] MEDS ORDERED: morphine ER 30 MG (MS CONTIN) TAB PO ONE (23:57)
[2018-02-18] MEDS ORDERED: morphine ER 15 MG (MS CONTIN) TAB PO ONE (23:58)
[2018-02-19] VITALS (8 sets, daily range): BP systolic 97–105; BP diastolic 54–66
[2018-02-19] MEDS ORDERED: CALCIUM CARBONATE 500 MG (TUMS) TAB.CHEW PO PRN (00:15)
[2018-02-19] MEDS ORDERED: PROMETHAZINE 25 MG (PHENERGAN) TAB PO PRN (00:15)
[2018-02-19] MEDS ORDERED: FAMOTIDINE 20 MG (PEPCID) TABLET PO PRN (00:15)
[2018-02-19] MEDS ORDERED: ACETAMINOPHEN 500 MG TAB (TYLENOL) PO PRN (00:15)
[2018-02-19] MEDS ORDERED: fentaNYL INJECTION 100 MCG/2 ML AMP IV PRN (00:15)
[2018-02-19 05:55] LABS: BASOPHILS % (AUTO) 0 % (0-10); EOSINOPHILS # (AUTO) 0.1 10^3/uL (0.0-0.3); EOSINOPHILS % (AUTO) 1 % (0-10); HEMATOCRIT 33 % (35-52); HEMOGLOBIN 11.3 G/DL (11.5-16.0); LYMPHOCYTES # (AUTO) 1.1 X 10^3 (1.0-4.0); LYMPHOCYTES % (AUTO) 29 % (12-44); MEAN CORPUSCULAR HEMOGLOBIN 31 PG (25-34); MEAN CORPUSCULAR HGB CONC 35 G/DL (32-36); MEAN CORPUSCULAR VOLUME 91 FL (80-99); MEAN PLATELET VOLUME 9.9 FL (7.4-10.4); MONOCYTES # (AUTO) 0.1 X 10^3 (0.0-1.0); MONOCYTES % (AUTO) 3 % (0-12); NEUTROPHILS # (AUTO) 2.5 X 10^3 (1.8-7.8); NEUTROPHILS % (AUTO) 67 % (42-75); PLATELET COUNT 187 10^3/uL (130-400); RED CELL DISTRIBUTION WIDTH 14.5 % (10.0-14.5); WHITE BLOOD COUNT 3.8 10^3/uL (4.3-11.0)
[2018-02-19 06:24] LABS: BUN/CREATININE RATIO 20; CALCIUM 8.1 MG/DL (8.5-10.1); CARBON DIOXIDE 27 MMOL/L (21-32); CHLORIDE 104 MMOL/L (98-107); CHOLESTEROL 153 MG/DL (< 200); CREATININE SERUM 0.56 MG/DL (0.60-1.30); GFR ESTIMATED > 60; GLUCOSE 81 MG/DL (70-105); HDL CHOLESTEROL 50 MG/DL (40-60); POTASSIUM 4.3 MMOL/L (3.6-5.0); SODIUM 136 MMOL/L (135-145); TRIGLYCERIDES 73 MG/DL (<150); VLDL CHOLESTEROL 15 MG/DL (5-40)
[2018-02-19] MEDS ORDERED: PANTOPRAZOLE 40 MG (PROTONIX) TAB PO SCH (07:00)
[2018-02-19] MEDS: 1/2 NS W/KCL 20 MEQ/L 1,000 ML IV SCH (08:00)
[2018-02-19] MEDS ORDERED: ASPIRIN E.C. 325 MG (ECOTRIN) TABLET PO SCH (09:00)
[2018-02-19] MEDS ORDERED: morphine ER 15 MG (MS CONTIN) TAB PO SCH (09:00)
[2018-02-19] MEDS ORDERED: INFLUENZA TRIvalent 2017-2018 0.5 ML/45 MCG SYR IM ONE (10:45)
[2018-02-19] MEDS ORDERED: CATHETER FLUSH 10 ML SYR IV PRN (10:45)
--- NOTE | 2018-02-19 11:08 | Short Stay Summary-Hospitalist ---
History of Present Illness HPI/Chief Complaint Chief complaint: Chest pain History of present illness: This is a 42-year-old white female patient with known history of small bowel carcinoma which I diagnosed last year who is a patient of Dr. Novak who presented to the ER with complaints of chest pain. Apparently the cancer had spread and metastasized and has involved the heart and considering the chest pain complaint she was admitted for observation and Dr. Martin was asked to provide consultation for risk stratification whether or not the chest pain can be modified by anything other than the cancer treatment. Source: patient Exam Limitations: no limitations Date Seen 02/19/18 Time Seen by Provider: 10:15 Attending Physician Ruma Durbin DO PCP No,Local Physician Referring Physician MARINO TRAN Date of Admission Feb 18, 2018 at 21:30 Home Medications & Allergies Home Medications Reviewed patient Home Medication Reconciliation performed by pharmacy medication reconciliations composite technician and/or nursing. Patients Allergies have been reviewed. Allergies Allergies Coded Allergies ondansetron (Verified Adverse Reaction, Unknown, NAUSEA, 01/17/18) Causes paradoxical vomiting Past Evqrgxi-Wspnwr-Phjmrn Hx Past Med/Social Hx: Reviewed Nursing Past Med/Soc Hx, Reviewed and Corrections made Patient Social History Marrital Status: Employed/Student: unemployed Alcohol Use: Rarely Uses Number of Drinks Today: Alcohol Beverage of Choice: Wine Recreational Drug Use: No Smoking Status: Never a Smoker 2nd Hand Smoke Exposure: No Physical Abuse Screen: No Sexual Abuse: No Recent Foreign Travel: No Contact w/other who traveled: No Recent Hopitalizations: No Recent Infectious Disease Expo: No Immunizations Up To Date Tetanus Booster (TDap): Unknown Pediatric: No Seasonal Allergies Seasonal Allergies: No Past Medical History Surgeries: Abdominal Reproductive: No Gastrointestinal: Obstructive Bowel Loss of Vision: Denies Hearing Impairment: Denies Cancer: Small Bowel Did You Recieve Any Treatments: Yes What Type of Treatment Did You: Chemotherapy, Surgical Intervention History of Blood Disorders: No Adverse Reaction to Blood Jeff: No Family History Anxiety disorder G8 SISTER Asthma G8 BROTHER No Pertinent Family Hx, Hypertension Review of Systems Constitutional: see HPI EENTM: no symptoms reported Respiratory: no symptoms reported Cardiovascular: chest pain Gastrointestinal: no symptoms reported Genitourinary: no symptoms reported Musculoskeletal: no symptoms reported Skin: no symptoms reported Psychiatric/Neurological: No Symptoms Reported All Other Systems Reviewed Negative Unless Noted: Yes Physical Exam Physical Exam Vital Signs Vital Signs - First Documented Capillary Refill : Less Than 3 Seconds General Appearance: No Apparent Distress, WD/WN, Chronically ill, Cachetic Eyes: Bilateral Eye Normal Inspection, Bilateral Eye PERRL HEENT: PERRL/EOMI, Normal ENT Inspection, Pharynx Normal Neck: Full Range of Motion, Normal Inspection, Non Tender, Supple, Carotid Bruit Respiratory: Chest Non Tender, Lungs Clear, Normal Breath Sounds, No Accessory Muscle Use, No Respiratory Distress Cardiovascular: Regular Rate, Rhythm, No Edema, No Gallop, No JVD, No Murmur, Normal Peripheral Pulses Gastrointestinal: Normal Bowel Sounds, No Organomegaly, No Pulsatile Mass, Non Tender, Soft Back: Normal Inspection, No CVA Tenderness, No Vertebral Tenderness Extremity: Normal Capillary Refill, Normal Inspection, Normal Range of Motion, Non Tender, No Calf Tenderness, No Pedal Edema Neurologic/Psychiatric: Alert, Oriented x3, No Motor/Sensory Deficits, Depressed Affect Skin: Normal Color, Warm/Dry Lymphatic: No Adenopathy Results Results/Procedures Labs Laboratory Tests 02/18/18 19:08 02/19/18 05:45 Patient resulted labs reviewed. Short Stay Diagnosis Discharge Diagnosis-Short Stay Admission Diagnosis Chest pain with evidence of cancer metastasis to the heart muscle consulting cardiology Small bowel carcinoma status post obstruction managed by Dr. Novak on chemotherapy Final Discharge Diagnosis Chest pain with evidence of cancer metastasis to the heart muscle consulting cardiology Small bowel carcinoma status post obstruction managed by Dr. Novak on chemotherapy Conclusion Plan Plan: Appreciate cardiology consultation Discharge if okay with cardiology Clinical Quality Measures DVT/VTE Risk/Contraindication: Risk Factor Score Per Nursin RFS Level Per Nursing on Admit: 4+=Very High RUMA DURBIN DO Feb 19, 2018 11:08
[2018-02-19] MEDS ORDERED: MORP-33 PO (12:23)
[2018-02-19] MEDS ORDERED: MORP15TA PO (12:23)
[2018-02-19] MEDS ORDERED: MORP60TA52 PO (12:23)
--- NOTE | 2018-02-19 13:23 | Consultation-Cardiology ---
HPI-Cardiology Cardiology Consultation Date of Consultation 02/19/18 Date of Admission Time Seen by Provider: 13:19 Indication: chest pain HPI 42 years old lady with history of metastatic cancer, has been doing well recently, started back on chemotherapy reporting improvement, started having chest pain described as dull achiness in the retrosternal area radiating to the back, improved spontaneously then came back and became persistent, went to the emergency room and was admitted. This morning she is feeling well. Denied any further episode of chest pain. No palpitation was reported. Home Medications & Allergies Allergies: Coded Allergies: ondansetron (Verified Adverse Reaction, Unknown, NAUSEA, 01/17/18) Causes paradoxical vomiting Home Medication List Reviewed: Yes BHF-Yvhxzt-Uifkor Hx Patient Social History Marital Status: Employed/Student: unemployed Alcohol Use: Rarely Uses Recreational Drug Use: No Smoking Status: Never a Smoker 2nd Hand Smoke Exposure: No Recent Foreign Travel: No Recent Infectious Disease Expo: No Recent Hopitalizations: No Physical Abuse Screen: No Sexual Abuse: No Immunizations Up To Date Tetanus Booster (TDap): Unknown Family Medical History Significant Family History: No Pertinent Family Hx, Hypertension Family History: Anxiety disorder G8 SISTER Asthma G8 BROTHER Constitutional: see HPI, malaise, weakness EENTM: see HPI, no symptoms reported Respiratory: see HPI, No cough, dyspnea on exertion, No hemoptysis, No orthopnea, No phlegm, No short of breath, No stridor, No wheezing, No other Cardiovascular: see HPI, chest pain, No edema, No Hx of Intervention, No palpitations, No syncope, No vascular heart diseas, No other Gastrointestinal: see HPI, dysphagia Genitourinary: no symptoms reported, see HPI Musculoskeletal: no symptoms reported, see HPI Skin: see HPI Psychiatric/Neurological: No Symptoms Reported, See HPI Reviewed Test Results Reviewed Test Results Lab Laboratory Tests Test 02/18/18 19:08 02/19/18 05:45 Range/Units White Blood Count 5.2 3.8 L 4.3-11.0 10^3/uL Red Blood Count 4.24 L 3.60 L 4.35-5.85 10^6/uL Hemoglobin 13.2 11.3 L 11.5-16.0 G/DL Hematocrit 38 33 L 35-52 % Mean Corpuscular Volume 90 91 80-99 FL Mean Corpuscular Hemoglobin 31 31 25-34 PG Mean Corpuscular Hemoglobin Concent 35 35 32-36 G/DL Red Cell Distribution Width 14.2 14.5 10.0-14.5 % Platelet Count 206 187 130-400 10^3/uL Mean Platelet Volume 10.0 9.9 7.4-10.4 FL Neutrophils (%) (Auto) 84 H 67 42-75 % Lymphocytes (%) (Auto) 11 L 29 12-44 % Monocytes (%) (Auto) 5 3 0-12 % Eosinophils (%) (Auto) 0 1 0-10 % Basophils (%) (Auto) 0 0 0-10 % Neutrophils # (Auto) 4.3 2.5 1.8-7.8 X 10^3 Lymphocytes # (Auto) 0.5 L 1.1 1.0-4.0 X 10^3 Monocytes # (Auto) 0.3 0.1 0.0-1.0 X 10^3 Eosinophils # (Auto) 0.0 0.1 0.0-0.3 10^3/uL Basophils # (Auto) 0.0 0.0 0.0-0.1 10^3/uL Prothrombin Time 13.5 12.2-14.7 SEC INR Comment 1.0 0.8-1.4 Activated Partial Thromboplast Time 23 L 24-35 SEC Sodium Level 136 136 135-145 MMOL/L Potassium Level 4.0 4.3 3.6-5.0 MMOL/L Chloride Level 100 104 98-107 MMOL/L Carbon Dioxide Level 27 27 21-32 MMOL/L Anion Gap 9 5 5-14 MMOL/L Blood Urea Nitrogen 15 11 7-18 MG/DL Creatinine 0.64 0.56 L 0.60-1.30 MG/DL Estimat Glomerular Filtration Rate > 60 > 60 BUN/Creatinine Ratio 23 20 Glucose Level 105 81 70-105 MG/DL Calcium Level 9.2 8.1 L 8.5-10.1 MG/DL Magnesium Level 2.3 1.8-2.4 MG/DL Total Bilirubin 0.5 0.1-1.0 MG/DL Aspartate Amino Transf (AST/SGOT) 50 H 5-34 U/L Alanine Aminotransferase (ALT/SGPT) 77 H 0-55 U/L Alkaline Phosphatase 71 40-136 U/L Myoglobin 17.6 10.0-92.0 NG/ML Troponin I < 0.30 <0.30 NG/ML B-Type Natriuretic Peptide 82.9 <100.0 PG/ML Total Protein 6.8 6.4-8.2 GM/DL Albumin 4.0 3.2-4.5 GM/DL Triglycerides Level 73 <150 MG/DL Cholesterol Level 153 < 200 MG/DL LDL Cholesterol Direct 84 1-129 MG/DL VLDL Cholesterol 15 5-40 MG/DL HDL Cholesterol 50 40-60 MG/DL Physical Exam Vital Signs Vital Signs - First Documented Capillary Refill : Less Than 3 Seconds General Appearance: No Apparent Distress, WD/WN Eyes: Bilateral Eye Normal Inspection, Bilateral Eye PERRL, Bilateral Eye EOMI HEENT: PERRL/EOMI, TMs Normal, Normal ENT Inspection, Pharynx Normal Neck: Full Range of Motion, Normal Inspection, Non Tender, Supple, Carotid Bruit Respiratory: Chest Non Tender, Lungs Clear, Normal Breath Sounds, No Accessory Muscle Use, No Respiratory Distress Cardiovascular: Regular Rate, Rhythm, No Edema, No Gallop, No JVD, No Murmur, Normal Peripheral Pulses Gastrointestinal: Normal Bowel Sounds, No Organomegaly, No Pulsatile Mass, Non Tender, Soft Back: Normal Inspection, No CVA Tenderness, No Vertebral Tenderness Extremity: Normal Capillary Refill, Normal Inspection, Normal Range of Motion, Non Tender, No Calf Tenderness, No Pedal Edema Neurologic/Psychiatric: Alert, Oriented x3, No Motor/Sensory Deficits, Normal Mood/Affect Skin: Normal Color, Warm/Dry Lymphatic: No Adenopathy A/P-Cardiology Admission Diagnosis Chest pain nonspecific etiology Metastatic cancer of the jejunum Assessment/Plan Chest pain nonspecific etiology, atypical in presentation, most probably secondary to GI related pain. EKG and cardiac enzymes were negative. 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 Richter. Had a EDMAR which showed cardiac involvement that appeared to be more stable at this time. Loss of appetite, generalized weight loss. I reassured the patient, okay for discharge from cardiology standpoint and follow-up as an outpatient Clinical Quality Measures DVT/VTE Risk/Contraindication: Risk Factor Score Per Nursin RFS Level Per Nursing on Admit: 4+=Very High KIA PRITCHETT MD Feb 19, 2018 13:23
[2018-02-19] MEDS ORDERED: ATORVASTATIN 40 MG (LIPITOR) TABLET PO SCH (21:00)
== END 2018-02-19 14:30 | disposition home or self-care (01) ==
LOC: EDUNIT# 17:48 → ER 17:49 → 4TH 21:30
PROVIDERS: ADMIT Internal Medicine; ATTEND Internal Medicine
DX: R07.89 Other chest pain (principal); C17.9 Malignant neoplasm of small intestine, unspecified; C79.89 Secondary malignant neoplasm of other specified sites; R63.4 Abnormal weight loss; R63.0 Anorexia; Z79.899 Other long term (current) drug therapy
CPT/HCPCS: 36415; 71046; 80048; 80053; 80061; 83735; 83874; 83880; 84484; 85025; 85610; 85730; 93005; 93041; G0378

== ENCOUNTER 2018-03-02 10:41 | Outpatient (RCR) | payer MEDICAID, OTHER ==
[~2018-03-02 10:41] MED LIST changes: +MORP-33 PO; +MORP15TA PO; +MORP60TA52 PO
[2018-03-09] MEDS ORDERED: IRINOTECAN HCL 200 MG, IRINOTECAN HCL 50 MG in D5W 250 ML IVPB (CANCER CTR) 250 ML IV SCH ×2 (08:04→08:30)
[2018-03-09] MEDS ORDERED: PALONOSETRON HCL 0.25 MG, DEXAMETHASONE PF INJ (CANCER C 10 MG in NS (IVPB) CANCER CENT... IV PRN ×2 (08:04→08:15)
[2018-03-09] MEDS ORDERED: ATROPINE INJ 0.4 MG/ML SDV (CANCER CENTER) INJ SCH ×2 (08:04→08:30)
[2018-03-09] MEDS ORDERED: FOSAPREPITANT DIMEGLUMINE 150 MG in NS (IVPB) CANCER CENTER ONLY 150 ML IV SCH ×2 (08:04→08:15)
[2018-03-09] MEDS ORDERED: LEUCOVORIN CALCIUM 400 MG in D5W 250 ML IVPB (CANCER CTR) 250 ML IV SCH ×2 (08:04→08:15)
[2018-03-09] MEDS ORDERED: FOSAPREPITANT DIMEGLUMINE 150 MG in NS (IVPB) CANCER CENTER ONLY 150 ML IV PRN ×2 (08:04→08:15)
[2018-03-09] MEDS ORDERED: FLUOROURACIL 400 MG in SYRINGE-IVPB 1 SYRINGE IV SCH ×2 (08:04→08:15)
[2018-03-09] MEDS ORDERED: NS IV SCH ×4 (08:04→08:15)
[2018-03-09] MEDS ORDERED: FLUOROURACIL 2.5 GM, FLUOROURACIL 0.7 GM in NS (IVPB) CANCER CENTER 83.2 ML IV SCH ×2 (08:04→08:15)
[2018-03-09] MEDS ORDERED: BEVACIZUMAB IV SCH ×4 (08:04→08:15)
[2018-03-09] MEDS ORDERED: PALONOSETRON 0.25 MG, DEXAMETHASONE 10 MG/NS 50 ML IVPB IV PRN ×6 (08:04→08:15)
[2018-03-09] MEDS ORDERED: NS IV 500 ML (CANCER CENTER) 500 ML IV SCH ×2 (08:04→08:15)
[2018-03-09 13:43] LABS: BASOPHILS % (AUTO) 0 % (0-10); EOSINOPHILS # (AUTO) 0.1 10^3/uL (0.0-0.3); EOSINOPHILS % (AUTO) 3 % (0-10); HEMATOCRIT 40 % (35-52); HEMOGLOBIN 13.4 G/DL (11.5-16.0); LYMPHOCYTES # (AUTO) 1.1 X 10^3 (1.0-4.0); LYMPHOCYTES % (AUTO) 26 % (12-44); MEAN CORPUSCULAR HEMOGLOBIN 31 PG (25-34); MEAN CORPUSCULAR HGB CONC 34 G/DL (32-36); MEAN CORPUSCULAR VOLUME 91 FL (80-99); MEAN PLATELET VOLUME 10.1 FL (7.4-10.4); MONOCYTES # (AUTO) 0.6 X 10^3 (0.0-1.0); MONOCYTES % (AUTO) 14 % (0-12); NEUTROPHILS # (AUTO) 2.5 X 10^3 (1.8-7.8); NEUTROPHILS % (AUTO) 57 % (42-75); PLATELET COUNT 214 10^3/uL (130-400); RED BLOOD COUNT 4.35 10^6/uL (4.35-5.85); RED CELL DISTRIBUTION WIDTH 15.8 % (10.0-14.5); WHITE BLOOD COUNT 4.4 10^3/uL (4.3-11.0)
[2018-03-09 14:02] LABS: ALANINE AMINOTRANSFERASE 31 U/L (0-55); ALBUMIN 4.1 GM/DL (3.2-4.5); ALKALINE PHOSPHATASE 57 U/L (40-136); BILIRUBIN,TOTAL 0.4 MG/DL (0.1-1.0); BUN/CREATININE RATIO 28; CALCIUM 9.4 MG/DL (8.5-10.1); CARBON DIOXIDE 29 MMOL/L (21-32); CHLORIDE 103 MMOL/L (98-107); CREATININE SERUM 0.64 MG/DL (0.60-1.30); GFR ESTIMATED > 60; GLUCOSE 110 MG/DL (70-105); POTASSIUM 3.7 MMOL/L (3.6-5.0); SODIUM 139 MMOL/L (135-145); TOTAL PROTEIN 6.6 GM/DL (6.4-8.2)
== END 2018-03-09 13:18 | disposition home or self-care (01) ==
LOC: ONC 10:41
PROVIDERS: ATTEND Internal Medicine Hematology & Oncology
DX: C17.1 Malignant neoplasm of jejunum (principal); C77.2 Secondary and unspecified malignant neoplasm of intra-abdominal lymph nodes; C79.89 Secondary malignant neoplasm of other specified sites; D25.9 Leiomyoma of uterus, unspecified; N83.8 Other noninflammatory disorders of ovary, fallopian tube and broad ligament; Z79.899 Other long term (current) drug therapy
CPT/HCPCS: 36591; 80053; 85025

== ENCOUNTER → 2018-03-30 | Outpatient (CLI) | payer MEDICAID ==
[~2018-03-30] MED LIST changes: +CATHETER FLUSH 10 ML SYR IV PRN; +IOHEXOL 350 MG/ML 100 ML (OMNIPAQUE 350) VIAL IV ONE; +NS 100 ML (IVPB) BAG IV ONE
--- NOTE | 2018-03-30 15:32 | Diagnostic Imaging Report ---
PROCEDURE: CT chest with contrast, CT abdomen and pelvis with and without contrast. TECHNIQUE: Pre and post intravenous contrast axial imaging of the abdomen and pelvis and post contrast axial imaging of the chest were performed. INDICATION: Malignant neoplasm of the jejunum, pain. FINDINGS: The PET/CT exam performed on 01/06/2018 noted a new focus of hypermetabolism in the right adrenal gland as well as worsening of the central retroperitoneal and mesenteric adenopathy when compared to the previous PET/CT exam of 12/17/2016. The subsequent CT abdomen/pelvis exam of 01/17/2018 showed no change in the right adrenal gland. On this exam, the right adrenal gland seems stable. The left adrenal gland is not well visualized, and there is no definite mass involving the gland. The central retroperitoneal and mesenteric adenopathy seen on the PET/CT exam does not appear to have changed significantly. The bilateral adnexal masses noted on the previous study have decreased in size on this exam. The free fluid in the pelvis noted previously has also resolved. The uterus is stable in size. The urinary bladder is grossly unremarkable. The appendix was not well visualized, but there are no indirect signs of acute appendicitis. The liver, spleen, pancreas, gallbladder, aorta, inferior vena cava, and kidneys show no sign of an acute abnormality. The images through the thorax show that the heart size is within normal limits and stable when compared to the prior exam. The lungs are clear. There is no sign of failure, pneumonia, or pleural effusion. However, there does appear to be a rounded defect in one of the pulmonary arteries to the right lung base. This finding was not present on the prior exam and consequently is worrisome for a pulmonary embolus. There is no other defect within the pulmonary arteries to indicate a pulmonary embolus. The aorta is not abnormally dilated. There is no mediastinal or hilar adenopathy. The thyroid gland where visualized is unremarkable. There is no obvious breast mass. The bone windows show no evidence for a fracture or for a destructive lesion. IMPRESSION: 1. There is no evidence for an acute abnormality of the chest, abdomen, or pelvis. 2. The adnexal cysts seen on the prior study have diminished in size. Also, there does not appear to have been any progression of the retroperitoneal adenopathy seen on the previous exam. The right adrenal gland also seems stable. 3. The defect within the pulmonary artery to the right lower lobe is suspicious for a pulmonary embolus. The age of this embolus, however, is indeterminate. 4. These results were discussed with Dr. Richter. Dictated by: Dictated on workstation # [id number]
== END ==
LOC: RAD 13:13
PROVIDERS: ATTEND Nurse Practitioner Adult Health
DX: C17.1 Malignant neoplasm of jejunum (principal); C79.89 Secondary malignant neoplasm of other specified sites; C79.71 Secondary malignant neoplasm of right adrenal gland; C77.2 Secondary and unspecified malignant neoplasm of intra-abdominal lymph nodes
CPT/HCPCS: 71260; 74178; 93306

== ENCOUNTER → 2018-04-24 | Outpatient (CLI) | payer MEDICAID ==
[~2018-04-24] MED LIST changes: +BARIUM SUSPENSION 2.1% (VANILLA SILQ) 450 ML PO ONE; +FEN12TD TD; -NS 100 ML (IVPB) BAG IV ONE; +NS 250 ML (IVPB) BAG IV ONE
--- NOTE | 2018-04-24 10:30 | Diagnostic Imaging Report ---
PROCEDURE: CT head with and without contrast. TECHNIQUE: Multiple contiguous axial images were obtained through the brain before and after the administration of intravenous contrast. INDICATION: Cancer of the jejunum. No prior studies are available for comparison. FINDINGS: The ventricles and sulci are within normal limits. No sulcal effacement, midline shift or hemorrhage is detected. Cisterns are patent. There is an area of low density in the anterior aspect of the left thalamus. This does show some questionable enhancement on the postcontrast images. This area measures approximately 7 mm. No other enhancement is identified. The visualized paranasal sinuses are clear. IMPRESSION: Small focus of enhancement in the left thalamus. Further evaluation with MRI of the brain with and without intravenous contrast is recommended. Dictated by: Dictated on workstation # [id number]
--- NOTE | 2018-04-24 10:51 | Diagnostic Imaging Report ---
PROCEDURE: CT chest with contrast, CT abdomen and pelvis with and without contrast. TECHNIQUE: Pre and post intravenous contrast axial imaging of the abdomen and pelvis and post contrast axial imaging of the chest were performed. INDICATION: Jejunal carcinoma, followup. COMPARISON: Comparison is made with prior CT of the chest, abdomen and pelvis from 03/30/2018. FINDINGS: CT chest: A right chest wall port remains in place with tip extending into the right atrium. No axillary lymphadenopathy is seen. No definite hilar or mediastinal lymphadenopathy is detected. No pericardial or pleural fluid is detected. The filling defect noted in right lower lobe pulmonary artery is not as well-seen on today's study. Parenchymal valuation demonstrates the lungs to be clear. No nodule, mass or infiltrate is detected. IMPRESSION: Stable CT of the chest when compared with exam from one month earlier. No thoracic lymphadenopathy or evidence of pulmonary metastatic disease is detected. CT abdomen and pelvis: No discrete liver mass is identified. Gallbladder is unremarkable. The pancreas and spleen are unremarkable. The adrenal glands appear to be stable. No discrete adrenal mass is detected. Kidneys are unremarkable. Aorta is nonaneurysmal. The retroperitoneal lymph nodes appear to be stable in appearance when compared with prior CT. Small lymph node previously seen next to the left common iliac artery appears stable. Obturator node on the left appears similar. No new lymphadenopathy is seen. There is no ascites. Bowel loops are nondilated. There is moderate stool throughout the colon. IMPRESSION: Overall stable CT of the abdomen and pelvis when compared with prior exam from one month earlier. Dictated by: Dictated on workstation # [id number]
== END ==
LOC: RAD 09:28
PROVIDERS: ATTEND Nurse Practitioner Adult Health
DX: C17.1 Malignant neoplasm of jejunum (principal); C79.89 Secondary malignant neoplasm of other specified sites; C79.71 Secondary malignant neoplasm of right adrenal gland; C77.2 Secondary and unspecified malignant neoplasm of intra-abdominal lymph nodes
CPT/HCPCS: 70470; 71260; 74178; 93306

== ENCOUNTER → 2018-04-27 | Outpatient (CLI) | payer MEDICAID, OTHER ==
[~2018-04-27] MED LIST changes: -BARIUM SUSPENSION 2.1% (VANILLA SILQ) 450 ML PO ONE; -CATHETER FLUSH 10 ML SYR IV PRN; +GADOBUTROL 7.5 MMOL/7.5 ML (GADAVIST) VIAL IV ONE; -IOHEXOL 350 MG/ML 100 ML (OMNIPAQUE 350) VIAL IV ONE; -NS 250 ML (IVPB) BAG IV ONE
--- NOTE | 2018-04-27 18:06 | Diagnostic Imaging Report ---
PROCEDURE: MR imaging of the brain with and without contrast. TECHNIQUE: Multiplanar, multisequence MR imaging of the brain was performed with and without contrast. INDICATION: History of small bowel cancer. Abnormal CT scan of the head on 04/24/2018. FINDINGS: There is no restricted diffusion demonstrated intracranially. The ventricles and cortical gyral pattern are normal. No extra-axial fluid collections. Basal cisterns and CP angles are normal. There is a subtle area of increased T2 signal on the T2 images and FLAIR sequence in the left thalamic nucleus, correlating with the area of the enhancement on CT scan. This does show avid uptake of gadolinium following IV injection measuring approximately 8 x 10 mm. This area does show slight increased signal on the T1-weighted images without contrast as well which may represent mild petechial hemorrhage. There is no significant mass effect at this time. No additional enhancing lesions are demonstrated intracranially. Pituitary is not enlarged. Brainstem appears normal. Orbital contents are normal. No calvarial lesion. IMPRESSION: 1. There is enhancing mass in the left thalamic nucleus measuring approximately 10 x 8 mm. This does show increased signal on the T2-weighted image as well as subtle increased signal on the noncontrasted T1. This may represent some minimal associated hemorrhage as well. 2. No additional lesions are demonstrated. Primary secondary brain tumor versus metastatic disease would be in the differential. Dictated by: Dictated on workstation # [id number]
== END ==
LOC: RAD 16:13
PROVIDERS: ATTEND Internal Medicine Hematology & Oncology
DX: G93.89 Other specified disorders of brain (principal)
CPT/HCPCS: 70553

== ENCOUNTER → 2018-05-12 | Outpatient (CLI) | payer MEDICAID, OTHER ==
[~2018-05-12] MED LIST changes: -GADOBUTROL 7.5 MMOL/7.5 ML (GADAVIST) VIAL IV ONE
--- NOTE | 2018-05-12 15:42 | Diagnostic Imaging Report ---
INDICATION: Metastatic adenocarcinoma of the jejunum. Patient complains of spine pain for 2 weeks. TECHNIQUE: The patient was administered 23.8 mCi of technetium 99m MDP intravenously and whole-body imaging was performed after a three-hour delay. COMPARISON: Comparison is made with prior whole body bone scan from 06/13/2017. FINDINGS: There is normal uptake of activity by the axial and appendicular skeleton. There is uptake by both kidneys with excretion into the urinary bladder. No abnormal foci of tracer accumulation is seen to suggest osseous metastatic disease. IMPRESSION: No scintigraphic evidence of osseous metastatic disease. Dictated by: Dictated on workstation # [id number]
== END ==
LOC: CARD 11:28
PROVIDERS: ATTEND Radiology Radiation Oncology
DX: C17.1 Malignant neoplasm of jejunum (principal); C79.9 Secondary malignant neoplasm of unspecified site
CPT/HCPCS: 78306

== ENCOUNTER 2018-05-16 21:53 | Emergency (ER) | payer MEDICAID ==
[~2018-05-16] VITALS: Ht 175.3 cm; Wt 43.2 kg
[~2018-05-16 21:53] MED LIST changes: -FEN12TD TD
[2018-05-16 21:55] VITALS: BP 129/96
[2018-05-16] MEDS: morphine INJ 10 MG/ML 1ML (SYR OR VIAL) IVP STA (22:55)
[2018-05-16] MEDS: fentaNYL INJECTION 100 MCG/2 ML AMP IVP STA ×2 (23:30→23:50)
[2018-05-16] MEDS ORDERED: FEN12TD TD (23:35)
--- NOTE | 2018-05-16 23:35 | ED General ---
General Chief Complaint: General Problems/Pain Stated Complaint: PAIN Nursing Triage Note: patient reports worseing of pain. patient reports taking morphine 5mg IR x 2 without improvement. Nursing Sepsis Screen: No Definite Risk Allergies and Home Medications Allergies Coded Allergies: ondansetron (Verified Adverse Reaction, Unknown, NAUSEA, 01/17/18) Causes paradoxical vomiting Home Medications L.acidoph & Paracasei,B.lactis 1 Each Capsule, 1 CAP PO HS, (Reported) Magnesium Oxide 400 Mg Tablet, 800 MG PO BID PRN for CRAMPS, (Reported) Methylprednisolone 4 Mg Tablet, 4 MG PO QID PRN for NAUSEA/VOMITING-1ST LINE Prescribed by: MAGUI ALANIZ on 01/23/18 1633 Metoclopramide HCl 5 Mg Tablet, 5 MG PO QID Prescribed by: MAUGI ALANIZ on 01/23/18 1633 Morphine Sulfate 15 Mg Tablet.er, 15 MG PO 1000,2200, (Reported) TAKES ALONG WITH 60MG TABLET FOR A TOTAL DOSE OF 75MG Morphine Sulfate 60 Mg Tablet.er, 60 MG PO 1000,2200, (Reported) TAKES ALONG WITH 15MG TABLET FOR A TOTAL DOSE OF 75MG Morphine Sulfate 15 Mg Tablet, 15-30 MG PO Q4H PRN for PAIN-BREAKTHROUGH, ( Reported) Multivitamin 1 Each Tablet, 1 TAB PO HS, (Reported) Omeprazole 20 Mg Capsule.dr, 20 MG PO DAILY PRN for HEARTBURN, (Reported) Past Okhqnyf-Yjhetu-Yhhlzo Hx Patient Social History Alcohol Use: Denies Use Number of Drinks Today: HH Alcohol Beverage of Choice: Wine Recreational Drug Use: No 2nd Hand Smoke Exposure: No Recent Foreign Travel: No Contact w/Someone Who Travel: No Recent Infectious Disease Expo: No Recent Hopitalizations: No Immunizations Up To Date Tetanus Booster (TDap): Unknown PED Vaccines UTD: No Seasonal Allergies Seasonal Allergies: No Past Medical History Surgeries: Yes (port placement, COLON RESECTION) Abdominal Respiratory: No Cardiac: Yes (right atrial mass) Neurological: No Reproductive Disorders: No Genitourinary: No Gastrointestinal: Yes Obstructive Bowel Musculoskeletal: No Endocrine: No HEENT: No Loss of Vision: Denies Hearing Impairment: Denies Cancer: Yes Small Bowel Did You Recieve Any Treatments: Yes What Type of Treatment Did You: Chemotherapy, Surgical Intervention Psychosocial: No Integumentary: No Blood Disorders: No Adverse Reaction/Blood Tranf: No Family Medical History Anxiety disorder G8 SISTER Asthma G8 BROTHER No Pertinent Family Hx, Hypertension Physical Exam Vital Signs Vital Signs - First Documented 05/16/18 21:55 Temp 98.2 Pulse 125 Resp 18 B/P (MAP) 129/96 (107) Pulse Ox 97 Capillary Refill : Less Than 3 Seconds Progress/Results/Core Measures Suspected Sepsis Recent Fever Within 48 Hours: No Infection Criteria Present: None New/Unexplained Altered Menta: No Sepsis Screen: No Definite Risk SIRS Temperature:98.2 Pulse: 125 Respiratory Rate: 18 Blood Pressure 129 /96 Mean: 107 Results/Orders My Orders Orders - KSIHAN WILDER DO Saline Lock/Iv-Start (05/16/18 22:33) Morphine Injection (Morphine Injection (05/16/18 22:33) Fentanyl Injection (Sublimaze Injection (05/16/18 23:09) Vital Signs/I&O 05/16/18 21:55 Temp 98.2 Pulse 125 Resp 18 B/P (MAP) 129/96 (107) Pulse Ox 97 Capillary Refill : Less Than 3 Seconds Blood Pressure Mean: 107 Departure Impression Primary Impression: Chronic back pain Additional Impression: METASTATIC SMALL BOWEL CANCER Disposition: HOME, SELF-CARE Condition: Improved Departure-Patient Inst. Referrals: MARINO TRAN,LOCAL PHYSICIAN (PCP) Primary Care Physician Patient Instructions: CHRONIC PAIN Add. Discharge Instructions: CONTINUE YOUR MORPHINE PRESCRIBED KEEP YOUR APPOINTMENT ON FRIDAY WITH ONCOLOGY All discharge instructions reviewed with patient and/or family. Voiced understanding. Scripts Fentanyl (Duragesic Patch 12MCG) 12 Mcg Patch 12 MCG TD Q72H, #1 PATCH Prov: KISHAN WILDER DO 05/16/18 KISHAN WILDER DO May 16, 2018 23:35
== END 2018-05-17 00:15 | disposition home or self-care (01) ==
LOC: EDUNIT# 21:53 → ER 21:55
DX: G89.29 Other chronic pain (principal); R52 Pain, unspecified; C17.9 Malignant neoplasm of small intestine, unspecified; C79.9 Secondary malignant neoplasm of unspecified site; Z92.21 Personal history of antineoplastic chemotherapy; Z90.89 Acquired absence of other organs; Z88.8 Allergy status to other drugs, medicaments and biological substances; Z98.890 Other specified postprocedural states
CPT/HCPCS: 99281

== ENCOUNTER 2018-05-25 10:27 | Outpatient (RCR) | payer MEDICAID, OTHER ==
[2018-03-17 13:07] LABS: BASOPHILS % (AUTO) 0 % (0-10); EOSINOPHILS # (AUTO) 0.1 10^3/uL (0.0-0.3); EOSINOPHILS % (AUTO) 2 % (0-10); HEMATOCRIT 39 % (35-52); HEMOGLOBIN 13.2 G/DL (11.5-16.0); LYMPHOCYTES # (AUTO) 0.9 X 10^3 (1.0-4.0); LYMPHOCYTES % (AUTO) 22 % (12-44); MEAN CORPUSCULAR HGB CONC 34 G/DL (32-36); MEAN CORPUSCULAR VOLUME 90 FL (80-99); MEAN PLATELET VOLUME 10.3 FL (7.4-10.4); MONOCYTES # (AUTO) 0.2 X 10^3 (0.0-1.0); MONOCYTES % (AUTO) 5 % (0-12); NEUTROPHILS # (AUTO) 2.9 X 10^3 (1.8-7.8); NEUTROPHILS % (AUTO) 70 % (42-75); PLATELET COUNT 203 10^3/uL (130-400); RED BLOOD COUNT 4.33 10^6/uL (4.35-5.85); RED CELL DISTRIBUTION WIDTH 15.1 % (10.0-14.5); WHITE BLOOD COUNT 4.1 10^3/uL (4.3-11.0)
[2018-03-17 13:08] LABS: MEAN CORPUSCULAR HEMOGLOBIN 30 PG (25-34)
[2018-03-17 13:24] LABS: BUN/CREATININE RATIO 27; CALCIUM 9.5 MG/DL (8.5-10.1); CARBON DIOXIDE 31 MMOL/L (21-32); CHLORIDE 100 MMOL/L (98-107); CREATININE SERUM 0.64 MG/DL (0.60-1.30); GFR ESTIMATED > 60; GLUCOSE 87 MG/DL (70-105); MAGNESIUM 2.5 MG/DL (1.8-2.4); POTASSIUM 3.7 MMOL/L (3.6-5.0); SODIUM 138 MMOL/L (135-145)
[2018-03-23 10:44] LABS: BASOPHILS % (AUTO) 0 % (0-10); EOSINOPHILS # (AUTO) 0.1 10^3/uL (0.0-0.3); EOSINOPHILS % (AUTO) 3 % (0-10); HEMATOCRIT 37 % (35-52); HEMOGLOBIN 12.8 G/DL (11.5-16.0); LYMPHOCYTES # (AUTO) 0.8 X 10^3 (1.0-4.0); LYMPHOCYTES % (AUTO) 23 % (12-44); MEAN CORPUSCULAR HEMOGLOBIN 31 PG (25-34); MEAN CORPUSCULAR HGB CONC 34 G/DL (32-36); MEAN CORPUSCULAR VOLUME 90 FL (80-99); MEAN PLATELET VOLUME 10.5 FL (7.4-10.4); MONOCYTES # (AUTO) 0.4 X 10^3 (0.0-1.0); MONOCYTES % (AUTO) 11 % (0-12); NEUTROPHILS # (AUTO) 2.1 X 10^3 (1.8-7.8); NEUTROPHILS % (AUTO) 64 % (42-75); PLATELET COUNT 213 10^3/uL (130-400); RED BLOOD COUNT 4.15 10^6/uL (4.35-5.85); RED CELL DISTRIBUTION WIDTH 15.3 % (10.0-14.5); WHITE BLOOD COUNT 3.3 10^3/uL (4.3-11.0)
[2018-03-23 11:08] LABS: ALANINE AMINOTRANSFERASE 22 U/L (0-55); ALBUMIN 4.1 GM/DL (3.2-4.5); ALKALINE PHOSPHATASE 81 U/L (40-136); BILIRUBIN,TOTAL 0.4 MG/DL (0.1-1.0); BUN/CREATININE RATIO 20; CALCIUM 9.6 MG/DL (8.5-10.1); CARBON DIOXIDE 27 MMOL/L (21-32); CHLORIDE 102 MMOL/L (98-107); CREATININE SERUM 0.65 MG/DL (0.60-1.30); GFR ESTIMATED > 60; GLUCOSE 110 MG/DL (70-105); MAGNESIUM 2.3 MG/DL (1.8-2.4); POTASSIUM 3.4 MMOL/L (3.6-5.0); SODIUM 138 MMOL/L (135-145); TOTAL PROTEIN 6.9 GM/DL (6.4-8.2)
[2018-04-06 09:49] LABS: BASOPHILS % (AUTO) 0 % (0-10); EOSINOPHILS # (AUTO) 0.1 10^3/uL (0.0-0.3); EOSINOPHILS % (AUTO) 2 % (0-10); HEMATOCRIT 37 % (35-52); HEMOGLOBIN 12.4 G/DL (11.5-16.0); LYMPHOCYTES % (AUTO) 26 % (12-44); MEAN CORPUSCULAR HGB CONC 34 G/DL (32-36); MEAN CORPUSCULAR VOLUME 91 FL (80-99); MEAN PLATELET VOLUME 10.5 FL (7.4-10.4); MONOCYTES # (AUTO) 0.4 X 10^3 (0.0-1.0); MONOCYTES % (AUTO) 10 % (0-12); NEUTROPHILS # (AUTO) 2.4 X 10^3 (1.8-7.8); NEUTROPHILS % (AUTO) 62 % (42-75); PLATELET COUNT 192 10^3/uL (130-400); RED BLOOD COUNT 4.07 10^6/uL (4.35-5.85); RED CELL DISTRIBUTION WIDTH 15.2 % (10.0-14.5); WHITE BLOOD COUNT 3.8 10^3/uL (4.3-11.0)
[2018-04-06 09:50] LABS: MEAN CORPUSCULAR HEMOGLOBIN 30 PG (25-34)
[2018-04-06 10:09] LABS: ALANINE AMINOTRANSFERASE 29 U/L (0-55); ALKALINE PHOSPHATASE 72 U/L (40-136); BILIRUBIN,TOTAL 0.4 MG/DL (0.1-1.0); BUN/CREATININE RATIO 13; CALCIUM 9.4 MG/DL (8.5-10.1); CARBON DIOXIDE 25 MMOL/L (21-32); CHLORIDE 105 MMOL/L (98-107); CREATININE SERUM 0.67 MG/DL (0.60-1.30); GFR ESTIMATED > 60; GLUCOSE 120 MG/DL (70-105); MAGNESIUM 2.2 MG/DL (1.8-2.4); POTASSIUM 3.7 MMOL/L (3.6-5.0); SODIUM 138 MMOL/L (135-145); TOTAL PROTEIN 6.2 GM/DL (6.4-8.2)
[2018-04-13 14:20] LABS: BASOPHILS % (AUTO) 0 % (0-10); EOSINOPHILS # (AUTO) 0.1 10^3/uL (0.0-0.3); EOSINOPHILS % (AUTO) 2 % (0-10); HEMATOCRIT 40 % (35-52); LYMPHOCYTES % (AUTO) 22 % (12-44); MEAN CORPUSCULAR HEMOGLOBIN 31 PG (25-34); MEAN CORPUSCULAR HGB CONC 35 G/DL (32-36); MEAN CORPUSCULAR VOLUME 89 FL (80-99); MEAN PLATELET VOLUME 10.5 FL (7.4-10.4); MONOCYTES # (AUTO) 0.4 X 10^3 (0.0-1.0); MONOCYTES % (AUTO) 8 % (0-12); NEUTROPHILS % (AUTO) 68 % (42-75); PLATELET COUNT 215 10^3/uL (130-400); RED CELL DISTRIBUTION WIDTH 14.2 % (10.0-14.5); WHITE BLOOD COUNT 4.5 10^3/uL (4.3-11.0)
[2018-04-13 14:35] LABS: BUN/CREATININE RATIO 24; CALCIUM 9.8 MG/DL (8.5-10.1); CARBON DIOXIDE 27 MMOL/L (21-32); CHLORIDE 102 MMOL/L (98-107); GFR ESTIMATED > 60; GLUCOSE 108 MG/DL (70-105); POTASSIUM 3.7 MMOL/L (3.6-5.0); SODIUM 139 MMOL/L (135-145)
[2018-04-21 10:23] LABS: BASOPHILS % (AUTO) 0 % (0-10); EOSINOPHILS # (AUTO) 0.1 10^3/uL (0.0-0.3); EOSINOPHILS % (AUTO) 3 % (0-10); HEMATOCRIT 39 % (35-52); HEMOGLOBIN 13.8 G/DL (11.5-16.0); LYMPHOCYTES # (AUTO) 1.2 X 10^3 (1.0-4.0); LYMPHOCYTES % (AUTO) 29 % (12-44); MEAN CORPUSCULAR HEMOGLOBIN 32 PG (25-34); MEAN CORPUSCULAR HGB CONC 35 G/DL (32-36); MEAN CORPUSCULAR VOLUME 90 FL (80-99); MEAN PLATELET VOLUME 10.8 FL (7.4-10.4); MONOCYTES # (AUTO) 0.5 X 10^3 (0.0-1.0); MONOCYTES % (AUTO) 11 % (0-12); NEUTROPHILS # (AUTO) 2.4 X 10^3 (1.8-7.8); NEUTROPHILS % (AUTO) 57 % (42-75); PLATELET COUNT 212 10^3/uL (130-400); RED BLOOD COUNT 4.38 10^6/uL (4.35-5.85); RED CELL DISTRIBUTION WIDTH 14.9 % (10.0-14.5); WHITE BLOOD COUNT 4.2 10^3/uL (4.3-11.0)
[2018-04-21 10:37] LABS: ALANINE AMINOTRANSFERASE 24 U/L (0-55); ALBUMIN 4.1 GM/DL (3.2-4.5); ALKALINE PHOSPHATASE 66 U/L (40-136); BILIRUBIN,TOTAL 0.4 MG/DL (0.1-1.0); BUN/CREATININE RATIO 15; CALCIUM 9.7 MG/DL (8.5-10.1); CARBON DIOXIDE 27 MMOL/L (21-32); CHLORIDE 102 MMOL/L (98-107); CREATININE SERUM 0.67 MG/DL (0.60-1.30); GFR ESTIMATED > 60; GLUCOSE 95 MG/DL (70-105); POTASSIUM 3.6 MMOL/L (3.6-5.0); SODIUM 139 MMOL/L (135-145); TOTAL PROTEIN 6.8 GM/DL (6.4-8.2)
[2018-05-18 10:56] LABS: BASOPHILS % (AUTO) 0 % (0-10); EOSINOPHILS # (AUTO) 0.2 10^3/uL (0.0-0.3); EOSINOPHILS % (AUTO) 3 % (0-10); HEMATOCRIT 44 % (35-52); HEMOGLOBIN 15.8 G/DL (11.5-16.0); LYMPHOCYTES # (AUTO) 0.9 X 10^3 (1.0-4.0); LYMPHOCYTES % (AUTO) 12 % (12-44); MEAN CORPUSCULAR HEMOGLOBIN 31 PG (25-34); MEAN CORPUSCULAR HGB CONC 36 G/DL (32-36); MEAN CORPUSCULAR VOLUME 87 FL (80-99); MEAN PLATELET VOLUME 10.5 FL (7.4-10.4); MONOCYTES # (AUTO) 0.7 X 10^3 (0.0-1.0); MONOCYTES % (AUTO) 10 % (0-12); NEUTROPHILS # (AUTO) 5.6 X 10^3 (1.8-7.8); NEUTROPHILS % (AUTO) 75 % (42-75); PLATELET COUNT 248 10^3/uL (130-400); RED BLOOD COUNT 5.04 10^6/uL (4.35-5.85); RED CELL DISTRIBUTION WIDTH 12.9 % (10.0-14.5); WHITE BLOOD COUNT 7.5 10^3/uL (4.3-11.0)
[2018-05-18 11:07] LABS: ALANINE AMINOTRANSFERASE 24 U/L (0-55); ALBUMIN 4.1 GM/DL (3.2-4.5); ALKALINE PHOSPHATASE 201 U/L (40-136); BILIRUBIN,TOTAL 0.6 MG/DL (0.1-1.0); BUN/CREATININE RATIO 18; CALCIUM 9.8 MG/DL (8.5-10.1); CARBON DIOXIDE 23 MMOL/L (21-32); CHLORIDE 96 MMOL/L (98-107); CREATININE SERUM 0.57 MG/DL (0.60-1.30); GFR ESTIMATED > 60; GLUCOSE 116 MG/DL (70-105); POTASSIUM 3.7 MMOL/L (3.6-5.0); SODIUM 135 MMOL/L (135-145); TOTAL PROTEIN 7.1 GM/DL (6.4-8.2)
[~2018-05-25] VITALS: Ht 172.7 cm; Wt 43.1 kg
[~2018-05-25 10:27] MED LIST changes: +ATROPINE INJ 0.4 MG/ML SDV (CANCER CENTER) INJ SCH; +BEVACIZUMAB IV SCH; +D5W IV SCH; +DEXAMETHASONE PF INJ (CANCER C 10 MG in NS (IVPB) CANCER CENTER 50 ML INJ ONE; +FEN12TD TD; +FLUOROURACIL 2.5 GM, FLUOROURACIL 0.7 GM in NS (IVPB) CANCER CENTER 83.2 ML IV SCH; +FLUOROURACIL 2.5 GM, FLUOROURACIL 500 MG in NS (IVPB) CANCER CENTER 87.2 ML IV SCH; +FLUOROURACIL 400 MG in SYRINGE-IVPB 1 SYRINGE IV SCH; +FOSAPREPITANT DIMEGLUMINE 150 MG in NS (IVPB) CANCER CENTER ONLY 150 ML IV PRN; +FOSAPREPITANT DIMEGLUMINE 150 MG in NS (IVPB) CANCER CENTER ONLY 150 ML IV SCH; +IRINOTECAN HCL 200 MG, IRINOTECAN HCL 50 MG in D5W 250 ML IVPB (CANCER CTR) 250 ML IV SCH; +IRINOTECAN HCL IV SCH; +LEUCOVORIN CALCIUM 400 MG in D5W 250 ML IVPB (CANCER CTR) 250 ML IV SCH; +METOCLOPRAMIDE 10 MG/2 ML IV ONE; +NS IV 1000 ML (CANCER CTR) 1,000 ML ONE; +NS IV 500 ML (CANCER CENTER) 500 ML IV SCH; +NS IV SCH; +ONDANSETRON 8 MG, DEXAMETHASONE 4 MG/NS 50 ML IVPB (Cancer Ctr) IV ONE; +PALONOSETRON 0.25 MG, DEXAMETHASONE 10 MG/NS 50 ML IVPB IV PRN; +PALONOSETRON HCL 0.25 MG, DEXAMETHASONE INJ (CANCER CTR) 4 MG in NS (IVPB) CANCER CENTE... IV ONE; +PALONOSETRON HCL 0.25 MG, DEXAMETHASONE PF INJ (CANCER C 10 MG in NS (IVPB) CANCER CENT... IV PRN; +morphine INJ 10 MG/ML 1ML (CANCER CENTER) IV ONE
[2018-05-25] MEDS ORDERED: NS IV 1000 ML (CANCER CTR) 1,000 ML ONE (10:32)
[2018-05-25] MEDS ORDERED: morphine INJ 10 MG/ML 1ML (CANCER CENTER) IV PRN (11:00)
[2018-05-25] MEDS ORDERED: HYDR4TAB PO (15:32)
[2018-05-25] MEDS ORDERED: MORP15TA PO (15:32)
[2018-05-25] MEDS ORDERED: FENT1PAT6 TD (15:32)
[2018-05-25] MEDS ORDERED: MORP60TA52 PO (15:32)
[2018-05-25] MEDS ORDERED: MORP100T37 PO (15:32)
[2018-05-29] MEDS ORDERED: [UNRECOGNIZED DRUG - CODE] IV (09:24)
== END 2018-06-07 | disposition home or self-care (01) ==
LOC: ONC 10:27
PROVIDERS: ATTEND Internal Medicine Hematology & Oncology
DX: Z51.11 Encounter for antineoplastic chemotherapy (principal); Z51.0 Encounter for antineoplastic radiation therapy; C17.1 Malignant neoplasm of jejunum; C77.2 Secondary and unspecified malignant neoplasm of intra-abdominal lymph nodes; C79.89 Secondary malignant neoplasm of other specified sites; D25.9 Leiomyoma of uterus, unspecified; N83.8 Other noninflammatory disorders of ovary, fallopian tube and broad ligament; Z79.899 Other long term (current) drug therapy
CPT/HCPCS: 36415; 36591; 77290; 77295; 77300; 77334; 77336; 77417; 77470; 80048; 80053; 82570; 83735; 84156; 85025; 96361; 96367; 96368; 96374; 96375; 96376; 96409; 96411; 96413; 99213; 99214

== ENCOUNTER 2018-05-25 12:04 | Inpatient (IN) | payer MEDICAID ==
[~2018-05-25] VITALS: Ht 175.3 cm; Wt 41.8 kg
[~2018-05-25 12:04] MED LIST changes: -ATROPINE INJ 0.4 MG/ML SDV (CANCER CENTER) INJ SCH; -BEVACIZUMAB IV SCH; -D5W IV SCH; -DEXAMETHASONE PF INJ (CANCER C 10 MG in NS (IVPB) CANCER CENTER 50 ML INJ ONE; -FLUOROURACIL 2.5 GM, FLUOROURACIL 0.7 GM in NS (IVPB) CANCER CENTER 83.2 ML IV SCH; -FLUOROURACIL 2.5 GM, FLUOROURACIL 500 MG in NS (IVPB) CANCER CENTER 87.2 ML IV SCH; -FLUOROURACIL 400 MG in SYRINGE-IVPB 1 SYRINGE IV SCH; -FOSAPREPITANT DIMEGLUMINE 150 MG in NS (IVPB) CANCER CENTER ONLY 150 ML IV PRN; -FOSAPREPITANT DIMEGLUMINE 150 MG in NS (IVPB) CANCER CENTER ONLY 150 ML IV SCH; -IRINOTECAN HCL 200 MG, IRINOTECAN HCL 50 MG in D5W 250 ML IVPB (CANCER CTR) 250 ML IV SCH; -IRINOTECAN HCL IV SCH; -LEUCOVORIN CALCIUM 400 MG in D5W 250 ML IVPB (CANCER CTR) 250 ML IV SCH; -METOCLOPRAMIDE 10 MG/2 ML IV ONE; -NS IV 1000 ML (CANCER CTR) 1,000 ML ONE; -NS IV 500 ML (CANCER CENTER) 500 ML IV SCH; -NS IV SCH; -ONDANSETRON 8 MG, DEXAMETHASONE 4 MG/NS 50 ML IVPB (Cancer Ctr) IV ONE; -PALONOSETRON 0.25 MG, DEXAMETHASONE 10 MG/NS 50 ML IVPB IV PRN; -PALONOSETRON HCL 0.25 MG, DEXAMETHASONE INJ (CANCER CTR) 4 MG in NS (IVPB) CANCER CENTE... IV ONE; -PALONOSETRON HCL 0.25 MG, DEXAMETHASONE PF INJ (CANCER C 10 MG in NS (IVPB) CANCER CENT... IV PRN; -morphine INJ 10 MG/ML 1ML (CANCER CENTER) IV ONE
[2018-05-25] MEDS ORDERED: morphine PCA 30 MG/30 ML VIAL IV PRN (13:30)
[2018-05-25] MEDS ORDERED: ALPRAZolam 0.25 MG (XANAX) TAB PO PRN (14:15)
[2018-05-25] MEDS ORDERED: diphenhydrAMINE 50 MG/ML INJ (BENADRYL) IVP PRN (14:15)
[2018-05-25] MEDS ORDERED: PATIENT MAY USE OWN MEDS, ALL PO SCH (14:15)
[2018-05-25] MEDS ORDERED: SENNA W/DOCUSATE (SENOKOT S) TABLET PO PRN (14:15)
[2018-05-25] MEDS ORDERED: MILK OF MAGNESIA 400 MG/5 ML 30 ML UDC PO PRN (14:15)
[2018-05-25] MEDS ORDERED: ACETAMINOPHEN 325 MG TABLET PO PRN (14:15)
[2018-05-25] MEDS ORDERED: diphenhydrAMINE 25 MG TAB (BENADRYL) PO PRN (14:15)
--- NOTE | 2018-05-25 14:28 | History & Physicial ---
History of Present Illness History of Present Illness Reason for visit/HPI Ms. 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 She has exhausted all cancer treatment options. She is under comfort care and in transition to hospice. She came to cancer with pain over her back pain and pain allover, 7-10/10 scale. She was given IV morphine 5mg IV q 30min-1hr for 30mg and her pain is still 7/10. She is admitted for ATTENDANCE CLERK pain control. She takes Morphine ER 160m bid plus PRN Dilaudid and Hydrocodone q 2-4 hrs PRN. No constipation. No vomiting. Last bowel movement yesterday. She is able to eat and drink. Date of Admission Date Seen by Provider: May 25, 2018 Time Seen by Provider: 11:55 I consulted on this patient on 05/25/18 14:17 Attending Physician Antoine Wagner MD Admitting Physician Luisa,Local Physician Consult Allergies and Home Medications Allergies Coded Allergies: ondansetron (Verified Adverse Reaction, Unknown, NAUSEA, 01/17/18) Causes paradoxical vomiting Home Medications Fentanyl 1 Each Patch.td72, 12 MCG TD Q72H, (Reported) Hydromorphone HCl 4 Mg Tablet, 4 MG PO Q3HR PRN for PAIN-MODERATE, (Reported) Rakeshacidlopez & Herber Obrienlactis 1 Each Capsule, 1 CAP PO HS, (Reported) Magnesium Oxide 400 Mg Tablet, 400 MG PO BID PRN for CRAMPS, (Reported) Metoclopramide HCl 5 Mg Tablet, 5 MG PO QID Prescribed by: MAGUI ALANIZ on 01/23/18 1633 Morphine Sulfate 60 Mg Tablet.er, 60 MG PO BID, (Reported) TAKE WITH 100 MG MORPHINE ER TABLET FOR A TOTAL OF 160 MG TWICE DAILY Morphine Sulfate 100 Mg Tablet.er, 100 MG PO BID, (Reported) TAKE WITH 60 MG MORPHINE ER TABLET FOR A TOTAL OF 160MG TWICE DAILY Morphine Sulfate 15 Mg Tablet, 15-30 MG PO Q4H PRN for PAIN-MODERATE, (Reported) TAKE 1 TO 2 (15 MG) TABLETS EVERY 4 HOURS NEEDED FOR PAIN Multivitamin 1 Each Tablet, 1 TAB PO HS, (Reported) Omeprazole 20 Mg Capsule.dr, 20 MG PO DAILY PRN for HEARTBURN, (Reported) Patient Home Medication List Home Medication List Reviewed: Yes Past Usrphim-Qwlvty-Jnmkao Hx Patient Social History Alcohol Beverage of Choice: Wine 2nd Hand Smoke Exposure: No Recent Hopitalizations: No Immunizations Up To Date Tetanus Booster (TDap): Unknown Pediatric: No Seasonal Allergies Seasonal Allergies: No Surgeries Yes (port placement, COLON RESECTION) Abdominal Respiratory No Cardiovascular Yes (right atrial mass) Neurological No Reproductive System Hx Reproductive Disorders: No Genitourinary No Gastrointestinal Yes Obstructive Bowel Musculoskeletal No Endocrine History of Endocrine Disorders: No HEENT History of HEENT Disorders: No Loss of Vision: Denies Hearing Impairment: Denies Cancer Yes Small Bowel Did You Recieve Any Treatments: Yes Type of Treatment: Chemotherapy, Surgical Intervention Psychosocial History of Psychiatric Problem: No Integumentary History of Skin or Integumenta: No Blood Transfusions History of Blood Disorders: No Adverse Reaction to a Blood Tr: No Family Medical History Significant Family History: No Pertinent Family Hx, Hypertension Family Hx: Anxiety disorder G8 SISTER Asthma G8 BROTHER Constitutional: weakness, weight loss EENTM: see HPI Respiratory: see HPI Cardiovascular: no symptoms reported Gastrointestinal: see HPI : No Musculoskeletal: see HPI Physical Exam Vital Signs Capillary Refill : General Appearance: Moderate Distress HEENT: PERRL/EOMI Respiratory: Normal Breath Sounds, No Accessory Muscle Use, No Respiratory Distress Cardiovascular: Regular Rate, Rhythm, Tachycardia Gastrointestinal: Soft, Tenderness Extremity: Non Tender, No Calf Tenderness, No Pedal Edema Neurologic/Psychiatric: Alert, Oriented x3 Assessment/Plan Assessment and Plan A/P 1. Terminal small intestine carcinoma, exhausted all cancer treatment options. Needs to transfer to hospice serves after the pain under good control 2. Uncontrolled pain with oral morphine and Dilaudid. Need to have ATTENDANCE CLERK as in-pt 3. Plan is to get pain under good control and go home with hospice. 4. When it gets the end, pt wants to in the hospital not home. 5. Needs to work on the DNR. I do not suggest any Resuscitation due to her terminal cancer. 6. Pt has a daughter 8-9 years old and it is a challenge situation for the family. 7. Hospice consultation with Jarrod Link. Admission Diagnosis Admission Status: Inpatient Order (span 2 midnights) Reason for Inpatient Admission: Pain control with ATTENDANCE CLERK. Terminal small bowel cancer ANTOINE WAGNER MD May 25, 2018 14:28
[2018-05-25] MEDS ORDERED: NS IV 1000 ML 1,000 ML IV SCH (14:45)
[2018-05-25 15:00] VITALS: BP 94/61
[2018-05-25] MEDS ORDERED: MORPHINE IV PRN (15:00)
[2018-05-25] MEDS ORDERED: HYDR4TAB PO (15:32)
[2018-05-25] MEDS ORDERED: MORP60TA52 PO (15:32)
[2018-05-25] MEDS ORDERED: MORP15TA PO (15:32)
[2018-05-25] MEDS ORDERED: MORP100T37 PO (15:32)
[2018-05-25] MEDS ORDERED: FENT1PAT6 TD (15:32)
[2018-05-25] MEDS: MORPHINE IV PRN (15:53)
[2018-05-25] MEDS: NS IV PRN (15:53)
[2018-05-25 20:00] VITALS: BP 104/69
[2018-05-26 00:32] VITALS: BP 115/75
[2018-05-26 04:21] VITALS: BP 116/64
[2018-05-26 08:00] VITALS: BP 100/65
[2018-05-26] MEDS ORDERED: NS IV PRN (11:23)
[2018-05-26] MEDS ORDERED: MORPHINE IV PRN (11:23)
[2018-05-26] MEDS: NS IV PRN (11:28)
[2018-05-26] MEDS: MORPHINE IV PRN (11:28)
[2018-05-26 12:00] VITALS: BP 105/65
--- NOTE | 2018-05-26 14:35 | Physician Progress Note ---
Progress Note Assessment/Plan Date Seen by Provider: May 26, 2018 Time Seen by Provider: 14:00 Events since last exam Pain is under reasonable control by PLASTIC SHAPER but required frequent push. Pt is alert and able to sip fluid. No nausea and vomiting. Hospice is involved The plan is to discharge home with PLASTIC SHAPER CADD pump and hospice. She wants to go home on . Assessment/Plan A/P Terminal small bowel carcinoma on PLASTIC SHAPER CADD pump for pain control. Will increase morphine CI dose from 10mg/hr to 15mg/hr. 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 Pt is DNR. Vitals Last set of Vitals Signs Vital Signs Date Time Temp Pulse Resp B/P (MAP) Pulse Ox O2 Delivery O2 Flow Rate FiO2 05/26/18 12:00 97.6 104 16 105/65 (78) 95 Room Air I&O I&O Intake and Output 05/26/18 00:00 Intake Total 100 ml Output Total 100 ml Balance 0 ml Intake Oral 100 ml Output Urine Total 100 ml Daily Weight Change Yes, Unsure # of pounds Yes, Unsure # of pounds Clinical Quality Measures Admission Status Admission Dx A/P 1. Terminal small intestine carcinoma, exhausted all cancer treatment options. Needs to transfer to hospice serves after the pain under good control 2. Uncontrolled pain with oral morphine and Dilaudid. Need to have PLASTIC SHAPER as in-pt 3. Plan is to get pain under good control and go home with hospice. 4. When it gets the end, pt wants to in the hospital not home. 5. Needs to work on the DNR. I do not suggest any Resuscitation due to her terminal cancer. 6. Pt has a daughter 8-9 years old and it is a challenge situation for the family. 7. Hospice consultation with Jarrod Link. DVT/VTE Risk/Contraindication: Risk Factor Score Per Nursin RFS Level Per Nursing on Admit: 4+=Very High DEBBIE WAGNER MD May 26, 2018 14:35
[2018-05-26 16:10] VITALS: BP 105/65
[2018-05-26 19:50] VITALS: BP 103/62
[2018-05-27 00:52] VITALS: BP 107/66
[2018-05-27] MEDS: MORPHINE IV SCH ×2 (01:23→15:02)
[2018-05-27] MEDS: NS IV SCH ×2 (01:23→15:02)
[2018-05-27 03:58] VITALS: BP 111/68
[2018-05-27 08:35] VITALS: BP 96/65
[2018-05-27 12:30] VITALS: BP 97/61
--- NOTE | 2018-05-27 15:19 | Physician Progress Note ---
Progress Note Assessment/Plan Date Seen by Provider: May 27, 2018 Time Seen by Provider: 14:45 Events since last exam Pain is under better control. No new issues Family members are around her. Plan to go home tomorrow with DUST SAMPLER CADD pump and hospice. Assessment/Plan A/P Terminal small bowel carcinoma on DUST SAMPLER CADD pump for pain control. Doing well. Continue current dose. 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 Pt is DNR. Vitals Last set of Vitals Signs Vital Signs Date Time Temp Pulse Resp B/P (MAP) Pulse Ox O2 Delivery O2 Flow Rate FiO2 05/27/18 15:02 98.6 05/27/18 12:30 90 18 97/61 (73) 99 Room Air I&O I&O Intake and Output 05/27/18 00:00 Intake Total 930 ml Output Total 1100 ml Balance -170 ml Intake Oral 830 ml IV Total 100 ml Output Urine Total 1100 ml Daily Weight Change Yes, Unsure # of pounds Clinical Quality Measures Admission Status Admission Dx A/P 1. Terminal small intestine carcinoma, exhausted all cancer treatment options. Needs to transfer to hospice serves after the pain under good control 2. Uncontrolled pain with oral morphine and Dilaudid. Need to have DUST SAMPLER as in-pt 3. Plan is to get pain under good control and go home with hospice. 4. When it gets the end, pt wants to in the hospital not home. 5. Needs to work on the DNR. I do not suggest any Resuscitation due to her terminal cancer. 6. Pt has a daughter 8-9 years old and it is a challenge situation for the family. 7. Hospice consultation with Jarrod Link. DVT/VTE Risk/Contraindication: Risk Factor Score Per Nursin RFS Level Per Nursing on Admit: 4+=Very High DEBBIE WAGNER MD May 27, 2018 15:19
[2018-05-27] MEDS: PROCHLORPERAZINE 10 MG/2ML INJ (COMPAZINE) IV PRN (15:34)
[2018-05-27 16:10] VITALS: BP_SYST 68; BP_SYST 98; BP_DIAS 61; BP_DIAS 68
[2018-05-27 19:40] VITALS: BP 112/69
[2018-05-28] VITALS: BP 102/71
[2018-05-28 04:00] VITALS: BP 110/79
[2018-05-28 08:06] VITALS: BP 112/73
[2018-05-28] MEDS: NS IV SCH (11:29)
[2018-05-28] MEDS: MORPHINE IV SCH (11:29)
[2018-05-28 12:00] VITALS: BP 111/74
[2018-05-28 15:39] VITALS: BP 103/68
--- NOTE | 2018-05-28 15:58 | Physician Progress Note ---
Progress Note Assessment/Plan Date Seen by Provider: May 28, 2018 Time Seen by Provider: 11:30 Events since last exam Pain is at 4-5/10 but patient is OK with it. She dose not want to increase dose and make her too sleepy. [facility] will not be able to do high dose morphine CADD pump but can hydromorphone/Dilaudid at 5mg/hr CI and 2.5mg q 20min. We will send the new order to [facility] today and she gets the CADD pump tomorrow at noon time. Then going home with hospice. Assessment/Plan A/P Terminal small bowel carcinoma on CLAIMS AUDITOR CADD pump for pain control. Will prepare to discharge home tomorrow with [facility] on Dilaudid CADD pums. Set up CLAIMS AUDITOR CADD pump with hospice and teaching pt to use of CADD pump. Pt is DNR. Vitals Last set of Vitals Signs Vital Signs Date Time Temp Pulse Resp B/P (MAP) Pulse Ox O2 Delivery O2 Flow Rate FiO2 05/28/18 15:39 98.2 96 20 103/68 (80) 96 Room Air I&O I&O Intake and Output 05/28/18 00:00 Intake Total 740 ml Output Total 0 ml Balance 740 ml Intake Oral 740 ml Output Urine Total 0 ml # Voids 1 Daily Weight Change Yes, Unsure # of pounds Clinical Quality Measures Admission Status Admission Dx A/P 1. Terminal small intestine carcinoma, exhausted all cancer treatment options. Needs to transfer to hospice serves after the pain under good control 2. Uncontrolled pain with oral morphine and Dilaudid. Need to have CLAIMS AUDITOR as in-pt 3. Plan is to get pain under good control and go home with hospice. 4. When it gets the end, pt wants to in the hospital not home. 5. Needs to work on the DNR. I do not suggest any Resuscitation due to her terminal cancer. 6. Pt has a daughter 8-9 years old and it is a challenge situation for the family. 7. Hospice consultation with Jarrod Fariba. DVT/VTE Risk/Contraindication: Risk Factor Score Per Nursin RFS Level Per Nursing on Admit: 4+=Very High DEBBIE WAGNER MD May 28, 2018 15:58
[2018-05-28] MEDS: PROCHLORPERAZINE 10 MG/2ML INJ (COMPAZINE) IV PRN (16:51)
[2018-05-28 19:46] VITALS: BP 130/77
[2018-05-29] VITALS (7 sets, daily range): BP systolic 104–123; BP diastolic 67–79
[2018-05-29] MEDS ORDERED: [UNRECOGNIZED DRUG - CODE] IV (09:24)
[2018-05-29] MEDS: NS IV SCH (11:41)
[2018-05-29] MEDS: MORPHINE IV SCH (11:41)
--- NOTE | 2018-05-29 13:17 | Physician Progress Note ---
Progress Note Assessment/Plan Date Seen by Provider: May 29, 2018 Time Seen by Provider: 12:50 Events since last exam Pt was arranged to go home with [facility] hospice on Dilaudid MOLDED GOODS SPOT PICKER CADD pump today. But pt's mother wanted to change the hospice service to [facility] last night. The [facility] is still working to see if they can and know how to operate the MOLDED GOODS SPOT PICKER CADD pump. Most likely she will go home tomorrow. Assessment/Plan A/P Terminal small bowel carcinoma on MOLDED GOODS SPOT PICKER CADD pump for pain control. Will discharge home whenever the Dilaudid CADD pump is ready for her from the hospice service. Set up MOLDED GOODS SPOT PICKER CADD pump with hospice and teaching pt to use of CADD pump. Pt is DNR. Vitals Last set of Vitals Signs Vital Signs Date Time Temp Pulse Resp B/P (MAP) Pulse Ox O2 Delivery O2 Flow Rate FiO2 05/29/18 11:41 98.5 05/29/18 08:00 105 16 111/69 (83) 97 Room Air I&O I&O Intake and Output 05/28/18 23:59 Intake Total 970 ml Output Total 650 ml Balance 320 ml Intake Oral 970 ml Output Urine Total 650 ml Daily Weight Change Unsure Clinical Quality Measures Admission Status Admission Dx A/P 1. Terminal small intestine carcinoma, exhausted all cancer treatment options. Needs to transfer to hospice serves after the pain under good control 2. Uncontrolled pain with oral morphine and Dilaudid. Need to have MOLDED GOODS SPOT PICKER as in-pt 3. Plan is to get pain under good control and go home with hospice. 4. When it gets the end, pt wants to in the hospital not home. 5. Needs to work on the DNR. I do not suggest any Resuscitation due to her terminal cancer. 6. Pt has a daughter 8-9 years old and it is a challenge situation for the family. 7. Hospice consultation with Jarrod Link. DVT/VTE Risk/Contraindication: Risk Factor Score Per Nursin RFS Level Per Nursing on Admit: 4+=Very High DEBBIE WAGNER MD May 29, 2018 13:17
[2018-05-29] MEDS: PROCHLORPERAZINE 10 MG/2ML INJ (COMPAZINE) IV PRN (18:51)
[2018-05-30] VITALS (7 sets, daily range): BP systolic 103–118; BP diastolic 69–81
[2018-05-30] MEDS: NS IV SCH (09:51)
[2018-05-30] MEDS: MORPHINE IV SCH (09:51)
--- NOTE | 2018-06-17 09:12 | Oncology Discharge Summary ---
Diagnosis/Chief Complaint Date of Admission May 25, 2018 at 14:33 Date of Discharge May 30, 2018 at 22:23 Discharge Date: May 30, 2018 Discharge Diagnosis 1. Terminal small intestine carcinoma, exhausted all cancer treatment options. 2. Uncontrolled pain with oral morphine and Dilaudid. 3. Pt is DNR Reason Hospital Visit Ms. 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 She has exhausted all cancer treatment options. She was under comfort care and in transition to hospice. She came to cancer with pain over her back pain and pain allover, 7-10/10 scale. She was given IV morphine 5mg IV q 30min-1hr for 30mg and her pain is still 7/10. She was admitted for CARDIOTHORACIC ICU RN pain control. Her pain was under reasonable good control since she was on CARDIOTHORACIC ICU RN. She was then discharged to home with Hospice Compasses per pt and her family request. She is DNR. Hospice will provide her CARDIOTHORACIC ICU RN pump at home. Discharge condition. Stable and much improvement of pain control. Discharge Summary Discharge Instructions to patient/family Please see electronic discharge instructions given to patient. Discharge Medications Reviewed and agree with Discharge Medication list on patient's Discharge Instruction sheet Clinical Quality Measures DVT/VTE Risk/Contraindication: Risk Factor Score Per Nursin RFS Level Per Nursing on Admit: 4+=Very High DEBBIE WAGNER MD Jun 17, 2018 09:12
== END 2018-05-30 22:23 | disposition hospice, home (50) | DRG 948 ==
LOC: 4TH 14:33
PROVIDERS: ADMIT Internal Medicine Hematology & Oncology; ATTEND Internal Medicine Hematology & Oncology
DX: G89.3 Neoplasm related pain (acute) (chronic) (principal); C17.9 Malignant neoplasm of small intestine, unspecified; Z51.5 Encounter for palliative care; Z66 Do not resuscitate; Z90.49 Acquired absence of other specified parts of digestive tract; Z92.21 Personal history of antineoplastic chemotherapy
CPT/HCPCS: 96361; 96374; 96376